=== PATIENT | male | born 1950 | race Caucasian/White ===

== ENCOUNTER 2016-06-14 23:37 | Emergency (ER) | payer MEDICARE, BC ==
[2016-06-15] MEDS ORDERED: NS 0.9% 1000 ML* 1,000 ML IV ONE (00:30)
[2016-06-15 01:17] LABS: Hematocrit 31 % (42-52); Hemoglobin 10.3 g/dl (14.0-18.0); Mean Corpuscular HGB Conc 33 g/dl (31-36); Mean Corpuscular Hemoglobin 31 pg (27-31); Mean Corpuscular Volume 93 fL (80-94); Mean Platelet Volume 7 um3 (7.4-10.4); Red Blood Count 3.33 10^6/ul (4.0-5.4); Red Cell Distribution Width 16 % (10.5-15); White Blood Count 7.3 10^3/ul (3.5-10.8)
[2016-06-15 01:26] LABS: Add Diff/Slide Review? Slide Review Added; Comments Flag Yes
[2016-06-15 01:28] LABS: Albumin 3.7 g/dL (3.2-5.2); BUN/Creatinine Ratio 29.6 (8-20); Calcium 9.7 mg/dL (8.6-10.3); EGFR African American 88.2 (>60); EGFR Non-African American 68.6 (>60); Globulin 4.5 g/dL (2-4); Potassium 4.1 mmol/L (3.5-5.0); Total Bilirubin 0.5 mg/dL (0.2-1.0); Total Protein 8.2 g/dL (6.4-8.9)
[2016-06-15 01:50] LABS: Hypochromasia 2+; Immature Granulocytes 20 % (0-9); Macrocytosis 1+; Microcytosis 1+; Neutrophil % 70 % (38-83); Polychromasia 1+
[2016-06-15 03:05] LABS: Urine Bilirubin Negative (Negative); Urine Glucose Negative (Negative); Urine Nitrite Negative (Negative)
--- NOTE | 2016-06-15 04:19 | ED ---
Virginia Lara Michael, scribed for Liliya Dominguez MD on 06/15/16 at 0038 . Complex/Multi-Sys Presentation - HPI Summary HPI Summary: 65 y/o male comes to the ED due to accidentally pulling on his feeding tube tonight at 2230. 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 He also presents with lightheadedness and recent mechanical falls for the past few days. The pt has ecchymosis and swelling of the left shoulder. He denies vomiting and all other symptoms. - History Of Current Complaint Chief Complaint: EDGeneral Time Seen by Provider: 06/15/16 00:08 Hx Obtained From: Patient, Medical Records Onset/Duration: Gradual Onset, Lasting Hours, Still Present Timing: Intermittent, Lasting: Severity Currently: Mild Severity Initially: Mild Associated Signs And Symptoms: Positive: Other - left shoulder swelling and ecchymosis. lightheadedness.. Negative: Vomiting - Allergies/Home Medications Allergies/Adverse Reactions: Allergies Allergy/AdvReac Type Severity Reaction Status Date / Time No Known Allergies Allergy Verified 05/30/15 13:12 PMH/Surg Hx/FS Hx/Imm Hx Endocrine/Hematology History: Denies: Hx Diabetes, Hx Systemic Lupus Erythematosus Cardiovascular History: Reports: Hx Hypercholesterolemia Denies: Hx Congestive Heart Failure, Hx Hypertension, Hx Pacemaker/ICD Respiratory History: Reports: Hx Pneumonia, Other Respiratory Problems/ Disorders - CURRENT L PNEUMONIA- D/[place] [facility] [place] AMOX Denies: Hx Asthma, Hx Chronic Obstructive Pulmonary Disease (COPD), Hx Lung Cancer - Pt denied GI History: Reports: Hx Gastroesophageal Reflux Disease, Hx Gastrointestinal Bleed, Hx Hiatal Hernia, Other GI Disorders - PEG tube History: Reports: Hx Benign Prostatic Hyperplasia, Other Problems/ Disorders - BPH Denies: Hx Dialysis, Hx Renal Disease Musculoskeletal History: Reports: Hx Arthritis - back and hip, Hx Back Problems - surgeries x2 Denies: Hx Rheumatoid Arthritis Comment Only: Other Musculoskeletal History - L hip surgery Sensory History: Reports: Hx Contacts or Glasses Denies: Hx Cataracts, Hx Hearing Aid Opthamlomology History: Reports: Hx Contacts or Glasses Denies: Hx Cataracts Neurological History: Reports: Other Neuro Impairments/Disorders - epidural abscess Denies: Hx Dementia, Hx Seizures Psychiatric History: Reports: Hx Depression Denies: Hx Panic Disorder - Cancer History Cancer Type, Location and Year: tongue CA Hx Chemotherapy: Yes Hx Radiation Therapy: Yes - Surgical History Surgery Procedure, Year, and Place: peg tube placement 04/04 [facility] [place] left hip replacement 2007 [facility]. lumbar back surgery many yrs ago [facility]. left wrist orif many yrs ago. Trach Hx Anesthesia Reactions: No Infectious Disease History: No Infectious Disease History: Denies: Traveled Outside the [place] in Last 30 Days - Family History Known Family History: Positive: None - no malignant hyperthermia. no anesthesia reaction. Family History: CA to father - Social History Occupation: Retired Lives: With Family Alcohol Use: None Hx Substance Use: No Substance Use Type: Reports: None Hx Tobacco Use: Yes Smoking Status (MU): Former Smoker Type: Cigarettes Length of Time of Smoking/Using Tobacco: 7 years Have You Smoked in the Last Year: No Review of Systems Negative: Fever Negative: Vomiting Positive: Other - swelling/ecchymosis of left shoulder Neurological: Other - lightheadedness All Other Systems Reviewed And Are Negative: Yes Physical Exam Triage Information Reviewed: Yes Vital Signs On Initial Exam: Initial Vitals Temp Pulse Resp BP Pulse Ox 97.8 F 105 20 90/62 100 06/14/16 23:40 06/14/16 23:40 06/14/16 23:40 06/14/16 23:40 06/14/16 23:40 Vital Signs Reviewed: Yes Appearance: Positive: Well-Appearing, No Pain Distress Skin: Positive: Warm, Skin Color Reflects Adequate Perfusion, Dry Eyes: Positive: EOMI, BJ ENT: Positive: Pharynx normal, TMs normal, Other - trach tube inplace. Neck: Positive: Supple, Nontender Respiratory/Lung Sounds: Positive: Clear to Auscultation, Breath Sounds Present. Negative: Rales, Rhonchi, Wheezes Cardiovascular: Positive: Tachycardia, Other - no gallops. Negative: Murmur, Rub Abdomen Description: Positive: Nontender, Soft, Other: - no rebound. feeding tube out with gastric contents coming out.. Negative: Distended, Guarding Bowel Sounds: Positive: Present Musculoskeletal: Positive: Strength/ROM Intact, Other - left shoulder green/ blue hematoma over humeral head. Negative: Edema Left, Edema Right Neurological: Positive: Sensory/Motor Intact, Alert, Oriented to Person Place, Time, CN Intact II-III Psychiatric: Positive: Affect/Mood Appropriate Diagnostics - Vital Signs Vital Signs Temp Pulse Resp BP Pulse Ox 06/14/16 23:40 97.8 F 105 20 90/62 100 - Laboratory Lab Results: Lab Results 06/15/16 06/15/16 06/15/16 Range/Units 01:00 01:00 02:50 WBC 7.3 (3.5-10.8) 10^3/ul RBC 3.33 L (4.0-5.4) 10^6/ul Hgb 10.3 L (14.0-18.0) g/dl Hct 31 L (42-52) % MCV 93 (80-94) fL MCH 31 (27-31) pg MCHC 33 (31-36) g/dl RDW 16 H (10.5-15) % Plt Count 228 (150-450) 10^3/ul MPV 7 L (7.4-10.4) um3 Immature Gran % (Auto) 20 H (0-9) % Neut % (Auto) 82.8 (38-83) % Lymph % (Auto) 9.1 L (25-47) % Pope % (Auto) 5.8 (1-9) % Eos % (Auto) 1.2 (0-6) % Baso % (Auto) 1.1 (0-2) % Absolute Neuts (auto) 6.0 (1.5-7.7) 10^3/ul Absolute Lymphs (auto) 0.7 L (1.0-4.8) 10^3/ul Absolute Monos (auto) 0.4 (0-0.8) 10^3/ul Absolute Eos (auto) 0.1 (0-0.6) 10^3/ul Absolute Basos (auto) 0.1 (0-0.2) 10^3/ul Absolute Nucleated RBC 0.01 10^3/ul Neutrophils % 70 (38-83) % Band Neutrophils % 20 H (0-8) % Lymphocytes % 4 L (25-47) % Monocytes % 6 (0-13) % Nucleated RBC % 0.1 Normal RBC Morphology Not Reportable Polychromasia 1+ Hypochromasia 2+ Microcytosis 1+ Macrocytosis 1+ Sodium 130 L (133-145) mmol/L Potassium 4.1 (3.5-5.0) mmol/L Chloride 95 L (101-111) mmol/L Carbon Dioxide 24 (22-32) mmol/L Anion Gap 11 (2-11) mmol/L BUN 32 H (6-24) mg/dL Creatinine 1.08 (0.67-1.17) mg/dL Est GFR ( Amer) 88.2 (>60) Est GFR (Non-Af Amer) 68.6 (>60) BUN/Creatinine Ratio 29.6 H (8-20) Glucose 107 H (70-100) mg/dL Calcium 9.7 (8.6-10.3) mg/dL Total Bilirubin 0.50 (0.2-1.0) mg/dL AST 19 (13-39) U/L ALT 15 (7-52) U/L Alkaline Phosphatase 100 (34-104) U/L Total Protein 8.2 (6.4-8.9) g/dL Albumin 3.7 (3.2-5.2) g/dL Globulin 4.5 H (2-4) g/dL Albumin/Globulin Ratio 0.8 L (1-3) Urine Color Yellow Urine Appearance Clear Urine pH 8.0 (5-9) Ur Specific [place] 1.008 L (1.010-1.030) Urine Protein Negative (Negative) Urine Ketones Negative (Negative) Urine Blood Negative (Negative) Urine Nitrate Negative (Negative) Urine Bilirubin Negative (Negative) Urine Urobilinogen Negative (Negative) Ur Leukocyte Esterase Negative (Negative) Urine Glucose Negative (Negative) Urine Ascorbic Acid * H (Negative) Result Diagrams: 06/15/16 01:00 06/15/16 01:00 Lab Statement: Any lab studies that have been ordered have been reviewed, and results considered in the medical decision making process. - Radiology ABD XR Xray Interpretation: Positive (See Comments) - feeding tube is in place Radiology Interpretation Completed By: ED Physician Complex Multi-Symp Course/Dx Course Of Treatment: 65 yo male who accidentally pulled out peg tube shortly before arrival. tube replaced here with gastrograffin kub showing tube is in correct place. Of note mentioned he has been having low bp's with falls recently left shoulder bruising. Pt was orthostatic on exam, got two liters of fluid with good results. We discussed increasing the water content of his tube feeds, which he will discuss with his pmd - Diagnoses Provider Diagnoses: Dehydration, Attention to G-tube Discharge - Discharge Plan Condition: Stable Disposition: HOME Patient Education Materials: Dehydration (ED) Referrals: Ana Wallace MD [Primary Care Provider] - Additional Instructions: Please follow up with Dr. Wallace within the next 2-3 days. The documentation as recorded by the Virginia ding Michael accurately reflects the service I personally performed and the decisions made by me, Liliya Dominguez MD.
[2016-06-15 04:20] VITALS: BP 121/74
--- NOTE | 2016-06-15 08:28 | RAD ---
Indication: Check position of G-tube. History of esophageal cancer. Comparison: February 12, 2016 and January 25, 2016 CT. Technique: Supine abdomen radiograph obtained following injection of Gastrografin through the percutaneous gastric tube. Report: Contrast opacifies the gastric tube as well as the stomach and first and second segments of the duodenum. No contrast extravasation evident. Unremarkable bowel gas pattern with note of moderately large volume of formed stool in the colon. No suspicious calcifications or mass effect. Multilevel anterior and posterior lumbar sacral spine fusion hardware. Unremarkable soft tissue contours. Grossly clear visualized lung bases. Tip of RIGHT chest wall port visualized at level of the RIGHT atrium. IMPRESSION: Patent percutaneous feeding tube at the stomach documented.
== END 2016-06-15 04:20 | disposition home or self-care (01) ==
LOC: ED 23:37
DX: Z43.1 Encounter for attention to gastrostomy (principal); R42 Dizziness and giddiness; Z87.891 Personal history of nicotine dependence; E86.0 Dehydration
CPT/HCPCS: 36415; 74000; 80053; 81003; 85025; 96360; 99283

== ENCOUNTER 2016-07-02 19:52 | Emergency (ER) | payer MEDICARE, BC ==
[2016-07-02 19:56] VITALS: BP 120/67
--- NOTE | 2016-07-02 21:42 | RAD ---
Indication: G-tube replacement. Single view of the abdomen demonstrates contrast in the stomach. G-tube appears to be appropriately IMPRESSION: G-tube contrast appears to be within the stomach.
--- NOTE | 2016-07-10 14:09 | ED ---
Virginia Lara Michael, scribed for Angella Torres MD on 07/02/16 at 2045 . GI/ HPI - HPI Summary HPI Summary: 65 y/o male comes to the ED after his gastric tube was pulled out tonight at 1900. He denies abd pain and all other symptoms. The PMHx is significant for tongue CA which is why the G-tube was placed originally.G tube placed about 6 months ago - History of Current Complaint Chief Complaint: EDGeneral Time Seen by Provider: 07/02/16 20:38 Stated Complaint: FEEDING PROBLEM Hx Obtained From: Patient, Medical Records Onset/Duration: Started Hours Ago, Still Present Timing: Constant Severity: Mild Current Severity: Mild Pain Intensity: 0 Pain Characteristics: Other: - no pain Associated Signs and Symptoms: Positive: Negative. Negative: Abdominal Pain - Additional Pertinent History Primary Care Physician: JENNIFER - Allergy/Home Medications Allergies/Adverse Reactions: Allergies Allergy/AdvReac Type Severity Reaction Status Date / Time No Known Allergies Allergy Verified 07/02/16 20:18 PMH/Surg Hx/FS Hx/Imm Hx Endocrine/Hematology History: Denies: Hx Diabetes, Hx Systemic Lupus Erythematosus Cardiovascular History: Reports: Hx Hypercholesterolemia Denies: Hx Congestive Heart Failure, Hx Hypertension, Hx Pacemaker/ICD Respiratory History: Reports: Hx Pneumonia, Other Respiratory Problems/ Disorders - CURRENT L PNEUMONIA- [place] [facility] [place] Denies: Hx Asthma, Hx Chronic Obstructive Pulmonary Disease (COPD), Hx Lung Cancer - Pt denied GI History: Reports: Hx Gastroesophageal Reflux Disease, Hx Gastrointestinal Bleed, Hx Hiatal Hernia, Other GI Disorders - PEG tube History: Reports: Hx Benign Prostatic Hyperplasia, Other Problems/ Disorders - BPH Denies: Hx Dialysis, Hx Renal Disease Musculoskeletal History: Reports: Hx Arthritis - back and hip, Hx Back Problems - surgeries x2 Denies: Hx Rheumatoid Arthritis Comment Only: Other Musculoskeletal History - L hip surgery Sensory History: Reports: Hx Contacts or Glasses Denies: Hx Cataracts, Hx Hearing Aid Opthamlomology History: Reports: Hx Contacts or Glasses Denies: Hx Cataracts Neurological History: Reports: Other Neuro Impairments/Disorders - epidural abscess Denies: Hx Dementia, Hx Seizures Psychiatric History: Reports: Hx Depression Denies: Hx Panic Disorder - Cancer History Cancer Type, Location and Year: tongue CA Hx Chemotherapy: Yes Hx Radiation Therapy: Yes - Surgical History Surgery Procedure, Year, and Place: peg tube placement 04/04 [facility] [place] left hip replacement 2007 [facility]. lumbar back surgery many yrs ago [facility]. left wrist orif many yrs ago. Trach Hx Anesthesia Reactions: No - Immunization History Date of Tetanus Vaccine: unk Date of Influenza Vaccine: utd Infectious Disease History: No Infectious Disease History: Denies: Traveled Outside the [place] in Last 30 Days - Family History Known Family History: Positive: None - no malignant hyperthermia. no anesthesia reaction. Family History: CA to father - Social History Occupation: Retired Lives: With Family Alcohol Use: None Hx Substance Use: No Substance Use Type: Reports: None Hx Tobacco Use: Yes Smoking Status (MU): Former Smoker Type: Cigarettes Length of Time of Smoking/Using Tobacco: 7 years Have You Smoked in the Last Year: No Review of Systems Negative: Fever Positive: Other - feeding tube displaced. Negative: Abdominal Pain All Other Systems Reviewed And Are Negative: Yes Physical Exam Triage Information Reviewed: Yes Vital Signs On Initial Exam: Initial Vitals Temp Pulse Resp BP Pulse Ox 98.1 F 96 20 120/67 100 07/02/16 19:55 07/02/16 19:55 07/02/16 19:55 07/02/16 19:55 07/02/16 19:55 Vital Signs Reviewed: Yes Appearance: Positive: Well-Appearing, No Pain Distress, Well-Nourished Skin: Positive: Warm, Skin Color Reflects Adequate Perfusion, Dry Head/Face: Positive: Normal Head/Face Inspection Eyes: Positive: EOMI, BJ, Conjunctiva Clear ENT: Positive: Normal ENT inspection, Hearing grossly normal Neck: Positive: Supple, Nontender Respiratory/Lung Sounds: Positive: Clear to Auscultation, Breath Sounds Present. Negative: Rales, Rhonchi, Wheezes Cardiovascular: Positive: RRR, Pulses are Symmetrical in both Upper and Lower Extremities. Negative: Murmur, Rub Abdomen Description: Positive: Nontender, No Organomegaly, Soft, Other: - feeding tube out without signs of infection or irritation. Negative: Distended , Guarding, Peritoneal Signs Bowel Sounds: Positive: Present Musculoskeletal: Positive: Strength/ROM Intact Neurological: Positive: Sensory/Motor Intact, Alert, Oriented to Person Place, Time, Normal Gait. Negative: Cerebellar Dysfunction Psychiatric: Positive: Affect/Mood Appropriate - [place] Coma Scale Coma Scale Total: 15 Diagnostics - Vital Signs Vital Signs Temp Pulse Resp BP Pulse Ox 07/02/16 20:16 98.1 F 96 20 120/67 100 07/02/16 19:55 98.1 F 96 20 120/67 100 - Laboratory Lab Statement: Any lab studies that have been ordered have been reviewed, and results considered in the medical decision making process. - Radiology Abd XR Xray Interpretation: Positive (See Comments) - G-tube contrast appears to be within the stomach Radiology Interpretation Completed By: Radiologist MATT Course/Dx - Diagnoses Provider Diagnoses: gastric tube replacement Discharge - Discharge Plan Condition: Stable Disposition: HOME Patient Education Materials: How to Use and Care for Your PEG Tube (ED) Referrals: Kota Bernard MD [Primary Care Provider] - Additional Instructions: You should follow up with Dr. Bernard within the next 2-3 days. The documentation as recorded by the Virginia ding Michael accurately reflects the service I personally performed and the decisions made by Brian beebe Afoma Frances, MD.
== END 2016-07-02 21:57 | disposition home or self-care (01) ==
LOC: ED 19:52
DX: Z43.1 Encounter for attention to gastrostomy (principal)
CPT/HCPCS: 74000; 99282

== ENCOUNTER → 2016-07-18 06:11 | Emergency (ER) | payer MEDICARE, BC ==
--- NOTE | 2016-07-18 08:49 | RAD ---
HISTORY: Feeding tube placement COMPARISONS: July 17, 2016 VIEWS: Frontal views of the abdomen, obtained after injection of water-soluble contrast through a gastrostomy tube.. FINDINGS: BOWEL: Oral contrast is noted within the stomach and proximal duodenum. There is no extravasation. A gastrostomy tube is noted. CALCULI: There are no abnormal calculi. BONES AND SOFT TISSUES: The patient is status post spinal fusion and left hip arthroplasty OTHER FINDINGS: The lung bases are clear. There is no subphrenic gas. IMPRESSION: ORAL CONTRAST IS NOTED WITHIN THE UPPER GI TRACT, WITHOUT EXTRAVASATION.
--- NOTE | 2016-07-18 09:34 | ED ---
Tomas Lara Billy, scribed for Phil Paula MD on 07/18/16 at 0725 . GI/ HPI - HPI Summary HPI Summary: This is a 66 year-old male with a history of head and neck cancer coming to [facility] for evaluation of a displaced 22-Tajik PEG tube this morning. Per patient and family present, the tube became displaced when he coughed at approximately 0400. They report that this has occurred numerous times in the last two months. It was originally placed by Dr. Damon (gastroenterology) on . He states that he is in pain at this time, when he has not complained of pain during previous episodes. He was seen in the ED yesterday for the same complaint, and the tube was placed back in place by Dr. Orta. - History of Current Complaint Chief Complaint: EDGeneral Time Seen by Provider: 07/18/16 07:15 Stated Complaint: FEEDING TUBE PROBLEM Hx Obtained From: Patient, Family/Gas Examiner Onset/Duration: Started Hours Ago Timing: Constant Severity: Moderate Current Severity: Moderate Pain Intensity: 6 - At the site of the PEG tube. Associated Signs and Symptoms: Positive: Negative Aggravating Factor(s): Nothing Alleviating Factor(s): Nothing - Additional Pertinent History Primary Care Physician: [id number] - Allergy/Home Medications Allergies/Adverse Reactions: Allergies Allergy/AdvReac Type Severity Reaction Status Date / Time No Known Allergies Allergy Verified 07/02/16 20:18 PMH/Surg Hx/FS Hx/Imm Hx Endocrine/Hematology History: Denies: Hx Diabetes, Hx Systemic Lupus Erythematosus Cardiovascular History: Reports: Hx Hypercholesterolemia Denies: Hx Congestive Heart Failure, Hx Hypertension, Hx Pacemaker/ICD Respiratory History: Reports: Hx Pneumonia, Other Respiratory Problems/ Disorders - CURRENT L PNEUMONIA- D/C FROM [facility] [place] 12/[place] ON AMOX Denies: Hx Asthma, Hx Chronic Obstructive Pulmonary Disease (COPD), Hx Lung Cancer - Pt denied GI History: Reports: Hx Gastroesophageal Reflux Disease, Hx Gastrointestinal Bleed, Hx Hiatal Hernia, Other GI Disorders - PEG tube History: Reports: Hx Benign Prostatic Hyperplasia, Other Problems/ Disorders - BPH Denies: Hx Dialysis, Hx Renal Disease Musculoskeletal History: Reports: Hx Arthritis - back and hip, Hx Back Problems - surgeries x2 Denies: Hx Rheumatoid Arthritis Comment Only: Other Musculoskeletal History - L hip surgery Sensory History: Reports: Hx Contacts or Glasses Denies: Hx Cataracts, Hx Hearing Aid Opthamlomology History: Reports: Hx Contacts or Glasses Denies: Hx Cataracts Neurological History: Reports: Other Neuro Impairments/Disorders - epidural abscess Denies: Hx Dementia, Hx Seizures Psychiatric History: Reports: Hx Depression Denies: Hx Panic Disorder - Cancer History Cancer Type, Location and Year: tongue CA Hx Chemotherapy: Yes Hx Radiation Therapy: Yes - Surgical History Surgery Procedure, Year, and Place: peg tube placement 04/04 [facility] [place]. left hip replacement 2007 [facility]. lumbar back surgery many yrs ago [facility]. left wrist orif many yrs ago. Trach Hx Anesthesia Reactions: No - Immunization History Date of Tetanus Vaccine: unk Date of Influenza Vaccine: utd Infectious Disease History: Yes Infectious Disease History: Denies: Traveled Outside the US in Last 30 Days - Family History Family History: There is no documented family history of malignant hyperthermia or anesthesia reaction. There is a history of unspecified cancer in the father. - Social History Alcohol Use: None Hx Substance Use: No Substance Use Type: Reports: None Hx Tobacco Use: Yes Smoking Status (MU): Former Smoker Type: Cigarettes Length of Time of Smoking/Using Tobacco: 7 years Have You Smoked in the Last Year: No Review of Systems Negative: Fever Respiratory: Other - tracheal tube in place Gastrointestinal: Other - PEG tube displacement All Other Systems Reviewed And Are Negative: Yes Physical Exam - Summary Physical Exam Summary: VITAL SIGNS: Reviewed. GENERAL: Patient is an elderly male who is lying comfortable in the stretcher. Patient is not in any acute respiratory distress. There is a tracheal tube in place. HEAD AND FACE: No signs of trauma. No ecchymosis, hematomas or skull depressions. No sinus tenderness. EYES: PERRLA, EOMI x 2, No injected conjunctiva, no nystagmus. EARS: Hearing grossly intact. Ear canals and tympanic membranes are within normal limits. MOUTH: Oropharynx within normal limits. NECK: Supple, trachea is midline, no adenopathy, no JVD, no carotid bruit, no c- spine tenderness, neck with full ROM. CHEST: Symmetric, no tenderness at palpation LUNGS: Clear to auscultation bilaterally. No wheezing or crackles. CVS: Regular rate and rhythm, S1 and S2 present, no murmurs or gallops appreciated. ABDOMEN: Soft, non-tender. There is a dislodged feeding tube. No signs of distention. No rebound no guarding, and no masses palpated. Bowel sounds are normal. EXTREMITIES: FROM in all major joints, no edema, no cyanosis or clubbing. NEURO: Alert and oriented x 3. No acute neurological deficits. Speech is normal and follows commands. SKIN: Dry and warm Triage Information Reviewed: Yes Vital Signs On Initial Exam: Initial Vitals Temp Pulse Resp BP Pulse Ox 97.7 F 73 24 117/68 99 07/18/16 06:21 07/18/16 06:21 07/18/16 06:21 07/18/16 06:21 07/18/16 06:21 Vital Signs Reviewed: Yes - Slaughter Coma Scale Coma Scale Total: 15 Diagnostics - Vital Signs Vital Signs Temp Pulse Resp BP Pulse Ox 07/18/16 06:28 74 99 07/18/16 06:25 117/68 07/18/16 06:21 97.7 F 73 24 117/68 99 - Laboratory Lab Statement: Any lab studies that have been ordered have been reviewed, and results considered in the medical decision making process. - Radiology Abd xray Radiology Interpretation Completed By: Radiologist - ORAL CONTRAST IS NOTED WITHIN THE UPPER GI TRACT, WITHOUT EXTRAVASATION. GIGU Course/Dx - Course Assessment/Plan: This is a 66 year-old male with a history of head and neck cancer coming to [facility] for evaluation of a displaced 22-Tajik PEG tube this morning. Per patient and family present, the tube became displaced when he coughed at approximately 0400. They report that this has occurred numerous times in the last two months. It was originally placed by Dr. Damon ( gastroenterology) on 04/11/16. He states that he is in pain at this time, when he has not complained of pain during previous episodes. He was seen in the ED yesterday for the same complaint, and the tube was placed back in place by Dr. Orta. The G-tube was placed without any difficulty. To confirm placement, we ordered an x-ray with gastrographing. The patient feels comfortable, he has no pain, he is hemodynamically stable, and will be discharged home to follow up with PCP as well as Dr. Damon (GI). - Diagnoses Differential Diagnoses - Male: Other - Feeding tube dislodge Provider Diagnoses: feeding tube replacement Discharge - Discharge Plan Condition: Stable Disposition: HOME Patient Education Materials: How to Use and Care for Your PEG Tube (ED) Referrals: Colby Damon MD [Medical Doctor] - Kota Bernard MD [Primary Care Provider] - The documentation as recorded by the Tomas ding Billy accurately reflects the service I personally performed and the decisions made by me, Phil Paula MD.
[2016-07-18 12:16] VITALS: BP 97/68
== END | disposition home or self-care (01) ==
LOC: ED 06:11
DX: K94.23 Gastrostomy malfunction (principal); Y83.3 Surgical operation with formation of external stoma as the cause of abnormal reaction of the patient, or of later complication, without mention of misadventure at the time of the procedure; Y92.9 Unspecified place or not applicable; E78.00 Pure hypercholesterolemia, unspecified; Z87.891 Personal history of nicotine dependence; C76.0 Malignant neoplasm of head, face and neck
CPT/HCPCS: 74000; 99282

== ENCOUNTER 2016-07-28 13:27 | Inpatient (IN) | payer MEDICARE, BC ==
[2016-07-28] MEDS ORDERED: NS 0.9% 1000 ML* 1,000 ML IV ONE (13:49)
[2016-07-28 14:01] LABS: Hematocrit 27 % (42-52); Hemoglobin 8.9 g/dl (14.0-18.0); Mean Corpuscular HGB Conc 33 g/dl (31-36); Mean Corpuscular Hemoglobin 30 pg (27-31); Mean Corpuscular Volume 92 fL (80-94); Mean Platelet Volume 7 um3 (7.4-10.4); Red Blood Count 2.94 10^6/ul (4.0-5.4); Red Cell Distribution Width 17 % (10.5-15); White Blood Count 11.2 10^3/ul (3.5-10.8)
[2016-07-28 14:07] LABS: Add Diff/Slide Review? Slide Review Added; Comments Flag Yes
--- NOTE | 2016-07-28 14:11 | RAD ---
HISTORY: Shortness of breath COMPARISONS: December 04, 2015 VIEWS: 2: Frontal dual-energy and lateral views of the chest. FINDINGS: CARDIOMEDIASTINAL SILHOUETTE: The cardiomediastinal silhouette is normal. SHUBHAM: The shubham are normal. PLEURA: There is loculated right pleural effusion. LUNG PARENCHYMA: There is confluent alveolar opacification of the right mid and lower lung. ABDOMEN: The upper abdomen is clear. There is no subphrenic gas. BONES AND SOFT TISSUES: The patient is status post spinal fusion OTHER: There is a right-sided chest port from a subclavian approach with the tip overlying the superior vena cava. A tracheostomy tube is noted. IMPRESSION: RIGHT MID AND LOWER LUNG CONSOLIDATION WITH A LOCULATED RIGHT PLEURAL EFFUSION
[2016-07-28 14:20] LABS: BUN/Creatinine Ratio 29.1 (8-20); Calcium 9.1 mg/dL (8.6-10.3); EGFR African American 92.9 (>60); EGFR Non-African American 72.3 (>60); Globulin 4.1 g/dL (2-4); Potassium 4.1 mmol/L (3.5-5.0); Total Bilirubin 0.7 mg/dL (0.2-1.0); Total Protein 7.1 g/dL (6.4-8.9)
[2016-07-28] MEDS ORDERED: Levofloxacin TAB* 250 MG PO ONE (14:32)
[2016-07-28 14:43] LABS: C Reactive Protein 237.1 mg/L (< 5.00)
[2016-07-28] MEDS ORDERED: Levofloxacin 750 MG IVPREMIX(* 750 MG/150 ML BAG IVPB ONE (14:44)
[2016-07-28 16:40] LABS: Urine Bilirubin Negative (Negative); Urine Glucose Negative (Negative); Urine Nitrite Negative (Negative)
[2016-07-28] MEDS: NS 0.9% 1000 ML* 1,000 ML IV SCH (19:37)
[2016-07-28] MEDS: Magnesium Oxide TAB* 400 MG SCH (21:48)
[2016-07-28] MEDS: Sodium Chloride TAB* 1 GM PEG TUBE SCH (21:48)
[2016-07-29] MEDS ORDERED: Enoxaparin(*) 40 MG/0.4 ML SYR SUBCUT SCH (01:00)
--- NOTE | 2016-07-29 03:00 | HP ---
HISTORY AND PHYSICAL: DATE OF ADMISSION: 07/28/16 REASON FOR ADMISSION: Shortness of breath, cough, and likely pneumonia. HISTORY OF PRESENT ILLNESS: Kirt Gutierrez is a 66-year-old male with a history of head and neck cancer, diagnosed in early 2014. He was treated with a combined modality therapy with high-dose cisplatin along with radiation therapy in April of 2014. He has remained with a G-tube for feedings and has remained with a trach since early 2015. He has had an episode of aspiration pneumonia in August of 2014 and an episode of parotid infection and shortness of breath in September of 2014 and esophageal dilation complicated by perforation. He subsequently developed paraspinal abscess with the strep with the question of compromise of C5. He was placed on Cipro. He had a longstanding rehab in [facility] regarding the trach and the feeding tube. He has been back to home since early 2016. He was most recently seen in the office on 06/28/16, having had multiple episodes of slumping up against a wall, he was crumpling when he would try to walk. These started in May and became more frequent, occurring several times per week. He and his partner report that he had one episode of a full syncope more recently. Most recently, these episodes are no longer occurring. He is no longer getting episodes of dizziness. When seen in the office at that point, decision was made to seek a Neurology consultation because of these syncopal- type episodes, the question of autonomic dysfunction. There was a question also of whether these relate to orthostatic hypotension and his amitriptyline was held. The patient developed shortness of breath approximately 1 week prior to this admission along with a productive progressive cough productive of antunez sputum, occasionally pink tinged. No associated chest pain or palpitations; no fevers, sweats, or chills; no sinus pressure; no sore throat; no significant aches or pains. The patient was seen in the emergency room about a week ago, at which time his G-tube was replaced. He gets all of his nutrition through his G-tube. He reports he has been taking some extra fluids since falling 3 or 4 days ago and does not believe that he injured himself significantly at that time. PAST MEDICAL HISTORY: Otherwise significant for hip replacement in 2007 with a subsequent hip surgery after infection in 2013. Status post back surgery x2, status post wrist surgery x2, status post surgery for paraspinal abscess at C5 as noted above in 2016. History of hyperlipidemia, history of chronic back pain. No hypertension, diabetes, GA, or CVA. MEDICATIONS: At this time include: 1. Citalopram 20 mg through the PEG tube daily. 2. Jevity 1.5, 5 cans per day through the PEG tube, all by boluses. 3. Lansoprazole 30 mg via PEG tube daily. 4. Levothyroxine 50 mcg through the PEG tube daily. 5. Magnesium 400 mg through the PEG tube 1 to 2 times per day. 6. Sodium chloride 1 g through the PEG tube daily. 7. Centrum liquid. 8. Tylenol p.r.n. ALLERGIES: None. FAMILY HISTORY: Father with a colon cancer in his 80s, no other malignancies. SOCIAL HISTORY: The patient has been retired for the past 3 years, smokes cigarettes but has quit 40 years ago. Alcohol: None for the past 2 years, never heavy in the past. Lives with the significant other. REVIEW OF SYSTEMS: The patient has recent stable weight on his 5 cans of Jevity per day. No significant changes in bowels or bladder. No significant chest pain. Has had a progressive shortness of breath and cough as discussed above. Review of systems are otherwise negative except as discussed above and regarding his ongoing neuropathy for which it appeared that he had been on amitriptyline which was stopped recently, but this has been stable recently. PHYSICAL EXAMINATION GENERAL: A 66-year-old male in no acute distress. VITAL SIGNS: Blood pressure 100/52, pulse 70s to 80s, T-max of 98.4. HEENT: PERRL, EOMI. No erythema or exudates. TRACHEA: The patient has a trach in place which looks normal. PEG tube in the stomach with only mild redness at the insertion site. LYMPH NODES: No palpable cervical, supraclavicular, or axillary adenopathy. LUNGS: Clear. HEART: Regular rate and rhythm without murmurs, rubs, or gallops. ABDOMEN: Soft, nontender without masses or organomegaly. BACK: No CVA or spinal tenderness. EXTREMITIES: No clubbing, cyanosis, or edema. DIAGNOSTIC STUDIES/LAB DATA: CBC with a white count of 11,200, hematocrit 27, hemoglobin 8.9, platelet count of 229,000, ANC of 10,000. Differential is essentially normal. Chemistry studies: Sodium 123 versus his norm of approximately 130 to 132. Potassium 4.1; chloride 88; bicarb 26; BUN 30 and creatinine 1.03, similar to his usual renal function. Glucose 107. Hepatic function is normal. CRP is markedly elevated at 237, although at often times has run high in past but not usually this high. Chest x-ray reveals loculated right pleural effusion along with consolidation in the right mid and lower lobes. Left side is clear. IMPRESSION AND PLAN: 1. A 66-year-old male with recent increased shortness of breath and cough, now presenting with a loculated right pleural effusion and likely infiltrate in the right lung. He has been cultured in the emergency room, has received 1 dose of Levaquin, he will be started on Zosyn. CT scan of the chest will be obtained to better define the lung abnormalities and the effusion. It should be noted that on his most recent CT scan of the chest obtained in January of 2016, there were multiple tiny, less than 5-mm left-sided lung nodules with recommendations for his followup. At that time, there was not any right-sided pleural effusion present. In addition, given the symptoms he has had with dizziness and lightheadedness along with recent infection, it would be reasonable to reimage his brain and neck soft tissue. These will be obtained along with the chest and abdominal CT tomorrow. 2. Hyponatremia. Could very well be related to underlying lung process. He has already been on sodium chloride 1 g daily. This will be increased to 4 g daily and he will be given IV fluids with normal saline. We will recheck his sodium level in the morning. If his sodium level does not come up adequately, further workup for SIADH will be obtained at that time. 3. DVT prophylaxis. The patient will be given Lovenox. 4. History of hypomagnesemia. He will be maintained on magnesium. 5. Inability to swallow. The patient will be maintained on Jevity 5 cans per day and given extra water through the PEG tube as flushes. 6. The patient requests a full code status and this will be honored. [id number]/[facility] #: [id number] [facility]
[2016-07-29] MEDS: Levothyroxine TAB* 50 MCG TAB PO SCH (05:31)
[2016-07-29 08:43] LABS: Hematocrit 23 % (42-52); Hemoglobin 7.6 g/dl (14.0-18.0); Mean Corpuscular HGB Conc 33 g/dl (31-36); Mean Corpuscular Hemoglobin 31 pg (27-31); Mean Corpuscular Volume 93 fL (80-94); Mean Platelet Volume 7 um3 (7.4-10.4); Red Blood Count 2.51 10^6/ul (4.0-5.4); Red Cell Distribution Width 17 % (10.5-15); White Blood Count 8.8 10^3/ul (3.5-10.8)
[2016-07-29 08:58] LABS: C Reactive Protein 200.5 mg/L (< 5.00); Calcium 8.5 mg/dL (8.6-10.3); EGFR African American 105.9 (>60); EGFR Non-African American 82.3 (>60); Magnesium 1.9 mg/dL (1.9-2.7); Potassium 3.6 mmol/L (3.5-5.0)
[2016-07-29 09:04] LABS: Add Diff/Slide Review? Slide Review Added; Comments Flag Yes
[2016-07-29 09:34] LABS: Hypochromasia 1+; Immature Granulocytes 16 % (0-9); Neutrophil % 74 % (38-83); Polychromasia 1+
[2016-07-29] MEDS ORDERED: Iohexol 300* (CONTRAST) 10 ML SDV IV ONE (10:16)
--- NOTE | 2016-07-29 11:28 | RAD ---
INDICATION: Dizziness, lightheaded. History of tongue cancer. COMPARISON: October 03, [address] TECHNIQUE: Multidetector CT images skull base to lung apices with 50 mL Omnipaque 300 IV contrast. Multiplanar reformation. REPORT: Artifact from dental amalgam. Tracheostomy tube in place. Soft tissue fullness/convexity at the LEFT false vocal cord and piriform recess without change. Narrow transverse dimension of the hypopharynx without change. The tongue appears atrophic with suggestion of previous partial resection of the RIGHT tongue. Small volume of retained secretions at the proximal esophagus. Negative for lymphadenopathy of the neck. Unremarkable parotid and submandibular glands. Symmetric parapharyngeal fat. Patent bilateral internal jugular veins. RIGHT chest port in place. Clear paranasal sinuses. Interval improvement in magnitude of RIGHT mastoid effusions. Postsurgical change of bilateral C3-C6 decompressive laminectomy. Reactive sclerosis at C5-C6 secondary to advanced degenerative spondylosis. No suspicious focal osseous lesions evident. IMPRESSION: 1. Postsurgical change and atrophy at the tongue. 2. Tracheostomy tube in place. Decompression of the more proximal airway and unchanged soft tissue fullness/convexity at the LEFT false vocal cords and piriform recess. 3. Negative for lymphadenopathy of the neck. 4. Negative for internal jugular vein thrombosis. 5. Additionally referred to CT brain and CT chest exams of the same date.
[2016-07-29] MEDS: Enoxaparin(*) 40 MG/0.4 ML SYR SUBCUT SCH (11:30)
--- NOTE | 2016-07-29 11:47 | RAD ---
Indication: Head and neck cancer. Dizziness and lightheaded. Comparison: No relevant prior exams available on the [facility] PACS for comparison. Technique: Noncontrast and contrast-enhanced CT vertex of skull through foramen magnum. Omnipaque 300 contrast administered IV. Report: Mild prominence of the cerebral sulci and cerebellar fissures reflecting volume loss. Unremarkable ventricles and basal cisterns. Negative for lanier matter white matter obscuration, intra or extra-axial hemorrhage, or mass effect. No intra or intra-axial lesions or abnormal foci of enhancement evident. No suspicious calvarial or skull base lesions evident. Mild retained secretions at the RIGHT frontoethmoidal recess. Negative for paranasal sinus fluid levels. Mild chronic RIGHT mastoid effusions. IMPRESSION: No evidence for brain metastasis or other acute intracranial process.
--- NOTE | 2016-07-29 12:04 | RAD ---
INDICATION: Assess lung nodules and pleural effusions. Head and neck cancer. COMPARISON: January 25, 2016 CT. TECHNIQUE: Multidetector CT images were obtained from the lung apices to the iliac crests without contrast. Assessment of the viscera limited without contrast. CHEST REPORT: Moderately large RIGHT pleural effusion with uniform thin enhancement of the parietal pleura and proportional atelectasis of the RIGHT lung. Small dependent LEFT pleural effusion without compelling pleural enhancement. Proportional minimal LEFT lower lobe atelectasis. 5 mm subpleural nodule at the lateral basal segment of the LEFT lower lobe on image 33 is unchanged. Mediastinal and RIGHT hilar lymphadenopathy with interval increase. 1.7 cm short axis RIGHT paratracheal node previously measured 1.0 cm. 1.5 cm short axis RIGHT suprahilar node previously measured 0.8 cm. 1.1 cm short axis AP window lymph node previously measured 0.9 cm. Negative for axillary or supraclavicular lymphadenopathy. Negative for cardiomegaly or pericardial effusion. Mild atherosclerotic plaque of normal diameter thoracic aorta. No gross abnormality of the central pulmonary arteries. Negative for suspicious focal thoracic osseous lesions. Multilevel degenerative spondylosis. Multilevel thoracic spine compression fractures with a new mild anterior column fracture at T9 and progression of fractures T8 and T7 compared with the 2016 exam. Trabecular condensation at the superior endplate of the T7 vertebral body suggests the fracture may be acute or subacute. There is no dorsal bulging of the middle column or paraspinal hematoma. CHEST IMPRESSION: 1. Moderately large RIGHT pleural effusion with parietal enhancement which may reflect malignant effusion or empyema; correlate with clinical assessment. Significant interval increase in RIGHT pleural fluid volume compared with the 2016 exam. 2. Progression of multilevel thoracic compression fractures likely osteoporotic compared with the 2016 exam. No resulting central canal stenosis or paravertebral hematoma evident. ABDOMEN REPORT: Artifact from multilevel lumbar spine anterior and posterior fusion hardware. The liver demonstrates a nodular surface contour consistent with cirrhosis. No focal hepatic lesions or biliary dilatation. No CT abnormality of the gallbladder. Atrophic pancreas without suspicious finding. Mildly enlarged 14.1 cm cephalocaudal spleen increased from 13.5 cm previously. Upper normal size spleen. Percutaneous gastric feeding tube in place. No suspicious finding of the visualized bowel loops. Only trace perihepatic and perisplenic ascites. Negative for free air. Partially visualized small periumbilical fat-containing hernia without suggestion of inflammatory change. Normal adrenal glands. Unremarkable kidneys with symmetric nephrograms and pyelograms. Negative for retroperitoneal or mesenteric lymphadenopathy within the [id number]. Atherosclerotic calcification of normal diameter abdominal aorta. Partial physiologic distention of the IVC. No suspicious focal osseous lesions evident. ABDOMEN IMPRESSION: 1. Cirrhotic morphology liver. No focal hepatic lesions evident. 2. Mild splenomegaly with interval increase. 3. Trace abdominal ascites. 4. Negative for abdominal lymphadenopathy.
[2016-07-29] MEDS: Citalopram TAB* 20 MG PEG TUBE SCH (12:05)
[2016-07-29] MEDS: Lansoprazole susp Kit 3 MG/ML (15 MG = 5 ML) G TUBE SCH (12:05)
[2016-07-29] MEDS: Sodium Chloride TAB* 1 GM PEG TUBE SCH ×2 (12:05→21:56)
[2016-07-29] MEDS: Magnesium Oxide TAB* 400 MG SCH ×2 (12:06→21:57)
--- NOTE | 2016-07-29 18:07 | ED ---
Francisco Javier Lara Aidan, scribed for Phil Paula MD on 07/28/16 at 1357 . Shortness of Breath - HPI Summary HPI Summary: 66 y/o male presents to the ED with a complaint of acute, constant, moderate SOB that has persisted for roughly 1 week and became more severe today. Associated symptoms include a productive cough producing thick, yellow, phlegm. Pt denies any CP, fevers, nausea, vomiting, chest congestion, or abdominal pain. Hx of hypotension with associated weakness and falls. - History of Current Complaint Chief Complaint: EDRespiratoryDistress Time Seen by Provider: 07/28/16 13:42 Hx Obtained From: Patient Onset/Duration: Sudden Onset, Lasting Hours, Still Present Timing: Constant Current Severity: Moderate Dyspnea At: Rest Aggrevating Factors: Nothing - unknown Alleviating Factors: Nothing - unknown Associated Signs & Symptoms: Cough (Productive) - producing thick yellow phlegm - Risk Factors Pulmonary Embolism: Smoking - former smoker Cardiac: Smoking - former smoker - Allergy/Home Medications Allergies/Adverse Reactions: Allergies Allergy/AdvReac Type Severity Reaction Status Date / Time No Known Allergies Allergy Verified 07/28/16 15:11 PMH/Surg Hx/FS Hx/Imm Hx Endocrine/Hematology History: Denies: Hx Diabetes, Hx Systemic Lupus Erythematosus Cardiovascular History: Reports: Hx Hypercholesterolemia, Hx Hypotension - with associated weakness and falls Denies: Hx Congestive Heart Failure, Hx Hypertension, Hx Pacemaker/ICD Respiratory History: Reports: Hx Pneumonia, Other Respiratory Problems/ Disorders - CURRENT L PNEUMONIA- D/C FROM [facility] [place] 12/31 ON AMOX Denies: Hx Asthma, Hx Chronic Obstructive Pulmonary Disease (COPD), Hx Lung Cancer - Pt denied GI History: Reports: Hx Gastroesophageal Reflux Disease, Hx Gastrointestinal Bleed, Hx Hiatal Hernia, Other GI Disorders - PEG tube History: Reports: Hx Benign Prostatic Hyperplasia, Other Problems/ Disorders - BPH Denies: Hx Dialysis, Hx Renal Disease Musculoskeletal History: Reports: Hx Arthritis - back and hip, Hx Back Problems - surgeries x2 Denies: Hx Rheumatoid Arthritis Comment Only: Other Musculoskeletal History - L hip surgery Sensory History: Reports: Hx Contacts or Glasses Denies: Hx Cataracts, Hx Hearing Aid Opthamlomology History: Reports: Hx Contacts or Glasses Denies: Hx Cataracts Neurological History: Reports: Other Neuro Impairments/Disorders - epidural abscess Denies: Hx Dementia, Hx Seizures Psychiatric History: Reports: Hx Depression Denies: Hx Panic Disorder - Cancer History Cancer Type, Location and Year: tongue CA Hx Chemotherapy: Yes Hx Radiation Therapy: Yes - Surgical History Surgery Procedure, Year, and Place: peg [place] [facility] [place] 2007 [facility]. lumbar back surgery many yrs ago [facility]. left wrist orif many yrs ago. Trach Hx Anesthesia Reactions: No - Immunization History Date of Tetanus Vaccine: unk Date of Influenza Vaccine: utd Infectious Disease History: No Infectious Disease History: Denies: Traveled Outside the [place] in Last 30 Days - Family History Known Family History: Positive: Cardiac Disease Family History: There is no documented family history of malignant hyperthermia or anesthesia reaction. There is a history of unspecified cancer in the father. - Social History Occupation: Retired Lives: With Family Alcohol Use: None Hx Substance Use: No Substance Use Type: Reports: None Hx Tobacco Use: Yes Smoking Status (MU): Former Smoker Type: Cigarettes Length of Time of Smoking/Using Tobacco: 7 years Have You Smoked in the Last Year: No Review of Systems Constitutional: Negative Eyes: Negative ENT: Negative Cardiovascular: Negative Positive: Shortness Of Breath, Cough Gastrointestinal: Negative Genitourinary: Negative Musculoskeletal: Negative Skin: Negative Neurological: Negative Psychological: Normal All Other Systems Reviewed And Are Negative: Yes Physical Exam - Summary Physical Exam Summary: VITAL SIGNS: Reviewed. GENERAL: Patient is a well-developed and nourished (MALE OR FEMALE) who is lying comfortable in the stretcher. Patient is not in any acute respiratory distress. HEAD AND FACE: No signs of trauma. No ecchymosis, hematomas or skull depressions. No sinus tenderness. EYES: PERRLA, EOMI x 2, No injected conjunctiva, no nystagmus. EARS: Hearing grossly intact. Ear canals and tympanic membranes are within normal limits. MOUTH: Oropharynx within normal limits. NECK: Supple, trachea is midline, no adenopathy, no JVD, no carotid bruit, no c- spine tenderness, neck with full ROM. CHEST: Symmetric, no tenderness at palpation LUNGS: Clear to auscultation bilaterally. No wheezing. trach in place with positive with mucous discharge, lungs with bilateral crackles at the base of the lungs. CVS: Regular rate and rhythm, S1 and S2 present, no murmurs or gallops appreciated. ABDOMEN: Soft, non-tender. No signs of distention. No rebound no guarding, and no masses palpated. Bowel sounds are normal. Pt has a peg tube. EXTREMITIES: FROM in all major joints, no edema, no cyanosis or clubbing. NEURO: Alert and oriented x 3. No acute neurological deficits. Speech is normal and follows commands. SKIN: Dry and warm Triage Information Reviewed: Yes Vital Signs On Initial Exam: Initial Vitals Temp Pulse Resp BP Pulse Ox 98.0 F 76 22 100/52 98 07/28/16 13:34 07/28/16 13:34 07/28/16 13:34 07/28/16 13:34 07/28/16 13:34 Vital Signs Reviewed: Yes - [place]th Coma Scale Coma Scale Total: 15 Diagnostics - Vital Signs Vital Signs Temp Pulse Resp BP Pulse Ox 07/28/16 13:36 98.4 F 73 22 100/52 100 07/28/16 13:34 98.0 F 76 22 100/52 98 - Laboratory Lab Results: Lab Results 07/28/16 07/28/16 07/28/16 Range/Units 13:53 13:53 13:53 WBC 11.2 H (3.5-10.8) 10^3/ul RBC 2.94 L (4.0-5.4) 10^6/ul Hgb 8.9 L (14.0-18.0) g/dl Hct 27 L (42-52) % MCV 92 (80-94) fL MCH 30 (27-31) pg MCHC 33 (31-36) g/dl RDW 17 H (10.5-15) % Plt Count 229 (150-450) 10^3/ul MPV 7 L (7.4-10.4) um3 Neut % (Auto) 89.7 H (38-83) % Lymph % (Auto) 4.7 L (25-47) % Wallace % (Auto) 5.3 (1-9) % Eos % (Auto) 0.1 (0-6) % Baso % (Auto) 0.2 (0-2) % Absolute Neuts (auto) 10.0 H (1.5-7.7) 10^3/ul Absolute Lymphs (auto) 0.5 L (1.0-4.8) 10^3/ul Absolute Monos (auto) 0.6 (0-0.8) 10^3/ul Absolute Eos (auto) 0 (0-0.6) 10^3/ul Absolute Basos (auto) 0 (0-0.2) 10^3/ul Absolute Nucleated RBC 0 10^3/ul Nucleated RBC % 0 Sodium 123 L (133-145) mmol/L Potassium 4.1 (3.5-5.0) mmol/L Chloride 88 L (101-111) mmol/L Carbon Dioxide 26 (22-32) mmol/L Anion Gap 9 (2-11) mmol/L BUN 30 H (6-24) mg/dL Creatinine 1.03 (0.67-1.17) mg/dL Est GFR ( Amer) 92.9 (>60) Est GFR (Non-Af Amer) 72.3 (>60) BUN/Creatinine Ratio 29.1 H (8-20) Glucose 107 H (70-100) mg/dL Lactic Acid 1.6 (0.5-2.0) mmol/L Calcium 9.1 (8.6-10.3) mg/dL Total Bilirubin 0.70 (0.2-1.0) mg/dL AST 17 (13-39) U/L ALT 13 (7-52) U/L Alkaline Phosphatase 79 (34-104) U/L Total Creatine Kinase 14 (10-223) U/L CK-MB (CK-2) 1.4 (0.6-6.3) ng/mL Myoglobin 57.7 (17.4-105.7) ng/mL Troponin I 0.00 (<0.04) ng/mL C-Reactive Protein 237.10 H (< 5.00) mg/L B-Natriuretic Peptide ( - 100) pg/mL Total Protein 7.1 (6.4-8.9) g/dL Albumin 3.0 L (3.2-5.2) g/dL Globulin 4.1 H (2-4) g/dL Albumin/Globulin Ratio 0.7 L (1-3) Urine Color Urine Appearance Urine pH (5-9) Ur Specific Wells (1.010-1.030) Urine Protein (Negative) Urine Ketones (Negative) Urine Blood (Negative) Urine Nitrate (Negative) Urine Bilirubin (Negative) Urine Urobilinogen (Negative) Ur Leukocyte Esterase (Negative) Urine Glucose (Negative) Urine Ascorbic Acid (Negative) 07/28/16 07/28/16 Range/Units 13:53 16:25 WBC (3.5-10.8) 10^3/ul RBC (4.0-5.4) 10^6/ul Hgb (14.0-18.0) g/dl Hct (42-52) % MCV (80-94) fL MCH (27-31) pg MCHC (31-36) g/dl RDW (10.5-15) % Plt Count (150-450) 10^3/ul MPV (7.4-10.4) um3 Neut % (Auto) (38-83) % Lymph % (Auto) (25-47) % Wallace % (Auto) (1-9) % Eos % (Auto) (0-6) % Baso % (Auto) (0-2) % Absolute Neuts (auto) (1.5-7.7) 10^3/ul Absolute Lymphs (auto) (1.0-4.8) 10^3/ul Absolute Monos (auto) (0-0.8) 10^3/ul Absolute Eos (auto) (0-0.6) 10^3/ul Absolute Basos (auto) (0-0.2) 10^3/ul Absolute Nucleated RBC 10^3/ul Nucleated RBC % Sodium (133-145) mmol/L Potassium (3.5-5.0) mmol/L Chloride (101-111) mmol/L Carbon Dioxide (22-32) mmol/L Anion Gap (2-11) mmol/L BUN (6-24) mg/dL Creatinine (0.67-1.17) mg/dL Est GFR ( Amer) (>60) Est GFR (Non-Af Amer) (>60) BUN/Creatinine Ratio (8-20) Glucose (70-100) mg/dL Lactic Acid (0.5-2.0) mmol/L Calcium (8.6-10.3) mg/dL Total Bilirubin (0.2-1.0) mg/dL AST (13-39) U/L ALT (7-52) U/L Alkaline Phosphatase (34-104) U/L Total Creatine Kinase (10-223) U/L CK-MB (CK-2) (0.6-6.3) ng/mL Myoglobin (17.4-105.7) ng/mL Troponin I (<0.04) ng/mL C-Reactive Protein (< 5.00) mg/L B-Natriuretic Peptide 136 H ( - 100) pg/mL Total Protein (6.4-8.9) g/dL Albumin (3.2-5.2) g/dL Globulin (2-4) g/dL Albumin/Globulin Ratio (1-3) Urine Color Yellow Urine Appearance Clear Urine pH 6.0 (5-9) Ur Specific Wells 1.010 (1.010-1.030) Urine Protein Negative (Negative) Urine Ketones Negative (Negative) Urine Blood Negative (Negative) Urine Nitrate Negative (Negative) Urine Bilirubin Negative (Negative) Urine Urobilinogen Negative (Negative) Ur Leukocyte Esterase Negative (Negative) Urine Glucose Negative (Negative) Urine Ascorbic Acid * H (Negative) Result Diagrams: 07/29/16 08:23 07/29/16 08:23 Lab Statement: Any lab studies that have been ordered have been reviewed, and results considered in the medical decision making process. - Radiology CHEST X-RAY Xray Interpretation: Positive (See Comments) - IMPRESSION: RIGHT MID AND LOWER LUNG CONSOLIDATION WITH A LOCULATED RIGHT PLEURAL EFFUSION Radiology Interpretation Completed By: Radiologist - EKG EKG 1646 Cardiac Rate: NL - 79 BPM EKG Rhythm: Sinus Rhythm EKG Interpretation: SINUS RHYTHM, NO ST ELEVATIONS Course/Dx - Course Course Of Treatment: 66 y/o male presents with SOB. Tests results showed WBC count of 11.2, chronic anemia, hyponatremia at 123, and CRP at 237. Chest x-ray was consistent with a pneumonia, therefore, the patient was started on Levaquin. I discussed findings and test results with Dr. Ramirez, and he accepted the patient for admission. The patient is hemodynamically stable and A&Ox3. - Diagnoses Differential Diagnosis/HQI/PQRI: Positive: Bronchitis, CHF, Chest Wall Pain, Pneumonia Provider Diagnoses: Pneumonia, Hyponatremia - Physician Notifications Discussed Care of Patient With: Kota Bernard Time Discussed With Above Provider: 14:43 Discharge - Discharge Plan Condition: Stable Disposition: ADMITTED TO [facility] Discharge Disposition Comment: Admit and sign out to Dr. Ramirez. The documentation as recorded by the scribe, Francisco Javier,Nael accurately reflects the service I personally performed and the decisions made by me, Phil Paula MD.
[2016-07-30] MEDS: NS 0.9% 1000 ML* 1,000 ML IV SCH ×2 (02:12→18:02)
[2016-07-30] MEDS: Levothyroxine TAB* 50 MCG TAB PO SCH (05:51)
[2016-07-30 05:58] LABS: Hematocrit 23 % (42-52); Hemoglobin 7.7 g/dl (14.0-18.0); Mean Corpuscular HGB Conc 33 g/dl (31-36); Mean Corpuscular Hemoglobin 31 pg (27-31); Mean Corpuscular Volume 93 fL (80-94); Mean Platelet Volume 7 um3 (7.4-10.4); Red Blood Count 2.49 10^6/ul (4.0-5.4); Red Cell Distribution Width 17 % (10.5-15); White Blood Count 8.8 10^3/ul (3.5-10.8)
[2016-07-30 06:19] LABS: BUN/Creatinine Ratio 24.4 (8-20); Calcium 8.4 mg/dL (8.6-10.3); EGFR African American 108.6 (>60); EGFR Non-African American 84.4 (>60); Potassium 3.6 mmol/L (3.5-5.0)
[2016-07-30] MEDS: Magnesium Oxide TAB* 400 MG SCH ×2 (09:26→21:56)
[2016-07-30] MEDS: Citalopram TAB* 20 MG PEG TUBE SCH (09:26)
[2016-07-30] MEDS: Sodium Chloride TAB* 1 GM PEG TUBE SCH ×2 (09:26→21:56)
[2016-07-30] MEDS: Enoxaparin(*) 40 MG/0.4 ML SYR SUBCUT SCH (09:28)
[2016-07-30] MEDS: Lansoprazole susp Kit 3 MG/ML (15 MG = 5 ML) G TUBE SCH (09:30)
--- NOTE | 2016-07-30 10:25 | PN ---
Progress Note - Progress Note SOAP: Subjective: []Not much different since admission. Still some SOB and fatigued. Cough and brown sputum. No fevers. 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 No fevers since admission. Citalopram Hydrobromide (Celexa Tab*) 20 mg PEG TUBE DAILY [facility] Last Admin: 07/30/16 09:26 Dose: 20 mg Enoxaparin Sodium (Lovenox(*)) 40 mg SUBCUT Q24HR [facility] Last Admin: 07/30/16 09:28 Dose: 40 mg Ergocalciferol (Drisdol Cap*) 50,000 unit PEG TUBE MONTHLY [facility] Sodium Chloride (Ns 0.9% 1000 Ml*) 1,000 mls @ 100 mls/hr IV PER RATE [facility] Last Admin: 07/30/16 02:12 Dose: 100 mls/hr Piperacillin Sod/Tazobactam (Sod 3.375 gm/ Sodium Chloride) 100 mls @ 25 mls/ hr IVPB Q8H [facility] Last Admin: 07/30/16 05:51 Dose: 25 mls/hr Lansoprazole (Lansoprazole Susp Kit) 15 mg G TUBE DAILY [facility] Levothyroxine Sodium (Synthroid Tab*) 50 mcg PO DAILY@0600 [facility] Last Admin: 07/30/16 05:51 Dose: 50 mcg Magnesium Oxide (Magox 400 Tab*) 400 mg .SEE ORDER BID [facility] Last Admin: 07/30/16 09:26 Dose: 400 mg Sodium Chloride (Sodium Chloride Tab*) 2 gm PEG TUBE BID [facility] Last Admin: 07/30/16 09:26 Dose: 2 gm Objective: [] Vital Signs Temp Pulse Resp BP Pulse Ox 98.7 F 67 16 103/64 96 07/30/16 04:01 07/30/16 04:01 07/30/16 04:01 07/30/16 04:01 07/30/16 09:00 HEENT - pale, XRT changes - chronic. Edema in neck is stable. Trach Decreased BS and some crackles both sides, no wheezing RRR S1S2 PEG, NT/ND Cx - ESBL E.Coli CT reviewed with radiology and diffuse LAD is increased from 6 months ago, infiltrate is new and effusion is increased. No clear compromise of recurrent laryngeal nerve. Neck and head CT are stable as is A/P. There is question of cirrhosis. Assessment: []66 year old history of head and neck cancer, MC since 06/2014 but many chronic complication of disease and treatment. Chronic trach and PEG. Presents with SOB, productive cough. CT with right sided pneumonia, effusion, diffuse mediastinal LAD. Ddx: infection with or without recurrent or new primary cancer. Plan: []1. Continue Zosyn but consultation wit Dr. Gomez for resistant E. Coli. 2. Drain pleural fluid, send for cytology as well as Alb, Pro, Glu and culture 3. Will obtain records from recent visit to [facility]. 4. Anemia may be from chronic disease but had increased Retic in past. Could have AIHA with lymphoma. Check Katrin. time with patient and chart 45 min
--- NOTE | 2016-07-30 10:47 | PN ---
Progress Note - Progress Note SOAP: ADDENDUM: Pneumonia - Treat Zosyn and consultation ID []
--- NOTE | 2016-07-30 13:40 | CONS ---
CONSULTATION REPORT: DATE OF CONSULTATION: 07/30/16. REQUESTING PHYSICIAN: Dr. Bernard. CONSULTING SERVICE: Infectious Disease. REASON FOR CONSULTATION: Pneumonia and pleural effusion. IMPRESSION: 1. Chronic sputum production from his tracheostomy, he states for over a year, now worsening shortness of breath. A CT scan shows a loculated right pleural effusion. The differential diagnosis does include empyema. The usual organisms are oral elvia including streptococci of the viridans group. He is also growing Escherichia coli, which is an ESBL promotion producer in his sputum, it is Zosyn sensitive. 2. Chronic tracheostomy. 3. 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 4. Status post right hip arthroplasty. 5. History of head and neck cancer treated with chemotherapy and radiation. RECOMMENDATION: Agree with Zosyn 3.375 g IV every 8 hours by extended infusion and aspiration of the fluid to include culture and cell counts to evaluate for empyema. HISTORY OF PRESENT ILLNESS: This is a 66-year-old man with a history of head and neck cancer, now with chronic tracheostomy admitted with sputum production from his tracheostomy and more shortness of breath and weakness. He feels the cough has been present for a couple of years but worse over the last couple of weeks and he feels more short of breath with exertion. He has had no fevers, chills, or sweat at home. He weight has been stable. He came to the hospital on the with a white count of 11,000. He had a CT of the chest that showed moderately large right pleural effusion, subparietal enhancement, to my eye there is loculation, it is clinging into the anterior chest wall. CT of the abdomen and pelvis showed cirrhosis and mild splenomegaly. He has had no fevers , chills, or sweats while here. He feels like his breathing is easing off a little bit. He is on 7 L oxygen and his oxygen saturation is in the high 90s. PAST MEDICAL HISTORY: 1. He had neck cancer, treated with chemotherapy and radiation. 2. History of an esophageal rupture during upper endoscopy, complicated by cervical spine epidural abscess, which was drained. 3. He has a G-tube. 4. Status post total hip arthroplasty 2007, there had been an infection. 5. Wrist surgery. 6. Hyperlipidemia. 7. Chronic back pain. MEDICATIONS: 1. Celexa. 2. Enoxaparin. 3. Ergocalciferol. 4. Levothyroxine. 5. Lansoprazole. 6. Zosyn 3.375 g IV every 8 hours. ALLERGIES: None. SOCIAL HISTORY: Lives with his . No travel. No sick contacts. FAMILY HISTORY: Father with colon cancer. There is no recurrent infection. REVIEW OF SYSTEMS: A full review of systems is negative as noted above. PHYSICAL EXAMINATION: GENERAL: He is awake. Not in distress. VITAL SIGNS: Temperature is 37, heart rate 60, respiratory rate 16, blood pressure 103/64, O2 sat 96% on 7 L. HEENT: There is no conjunctival hemorrhage. Oropharynx without lesions. NECK: There is tracheostomy without any swelling, erythema, or drainage. LYMPH NODES: There is no cervical, supraclavicular, inguinal, axillary, or epitrochlear lymphadenopathy. RESPIRATORY: Lungs are clear to auscultation. There are decreased breath sounds at the right base without wheeze or rale. CARDIAC: Regular rate and rhythm without murmurs, rubs, or gallops. ABDOMEN: Soft, nontender. There is a PEG without surrounding erythema. MUSCULOSKELETAL: There was no spine tenderness to palpation or joint synovitis. NEUROLOGIC: He is oriented x3. Follows all commands. Answers all questions. SKIN: There is no rash or splinter hemorrhages. DIAGNOSTIC STUDIES/LABORATORY DATA: White blood cell count 8.8, hemoglobin 7.7 , platelet count 194, creatinine is 0.9, CRP 200. Urinalysis is negative. Please see impressions and recommendations as outlined above, which I have discussed with Dr. Bernard. Thank you for asking me to see Mr. Gutierrez in consultation. [id number]/[facility] #: [id number] [facility]
[2016-07-31] MEDS: NS 0.9% 1000 ML* 1,000 ML IV SCH ×2 (05:11→17:56)
[2016-07-31] MEDS: Levothyroxine TAB* 50 MCG TAB PO SCH (05:12)
[2016-07-31] MEDS: Enoxaparin(*) 40 MG/0.4 ML SYR SUBCUT SCH (08:34)
[2016-07-31] MEDS: Citalopram TAB* 20 MG PEG TUBE SCH (09:57)
[2016-07-31] MEDS: Magnesium Oxide TAB* 400 MG SCH ×2 (09:57→21:28)
[2016-07-31] MEDS: Sodium Chloride TAB* 1 GM PEG TUBE SCH ×2 (09:57→21:28)
[2016-07-31] MEDS: Lansoprazole susp Kit 3 MG/ML (15 MG = 5 ML) G TUBE SCH (09:58)
--- NOTE | 2016-07-31 10:58 | PN ---
Progress Note - Progress Note SOAP: Subjective: []No big change today, still feels very crummy. Breathing stable. Plan for US guided thoracentesis this AM. No diarrhea this AM. No pain issues. Medications: Citalopram Hydrobromide (Celexa Tab*) 20 mg PEG TUBE DAILY [facility] Last Admin: 07/31/16 09:57 Dose: 20 mg Enoxaparin Sodium (Lovenox(*)) 40 mg SUBCUT Q24HR [facility] Last Admin: 07/31/16 08:34 Dose: Not Given Ergocalciferol (Drisdol Cap*) 50,000 unit PEG TUBE MONTHLY [facility] Sodium Chloride (Ns 0.9% 1000 Ml*) 1,000 mls @ 100 mls/hr IV PER RATE [facility] Last Admin: 07/31/16 05:11 Dose: 100 mls/hr Piperacillin Sod/Tazobactam (Sod 3.375 gm/ Sodium Chloride) 100 mls @ 25 mls/ hr IVPB Q8H [facility] Last Admin: 07/31/16 05:11 Dose: 25 mls/hr Lansoprazole (Lansoprazole Susp Kit) 15 mg G TUBE DAILY [facility] Last Admin: 07/31/16 09:58 Dose: 15 mg Levothyroxine Sodium (Synthroid Tab*) 50 mcg PO DAILY@0600 [facility] Last Admin: 07/31/16 05:12 Dose: 50 mcg Magnesium Oxide (Magox 400 Tab*) 400 mg .SEE ORDER BID [facility] Last Admin: 07/31/16 09:57 Dose: 400 mg Sodium Chloride (Sodium Chloride Tab*) 2 gm PEG TUBE BID [facility] Last Admin: 07/31/16 09:57 Dose: 2 gm Objective: [] Vital Signs Temp Pulse Resp BP Pulse Ox 98.1 F 58 18 96/58 97 07/31/16 07:40 07/31/16 07:40 07/31/16 08:00 07/31/16 07:40 07/31/16 07:40 A&Ox3, EOMI, JENKINS HRR, no murmur noted LS with snourous rhonchi throughout Trach benign +BS, abd. soft and non-tender Laboratory Tests 07/28/16 07/29/16 07/30/16 13:53 08:23 05:37 WBC Hgb Hct Plt Count Absolute Neuts (auto) Band Neutrophils % 16 H Sodium 129 L Chloride 99 L Creatinine 0.90 Total Bilirubin 0.70 Albumin 3.0 L Direct Antiglob Test 07/30/16 07/30/16 05:37 05:37 WBC 8.8 Hgb 7.7 L Hct 23 L Plt Count 194 Absolute Neuts (auto) 7.6 Band Neutrophils % Sodium Chloride Creatinine Total Bilirubin Albumin Direct Antiglob Test 1+ Assessment: []66 yo m with complicated medical history presented to ER With increased SOB and now presumed pneumonia. Full work-up continues. Plan: []1. Pneumonia/Effusion: felt to be infectious, cont. Zosyn IV, thoracentesis with culture and cell count today 2. Amor +: mild hemolytic anemia without liver malfunction, will consider tx. with steroids once infective process resolves.
[2016-07-31 12:57] LABS: Body Fluid Appearance Cloudy
--- NOTE | 2016-07-31 13:04 | RAD ---
CPT II Codes: 6100F INDICATION: Right-sided pleural effusion in a patient with hypoxia. COMPARISON: CT of the chest July 29, 2016 PROCEDURE NOTE AND IMAGING FINDINGS: The benefits of the and risks of procedure explained to the patient. The patient consented of the exam. The patient was brought to the ultrasound suite and multiple images of the right hemithorax were obtained. There was a small to moderate an echogenic pleural effusion present. The site was marked. A formal time out was performed before beginning the procedure. The patient was prepped and draped in the usual sterile fashion. The patient?s posterior chest wall was anesthetized with 1% lidocaine. A small skin naila was made to allow placement of the thoracentesis needle and catheter. Approximately 225 mL of opaque, yellow-tinged fluid was aspirated. The patient tolerated the procedure without incident. IMPRESSION: Uncomplicated thoracentesis as described in the body of the report.
[2016-07-31 13:15] LABS: Body Fluid WBC 101090 /mcL
[2016-07-31 14:08] LABS: Body Fluid Total Cells Counted 100
--- NOTE | 2016-07-31 15:44 | PN ---
Progress Note - Progress Note SOAP: Subjective: DOS: 07/31/16 CC: empyema HPI: 66 yo man hx head/neck cancer, chronic trach, now with malaise, cough, weakness. Loculated right pleural effusion had thoracentesis 07/30, cloudy fluid removed. No fever, chest pain improved slightly. Objective: [] Vital Signs Temp 36.7 C 07/31/16 07:40 Pulse 58 07/31/16 07:40 Resp 18 07/31/16 08:00 BP 96/58 07/31/16 07:40 Pulse Ox 96 07/31/16 14:13 Intake & Output 07/30/16 07/31/16 07/31/16 18:59 06:59 18:59 Intake Total 3819 1420 0 Output Total 200 120 400 Balance 3619 1300 -400 Intake: IV Fluids 1149 992 ABX - ZOSYN 200 NS (0.9%) 949 992 IVPB 131 ABX - ZOSYN 131 Oral 0 0 0 Tube Feeding 2400 237 Tube Feeding Flush Amount 270 60 Output: Urine 200 120 400 Other: # Bowel Movements 1 0 1 Estimated Stool Amount Medium Medium Gen:Awake, no distress Neuro:AAOx3 Neck:tracheostomy HEENT:PERRL, MMM Neck:Supple Heart:RRR no murmur Lungs: decr BS R base Abd:+BS NTND soft Skin: no rash MSK: no spine tenderness Laboratory Results - last 24 hr 07/31/16 11:50 Fluid Source Pleural fluid Fluid Volume 4.0 Fluid Color Yellow Fluid Appearance Cloudy Fluid WBC 638782 Fluid RBC 94030 Fluid Tot Cell Count 100 Fluid Neutrophils 77 Fluid Lymphocytes 23 Microbiology 07/31/16 11:50 Gram Stain - Final Pleural Fluid GPC in chains 07/29/16 00:10 Aerobic Blood Culture - Preliminary Blood Venous No Growth Day 2 Anaerobic Blood Culture - Preliminary No Growth Day 2 Blood Culture - Final 07/29/16 00:05 Aerobic Blood Culture - Preliminary Blood Venous No Growth Day 2 Anaerobic Blood Culture - Preliminary No Growth Day 2 Blood Culture - Final Assessment: 1. R chest empyema due to Strep 2. chronic trach 3. hx XRT and chemotherapy Plan: 1. Chest tube, I discussed with Dr Willis who will arrange with Dr Arellano 2. continue zosyn while awaiting species and sensitivity. Discussed with Valeria Yun [employer] 35 minutes face to face time >50% in counseling regarding next steps for treatment of empyema
[2016-08-01] MEDS: NS 0.9% 1000 ML* 1,000 ML IV SCH (04:24)
[2016-08-01] MEDS: Levothyroxine TAB* 50 MCG TAB PO SCH ×2 (06:15→06:18)
[2016-08-01] MEDS: Lansoprazole susp Kit 3 MG/ML (15 MG = 5 ML) G TUBE SCH (08:34)
[2016-08-01] MEDS: Magnesium Oxide TAB* 400 MG SCH ×2 (08:34→21:39)
[2016-08-01] MEDS: Citalopram TAB* 20 MG PEG TUBE SCH (08:34)
[2016-08-01] MEDS: Sodium Chloride TAB* 1 GM PEG TUBE SCH ×2 (08:34→21:39)
[2016-08-01] MEDS: Enoxaparin(*) 40 MG/0.4 ML SYR SUBCUT SCH (08:46)
--- NOTE | 2016-08-01 10:31 | PN ---
Progress Note - Progress Note SOAP: Subjective: []Not really feeling any better. Does not feel worse. Still harsh wet cough, still some difficulty breathing. Loose stool 1-2x daily, somewhat long standing, though maybe worse with abx. Aware of results of thoracentesis and need for chest tube. very curious about enlarge nodes on CT scan, worried about wt. loss and low BP. Medications: Citalopram Hydrobromide (Celexa Tab*) 20 mg PEG TUBE DAILY [facility] Last Admin: 08/01/16 08:34 Dose: 20 mg Enoxaparin Sodium (Lovenox(*)) 40 mg SUBCUT Q24HR [facility] Last Admin: 08/01/16 08:46 Dose: 40 mg Ergocalciferol (Drisdol Cap*) 50,000 unit PEG TUBE [facility]TH[facility] Heparin Sodium (Porcine) (Heparin Flush Port (Ivad)) 5 ml FLUSH DAILY [facility] PRN Reason: Protocol Sodium Chloride (Ns 0.9% 1000 Ml*) 1,000 mls @ 100 mls/hr IV PER RATE [facility] Last Admin: 08/01/16 04:24 Dose: 100 mls/hr Piperacillin Sod/Tazobactam (Sod 3.375 gm/ Sodium Chloride) 100 mls @ 25 mls/ hr IVPB Q8H [facility] Last Admin: 08/01/16 06:15 Dose: 25 mls/hr Lansoprazole (Lansoprazole Susp Kit) 15 mg G TUBE DAILY [facility] Last Admin: 08/01/16 08:34 Dose: 15 mg Levothyroxine Sodium (Synthroid Tab*) 50 mcg PO DAILY@0600 [facility] Last Admin: 08/01/16 06:18 Dose: Not Given Magnesium Oxide (Magox 400 Tab*) 400 mg .SEE ORDER BID [facility] Last Admin: 08/01/16 08:34 Dose: 400 mg Sodium Chloride (Sodium Chloride Tab*) 2 gm PEG TUBE BID [facility] Last Admin: 08/01/16 08:34 Dose: 2 gm Objective: [] Vital Signs Temp Pulse Resp BP Pulse Ox 97.7 F 66 16 111/66 93 08/01/16 07:50 08/01/16 08:00 08/01/16 08:00 08/01/16 07:50 08/01/16 08:00 A&Ox3, EOMI, neuro grossly non-focal HRR, no murmur noted LS dim. right base, resp. non-labored Trach benign ++BS, abd. soft and non-tender Laboratory Results - last 24 hr 07/31/16 11:50 Fluid Source Pleural fluid Fluid Volume 4.0 Fluid Color Yellow Fluid Appearance Cloudy Fluid WBC 195865 Fluid RBC 12925 Fluid Tot Cell Count 100 Fluid Neutrophils 77 Fluid Lymphocytes 23 Fluid Cell Count Rvw By Assessment: []66 yo m with complicated PMH currently MC now several years out from head and neck cancer. Admitted with SOB, pneumonia, and now +Empyema. Slow recovery with IV abx. Plan: []1. Empyema: culture pending, though appears to be strep, per ID will require chest tube (surgery consulted) and likely residential abx., Zosyn appropriate for now. To note CT chest reviewed, nodes enlarged likely reactive and but will want to repeat CT f/u approx. 3 mo. Request hospitalist consult as may be better for them to manage current acute infection. 2. Malnutrition: Wt. loss approx. 7 lbs of last month or so. Hypoalbumin and may be protein-caloric intake deficiency, appreciate dieticians input. Check pre-albumin. Follow wt. Most likely secondary to infective process and metabolic demand. 3. Hypotension: long standing, though with significant co-morbidities can't rule out an adrenal deficiency, will check AM cortisol 4. Hypothyroidism: TSH 4.47 in April, will recheck as well in regard to wt. loss and hypotension 5. Diarrhea: mild, likley r/t PEG feedings. Add imodium BID PRN (with decreased mobility will go slow). 6. Head and Neck Cancer: 2 years out from tx., MC, cont. to follow
[2016-08-01] MEDS ORDERED: Loperamide LIQ* 2 MG/10 ML UDC PEG TUBE PRN (10:39)
--- NOTE | 2016-08-01 12:21 | CONSULT ---
Consult Consult: CC: Right empyema HPI: 66 yo M with h/o H&N ca and recent admission for pneumonia with effusion. He had thoracentesis yesterday with findings of empyema and Dr. Nicole requests chest tube placement. PM/SH: As above; hyperlipidemia; chronic back pain; s/p tracheostomy 2015; esophageal perforation s/p dilation; s./p PEG; s/p paraspinal abscess drainage; s/p back surgery; s/p THR x 2 Med: Active Medications Generic Name Dose Route Start Last Admin Trade Name Freq PRN Reason Stop Dose Admin Citalopram Hydrobromide 20 mg 07/29/16 09:00 08/01/16 08:34 Celexa Tab* PEG TUBE [address] Administration Enoxaparin Sodium 40 mg 07/29/16 09:00 08/01/16 08:46 Lovenox(*) SUBCUT [address] Administration Ergocalciferol 50,000 unit 08/26/16 09:00 Drisdol Cap* PEG TUBE MONTHLY RD Heparin Sodium (Porcine) 5 ml 08/02/16 09:00 Heparin Flush Port (Ivad) FLUSH DAILY RD Protocol Sodium Chloride 1,000 mls @ 100 mls/hr 07/28/16 16:45 08/01/16 04:24 Ns 0.9% 1000 Ml* IV 100 mls/hr PER RATE RD Administration Piperacillin Sod/Tazobactam 100 mls @ 25 mls/hr 07/28/16 22:00 08/01/16 06:15 Sod 3.375 gm/ Sodium Chloride IVPB 25 mls/hr Q8H RD Administration Lansoprazole 15 mg 07/30/16 09:03 08/01/16 08:34 Lansoprazole Susp Kit G TUBE [address] Administration Levothyroxine Sodium 50 mcg 07/29/16 06:00 08/01/16 06:18 Synthroid Tab* PO Not Given DAILY@0600 RD Loperamide HCl 2 mg 08/01/16 10:39 08/01/16 11:07 Imodium Liq* PEG TUBE 2 mg BID PRN Administration DIARRHEA Magnesium Oxide 400 mg 07/28/16 21:00 08/01/16 08:34 Magox 400 Tab* .SEE ORDER [address] Administration Sodium Chloride 2 gm 07/28/16 21:00 08/01/16 08:34 Sodium Chloride Tab* PEG TUBE [address] Administration NKDA PE: Vital Signs Temp 97.7 F 08/01/16 07:50 Pulse 66 08/01/16 08:00 Resp 16 08/01/16 11:07 BP 111/66 08/01/16 07:50 Pulse Ox 93 08/01/16 08:00 NAD in bed with trach collar Chest: no scars; decr BS right. Intake & Output 07/31/16 08/01/16 08/01/16 18:59 06:59 18:59 Intake Total 660 3194 654 Output Total 400 1900 Balance 260 1294 654 Intake: IV Fluids 2199 NS (0.9%) 2199 IVPB 355 ABX - ZOSYN 355 Oral 0 0 Tube Feeding 500 240 474 Tube Feeding Flush Amount 160 400 180 Output: Urine 400 1900 Other: # Bowel Movements 1 0 Estimated Stool Amount Medium Laboratory Results - last 24 hr 07/31/16 11:50 Fluid Source Pleural fluid Fluid Volume 4.0 Fluid Color Yellow Fluid Appearance Cloudy Fluid WBC 523911 Fluid RBC 73512 Fluid Tot Cell Count 100 Fluid Neutrophils 77 Fluid Lymphocytes 23 Fluid Cell Count Rvw By Microbiology 07/31/16 11:50 Gram Stain - Final Pleural Fluid Body Fluid Culture - Preliminary Streptococcus Intermedius 07/29/16 00:10 Aerobic Blood Culture - Preliminary Blood Venous No Growth Day 3 Anaerobic Blood Culture - Preliminary No Growth Day 3 Blood Culture - Final 07/29/16 00:05 Aerobic Blood Culture - Preliminary Blood Venous No Growth Day 3 Anaerobic Blood Culture - Preliminary No Growth Day 3 Blood Culture - Final Impression: Right empyema. Plan: D/w pt, . Will place right chest tube for drainage with plan for lytic therapy. If not successful then he may need VATS. Plan also d/w Dr. Arellano.
[2016-08-01] MEDS ORDERED: Lidocaine 1% INJ* 10 MG/ML 30 ML SDV ONE (12:51)
--- NOTE | 2016-08-01 14:11 | SURGPN ---
Brief Operative Note - Surgery Procedures: PREOP/POSTOP: RIGHT EMPYEMA PROC: RIGHT CHEST TUBE PLACEMENT SURG: MECENAS ASSIST: NONE ANES: LOCAL EBL: MIN IVF: NONE SPEC: NONE DRAIN: 36 FR CHEST TUBE COMPL: NONE COND: STABLE FINDINGS: THIN, SEROSANGUINOUS PLEURAL FLUID.
--- NOTE | 2016-08-01 15:03 | RAD ---
Indication: Chest tube placement. Single frontal view of the chest performed at 1430 hours was reviewed. Comparison is made with previous exam dated July 28, 2016. No mediastinal shift is noted. Heart is of normal size and configuration. Right loculated pleural effusion is present. Central line is in place. Loculated right pleural effusion is noted.. IMPRESSION: LOCULATED RIGHT PLEURAL EFFUSION. LEFT LUNG FIELD IS CLEAR. TRACHEOSTOMY TUBE IS IN PLACE.
[2016-08-01 15:40] LABS: Total Protein, BF 3.7 g/dL
--- NOTE | 2016-08-01 16:15 | RAD ---
INDICATION: Shortness of breath status post chest tube placement, empyema. COMPARISON: Comparison is made with a prior chest x-ray study from August 01, [address] of the chest from March 31, 2016. TECHNIQUE: A CT scan of the chest was performed without intravenous contrast. Contiguous axial sections were obtained from the lung apices through the lung bases. Images were reconstructed in the coronal and sagittal planes. FINDINGS: There is a chest tube present on the right side which extends posteriorly toward the upper portion of the thorax. There is a partially loculated right pleural effusion which has decreased significantly in size from the prior exam. There are small bubbles of air within the pleural space and emphysema in the right lateral chest wall although no gross pneumothorax is seen. There is also a small left pleural effusion. There is a patchy infiltrate present in the mid and right lower lung field which has improved from the prior exam. There is a tracheostomy tube present. There are multiple enlarged mediastinal lymph nodes in the right paratracheal, subcarinal and aorticopulmonary window regions measuring up to 1.6 cm in transverse dimension which appears similar to the prior study. The heart is within normal limits in size. No pericardial effusion is present. The thoracic aorta is normal in caliber. There is moderate calcific plaque present. Images of the upper abdomen demonstrate a nodular contour to the liver suggestive of cirrhosis. There is a percutaneous gastrostomy tube present. There are multiple chronic compression fractures of mid and lower dorsal vertebral bodies. IMPRESSION: 1. THE RIGHT STATUS POST PLACEMENT OF A CHEST TUBE ON THE RIGHT SIDE, INTERVAL DECREASE IN SIZE OF THE PARTIALLY LOCULATED RIGHT PLEURAL EFFUSION AND RIGHT LUNG INFILTRATES. 2. MEDIASTINAL LYMPHADENOPATHY, UNCHANGED.
[2016-08-01] MEDS ORDERED: Morphine INJ* 2 MG/ML 1 ML SYRINGE IV PRN (17:15)
--- NOTE | 2016-08-01 18:54 | CONS ---
MEDICAL CONSULTATION AND ADMISSION HISTORY AND PHYSICAL TO THE MEDICAL SERVICE: DATE OF CONSULT: 08/01/16 PRIMARY CARE PROVIDER: Not listed. CONSULTING ONCOLOGIST: Dr. Ramirez. REQUESTING PROVIDER: Dr. Ramirez. CONSULTING/ADMITTING PROVIDER: SELIN Saul. SUPERVISING PHYSICIAN: Jean Carlos Short MD. REASON FOR CONSULTATION: Pneumonia with empyema. HISTORY OF PRESENT ILLNESS AND INTERVAL HISTORY: This is a 66-year-old gentleman with a history of head and neck cancer, status post radiation and chemotherapy in 2014, who has a tracheostomy and PEG tube in place as well as hypothyroidism, chronic back pain, and hyperlipidemia who is admitted to oncology service, 07/29/16. His complaint at that time was shortness of breath and cough. The patient had been complaining of increased episodes of weakness and presyncope that had preceded these symptoms for nearly a month and then developed some shortness of breath along with a cough approximately 1 week prior to admission. His initial labs demonstrated a rather mild leukocytosis with a white blood cell count of 11,200 and he was afebrile at the time of admission. His initial chest x-ray demonstrated a right and mid lower lung consolidation with a loculated right pleural effusion. The patient was empirically treated with Levaquin, but was noting no significant improvement in symptoms. His sputum culture grew ESBL E. coli, but in rather small quantities. Thoracentesis was completed on 07/31/16 which returned yellow tinged fluid, approximately 220 mL. Fluid analysis was suggestive of an infectious origin as there is greater than 100,000 white blood cells. Initial micro at this time is growing Streptococcus intermedius and sensitivities are pending. Blood cultures from the time of admission are negative at this time. Infectious disease specialist, Dr. Nicole, has been involved in consultation who suggested insertion of a chest tube for lytic therapy to help break up the loculations present. The patient is currently being treated with Zosyn, the recommendations are to continue until sensitivities return on the aspirated specimen. The patient underwent chest tube placement with Dr. Willis earlier today. The patient seemed to tolerate that well and he underwent a postprocedure CT of the chest which does demonstrate interval improvement. PAST MEDICAL HISTORY: 1. Hypothyroidism. 2. History of head and neck cancer, status post radiation and cisplatin therapy in 2014. 3. Tracheostomy and PEG tube in place. 4. Hyperlipidemia. 5. Chronic back pain. SURGICAL HISTORY: 1. Hip replacement in 2008 and revision in 2014 related to surgery. 2. Back surgery x2. 3. Wrist surgery x2. 4. Surgical intervention for paraspinal abscess aspiration in 2016. 5. Tracheostomy. 6. PEG tube placement. HOME MEDICATIONS: 1. Vitamin D 50,000 units via PEG tube monthly. 2. Celexa 20 mg via PEG tube daily. 3. Levothyroxine 25 mcg via PEG tube daily. 4. Magnesium oxide 400 mg via PEG tube twice daily. 5. Omeprazole 20 mg via PEG tube daily. 6. Sodium chloride 2 g via PEG tube 3 times daily. Active hospital medications include: 1. A one-time dose of alteplase via PEG tube scheduled for tomorrow morning. 2. Celexa 20 mg via PEG tube daily. 3. Lovenox 40 mg subcu daily. 4. Vitamin D 50,000 units via PEG tube monthly. 5. Lansoprazole 15 mg via G-tube daily. 6. Levothyroxine 50 mcg via G-tube daily. 7. Imodium 2 mg via PEG tube twice daily as needed for diarrhea. 8. Magnesium oxide 400 mg via PEG tube twice daily. 9. Morphine 2 mg IV q.4 hours as needed for pain. 10. Sodium chloride 2 g via PEG tube twice daily. 11. Zosyn 3.375 g q.8 hours. SOCIAL HISTORY: The patient is retired, has a remote history of smoking, and denies any regular alcohol consumption, but has had heavy consumption in the past. He lives with his significant other. REVIEW OF SYSTEMS: Limited review of systems completed as the patient's communication was somewhat limited with his tracheostomy, but as noted above in HPI and otherwise negative. PHYSICAL EXAMINATION: Most recent vitals: Temperature 98.9 degrees Fahrenheit. Upon review of vitals record, the patient has not been febrile since 07/29/16. Most recent pulse 106 beats per minute, respiratory rate 20, oxygen saturation 94% on 6 L, and blood pressure 138/71 mmHg. General: This is a chronically ill-appearing gentleman who appears slightly older than stated age and slightly uncomfortable lying in a hospital stretcher who provides basic answers, but with a tracheostomy tube in place limiting full answers. He does not appear to be in any acute distress. HEENT: Head is normocephalic, atraumatic. Tracheostomy tube is in place with supplemental oxygen covering. Cardiovascular: Heart has a regular rate and rhythm without murmurs, rubs, or gallops. Respiratory: Lungs have a few crackles appreciated in right lung smith. Left lung smith seem to be clear. Chest Exam: Right- sided chest tube is in place attached to Pleur-evac. Abdomen: Soft and nontender to palpation with a PEG tube in place that does not appear to be leaking or otherwise significantly irritated. Extremities: No lower extremity edema is appreciated. Skin: Limited exam shows no concerning rashes or lesions. LABORATORY DATA: Most recent labs from 07/30/16 show a white blood cell count of 8800, hemoglobin of 7.7 with normal indices and platelet count of 194,000. Basic metabolic panel from 07/30/16 shows a sodium of 129, potassium 3.6, serum bicarb of 24, BUN 22, creatinine of 0.90. IMAGING: Chest x-ray from 07/28/16 demonstrates a right mid and lower lung consolidation with a loculated right pleural effusion. CT of the brain shows no evidence of brain metastases or other acute intracranial process. CT of the chest and abdomen from 07/29/16 demonstrates moderate right pleural effusion with parietal enhancement which may reflect malignant effusion or empyema. Progression of multilevel thoracic compression fractures. No central canal stenosis or paravertebral hematoma evident. Within the abdomen, there was cirrhotic morphology of the liver. No focal hepatic lesions present and trace abdominal ascites. No lymphadenopathy. CT of the neck from 07/29/16 shows postsurgical change and atrophy of the tongue. A tracheostomy tube was in place. Negative for lymphadenopathy of the neck. Negative for IJ thrombosis. Chest x-ray, 08/01/16, shows a loculated right pleural effusion. Left lung field is clear and tracheostomy tube is in place. CT of the chest, 08/01/16, shows status post placement of a right chest tube on the right side and interval decrease in the size of the partially loculated right pleural effusion and right lung infiltrates. Mediastinal lymphadenopathy is present and unchanged from prior. ASSESSMENT AND PLAN: This is a 66-year-old gentleman with a history of head and neck cancer, status post radiation and cisplatin therapy, now with chronic tracheostomy and PEG tube in place who presented with cough and shortness of breath with noted loculated pleural effusion, now found to be in empyema with associated pneumonia, status post thoracentesis and now chest tube placement. 1. Right-sided empyema with pneumonia - the patient had chest tube placed this afternoon. Preliminary cultures from thoracentesis are growing Strep. Dr. Abiodun Nicole is involved in the patient's care and recommends continuing Zosyn until sensitivities have returned. Surgery team is managing chest tube with orders for Pulmozyme and alteplase tomorrow morning in place. Reviewed these orders with Dr. Willis who stated these will continue daily for a total of [address] Arellano will be covering the patient daily and will ensure appropriate management. The patient seems to be quite comfortable at this time and afebrile. We will plan to repeat labs tomorrow morning including a CBC and basic metabolic panel. 2. Hyponatremia - this may be related to his acute infection inducing a syndrome of inappropriate antidiuretic hormone secretion - we will plan to repeat basic metabolic panel tomorrow. It appeared that his sodium had been improving from the time of admission through until the 12th, which is when labs were last checked. 3. Normocytic anemia - this is somewhat chronic, but the patient's hemoglobin appears lower than what his baseline is. This may be due to initial delusion from initial IV fluid hydration, but we will plan to repeat tomorrow. No signs of active bleeding at this time. 4. History of head and neck cancer, status post radiation and chemotherapy with tracheostomy and PEG tube in place. 5. Hypothyroidism - the patient appears to be euthyroid with plans to continue current dose of levothyroxine. 6. Hyperlipidemia. 7. Chronic back pain that seems to be well managed. 8. Code status: The patient is full code. Healthcare proxy is Amparo Gutierrez who is his . 9. DVT prophylaxis: Lovenox daily. DISPOSITION: Hospitalist service will be assuming primary care of this patient from Oncology. He will remain inpatient status and anticipate additional length of stay several more days. SELIN SAUL [id number]/[facility] #: [id number] MTDD
[2016-08-01] MEDS ORDERED: Morphine INJ* 2 MG/ML 1 ML SYRINGE IV ONE (19:58)
[2016-08-01] MEDS ORDERED: Morphine INJ* 4 MG/ML 1 ML SYRINGE ONE (20:09)
[2016-08-01] MEDS: Morphine INJ* 4 MG/ML 1 ML SYRINGE IV PRN (20:11)
--- NOTE | 2016-08-02 00:43 | PRO ---
DATE OF PROCEDURE: 08/01/16 - ROOM #413 PREPROCEDURE DIAGNOSIS: Right empyema. POSTOPERATIVE DIAGNOSIS: Right empyema. PROCEDURE: Placement of right chest tube. SURGEON: Oumar Willis MD SALES AND CATERING COORDINATOR: None. ANESTHESIA: 1% lidocaine plain used locally. ESTIMATED BLOOD LOSS: Minimal. SPECIMENS: None. DRAINS: 36-Guamanian chest tube. COMPLICATIONS: None. DESCRIPTION OF PROCEDURE: The patient was brought to the procedure room on the stretcher, positioned semi-Chacko's and his right chest was prepped and draped in sterile fashion. The preprocedural time-out was completed. Local anesthetic was infiltrated at approximately the 7th intercostal space. Transverse incision was created with a #10 blade. The subcutaneous tissues were divided and curved clamp was used to spread the tissue entering into the pleural cavity and there was thin pleural fluid forthcoming. Initially, this was slightly tanned and serosanguineous. A 36-Guamanian chest tube was placed in a posterior position and then it was sutured to the skin with 0 silk, which was secured to the chest tube with umbilical tape. The tubing was connected to the Pleur-evac suction. Dressings were applied to the site. The patient tolerated the procedure well. There were no immediate complications. [id number]/[facility] #: [id number] MTDAngel
[2016-08-02] MEDS: Morphine INJ* 4 MG/ML 1 ML SYRINGE IV PRN ×6 (03:45→22:36)
[2016-08-02] MEDS: Levothyroxine TAB* 50 MCG TAB PO SCH (04:53)
[2016-08-02 06:27] LABS: Hematocrit 23 % (42-52); Hemoglobin 7.4 g/dl (14.0-18.0); Mean Corpuscular HGB Conc 33 g/dl (31-36); Mean Corpuscular Hemoglobin 31 pg (27-31); Mean Corpuscular Volume 94 fL (80-94); Mean Platelet Volume 7 um3 (7.4-10.4); Red Blood Count 2.41 10^6/ul (4.0-5.4); Red Cell Distribution Width 17 % (10.5-15); White Blood Count 5.3 10^3/ul (3.5-10.8)
[2016-08-02 06:39] LABS: Albumin 2.3 g/dL (3.2-5.2); BUN/Creatinine Ratio 19.8 (8-20); Calcium 8.1 mg/dL (8.6-10.3); EGFR African American 100.8 (>60); EGFR Non-African American 78.4 (>60); Globulin 3.3 g/dL (2-4); Total Bilirubin 0.7 mg/dL (0.2-1.0); Total Protein 5.6 g/dL (6.4-8.9)
[2016-08-02 06:45] LABS: TSH (Thyroid Stimulating Horm) 10.07 mcIU/mL (0.34-5.60)
[2016-08-02] MEDS ORDERED: DORNASE ALFA 1 mg/ml(NF) 5 MG in NS 0.9% 50 ML* 45 ML INTRAPLEUR ONE (09:00)
[2016-08-02] MEDS ORDERED: DORNASE ALFA 1 mg/ml(NF) 5 MG in NS 0.9% 50 ML* 45 ML INTRAPLEUR SCH (09:00)
[2016-08-02] MEDS ORDERED: Alteplase (CATHFLO)* 2 MG VIAL IV ONE (09:00)
[2016-08-02] MEDS ORDERED: Alteplase (CATHFLO)* 10 MG in NS 0.9% 50 ML* 40 ML INTRAPLEUR ONE (09:00)
[2016-08-02] MEDS: Citalopram TAB* 20 MG PEG TUBE SCH (10:09)
[2016-08-02] MEDS: Enoxaparin(*) 40 MG/0.4 ML SYR SUBCUT SCH (10:10)
[2016-08-02] MEDS: Lansoprazole susp Kit 3 MG/ML (15 MG = 5 ML) G TUBE SCH (10:11)
[2016-08-02] MEDS: Sodium Chloride TAB* 1 GM PEG TUBE SCH ×2 (10:11→21:23)
[2016-08-02] MEDS: Magnesium Oxide TAB* 400 MG SCH ×2 (10:11→21:23)
[2016-08-02] MEDS ORDERED: Alteplase (CATHFLO)* 10 MG in NS 0.9% 50 ML* 40 ML INTRAPLEUR SCH (13:00)
--- NOTE | 2016-08-02 13:31 | PN ---
Progress Note - Progress Note Note: S: No new c/o. Some pain from chest tube, allison w/ movement or manipulation. No increased SOB. I had given Dornase and Alteplase per the chest tube this am around 0915. His nurse had called stating that there was increased bloody drainage around the tube since she had unclamped his tube at 1030. Of note, there had been a moderate amount of light to mod serosang drainage saturating the dressing and his gown prior to administration of the Dornase and Alteplase. O: Vital Signs - 8 hr 08/02/16 08/02/16 08/02/16 07:49 07:57 08:00 Temperature 98.4 F Pulse Rate 63 Respiratory 18 18 18 Rate Blood Pressure 95/56 (mmHg) O2 Sat by Pulse 97 Oximetry 08/02/16 08/02/16 08:57 12:18 Temperature Pulse Rate Respiratory 18 18 Rate Blood Pressure (mmHg) O2 Sat by Pulse Oximetry Intake and Output Last 24 Hours 07/31/16 08/01/16 08/02/16 08/03/16 06:59 06:59 06:59 06:59 Intake Total 5239 3854 1466 490 Output Total 320 2300 1126 0 Balance 4919 1554 340 490 Intake: IV Fluids 2141 2199 580 ABX - ZOSYN 200 NS (0.9%) 1941 2199 580 IVPB 131 355 142 ABX - ZOSYN 131 355 142 Oral 0 0 0 Tube Feeding 2637 740 474 400 Tube Feeding Flush Amount 330 560 270 90 Output: Chest Tube #1 76 Urine 320 2300 1050 Tube Feeding Residual 0 0 Amount Wasted Other: # Bowel Movements 0 0 0 Estimated Stool Amount Medium Medium Medium PE: chest tube dsg taken down. The drainage saturating both dsg and gown is bloodier than this a.m. but still appears serosang as opposed to frankly bloody. There was some generalized seepage of similar drainage from around the tube, but nothing that appeared to require a suture. Dsg replaced (vasoline gauze, 4x4s, paper, then foam tape). A: Right chest empyema (see C&S), s/p chest tube placement and now 1st dose of Dornase/Alteplace, with increased serosang drainage around tube. P: will monitor; recheck H&H in a.m.; consider holding Lovenox sc in a.m. if plan is to repeat dornase/alteplase. Discussed w/ his nurse and will ask our URINALYSIS TECHNICIAN , Peyton Azevedo to check later this pm.
--- NOTE | 2016-08-02 17:00 | PN ---
Subjective Date of Service: 08/02/16 Interval History: Pt states he is still having significant pain despite increasing the frequency of morphine. He denies any SOB but has been coughing and brining up mucous. He states he is coughing up more than usual. Objective Active Medications: Citalopram Hydrobromide (Celexa Tab*) 20 mg PEG TUBE DAILY [facility] Last Admin: 08/02/16 10:09 Dose: 20 mg Ergocalciferol (Drisdol Cap*) 50,000 unit PEG TUBE MONTHLY [facility] Heparin Sodium (Porcine) (Heparin Flush Port (Ivad)) 5 ml FLUSH DAILY [facility] PRN Reason: Protocol Last Admin: 08/02/16 08:36 Dose: Not Given Ceftriaxone Sodium 2 gm/ (Sodium Chloride) 100 mls @ 200 mls/hr IVPB Q24H [facility] Last Admin: 08/02/16 10:32 Dose: 200 mls/hr Dornase Didier 5 mg/ Sodium (Chloride) 50 mls @ 0 mls/hr INTRAPLEUR 0900 ONE PRN Reason: As Directed Stop: 08/03/16 09:01 Alteplase, Recombinant 10 mg/ (Sodium Chloride) 50 mls @ 0 mls/hr INTRAPLEUR 0900 ONE PRN Reason: As Directed Stop: 08/03/16 09:01 Lansoprazole (Lansoprazole Susp Kit) 15 mg G TUBE DAILY [facility] Last Admin: 08/02/16 10:11 Dose: 15 mg Levothyroxine Sodium (Synthroid Tab*) 75 mcg PO DAILY@0600 [facility] Loperamide HCl (Imodium Liq*) 2 mg PEG TUBE BID PRN PRN Reason: DIARRHEA Last Admin: 08/01/16 11:07 Dose: 2 mg Magnesium Oxide (Magox 400 Tab*) 400 mg .SEE ORDER BID [facility] Last Admin: 08/02/16 10:11 Dose: 400 mg Morphine Sulfate (Morphine Inj (Syringe)*) 4 mg IV Q3H PRN PRN Reason: PAIN - MILD Last Admin: 08/02/16 15:21 Dose: 4 mg Sodium Chloride (Sodium Chloride Tab*) 2 gm PEG TUBE BID [facility] Last Admin: 08/02/16 10:11 Dose: 2 gm Vital Signs 08/01/16 08/01/16 08/01/16 17:44 18:34 19:38 Temperature 100.4 F Pulse Rate 88 Respiratory 14 14 21 Rate Blood Pressure 106/53 (mmHg) O2 Sat by Pulse 93 Oximetry 08/01/16 08/01/16 08/01/16 20:00 20:11 20:46 Temperature Pulse Rate Respiratory 19 18 Rate Blood Pressure (mmHg) O2 Sat by Pulse 95 Oximetry 08/01/16 08/01/16 08/01/16 21:11 23:43 23:51 Temperature 98.6 F Pulse Rate 77 Respiratory 19 22 20 Rate Blood Pressure 102/58 (mmHg) O2 Sat by Pulse 97 Oximetry 08/02/16 08/02/16 08/02/16 00:51 03:29 03:45 Temperature 98.4 F Pulse Rate 71 Respiratory 16 18 19 Rate Blood Pressure 95/57 (mmHg) O2 Sat by Pulse 94 Oximetry 08/02/16 08/02/16 08/02/16 04:45 07:49 07:57 Temperature 98.4 F Pulse Rate 63 Respiratory 18 18 18 Rate Blood Pressure 95/56 (mmHg) O2 Sat by Pulse 97 Oximetry 08/02/16 08/02/16 08/02/16 08:00 08:57 12:18 Temperature Pulse Rate Respiratory 18 18 18 Rate Blood Pressure (mmHg) O2 Sat by Pulse Oximetry 08/02/16 08/02/16 08/02/16 13:18 15:21 15:54 Temperature 100.1 F Pulse Rate 79 Respiratory 18 18 24 Rate Blood Pressure 95/52 (mmHg) O2 Sat by Pulse 92 Oximetry Oxygen Devices in Use Now: - - trach collar-92% Appearance: Middle aged chronically ill appearing male lying in bed, NAD Eyes: No Scleral Icterus Ears/Nose/Mouth/Throat: Mucous Membranes Moist Respiratory: Symmetrical Chest Expansion and Respiratory Effort, Clear to Auscultation - diminshed breath sounds R lateral/basal chest, - - Chest tube in place, draining serosanguinous fluid Cardiovascular: NL Sounds; No Murmurs; No JVD, RRR, No Edema Abdominal: NL Sounds; No Tenderness; No Distention, - - PEG tube in place Extremities: No Clubbing, Cyanosis Skin: No Rash or Ulcers, No Nodules or Sclerosis Neurological: Alert and Oriented x 3 Result Diagrams: 08/02/16 05:37 08/02/16 05:37 Additional Lab and Data: Lab Results 07/28/16 07/28/16 07/28/16 Range/Units 13:53 13:53 13:53 WBC 11.2 H (3.5-10.8) 10^3/ul RBC 2.94 L (4.0-5.4) 10^6/ul Hgb 8.9 L (14.0-18.0) g/dl Hct 27 L (42-52) % MCV 92 (80-94) fL MCH 30 (27-31) pg MCHC 33 (31-36) g/dl RDW 17 H (10.5-15) % Plt Count 229 (150-450) 10^3/ul MPV 7 L (7.4-10.4) um3 Neut % (Auto) 89.7 H (38-83) % Lymph % (Auto) 4.7 L (25-47) % [place] % (Auto) 5.3 (1-9) % Eos % (Auto) 0.1 (0-6) % Baso % (Auto) 0.2 (0-2) % Absolute Neuts (auto) 10.0 H (1.5-7.7) 10^3/ul Absolute Lymphs (auto) 0.5 L (1.0-4.8) 10^3/ul Absolute Monos (auto) 0.6 (0-0.8) 10^3/ul Absolute Eos (auto) 0 (0-0.6) 10^3/ul Absolute Basos (auto) 0 (0-0.2) 10^3/ul Absolute Nucleated RBC 0 10^3/ul Nucleated RBC % 0 Sodium 123 L (133-145) mmol/L Potassium 4.1 (3.5-5.0) mmol/L Chloride 88 L (101-111) mmol/L Carbon Dioxide 26 (22-32) mmol/L Anion Gap 9 (2-11) mmol/L BUN 30 H (6-24) mg/dL Creatinine 1.03 (0.67-1.17) mg/dL Est GFR ( Amer) 92.9 (>60) Est GFR (Non-Af Amer) 72.3 (>60) BUN/Creatinine Ratio 29.1 H (8-20) Glucose 107 H (70-100) mg/dL Lactic Acid 1.6 (0.5-2.0) mmol/L Calcium 9.1 (8.6-10.3) mg/dL Total Bilirubin 0.70 (0.2-1.0) mg/dL AST 17 (13-39) U/L ALT 13 (7-52) U/L Alkaline Phosphatase 79 (34-104) U/L Total Creatine Kinase 14 (10-223) U/L CK-MB (CK-2) 1.4 (0.6-6.3) ng/mL Myoglobin 57.7 (17.4-105.7) ng/mL Troponin I 0.00 (<0.04) ng/mL C-Reactive Protein 237.10 H (< 5.00) mg/L B-Natriuretic Peptide ( - 100) pg/mL Total Protein 7.1 (6.4-8.9) g/dL Albumin 3.0 L (3.2-5.2) g/dL Globulin 4.1 H (2-4) g/dL Albumin/Globulin Ratio 0.7 L (1-3) Urine Color Urine Appearance Urine pH (5-9) Ur Specific [place] (1.010-1.030) Urine Protein (Negative) Urine Ketones (Negative) Urine Blood (Negative) Urine Nitrate (Negative) Urine Bilirubin (Negative) Urine Urobilinogen (Negative) Ur Leukocyte Esterase (Negative) Urine Glucose (Negative) Urine Ascorbic Acid (Negative) 07/28/16 07/28/16 Range/Units 13:53 16:25 WBC (3.5-10.8) 10^3/ul RBC (4.0-5.4) 10^6/ul Hgb (14.0-18.0) g/dl Hct (42-52) % MCV (80-94) fL MCH (27-31) pg MCHC (31-36) g/dl RDW (10.5-15) % Plt Count (150-450) 10^3/ul MPV (7.4-10.4) um3 Neut % (Auto) (38-83) % Lymph % (Auto) (25-47) % [place] % (Auto) (1-9) % Eos % (Auto) (0-6) % Baso % (Auto) (0-2) % Absolute Neuts (auto) (1.5-7.7) 10^3/ul Absolute Lymphs (auto) (1.0-4.8) 10^3/ul Absolute Monos (auto) (0-0.8) 10^3/ul Absolute Eos (auto) (0-0.6) 10^3/ul Absolute Basos (auto) (0-0.2) 10^3/ul Absolute Nucleated RBC 10^3/ul Nucleated RBC % Sodium (133-145) mmol/L Potassium (3.5-5.0) mmol/L Chloride (101-111) mmol/L Carbon Dioxide (22-32) mmol/L Anion Gap (2-11) mmol/L BUN (6-24) mg/dL Creatinine (0.67-1.17) mg/dL Est GFR ( Amer) (>60) Est GFR (Non-Af Amer) (>60) BUN/Creatinine Ratio (8-20) Glucose (70-100) mg/dL Lactic Acid (0.5-2.0) mmol/L Calcium (8.6-10.3) mg/dL Total Bilirubin (0.2-1.0) mg/dL AST (13-39) U/L ALT (7-52) U/L Alkaline Phosphatase (34-104) U/L Total Creatine Kinase (10-223) U/L CK-MB (CK-2) (0.6-6.3) ng/mL Myoglobin (17.4-105.7) ng/mL Troponin I (<0.04) ng/mL C-Reactive Protein (< 5.00) mg/L B-Natriuretic Peptide 136 H ( - 100) pg/mL Total Protein (6.4-8.9) g/dL Albumin (3.2-5.2) g/dL Globulin (2-4) g/dL Albumin/Globulin Ratio (1-3) Urine Color Yellow Urine Appearance Clear Urine pH 6.0 (5-9) Ur Specific [place] 1.010 (1.010-1.030) Urine Protein Negative (Negative) Urine Ketones Negative (Negative) Urine Blood Negative (Negative) Urine Nitrate Negative (Negative) Urine Bilirubin Negative (Negative) Urine Urobilinogen Negative (Negative) Ur Leukocyte Esterase Negative (Negative) Urine Glucose Negative (Negative) Urine Ascorbic Acid * H (Negative) Microbiology and Other Data: Microbiology 07/31/16 11:50 Gram Stain - Final Pleural Fluid Body Fluid Culture - Preliminary Streptococcus Intermedius 07/29/16 00:10 Aerobic Blood Culture - Preliminary Blood Venous No Growth Day 4 Anaerobic Blood Culture - Preliminary No Growth Day 4 Blood Culture - Final 07/29/16 00:05 Aerobic Blood Culture - Preliminary Blood Venous No Growth Day 4 Anaerobic Blood Culture - Preliminary No Growth Day 4 Blood Culture - Final 07/28/16 21:30 Gram Stain - Final Sputum Trach Sputum Culture - Final Esbl Escherichia Coli Normal Zulma Assess/Plan/Problems-Billing Mr Gutierrez is a 66 yo M who has a h/o head and neck cancer s/p chemo/XRT who presented to [facility] [place] with c/o cough and SOB and was ultimately found to have a R sided empyema. - Patient Problems (1) Empyema, right Current Visit: Yes Status: Acute Code(s): J86.9 - PYOTHORAX WITHOUT FISTULA SNOMED Code(s): 30545801 Comment: Pt had chest tube placed yesterday. Draining serosanginous fluid. Alteplase and dornase alpha instilled this AM and plan is for tomorrow as well. Duration of Abx pending per discussion with Dr. Nicole. Will start pain medication via PEG tube in addition to IV morphine. (2) Hyponatremia Current Visit: Yes Status: Acute Onset Date: 10/15/14 Code(s): E87.1 - HYPO-OSMOLALITY AND HYPONATREMIA SNOMED Code(s): 50046510 Comment: Na improved with salt tabs. Continue salt tabs for now but may need stop them if his Na continues to climb. (3) Head and neck cancer Current Visit: Yes Status: Chronic Code(s): C76.0 - MALIGNANT NEOPLASM OF HEAD, FACE AND NECK SNOMED Code(s): 571445887 Comment: Continue to follow with oncology as an outpatient. (4) Hypothyroid Current Visit: Yes Status: Acute Code(s): E03.9 - HYPOTHYROIDISM, UNSPECIFIED SNOMED Code(s): 56273214 Comment: Continue synthroid but increase to 75mcg per peg daily. (5) GERD (gastroesophageal reflux disease) Current Visit: Yes Status: Chronic Code(s): K21.9 - GASTRO-ESOPHAGEAL REFLUX DISEASE WITHOUT ESOPHAGITIS SNOMED Code(s): 904113662 Comment: Continue lansoprazole. (6) DVT prophylaxis Current Visit: Yes Status: Acute Code(s): KYX6543 - SNOMED Code(s): 186382131 Comment: lovenox-on hold for alteplase in CT tomorrow. (7) Full code status Current Visit: Yes Status: Acute Code(s): Z78.9 - OTHER SPECIFIED HEALTH STATUS SNOMED Code(s): 425979453
[2016-08-03] MEDS: Morphine INJ* 4 MG/ML 1 ML SYRINGE IV PRN ×4 (02:56→18:04)
[2016-08-03] MEDS: Levothyroxine TAB* 75 MCG TAB PO SCH (06:08)
[2016-08-03 06:28] LABS: Hematocrit 19 % (42-52)
[2016-08-03 06:32] LABS: Comments Flag Yes
[2016-08-03 06:34] LABS: Hemoglobin 6.2 g/dl (14.0-18.0)
--- NOTE | 2016-08-03 08:50 | PN ---
Subjective Date of Service: 08/03/16 Interval History: Pt is feeling ok this AM. He states his pain at the chest tube site is under somewhat better control with adding prn oxycodone. He denies any SOB. He has not had any diarrhea. Objective Active Medications: Citalopram Hydrobromide (Celexa Tab*) 20 mg PEG TUBE DAILY [facility] Last Admin: 08/02/16 10:09 Dose: 20 mg Ergocalciferol (Drisdol Cap*) 50,000 unit PEG TUBE MONTHLY [facility] Heparin Sodium (Porcine) (Heparin Flush Port (Ivad)) 5 ml FLUSH DAILY [facility] PRN Reason: Protocol Last Admin: 08/02/16 08:36 Dose: Not Given Ceftriaxone Sodium 2 gm/ (Sodium Chloride) 100 mls @ 200 mls/hr IVPB Q24H [facility] Last Admin: 08/02/16 10:32 Dose: 200 mls/hr Dornase Didier 5 mg/ Sodium (Chloride) 50 mls @ 0 mls/hr INTRAPLEUR 0900 ONE PRN Reason: As Directed Stop: 08/03/16 09:01 Alteplase, Recombinant 10 mg/ (Sodium Chloride) 50 mls @ 0 mls/hr INTRAPLEUR 0900 ONE PRN Reason: As Directed Stop: 08/03/16 09:01 Lansoprazole (Lansoprazole Susp Kit) 15 mg G TUBE DAILY [facility] Last Admin: 08/02/16 10:11 Dose: 15 mg Levothyroxine Sodium (Synthroid Tab*) 75 mcg PO DAILY@0600 [facility] Last Admin: 08/03/16 06:08 Dose: 75 mcg Loperamide HCl (Imodium Liq*) 2 mg PEG TUBE BID PRN PRN Reason: DIARRHEA Last Admin: 08/01/16 11:07 Dose: 2 mg Magnesium Oxide (Magox 400 Tab*) 400 mg .SEE ORDER BID [facility] Last Admin: 08/02/16 21:23 Dose: 400 mg Morphine Sulfate (Morphine Inj (Syringe)*) 4 mg IV Q3H PRN PRN Reason: PAIN - MILD Last Admin: 08/03/16 06:08 Dose: 4 mg Oxycodone HCl (Oxycodone Oral.Soln*) 10 mg PO Q4H PRN PRN Reason: PAIN Sodium Chloride (Sodium Chloride Tab*) 2 gm PEG TUBE BID [facility] Last Admin: 08/02/16 21:23 Dose: 2 gm Vital Signs 08/02/16 08/02/16 08/02/16 08:57 12:18 13:18 Temperature Pulse Rate Respiratory 18 18 18 Rate Blood Pressure (mmHg) O2 Sat by Pulse Oximetry 08/02/16 08/02/16 08/02/16 15:21 15:54 16:21 Temperature 100.1 F Pulse Rate 79 Respiratory 18 24 20 Rate Blood Pressure 95/52 (mmHg) O2 Sat by Pulse 92 Oximetry 08/02/16 08/02/16 08/02/16 19:09 19:41 20:00 Temperature 99.3 F Pulse Rate 78 Respiratory 20 24 18 Rate Blood Pressure 90/54 (mmHg) O2 Sat by Pulse 95 Oximetry 08/02/16 08/02/16 08/02/16 20:09 22:34 22:36 Temperature 98.7 F Pulse Rate 78 Respiratory 20 18 18 Rate Blood Pressure 86/51 (mmHg) O2 Sat by Pulse 95 Oximetry 08/02/16 08/03/16 08/03/16 23:36 02:56 03:56 Temperature 98.5 F Pulse Rate 67 Respiratory 18 18 18 Rate Blood Pressure 93/57 (mmHg) O2 Sat by Pulse 97 Oximetry 08/03/16 08/03/16 08/03/16 06:08 07:08 07:50 Temperature 98.0 F Pulse Rate 64 Respiratory 16 20 20 Rate Blood Pressure 90/49 (mmHg) O2 Sat by Pulse 95 Oximetry Oxygen Devices in Use Now: - - trach collar-95% Appearance: Middle aged male who appears older than his stated age and chronically ill lying in bed, NAD Eyes: No Scleral Icterus Ears/Nose/Mouth/Throat: Mucous Membranes Moist Respiratory: Symmetrical Chest Expansion and Respiratory Effort, Clear to Auscultation - anteriorly-pt does not sit up for me to listen posteriorly Cardiovascular: NL Sounds; No Murmurs; No JVD, RRR, No Edema Abdominal: NL Sounds; No Tenderness; No Distention, - - PEG tube in place-scant thick, yellow drainage around the tube Extremities: No Clubbing, Cyanosis Skin: No Rash or Ulcers, No Nodules or Sclerosis Neurological: Alert and Oriented x 3 Result Diagrams: 08/03/16 06:15 08/02/16 05:37 Additional Lab and Data: Lab Results 0607/28/16 07/28/16 Range/Units 13:53 13:53 13:53 WBC 11.2 H (3.5-10.8) 10^3/ul RBC 2.94 L (4.0-5.4) 10^6/ul Hgb 8.9 L (14.0-18.0) g/dl Hct 27 L (42-52) % MCV 92 (80-94) fL MCH 30 (27-31) pg MCHC 33 (31-36) g/dl RDW 17 H (10.5-15) % Plt Count 229 (150-450) 10^3/ul MPV 7 L (7.4-10.4) um3 Neut % (Auto) 89.7 H (38-83) % Lymph % (Auto) 4.7 L (25-47) % [place] % (Auto) 5.3 (1-9) % Eos % (Auto) 0.1 (0-6) % Baso % (Auto) 0.2 (0-2) % Absolute Neuts (auto) 10.0 H (1.5-7.7) 10^3/ul Absolute Lymphs (auto) 0.5 L (1.0-4.8) 10^3/ul Absolute Monos (auto) 0.6 (0-0.8) 10^3/ul Absolute Eos (auto) 0 (0-0.6) 10^3/ul Absolute Basos (auto) 0 (0-0.2) 10^3/ul Absolute Nucleated RBC 0 10^3/ul Nucleated RBC % 0 Sodium 123 L (133-145) mmol/L Potassium 4.1 (3.5-5.0) mmol/L Chloride 88 L (101-111) mmol/L Carbon Dioxide 26 (22-32) mmol/L Anion Gap 9 (2-11) mmol/L BUN 30 H (6-24) mg/dL Creatinine 1.03 (0.67-1.17) mg/dL Est GFR ( Amer) 92.9 (>60) Est GFR (Non-Af Amer) 72.3 (>60) BUN/Creatinine Ratio 29.1 H (8-20) Glucose 107 H (70-100) mg/dL Lactic Acid 1.6 (0.5-2.0) mmol/L Calcium 9.1 (8.6-10.3) mg/dL Total Bilirubin 0.70 (0.2-1.0) mg/dL AST 17 (13-39) U/L ALT 13 (7-52) U/L Alkaline Phosphatase 79 (34-104) U/L Total Creatine Kinase 14 (10-223) U/L CK-MB (CK-2) 1.4 (0.6-6.3) ng/mL Myoglobin 57.7 (17.4-105.7) ng/mL Troponin I 0.00 (<0.04) ng/mL C-Reactive Protein 237.10 H (< 5.00) mg/L B-Natriuretic Peptide ( - 100) pg/mL Total Protein 7.1 (6.4-8.9) g/dL Albumin 3.0 L (3.2-5.2) g/dL Globulin 4.1 H (2-4) g/dL Albumin/Globulin Ratio 0.7 L (1-3) Urine Color Urine Appearance Urine pH (5-9) Ur Specific Painter (1.010-1.030) Urine Protein (Negative) Urine Ketones (Negative) Urine Blood (Negative) Urine Nitrate (Negative) Urine Bilirubin (Negative) Urine Urobilinogen (Negative) Ur Leukocyte Esterase (Negative) Urine Glucose (Negative) Urine Ascorbic Acid (Negative) 07/28/16 07/28/16 Range/Units 13:53 16:25 WBC (3.5-10.8) 10^3/ul RBC (4.0-5.4) 10^6/ul Hgb (14.0-18.0) g/dl Hct (42-52) % MCV (80-94) fL MCH (27-31) pg MCHC (31-36) g/dl RDW (10.5-15) % Plt Count (150-450) 10^3/ul MPV (7.4-10.4) um3 Neut % (Auto) (38-83) % Lymph % (Auto) (25-47) % [place] % (Auto) (1-9) % Eos % (Auto) (0-6) % Baso % (Auto) (0-2) % Absolute Neuts (auto) (1.5-7.7) 10^3/ul Absolute Lymphs (auto) (1.0-4.8) 10^3/ul Absolute Monos (auto) (0-0.8) 10^3/ul Absolute Eos (auto) (0-0.6) 10^3/ul Absolute Basos (auto) (0-0.2) 10^3/ul Absolute Nucleated RBC 10^3/ul Nucleated RBC % Sodium (133-145) mmol/L Potassium (3.5-5.0) mmol/L Chloride (101-111) mmol/L Carbon Dioxide (22-32) mmol/L Anion Gap (2-11) mmol/L BUN (6-24) mg/dL Creatinine (0.67-1.17) mg/dL Est GFR ( Amer) (>60) Est GFR (Non-Af Amer) (>60) BUN/Creatinine Ratio (8-20) Glucose (70-100) mg/dL Lactic Acid (0.5-2.0) mmol/L Calcium (8.6-10.3) mg/dL Total Bilirubin (0.2-1.0) mg/dL AST (13-39) U/L ALT (7-52) U/L Alkaline Phosphatase (34-104) U/L Total Creatine Kinase (10-223) U/L CK-MB (CK-2) (0.6-6.3) ng/mL Myoglobin (17.4-105.7) ng/mL Troponin I (<0.04) ng/mL C-Reactive Protein (< 5.00) mg/L B-Natriuretic Peptide 136 H ( - 100) pg/mL Total Protein (6.4-8.9) g/dL Albumin (3.2-5.2) g/dL Globulin (2-4) g/dL Albumin/Globulin Ratio (1-3) Urine Color Yellow Urine Appearance Clear Urine pH 6.0 (5-9) Ur Specific Painter 1.010 (1.010-1.030) Urine Protein Negative (Negative) Urine Ketones Negative (Negative) Urine Blood Negative (Negative) Urine Nitrate Negative (Negative) Urine Bilirubin Negative (Negative) Urine Urobilinogen Negative (Negative) Ur Leukocyte Esterase Negative (Negative) Urine Glucose Negative (Negative) Urine Ascorbic Acid * H (Negative) Microbiology and Other Data: Microbiology 07/31/16 11:50 Gram Stain - Final Pleural Fluid Body Fluid Culture - Preliminary Streptococcus Intermedius 07/29/16 00:10 Aerobic Blood Culture - Preliminary Blood Venous No Growth Day 4 Anaerobic Blood Culture - Preliminary No Growth Day 4 Blood Culture - Final 07/29/16 00:05 Aerobic Blood Culture - Preliminary Blood Venous No Growth Day 4 Anaerobic Blood Culture - Preliminary No Growth Day 4 Blood Culture - Final 07/28/16 21:30 Gram Stain - Final Sputum Trach Sputum Culture - Final Esbl Escherichia Coli Normal Zulma Assess/Plan/Problems-Billing Mr Gutierrez is a 66 yo M who has a h/o head and neck cancer s/p chemo/XRT who presented to [facility] with c/o cough and SOB and was ultimately found to have a R sided empyema. - Patient Problems (1) Empyema, right Current Visit: Yes Status: Acute Code(s): J86.9 - PYOTHORAX WITHOUT FISTULA SNOMED Code(s): 80531201 Comment: Continue chest tube drainage. ? alteplase instillation today given his drop in H/H. Will follow up with surgery for further recommendations. Continue ceftriaxone per Dr. Nicole. Pain is under fair control as long as he is not moving. (2) Hyponatremia Current Visit: Yes Status: Acute Onset Date: 10/15/14 Code(s): E87.1 - HYPO-OSMOLALITY AND HYPONATREMIA SNOMED Code(s): 49206191 Comment: Na improved with salt tabs. Continue salt tabs for now but may need stop them if his Na continues to climb. Recheck BMP tomorrow. (3) Head and neck cancer Current Visit: Yes Status: Chronic Code(s): C76.0 - MALIGNANT NEOPLASM OF HEAD, FACE AND NECK SNOMED Code(s): 900032802 Comment: Continue to follow with oncology as an outpatient. (4) Hypothyroid Current Visit: Yes Status: Acute Code(s): E03.9 - HYPOTHYROIDISM, UNSPECIFIED SNOMED Code(s): 83793276 Comment: Continue synthroid at increased dose. (5) GERD (gastroesophageal reflux disease) Current Visit: Yes Status: Chronic Code(s): K21.9 - GASTRO-ESOPHAGEAL REFLUX DISEASE WITHOUT ESOPHAGITIS SNOMED Code(s): 566029827 Comment: Continue lansoprazole. (6) DVT prophylaxis Current Visit: Yes Status: Acute Code(s): [id number] - SNOMED Code(s): 014873815 Comment: SCDs (7) Full code status Current Visit: Yes Status: Acute Code(s): Z78.9 - OTHER SPECIFIED HEALTH STATUS SNOMED Code(s): 739846360
[2016-08-03] MEDS ORDERED: Alteplase* 100 MG VIAL ONE (09:00)
[2016-08-03] MEDS ORDERED: Alteplase (CATHFLO)* 10 MG in NS 0.9% 50 ML* 40 ML INTRAPLEUR ONE (09:00)
[2016-08-03] MEDS ORDERED: DORNASE ALFA 1 mg/ml(NF) 5 MG in NS 0.9% 50 ML* 45 ML INTRAPLEUR ONE (09:00)
[2016-08-03] MEDS ORDERED: DORNASE ALFA 1 mg/ml(NF) 5 MG in NS 0.9% 50 ML* 45 ML INTRAPLEUR SCH (09:00)
[2016-08-03] MEDS: Sodium Chloride TAB* 1 GM PEG TUBE SCH ×2 (09:53→21:05)
[2016-08-03] MEDS: Citalopram TAB* 20 MG PEG TUBE SCH (09:54)
[2016-08-03] MEDS: Magnesium Oxide TAB* 400 MG SCH ×2 (09:54→21:06)
[2016-08-03] MEDS: Lansoprazole susp Kit 3 MG/ML (15 MG = 5 ML) G TUBE SCH (09:54)
--- NOTE | 2016-08-03 10:58 | RAD ---
Indication: Right chest tube placement. Right pleural effusion. Single frontal view of the chest performed at 1030 hours was reviewed. Comparison is made with previous exam dated August 01, 2016. Right chest tube is in place. Right pleural effusion is significantly improved when compared to previous exam. Central line is in place. IMPRESSION: RIGHT CHEST TUBE IN PLACE. RIGHT PLEURAL EFFUSION IS SIGNIFICANTLY DECREASED WHEN COMPARED TO PREVIOUS EXAM.
--- NOTE | 2016-08-03 15:23 | PN ---
Progress Note - Progress Note SOAP: Subjective: Reports feeling somewhat better today, less pain around chest tube. Denies any SOB. No fever or chills. Objective: VSS, afebrile. Tmax 98.6 last 24 hrs R side chest tube intact, no apparent leak. Decreased breath sounds more right than left CXR reviewed, improved pleural effusion. Ext. no edema Assessment: A 66 y/o male improving right empyema. Plan: Will continue plurovac to wall suction Discussed with Dr. Arellano, CXR shows improvement. Will hold off Dornase and Alteplase injections today. Anemia of blood loss, being transfused per medicine. F/U CXR in AM Will f/u with him during his hospitalization.
--- NOTE | 2016-08-03 16:03 | PN ---
Progress Note - Progress Note SOAP: Subjective: DOS: 08/03/16 CC: empyema HPI: 66 yo man hx head/neck cancer, chronic trach, now with malaise, cough, weakness. Right chest empyema, now with chest tube. Pain is controlled. Cough improved. No fever, rash, or diarrhea. Objective: [] Vital Signs Temp 37.0 C 08/03/16 12:41 Pulse 68 08/03/16 12:41 Resp 20 08/03/16 13:25 BP 79/46 08/03/16 12:41 Pulse Ox 98 08/03/16 12:41 Intake & Output 08/02/16 08/03/16 08/03/16 18:59 06:59 18:59 Intake Total 490 922 650 Output Total 250 525 350 Balance 240 397 300 Intake: IV Fluids 222 NS (0.9%) 222 Oral 0 0 0 Tube Feeding 400 400 400 Tube Feeding Flush Amount 90 300 250 Output: Urine 250 525 350 Tube Feeding Residual 0 0 0 Amount Wasted Gen:Awake, no distress Neuro:AAOx3 Neck:tracheostomy HEENT:PERRL, MMM Neck:Supple Heart:RRR no murmur Lungs: R chest tube no crepitus Abd:+BS NTND soft Skin: no rash MSK: no spine tenderness Laboratory Results - last 24 hr 07/31/16 08/03/16 08/03/16 11:50 06:15 06:26 Hgb 6.2 L* Hct 19 L Fluid Source Pleural Fluid Albumin 1480 Blood Type A Positive Antibody Screen Negative Crossmatch See Detail Microbiology 07/31/16 11:50 Gram Stain - Final Pleural Fluid Body Fluid Culture - Preliminary Streptococcus Intermedius 07/29/16 00:10 Aerobic Blood Culture - Final Blood Venous No Growth Day 5 Anaerobic Blood Culture - Final No Growth Day 5 Blood Culture - Final 07/29/16 00:05 Aerobic Blood Culture - Final Blood Venous No Growth Day 5 Anaerobic Blood Culture - Final No Growth Day 5 Blood Culture - Final Assessment: 1. R chest empyema due to Strep intermedius 2. chronic trach 3. hx XRT and chemotherapy Plan: 1. continue ceftriaxone 2 gm IV Q24hrs day 04/17. Has a port so will not need PICC for utility specialist IV antibiotics. Chest tube mgmt per surgery. 35 minutes face to face time >50% in counseling regarding plans for IV antibiotics.
[2016-08-04] MEDS: oxyCODONE ORAL.SOLN* 5 MG/5 ML UDC PO PRN ×4 (01:43→23:27)
[2016-08-04] MEDS: Morphine INJ* 4 MG/ML 1 ML SYRINGE IV PRN ×4 (03:33→20:41)
[2016-08-04] MEDS: Levothyroxine TAB* 75 MCG TAB PO SCH (05:04)
[2016-08-04 05:42] LABS: Hematocrit 25 % (42-52); Hemoglobin 8.4 g/dl (14.0-18.0); Mean Corpuscular HGB Conc 33 g/dl (31-36); Mean Corpuscular Hemoglobin 30 pg (27-31); Mean Corpuscular Volume 88 fL (80-94); Mean Platelet Volume 7 um3 (7.4-10.4); Red Blood Count 2.84 10^6/ul (4.0-5.4); Red Cell Distribution Width 18 % (10.5-15); White Blood Count 4.4 10^3/ul (3.5-10.8)
[2016-08-04 05:57] LABS: BUN/Creatinine Ratio 30.6 (8-20); Calcium 7.8 mg/dL (8.6-10.3); EGFR African American 166.9 (>60); EGFR Non-African American 129.8 (>60); Magnesium 1.8 mg/dL (1.9-2.7); Potassium 3.8 mmol/L (3.5-5.0)
--- NOTE | 2016-08-04 09:28 | RAD ---
INDICATION: Follow-up right sided empyema after chest tube placement COMPARISON: Most recent comparison chest x-rays dated August 03, 2016 TECHNIQUE: Single AP portable view of the chest was obtained. FINDINGS: Image quality is compromised due to the relative inferiority of a portable chest x-ray. Stable iatrogenic findings include a right subclavian vein Mediport with the tip terminating over the cavoatrial junction, a tracheostomy tube and a chest tube overlying the right lung base. The density obscuring the lateral aspect of the right lung base is similar in appearance to the previous chest x-ray. The left lung is well aerated. There is no large pneumothorax or evidence of mediastinal shift. Visualized bones are normal for the patient's age. IMPRESSION: Stable findings compared to the previous days chest x-ray including an appropriately positioned right-sided chest tube overlying the right lung base in the AP projection.
[2016-08-04] MEDS: Lansoprazole susp Kit 3 MG/ML (15 MG = 5 ML) G TUBE SCH (09:48)
[2016-08-04] MEDS: Sodium Chloride TAB* 1 GM PEG TUBE SCH ×2 (09:48→20:21)
[2016-08-04] MEDS: Citalopram TAB* 20 MG PEG TUBE SCH (09:48)
[2016-08-04] MEDS: Magnesium Oxide TAB* 400 MG SCH ×2 (09:48→20:21)
--- NOTE | 2016-08-04 15:08 | PN ---
Subjective Date of Service: 08/04/16 Interval History: Pt is feeling ok. He states his pain is controlled with the current medication regimen. He is coughing up more sputum than usual. It is the usual yellow color however. He has been trying to do simple exercises in the bed. Objective Active Medications: Citalopram Hydrobromide (Celexa Tab*) 20 mg PEG TUBE DAILY [facility] Last Admin: 08/04/16 09:48 Dose: 20 mg Ergocalciferol (Drisdol Cap*) 50,000 unit PEG TUBE MONTHLY [facility] Heparin Sodium (Porcine) (Heparin Flush Port (Ivad)) 5 ml FLUSH DAILY [facility] PRN Reason: Protocol Last Admin: 08/04/16 09:48 Dose: Not Given Ceftriaxone Sodium 2 gm/ (Sodium Chloride) 100 mls @ 200 mls/hr IVPB Q24H [facility] Last Admin: 08/04/16 09:49 Dose: 200 mls/hr Lansoprazole (Lansoprazole Susp Kit) 15 mg G TUBE DAILY [facility] Last Admin: 08/04/16 09:48 Dose: 15 mg Levothyroxine Sodium (Synthroid Tab*) 75 mcg PO DAILY@0600 [facility] Last Admin: 08/04/16 05:04 Dose: 75 mcg Loperamide HCl (Imodium Liq*) 2 mg PEG TUBE BID PRN PRN Reason: DIARRHEA Last Admin: 08/01/16 11:07 Dose: 2 mg Magnesium Oxide (Magox 400 Tab*) 400 mg .SEE ORDER BID [facility] Last Admin: 08/04/16 09:48 Dose: 400 mg Morphine Sulfate (Morphine Inj (Syringe)*) 4 mg IV Q3H PRN PRN Reason: PAIN - MILD Last Admin: 08/04/16 10:01 Dose: 4 mg Oxycodone HCl (Oxycodone Oral.Soln*) 10 mg PO Q4H PRN PRN Reason: PAIN Last Admin: 08/04/16 13:28 Dose: 10 mg Sodium Chloride (Sodium Chloride Tab*) 2 gm PEG TUBE BID [facility] Last Admin: 08/04/16 09:48 Dose: 2 gm Vital Signs 08/03/16 08/03/16 08/03/16 18:04 19:02 19:03 Temperature 98.6 F Pulse Rate 107 62 Respiratory 20 20 Rate Blood Pressure 105/61 (mmHg) O2 Sat by Pulse 100 Oximetry 08/03/16 08/03/16 08/03/16 19:04 19:39 20:00 Temperature 98.5 F Pulse Rate 61 Respiratory 20 15 18 Rate Blood Pressure 108/64 (mmHg) O2 Sat by Pulse 100 Oximetry 08/03/16 08/04/16 08/04/16 23:59 00:00 01:00 Temperature 98.0 F Pulse Rate 63 Respiratory 16 18 18 Rate Blood Pressure 101/58 (mmHg) O2 Sat by Pulse 99 Oximetry 08/04/16 08/04/16 08/04/16 01:43 03:33 03:43 Temperature Pulse Rate Respiratory 20 18 16 Rate Blood Pressure (mmHg) O2 Sat by Pulse Oximetry 08/04/16 08/04/16 08/04/16 03:45 05:51 08:18 Temperature 98.2 F 98.6 F Pulse Rate 60 58 Respiratory 16 14 Rate Blood Pressure 100/52 96/54 (mmHg) O2 Sat by Pulse 97 95 100 Oximetry 08/04/16 08/04/16 10:01 13:28 Temperature Pulse Rate Respiratory 18 16 Rate Blood Pressure (mmHg) O2 Sat by Pulse Oximetry Oxygen Devices in Use Now: - - trach collar-100% Appearance: Middle aged chronically ill appearing male sitting up in bed, NAD Eyes: No Scleral Icterus Ears/Nose/Mouth/Throat: Mucous Membranes Moist Respiratory: Symmetrical Chest Expansion and Respiratory Effort, Clear to Auscultation, - - chest tube dressing saturated with serosanguinous drainage Cardiovascular: NL Sounds; No Murmurs; No JVD, RRR, No Edema Abdominal: NL Sounds; No Tenderness; No Distention Extremities: No Clubbing, Cyanosis Skin: No Rash or Ulcers, No Nodules or Sclerosis Neurological: Alert and Oriented x 3 Result Diagrams: 08/04/16 05:15 08/04/16 05:15 Additional Lab and Data: Lab Results 07/28/16 07/28/16 07/28/16 Range/Units 13:53 13:53 13:53 WBC 11.2 H (3.5-10.8) 10^3/ul RBC 2.94 L (4.0-5.4) 10^6/ul Hgb 8.9 L (14.0-18.0) g/dl Hct 27 L (42-52) % MCV 92 (80-94) fL MCH 30 (27-31) pg MCHC 33 (31-36) g/dl RDW 17 H (10.5-15) % Plt Count 229 (150-450) 10^3/ul MPV 7 L (7.4-10.4) um3 Neut % (Auto) 89.7 H (38-83) % Lymph % (Auto) 4.7 L (25-47) % [place] % (Auto) 5.3 (1-9) % Eos % (Auto) 0.1 (0-6) % Baso % (Auto) 0.2 (0-2) % Absolute Neuts (auto) 10.0 H (1.5-7.7) 10^3/ul Absolute Lymphs (auto) 0.5 L (1.0-4.8) 10^3/ul Absolute Monos (auto) 0.6 (0-0.8) 10^3/ul Absolute Eos (auto) 0 (0-0.6) 10^3/ul Absolute Basos (auto) 0 (0-0.2) 10^3/ul Absolute Nucleated RBC 0 10^3/ul Nucleated RBC % 0 Sodium 123 L (133-145) mmol/L Potassium 4.1 (3.5-5.0) mmol/L Chloride 88 L (101-111) mmol/L Carbon Dioxide 26 (22-32) mmol/L Anion Gap 9 (2-11) mmol/L BUN 30 H (6-24) mg/dL Creatinine 1.03 (0.67-1.17) mg/dL Est GFR ( Amer) 92.9 (>60) Est GFR (Non-Af Amer) 72.3 (>60) BUN/Creatinine Ratio 29.1 H (8-20) Glucose 107 H (70-100) mg/dL Lactic Acid 1.6 (0.5-2.0) mmol/L Calcium 9.1 (8.6-10.3) mg/dL Total Bilirubin 0.70 (0.2-1.0) mg/dL AST 17 (13-39) U/L ALT 13 (7-52) U/L Alkaline Phosphatase 79 (34-104) U/L Total Creatine Kinase 14 (10-223) U/L CK-MB (CK-2) 1.4 (0.6-6.3) ng/mL Myoglobin 57.7 (17.4-105.7) ng/mL Troponin I 0.00 (<0.04) ng/mL C-Reactive Protein 237.10 H (< 5.00) mg/L B-Natriuretic Peptide ( - 100) pg/mL Total Protein 7.1 (6.4-8.9) g/dL Albumin 3.0 L (3.2-5.2) g/dL Globulin 4.1 H (2-4) g/dL Albumin/Globulin Ratio 0.7 L (1-3) Urine Color Urine Appearance Urine pH (5-9) Ur Specific [place] (1.010-1.030) Urine Protein (Negative) Urine Ketones (Negative) Urine Blood (Negative) Urine Nitrate (Negative) Urine Bilirubin (Negative) Urine Urobilinogen (Negative) Ur Leukocyte Esterase (Negative) Urine Glucose (Negative) Urine Ascorbic Acid (Negative) 07/28/16 07/28/16 Range/Units 13:53 16:25 WBC (3.5-10.8) 10^3/ul RBC (4.0-5.4) 10^6/ul Hgb (14.0-18.0) g/dl Hct (42-52) % MCV (80-94) fL MCH (27-31) pg MCHC (31-36) g/dl RDW (10.5-15) % Plt Count (150-450) 10^3/ul MPV (7.4-10.4) um3 Neut % (Auto) (38-83) % Lymph % (Auto) (25-47) % [place] % (Auto) (1-9) % Eos % (Auto) (0-6) % Baso % (Auto) (0-2) % Absolute Neuts (auto) (1.5-7.7) 10^3/ul Absolute Lymphs (auto) (1.0-4.8) 10^3/ul Absolute Monos (auto) (0-0.8) 10^3/ul Absolute Eos (auto) (0-0.6) 10^3/ul Absolute Basos (auto) (0-0.2) 10^3/ul Absolute Nucleated RBC 10^3/ul Nucleated RBC % Sodium (133-145) mmol/L Potassium (3.5-5.0) mmol/L Chloride (101-111) mmol/L Carbon Dioxide (22-32) mmol/L Anion Gap (2-11) mmol/L BUN (6-24) mg/dL Creatinine (0.67-1.17) mg/dL Est GFR ( Amer) (>60) Est GFR (Non-Af Amer) (>60) BUN/Creatinine Ratio (8-20) Glucose (70-100) mg/dL Lactic Acid (0.5-2.0) mmol/L Calcium (8.6-10.3) mg/dL Total Bilirubin (0.2-1.0) mg/dL AST (13-39) U/L ALT (7-52) U/L Alkaline Phosphatase (34-104) U/L Total Creatine Kinase (10-223) U/L CK-MB (CK-2) (0.6-6.3) ng/mL Myoglobin (17.4-105.7) ng/mL Troponin I (<0.04) ng/mL C-Reactive Protein (< 5.00) mg/L B-Natriuretic Peptide 136 H ( - 100) pg/mL Total Protein (6.4-8.9) g/dL Albumin (3.2-5.2) g/dL Globulin (2-4) g/dL Albumin/Globulin Ratio (1-3) Urine Color Yellow Urine Appearance Clear Urine pH 6.0 (5-9) Ur Specific [place] 1.010 (1.010-1.030) Urine Protein Negative (Negative) Urine Ketones Negative (Negative) Urine Blood Negative (Negative) Urine Nitrate Negative (Negative) Urine Bilirubin Negative (Negative) Urine Urobilinogen Negative (Negative) Ur Leukocyte Esterase Negative (Negative) Urine Glucose Negative (Negative) Urine Ascorbic Acid * H (Negative) Microbiology and Other Data: Microbiology 07/31/16 11:50 Gram Stain - Final Pleural Fluid Body Fluid Culture - Preliminary Streptococcus Intermedius 07/29/16 00:10 Aerobic Blood Culture - Preliminary Blood Venous No Growth Day 4 Anaerobic Blood Culture - Preliminary No Growth Day 4 Blood Culture - Final 07/29/16 00:05 Aerobic Blood Culture - Preliminary Blood Venous No Growth Day 4 Anaerobic Blood Culture - Preliminary No Growth Day 4 Blood Culture - Final 07/28/16 21:30 Gram Stain - Final Sputum Trach Sputum Culture - Final Esbl Escherichia Coli Normal Zulma Assess/Plan/Problems-Billing Mr Gutierrez is a 66 yo M who has a h/o head and neck cancer s/p chemo/XRT who presented to [facility] with c/o cough and SOB and was ultimately found to have a R sided empyema. - Patient Problems (1) Empyema, right Current Visit: Yes Status: Acute Code(s): J86.9 - PYOTHORAX WITHOUT FISTULA SNOMED Code(s): 02539798 Comment: Continue chest tube drainage. No further alteplase instillations. H/ H improved today after 2 units PRBC. Continue ceftriaxone 2g IV daily. Will plan on repeating chest CT 08/06/16 to evaluate for persistent loculations. (2) Hyponatremia Current Visit: Yes Status: Acute Onset Date: 10/15/14 Code(s): E87.1 - HYPO-OSMOLALITY AND HYPONATREMIA SNOMED Code(s): 00273951 Comment: Na stable on current salt tab dosing. Continue to monitor intermittently. (3) Head and neck cancer Current Visit: Yes Status: Chronic Code(s): C76.0 - MALIGNANT NEOPLASM OF HEAD, FACE AND NECK SNOMED Code(s): 020404308 Comment: Continue to follow with oncology as an outpatient. (4) Hypothyroid Current Visit: Yes Status: Acute Code(s): E03.9 - HYPOTHYROIDISM, UNSPECIFIED SNOMED Code(s): 17976316 Comment: Continue synthroid. (5) GERD (gastroesophageal reflux disease) Current Visit: Yes Status: Chronic Code(s): K21.9 - GASTRO-ESOPHAGEAL REFLUX DISEASE WITHOUT ESOPHAGITIS SNOMED Code(s): 273493062 Comment: Continue lansoprazole. (6) DVT prophylaxis Current Visit: Yes Status: Acute Code(s): MKP6428 - SNOMED Code(s): 088997584 Comment: SCDs (7) Full code status Current Visit: Yes Status: Acute Code(s): Z78.9 - OTHER SPECIFIED HEALTH STATUS SNOMED Code(s): 869741977
[2016-08-05] MEDS: Levothyroxine TAB* 75 MCG TAB PO SCH (05:18)
[2016-08-05] MEDS: oxyCODONE ORAL.SOLN* 5 MG/5 ML UDC PO PRN ×4 (05:27→20:22)
--- NOTE | 2016-08-05 09:59 | PN ---
Subjective Date of Service: 08/05/16 Interval History: Pt is feeling ok. He states his pain is under good enough control on the current pain medication regimen. He states his breathing feels so-so. He is still coughing up more sputum than usual but it is about the same amount as it has been. Objective Active Medications: Citalopram Hydrobromide (Celexa Tab*) 20 mg PEG TUBE DAILY [facility] Last Admin: 08/04/16 09:48 Dose: 20 mg Ergocalciferol (Drisdol Cap*) 50,000 unit PEG TUBE MONTHLY [facility] Heparin Sodium (Porcine) (Heparin Flush Port (Ivad)) 5 ml FLUSH DAILY [facility] PRN Reason: Protocol Last Admin: 08/04/16 09:48 Dose: Not Given Ceftriaxone Sodium 2 gm/ (Sodium Chloride) 100 mls @ 200 mls/hr IVPB Q24H [facility] Last Admin: 08/04/16 09:49 Dose: 200 mls/hr Lansoprazole (Lansoprazole Susp Kit) 15 mg G TUBE DAILY [facility] Last Admin: 08/04/16 09:48 Dose: 15 mg Levothyroxine Sodium (Synthroid Tab*) 75 mcg PO DAILY@0600 [facility] Last Admin: 08/05/16 05:18 Dose: 75 mcg Loperamide HCl (Imodium Liq*) 2 mg PEG TUBE BID PRN PRN Reason: DIARRHEA Last Admin: 08/01/16 11:07 Dose: 2 mg Magnesium Oxide (Magox 400 Tab*) 400 mg .SEE ORDER BID [facility] Last Admin: 08/04/16 20:21 Dose: 400 mg Morphine Sulfate (Morphine Inj (Syringe)*) 4 mg IV Q3H PRN PRN Reason: PAIN - MILD Last Admin: 08/04/16 20:41 Dose: 4 mg Oxycodone HCl (Oxycodone Oral.Soln*) 10 mg PO Q4H PRN PRN Reason: PAIN Last Admin: 08/05/16 05:27 Dose: 10 mg Sodium Chloride (Sodium Chloride Tab*) 2 gm PEG TUBE BID [facility] Last Admin: 08/04/16 20:21 Dose: 2 gm Vital Signs 08/04/16 08/04/16 08/04/16 10:01 13:28 15:28 Temperature Pulse Rate Respiratory 18 16 19 Rate Blood Pressure (mmHg) O2 Sat by Pulse Oximetry 08/04/16 08/04/16 08/04/16 18:14 18:40 20:00 Temperature 98.5 F Pulse Rate 69 Respiratory 15 16 18 Rate Blood Pressure 111/65 (mmHg) O2 Sat by Pulse 98 Oximetry 08/04/16 08/04/16 08/04/16 20:13 20:40 20:41 Temperature 98.6 F Pulse Rate 86 Respiratory 17 16 16 Rate Blood Pressure 134/56 (mmHg) O2 Sat by Pulse 91 Oximetry 08/04/16 08/04/16 08/05/16 23:25 23:27 00:09 Temperature 98.5 F Pulse Rate 74 Respiratory 20 18 Rate Blood Pressure 108/56 (mmHg) O2 Sat by Pulse 97 92 Oximetry 08/05/16 08/05/16 08/05/16 01:27 04:16 05:27 Temperature 98.6 F Pulse Rate 65 Respiratory 16 20 16 Rate Blood Pressure 97/52 (mmHg) O2 Sat by Pulse 98 Oximetry 08/05/16 08/05/16 07:34 08:27 Temperature 98.4 F Pulse Rate 66 Respiratory 16 Rate Blood Pressure 93/54 (mmHg) O2 Sat by Pulse 95 96 Oximetry Oxygen Devices in Use Now: - - trach collar Appearance: MIddle aged male sitting up in bed, NAD Eyes: No Scleral Icterus Ears/Nose/Mouth/Throat: Mucous Membranes Moist Neck: - - trach in place, scant yellow discharge around trach Respiratory: Symmetrical Chest Expansion and Respiratory Effort, Clear to Auscultation - anteriorly Cardiovascular: NL Sounds; No Murmurs; No JVD, RRR, No Edema Abdominal: NL Sounds; No Tenderness; No Distention, - - PEG in place Extremities: No Clubbing, Cyanosis Skin: No Rash or Ulcers, No Nodules or Sclerosis Neurological: Alert and Oriented x 3 Result Diagrams: 08/04/16 05:15 08/04/16 05:15 Additional Lab and Data: Lab Results 07/28/16 07/28/16 07/28/16 Range/Units 13:53 13:53 13:53 WBC 11.2 H (3.5-10.8) 10^3/ul RBC 2.94 L (4.0-5.4) 10^6/ul Hgb 8.9 L (14.0-18.0) g/dl Hct 27 L (42-52) % MCV 92 (80-94) fL MCH 30 (27-31) pg MCHC 33 (31-36) g/dl RDW 17 H (10.5-15) % Plt Count 229 (150-450) 10^3/ul MPV 7 L (7.4-10.4) um3 Neut % (Auto) 89.7 H (38-83) % Lymph % (Auto) 4.7 L (25-47) % [place] % (Auto) 5.3 (1-9) % Eos % (Auto) 0.1 (0-6) % Baso % (Auto) 0.2 (0-2) % Absolute Neuts (auto) 10.0 H (1.5-7.7) 10^3/ul Absolute Lymphs (auto) 0.5 L (1.0-4.8) 10^3/ul Absolute Monos (auto) 0.6 (0-0.8) 10^3/ul Absolute Eos (auto) 0 (0-0.6) 10^3/ul Absolute Basos (auto) 0 (0-0.2) 10^3/ul Absolute Nucleated RBC 0 10^3/ul Nucleated RBC % 0 Sodium 123 L (133-145) mmol/L Potassium 4.1 (3.5-5.0) mmol/L Chloride 88 L (101-111) mmol/L Carbon Dioxide 26 (22-32) mmol/L Anion Gap 9 (2-11) mmol/L BUN 30 H (6-24) mg/dL Creatinine 1.03 (0.67-1.17) mg/dL Est GFR ( Amer) 92.9 (>60) Est GFR (Non-Af Amer) 72.3 (>60) BUN/Creatinine Ratio 29.1 H (8-20) Glucose 107 H (70-100) mg/dL Lactic Acid 1.6 (0.5-2.0) mmol/L Calcium 9.1 (8.6-10.3) mg/dL Total Bilirubin 0.70 (0.2-1.0) mg/dL AST 17 (13-39) U/L ALT 13 (7-52) U/L Alkaline Phosphatase 79 (34-104) U/L Total Creatine Kinase 14 (10-223) U/L CK-MB (CK-2) 1.4 (0.6-6.3) ng/mL Myoglobin 57.7 (17.4-105.7) ng/mL Troponin I 0.00 (<0.04) ng/mL C-Reactive Protein 237.10 H (< 5.00) mg/L B-Natriuretic Peptide ( - 100) pg/mL Total Protein 7.1 (6.4-8.9) g/dL Albumin 3.0 L (3.2-5.2) g/dL Globulin 4.1 H (2-4) g/dL Albumin/Globulin Ratio 0.7 L (1-3) Urine Color Urine Appearance Urine pH (5-9) Ur Specific [place] (1.010-1.030) Urine Protein (Negative) Urine Ketones (Negative) Urine Blood (Negative) Urine Nitrate (Negative) Urine Bilirubin (Negative) Urine Urobilinogen (Negative) Ur Leukocyte Esterase (Negative) Urine Glucose (Negative) Urine Ascorbic Acid (Negative) 07/28/16 07/28/16 Range/Units 13:53 16:25 WBC (3.5-10.8) 10^3/ul RBC (4.0-5.4) 10^6/ul Hgb (14.0-18.0) g/dl Hct (42-52) % MCV (80-94) fL MCH (27-31) pg MCHC (31-36) g/dl RDW (10.5-15) % Plt Count (150-450) 10^3/ul MPV (7.4-10.4) um3 Neut % (Auto) (38-83) % Lymph % (Auto) (25-47) % [place] % (Auto) (1-9) % Eos % (Auto) (0-6) % Baso % (Auto) (0-2) % Absolute Neuts (auto) (1.5-7.7) 10^3/ul Absolute Lymphs (auto) (1.0-4.8) 10^3/ul Absolute Monos (auto) (0-0.8) 10^3/ul Absolute Eos (auto) (0-0.6) 10^3/ul Absolute Basos (auto) (0-0.2) 10^3/ul Absolute Nucleated RBC 10^3/ul Nucleated RBC % Sodium (133-145) mmol/L Potassium (3.5-5.0) mmol/L Chloride (101-111) mmol/L Carbon Dioxide (22-32) mmol/L Anion Gap (2-11) mmol/L BUN (6-24) mg/dL Creatinine (0.67-1.17) mg/dL Est GFR ( Amer) (>60) Est GFR (Non-Af Amer) (>60) BUN/Creatinine Ratio (8-20) Glucose (70-100) mg/dL Lactic Acid (0.5-2.0) mmol/L Calcium (8.6-10.3) mg/dL Total Bilirubin (0.2-1.0) mg/dL AST (13-39) U/L ALT (7-52) U/L Alkaline Phosphatase (34-104) U/L Total Creatine Kinase (10-223) U/L CK-MB (CK-2) (0.6-6.3) ng/mL Myoglobin (17.4-105.7) ng/mL Troponin I (<0.04) ng/mL C-Reactive Protein (< 5.00) mg/L B-Natriuretic Peptide 136 H ( - 100) pg/mL Total Protein (6.4-8.9) g/dL Albumin (3.2-5.2) g/dL Globulin (2-4) g/dL Albumin/Globulin Ratio (1-3) Urine Color Yellow Urine Appearance Clear Urine pH 6.0 (5-9) Ur Specific [place] 1.010 (1.010-1.030) Urine Protein Negative (Negative) Urine Ketones Negative (Negative) Urine Blood Negative (Negative) Urine Nitrate Negative (Negative) Urine Bilirubin Negative (Negative) Urine Urobilinogen Negative (Negative) Ur Leukocyte Esterase Negative (Negative) Urine Glucose Negative (Negative) Urine Ascorbic Acid * H (Negative) Microbiology and Other Data: Microbiology 07/31/16 11:50 Gram Stain - Final Pleural Fluid Body Fluid Culture - Preliminary Streptococcus Intermedius 07/29/16 00:10 Aerobic Blood Culture - Preliminary Blood Venous No Growth Day 4 Anaerobic Blood Culture - Preliminary No Growth Day 4 Blood Culture - Final 07/29/16 00:05 Aerobic Blood Culture - Preliminary Blood Venous No Growth Day 4 Anaerobic Blood Culture - Preliminary No Growth Day 4 Blood Culture - Final 06/10/17 21:30 Gram Stain - Final Sputum Trach Sputum Culture - Final Esbl Escherichia Coli Normal Zulma Assess/Plan/Problems-Billing Mr Gutierrez is a 66 yo M who has a h/o head and neck cancer s/p chemo/XRT who presented to [facility] [place] with c/o cough and SOB and was ultimately found to have a R sided empyema. - Patient Problems (1) Empyema, right Current Visit: Yes Status: Acute Code(s): J86.9 - PYOTHORAX WITHOUT FISTULA SNOMED Code(s): 56008075 Comment: Continue chest tube drainage. No further alteplase instillations. Repeat H/H tomorrow. Continue ceftriaxone 2g IV daily. CT chest tomorrow AM to eval for persistent loculations. (2) Hyponatremia Current Visit: Yes Status: Acute Onset Date: 10/15/14 Code(s): E87.1 - HYPO-OSMOLALITY AND HYPONATREMIA SNOMED Code(s): 36814199 Comment: Na stable on current salt tab dosing. Continue to monitor intermittently. (3) Head and neck cancer Current Visit: Yes Status: Chronic Code(s): C76.0 - MALIGNANT NEOPLASM OF HEAD, FACE AND NECK SNOMED Code(s): 758843044 Comment: Continue to follow with oncology as an outpatient. (4) Hypothyroid Current Visit: Yes Status: Acute Code(s): E03.9 - HYPOTHYROIDISM, UNSPECIFIED SNOMED Code(s): 58103587 Comment: Continue synthroid. (5) GERD (gastroesophageal reflux disease) Current Visit: Yes Status: Chronic Code(s): K21.9 - GASTRO-ESOPHAGEAL REFLUX DISEASE WITHOUT ESOPHAGITIS SNOMED Code(s): 565498709 Comment: Continue lansoprazole. (6) DVT prophylaxis Current Visit: Yes Status: Acute Code(s): [id number] - SNOMED Code(s): 001342530 Comment: SCDs (7) Full code status Current Visit: Yes Status: Acute Code(s): Z78.9 - OTHER SPECIFIED HEALTH STATUS SNOMED Code(s): 540434627
[2016-08-05] MEDS: Citalopram TAB* 20 MG PEG TUBE SCH (10:12)
[2016-08-05] MEDS: Magnesium Oxide TAB* 400 MG SCH ×2 (10:12→20:22)
[2016-08-05] MEDS: Lansoprazole susp Kit 3 MG/ML (15 MG = 5 ML) G TUBE SCH (10:12)
[2016-08-05] MEDS: Sodium Chloride TAB* 1 GM PEG TUBE SCH ×2 (10:12→20:22)
--- NOTE | 2016-08-05 10:26 | PN ---
Subjective - Subjective Subjective: Continues to drain around the chest tube site. Will leave tube in, await chest CT to assess adequacy of drainage. Weight: 150 lb Medication Orders: Current Medications Citalopram Hydrobromide (Celexa Tab*) 20 mg PEG TUBE DAILY [facility] Last Admin: 08/05/16 10:12 Dose: 20 mg Ergocalciferol (Drisdol Cap*) 50,000 unit PEG TUBE MONTHLY [facility] Heparin Sodium (Porcine) (Heparin Flush Port (Ivad)) 5 ml FLUSH DAILY [facility] PRN Reason: Protocol Last Admin: 08/05/16 10:13 Dose: 5 ml Ceftriaxone Sodium 2 gm/ (Sodium Chloride) 100 mls @ 200 mls/hr IVPB Q24H [facility] Last Admin: 08/04/16 09:49 Dose: 200 mls/hr Lansoprazole (Lansoprazole Susp Kit) 15 mg G TUBE DAILY [facility] Last Admin: 08/05/16 10:12 Dose: 15 mg Levothyroxine Sodium (Synthroid Tab*) 75 mcg PO DAILY@0600 [facility] Last Admin: 08/05/16 05:18 Dose: 75 mcg Loperamide HCl (Imodium Liq*) 2 mg PEG TUBE BID PRN PRN Reason: DIARRHEA Last Admin: 08/01/16 11:07 Dose: 2 mg Magnesium Oxide (Magox 400 Tab*) 400 mg .SEE ORDER BID [facility] Last Admin: 08/05/16 10:12 Dose: 400 mg Morphine Sulfate (Morphine Inj (Syringe)*) 4 mg IV Q3H PRN PRN Reason: PAIN - MILD Last Admin: 08/04/16 20:41 Dose: 4 mg Oxycodone HCl (Oxycodone Oral.Soln*) 10 mg PO Q4H PRN PRN Reason: PAIN Last Admin: 08/05/16 10:11 Dose: 10 mg Sodium Chloride (Sodium Chloride Tab*) 2 gm PEG TUBE BID [facility] Last Admin: 08/05/16 10:12 Dose: 2 gm Home Medications: Home Medications Medication Instructions Recorded Confirmed Type Cholecalciferol TAB* [Vitamin D 50,000 unit PEG TUBE MONTHLY 12/06/15 07/28/16 History TAB*] Citalopram TAB* [Celexa TAB*] 20 mg PEG TUBE DAILY 12/06/15 07/28/16 History Levothyroxine TAB* [Synthroid 25 1 tab PEG TUBE DAILY 12/06/15 07/28/16 History MCG TAB*] Magnesium Oxide [Magnesium Oxide-] 400 mg PEG TUBE BID 12/06/15 07/28/16 History Omeprazole CAP* [Prilosec CAP* 20 20 mg PEG TUBE DAILY 12/06/15 07/28/16 History MG] Sodium Chloride TAB* 2 gm PEG TUBE TID 12/06/15 07/28/16 History Results/Investigations Lab Results: 07/31/16 07/31/16 08/03/16 11:50 11:50 06:15 WBC RBC Hgb 6.2 L* Hct 19 L MCV MCH MCHC RDW Plt Count MPV Sodium Potassium Chloride Carbon Dioxide Anion Gap BUN Creatinine Est GFR ( Amer) Est GFR (Non-Af Amer) BUN/Creatinine Ratio Glucose Calcium Magnesium Fluid Source Pleural fluid Pleural Fluid Albumin 1480 Blood Type Antibody Screen Crossmatch 08/03/16 08/04/16 08/04/16 06:26 05:15 05:15 WBC 4.4 RBC 2.84 L Hgb 8.4 L Hct 25 L MCV 88 MCH 30 MCHC 33 RDW 18 H Plt Count 145 L MPV 7 L Sodium 131 L Potassium 3.8 Chloride 102 Carbon Dioxide 27 Anion Gap 2 BUN 19 Creatinine 0.62 L Est GFR ( Amer) 166.9 Est GFR (Non-Af Amer) 129.8 BUN/Creatinine Ratio 30.6 H Glucose 95 Calcium 7.8 L Magnesium 1.8 L Fluid Source Fluid Albumin Blood Type A Positive Antibody Screen Negative Crossmatch See Detail Vitals Vital Signs: Vital Signs 08/04/16 08/04/16 08/04/16 13:28 15:28 18:14 Temperature 98.5 F Pulse Rate 69 Respiratory 16 19 15 Rate Blood Pressure 111/65 (mmHg) O2 Sat by Pulse 98 Oximetry 08/04/16 08/04/16 08/04/16 18:40 20:00 20:13 Temperature 98.6 F Pulse Rate 86 Respiratory 16 18 17 Rate Blood Pressure 134/56 (mmHg) O2 Sat by Pulse 91 Oximetry 08/04/16 08/04/16 08/04/16 20:40 20:41 23:25 Temperature 98.5 F Pulse Rate 74 Respiratory 16 16 20 Rate Blood Pressure 108/56 (mmHg) O2 Sat by Pulse 97 Oximetry 08/04/16 08/05/16 08/05/16 23:27 00:09 01:27 Temperature Pulse Rate Respiratory 18 16 Rate Blood Pressure (mmHg) O2 Sat by Pulse 92 Oximetry 08/05/16 08/05/16 08/05/16 04:16 05:27 07:34 Temperature 98.6 F 98.4 F Pulse Rate 65 66 Respiratory 20 16 16 Rate Blood Pressure 97/52 93/54 (mmHg) O2 Sat by Pulse 98 95 Oximetry 08/05/16 08/05/16 08:27 10:11 Temperature Pulse Rate Respiratory 16 Rate Blood Pressure (mmHg) O2 Sat by Pulse 96 Oximetry Patient Problems: Patient Problems Problem Status Onset Code DVT prophylaxis Acute [id number] Empyema, right Acute J86.9 Full code status Acute Z78.9 Hyponatremia Acute 10/15/14 E87.1 Hypothyroid Acute E03.9 GERD (gastroesophageal reflux disease) Chronic K21.9 Head and neck cancer Chronic C76.0 Abdominal pain Acute R10.9 Airway compromise Acute 10/15/14 J98.8 Anemia Acute 05/30/15 D64.9 Bacteremia Acute R78.81 Cellulitis of neck Acute L03.221 Cholecystitis Acute K81.9 Chronic pulmonary aspiration Acute 09/06/14 T17.908A Cough Acute 09/06/14 R05 Dehydration Acute 05/30/15 E86.0 Electrolyte abnormality Acute E87.8 Epidural abscess Acute G06.2 Fever Acute 09/06/14 R50.9 Glossal cancer Acute History of benign prostatic hypertrophy Acute Z87.438 History of epidural abscess Acute Hyperglycemia Acute 10/15/14 R73.9 Hypotension Acute 05/30/15 Infection of parotid gland Acute 10/15/14 K11.20 Macrocytic anemia Acute 10/15/14 D53.9 Mucositis Acute 10/15/14 K12.30 Neck pain Acute 10/15/14 M54.2 Pain Acute R52 Parotitis, acute Acute 10/15/14 K11.21 Pneumonia Acute 05/30/15 J18.9 Pneumonia of lower lobe of lung Acute 12/27/14 J18.9 Sepsis Acute Squamous cell carcinoma Acute C80.1 Chronic pain Chronic G89.29 Feeding by G-tube Chronic Z93.1 History of gastroesophageal reflux (GERD) Chronic Z87.19 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
[2016-08-05] MEDS ORDERED: Polyethylene Glycol 3350* 17 GM PACKET PO PRN (12:42)
[2016-08-05] MEDS ORDERED: Polyethylene Glycol 3350* 17 GM PACKET PEG TUBE PRN (13:39)
[2016-08-06] MEDS: oxyCODONE ORAL.SOLN* 5 MG/5 ML UDC PO PRN ×4 (02:34→22:37)
[2016-08-06] MEDS: Levothyroxine TAB* 75 MCG TAB PO SCH (05:26)
[2016-08-06 05:59] LABS: Hematocrit 26 % (42-52); Hemoglobin 8.8 g/dl (14.0-18.0); Mean Corpuscular HGB Conc 33 g/dl (31-36); Mean Corpuscular Hemoglobin 30 pg (27-31); Mean Corpuscular Volume 89 fL (80-94); Mean Platelet Volume 7 um3 (7.4-10.4); Red Blood Count 2.95 10^6/ul (4.0-5.4); Red Cell Distribution Width 18 % (10.5-15); White Blood Count 5.7 10^3/ul (3.5-10.8)
[2016-08-06 06:10] LABS: BUN/Creatinine Ratio 22.5 (8-20); Blood Urea Nitrogen 16 mg/dL (6-24); C Reactive Protein 99.76 mg/L (< 5.00); CO2 Carbon Dioxide 29 mmol/L (22-32); Calcium 8.2 mg/dL (8.6-10.3); Chloride 96 mmol/L (101-111); EGFR African American 142.8 (>60); Glucose 99 mg/dL (70-100); Potassium 4.3 mmol/L (3.5-5.0); Sodium 124 mmol/L (133-145)
[2016-08-06] MEDS: Citalopram TAB* 20 MG PEG TUBE SCH (09:13)
[2016-08-06] MEDS: Sodium Chloride TAB* 1 GM PEG TUBE SCH ×2 (09:13→20:38)
[2016-08-06] MEDS: Magnesium Oxide TAB* 400 MG SCH ×2 (09:13→20:38)
--- NOTE | 2016-08-06 09:31 | PN ---
Subjective Date of Service: 08/06/16 Interval History: Pt is feeling ok. He has some discomfort around the tracheostomy appliance. His pain is fairly well controlled at the chest tube site. He has not had a BM in 3 days now. He denies any abdominal pain. Objective Active Medications: Citalopram Hydrobromide (Celexa Tab*) 20 mg PEG TUBE DAILY [facility] Last Admin: 08/05/16 10:12 Dose: 20 mg Ergocalciferol (Drisdol Cap*) 50,000 unit PEG TUBE MONTHLY [facility] Heparin Sodium (Porcine) (Heparin Flush Port (Ivad)) 5 ml FLUSH DAILY [facility] PRN Reason: Protocol Last Admin: 08/05/16 10:13 Dose: 5 ml Ceftriaxone Sodium 2 gm/ (Sodium Chloride) 100 mls @ 200 mls/hr IVPB Q24H [facility] Last Admin: 08/05/16 10:33 Dose: 200 mls/hr Lansoprazole (Lansoprazole Susp Kit) 15 mg G TUBE DAILY [facility] Last Admin: 08/05/16 10:12 Dose: 15 mg Levothyroxine Sodium (Synthroid Tab*) 75 mcg PO DAILY@0600 [facility] Last Admin: 08/06/16 05:26 Dose: 75 mcg Loperamide HCl (Imodium Liq*) 2 mg PEG TUBE BID PRN PRN Reason: DIARRHEA Last Admin: 08/01/16 11:07 Dose: 2 mg Magnesium Oxide (Magox 400 Tab*) 400 mg .SEE ORDER BID [facility] Last Admin: 08/05/16 20:22 Dose: 400 mg Morphine Sulfate (Morphine Inj (Syringe)*) 4 mg IV Q3H PRN PRN Reason: PAIN - MILD Last Admin: 08/04/16 20:41 Dose: 4 mg Oxycodone HCl (Oxycodone Oral.Soln*) 10 mg PO Q4H PRN PRN Reason: PAIN Last Admin: 08/06/16 02:34 Dose: 10 mg Polyethylene Glycol/Electrolytes (Miralax*) 17 gm PEG TUBE DAILY PRN PRN Reason: CONSTIPATION Last Admin: 08/05/16 13:52 Dose: 17 gm Sodium Chloride (Sodium Chloride Tab*) 2 gm PEG TUBE BID [facility] Last Admin: 08/05/16 20:22 Dose: 2 gm Vital Signs 08/05/16 08/05/16 08/05/16 10:11 11:46 12:11 Temperature 98.8 F Pulse Rate 77 Respiratory 16 16 16 Rate Blood Pressure 91/50 (mmHg) O2 Sat by Pulse 93 Oximetry 08/05/16 08/05/16 08/05/16 16:14 16:34 18:06 Temperature 98.6 F Pulse Rate 69 Respiratory 16 18 16 Rate Blood Pressure 87/52 (mmHg) O2 Sat by Pulse 97 Oximetry 08/05/16 08/05/16 08/05/16 20:00 20:22 22:22 Temperature Pulse Rate Respiratory 18 18 17 Rate Blood Pressure (mmHg) O2 Sat by Pulse Oximetry 08/06/16 08/06/16 08/06/16 00:32 00:40 02:34 Temperature 98.5 F Pulse Rate 71 Respiratory 20 Rate Blood Pressure 94/55 (mmHg) O2 Sat by Pulse 96 95 Oximetry 08/06/16 08/06/16 04:34 05:24 Temperature 98.5 F Pulse Rate 71 Respiratory 16 16 Rate Blood Pressure 102/63 (mmHg) O2 Sat by Pulse 100 Oximetry Oxygen Devices in Use Now: - - trach collar Appearance: Middle aged male sitting up in bed, NAD Eyes: No Scleral Icterus Ears/Nose/Mouth/Throat: Mucous Membranes Moist Neck: - - R submandibular area appears swollen- is firm to touch, non-tender Respiratory: Symmetrical Chest Expansion and Respiratory Effort, - - coarse breath sounds at the R base/mid lung but he has improved aeration to the R base Cardiovascular: NL Sounds; No Murmurs; No JVD, RRR, No Edema Abdominal: NL Sounds; No Tenderness; No Distention Extremities: No Clubbing, Cyanosis Skin: No Nodules or Sclerosis, - - small ulceration noted under tracheostomy appliance Neurological: Alert and Oriented x 3 Result Diagrams: 08/06/16 05:30 08/06/16 05:30 Additional Lab and Data: Lab Results 07/28/16 07/28/16 07/28/16 Range/Units 13:53 13:53 13:53 WBC 11.2 H (3.5-10.8) 10^3/ul RBC 2.94 L (4.0-5.4) 10^6/ul Hgb 8.9 L (14.0-18.0) g/dl Hct 27 L (42-52) % MCV 92 (80-94) fL MCH 30 (27-31) pg MCHC 33 (31-36) g/dl RDW 17 H (10.5-15) % Plt Count 229 (150-450) 10^3/ul MPV 7 L (7.4-10.4) um3 Neut % (Auto) 89.7 H (38-83) % Lymph % (Auto) 4.7 L (25-47) % Citrus % (Auto) 5.3 (1-9) % Eos % (Auto) 0.1 (0-6) % Baso % (Auto) 0.2 (0-2) % Absolute Neuts (auto) 10.0 H (1.5-7.7) 10^3/ul Absolute Lymphs (auto) 0.5 L (1.0-4.8) 10^3/ul Absolute Monos (auto) 0.6 (0-0.8) 10^3/ul Absolute Eos (auto) 0 (0-0.6) 10^3/ul Absolute Basos (auto) 0 (0-0.2) 10^3/ul Absolute Nucleated RBC 0 10^3/ul Nucleated RBC % 0 Sodium 123 L (133-145) mmol/L Potassium 4.1 (3.5-5.0) mmol/L Chloride 88 L (101-111) mmol/L Carbon Dioxide 26 (22-32) mmol/L Anion Gap 9 (2-11) mmol/L BUN 30 H (6-24) mg/dL Creatinine 1.03 (0.67-1.17) mg/dL Est GFR ( Amer) 92.9 (>60) Est GFR (Non-Af Amer) 72.3 (>60) BUN/Creatinine Ratio 29.1 H (8-20) Glucose 107 H (70-100) mg/dL Lactic Acid 1.6 (0.5-2.0) mmol/L Calcium 9.1 (8.6-10.3) mg/dL Total Bilirubin 0.70 (0.2-1.0) mg/dL AST 17 (13-39) U/L ALT 13 (7-52) U/L Alkaline Phosphatase 79 (34-104) U/L Total Creatine Kinase 14 (10-223) U/L CK-MB (CK-2) 1.4 (0.6-6.3) ng/mL Myoglobin 57.7 (17.4-105.7) ng/mL Troponin I 0.00 (<0.04) ng/mL C-Reactive Protein 237.10 H (< 5.00) mg/L B-Natriuretic Peptide ( - 100) pg/mL Total Protein 7.1 (6.4-8.9) g/dL Albumin 3.0 L (3.2-5.2) g/dL Globulin 4.1 H (2-4) g/dL Albumin/Globulin Ratio 0.7 L (1-3) Urine Color Urine Appearance Urine pH (5-9) Ur Specific [place] (1.010-1.030) Urine Protein (Negative) Urine Ketones (Negative) Urine Blood (Negative) Urine Nitrate (Negative) Urine Bilirubin (Negative) Urine Urobilinogen (Negative) Ur Leukocyte Esterase (Negative) Urine Glucose (Negative) Urine Ascorbic Acid (Negative) 07/28/16 07/28/16 Range/Units 13:53 16:25 WBC (3.5-10.8) 10^3/ul RBC (4.0-5.4) 10^6/ul Hgb (14.0-18.0) g/dl Hct (42-52) % MCV (80-94) fL MCH (27-31) pg MCHC (31-36) g/dl RDW (10.5-15) % Plt Count (150-450) 10^3/ul MPV (7.4-10.4) um3 Neut % (Auto) (38-83) % Lymph % (Auto) (25-47) % Citrus % (Auto) (1-9) % Eos % (Auto) (0-6) % Baso % (Auto) (0-2) % Absolute Neuts (auto) (1.5-7.7) 10^3/ul Absolute Lymphs (auto) (1.0-4.8) 10^3/ul Absolute Monos (auto) (0-0.8) 10^3/ul Absolute Eos (auto) (0-0.6) 10^3/ul Absolute Basos (auto) (0-0.2) 10^3/ul Absolute Nucleated RBC 10^3/ul Nucleated RBC % Sodium (133-145) mmol/L Potassium (3.5-5.0) mmol/L Chloride (101-111) mmol/L Carbon Dioxide (22-32) mmol/L Anion Gap (2-11) mmol/L BUN (6-24) mg/dL Creatinine (0.67-1.17) mg/dL Est GFR ( Amer) (>60) Est GFR (Non-Af Amer) (>60) BUN/Creatinine Ratio (8-20) Glucose (70-100) mg/dL Lactic Acid (0.5-2.0) mmol/L Calcium (8.6-10.3) mg/dL Total Bilirubin (0.2-1.0) mg/dL AST (13-39) U/L ALT (7-52) U/L Alkaline Phosphatase (34-104) U/L Total Creatine Kinase (10-223) U/L CK-MB (CK-2) (0.6-6.3) ng/mL Myoglobin (17.4-105.7) ng/mL Troponin I (<0.04) ng/mL C-Reactive Protein (< 5.00) mg/L B-Natriuretic Peptide 136 H ( - 100) pg/mL Total Protein (6.4-8.9) g/dL Albumin (3.2-5.2) g/dL Globulin (2-4) g/dL Albumin/Globulin Ratio (1-3) Urine Color Yellow Urine Appearance Clear Urine pH 6.0 (5-9) Ur Specific [place] 1.010 (1.010-1.030) Urine Protein Negative (Negative) Urine Ketones Negative (Negative) Urine Blood Negative (Negative) Urine Nitrate Negative (Negative) Urine Bilirubin Negative (Negative) Urine Urobilinogen Negative (Negative) Ur Leukocyte Esterase Negative (Negative) Urine Glucose Negative (Negative) Urine Ascorbic Acid * H (Negative) Microbiology and Other Data: Microbiology 07/31/16 11:50 Gram Stain - Final Pleural Fluid Body Fluid Culture - Preliminary Streptococcus Intermedius 07/29/16 00:10 Aerobic Blood Culture - Preliminary Blood Venous No Growth Day 4 Anaerobic Blood Culture - Preliminary No Growth Day 4 Blood Culture - Final 07/29/16 00:05 Aerobic Blood Culture - Preliminary Blood Venous No Growth Day 4 Anaerobic Blood Culture - Preliminary No Growth Day 4 Blood Culture - Final 07/28/16 21:30 Gram Stain - Final Sputum Trach Sputum Culture - Final Esbl Escherichia Coli Normal Zulma Assess/Plan/Problems-Billing Mr Gutierrez is a 66 yo M who has a h/o head and neck cancer s/p chemo/XRT who presented to [facility] [place] with c/o cough and SOB and was ultimately found to have a R sided empyema. - Patient Problems (1) Empyema, right Current Visit: Yes Status: Acute Code(s): J86.9 - PYOTHORAX WITHOUT FISTULA SNOMED Code(s): 86108429 Comment: Continue chest tube drainage. Repeat CT has been completed. Await for read from radiology and input from surgery for further recommendations. Continue ceftriaxone 2g IV daiy for strep intermedius. (2) Hyponatremia Current Visit: Yes Status: Acute Onset Date: 10/15/14 Code(s): E87.1 - HYPO-OSMOLALITY AND HYPONATREMIA SNOMED Code(s): 12947103 Comment: Na dropped today to 124 despite continuing on salt tabs. I have been informed that the patient was having the nurses mix his tube feed with 200- 250ml of water. ? too much water intake. Will have the nurses cut back to 100ml with the tube feed so a volume of 337ml 5x daily. (3) Severe protein-calorie malnutrition Current Visit: Yes Status: Acute Code(s): E43 - UNSPECIFIED SEVERE PROTEIN- CALORIE MALNUTRITION SNOMED Code(s): 513724162 Comment: Despite the patient being on tube feeds he has a pre-albumin of only 6. Will discuss with nutrition about changing his tube feed to a higher calorie feed. (4) Head and neck cancer Current Visit: Yes Status: Chronic Code(s): C76.0 - MALIGNANT NEOPLASM OF HEAD, FACE AND NECK SNOMED Code(s): 166003712 Comment: Continue to follow with oncology as an outpatient. Monitor area of firm edema. (5) Hypothyroid Current Visit: Yes Status: Acute Code(s): E03.9 - HYPOTHYROIDISM, UNSPECIFIED SNOMED Code(s): 24945431 Comment: Continue synthroid. (6) GERD (gastroesophageal reflux disease) Current Visit: Yes Status: Chronic Code(s): K21.9 - GASTRO-ESOPHAGEAL REFLUX DISEASE WITHOUT ESOPHAGITIS SNOMED Code(s): 949816873 Comment: Continue lansoprazole. (7) DVT prophylaxis Current Visit: Yes Status: Acute Code(s): NHP8273 - SNOMED Code(s): 451077473 Comment: SCDs (8) Full code status Current Visit: Yes Status: Acute Code(s): Z78.9 - OTHER SPECIFIED HEALTH STATUS SNOMED Code(s): 375010768
--- NOTE | 2016-08-06 09:37 | RAD ---
Indication: Evaluate for persistent loculated pleural collections. CT of the chest was performed without IV contrast. Coronal and sagittal reconstructed images were obtained. Tracheostomy tube is in place. Central line is noted with the tip in the superior vena cava. Moderate AP window lymph nodes are noted measuring up to 12 mm. Precarinal lymph nodes measure up to 6 mm. Trace right pleural effusion is noted. There is increasing right basilar consolidation with air bronchograms and compared to prior exam.. Right chest tube is present. Minimal pneumothorax is noted in the right hemithorax. Small left pleural effusion is noted. The visualized abdominal organs are unremarkable. When compared to previous exam of August 01, 2016 no significant change is noted. IMPRESSION: SMALL RIGHT PLEURAL EFFUSION PERSISTS. RIGHT LOWER LOBE CONSOLIDATION APPEARS TO BE PROGRESSIVE WHEN COMPARED TO AUGUST 01, 2016. SMALL LEFT PLEURAL EFFUSION IS NOTED. RIGHT CHEST TUBE REMAINS IN PLACE.
[2016-08-06] MEDS: Lansoprazole susp Kit 3 MG/ML (15 MG = 5 ML) G TUBE SCH (09:39)
--- NOTE | 2016-08-06 10:45 | PN ---
Progress Note - Progress Note SOAP: Subjective: []Doing better overall. Breathing is fine. Cough continues. Has pain with chest tube and has not been out of bed. Tolerating feeds. No fevers. Had CT and may need VATS. Citalopram Hydrobromide (Celexa Tab*) 20 mg PEG TUBE DAILY [facility] Last Admin: 08/06/16 09:13 Dose: 20 mg Ergocalciferol (Drisdol Cap*) 50,000 unit PEG TUBE MONTHLY [facility] Heparin Sodium (Porcine) (Heparin Flush Port (Ivad)) 5 ml FLUSH DAILY [facility] PRN Reason: Protocol Last Admin: 08/06/16 09:37 Dose: 5 ml Ceftriaxone Sodium 2 gm/ (Sodium Chloride) 100 mls @ 200 mls/hr IVPB Q24H [facility] Last Admin: 08/06/16 10:01 Dose: 200 mls/hr Lansoprazole (Lansoprazole Susp Kit) 15 mg G TUBE DAILY [facility] Last Admin: 08/06/16 09:39 Dose: 15 mg Levothyroxine Sodium (Synthroid Tab*) 75 mcg PO DAILY@0600 [facility] Last Admin: 08/06/16 05:26 Dose: 75 mcg Loperamide HCl (Imodium Liq*) 2 mg PEG TUBE BID PRN PRN Reason: DIARRHEA Last Admin: 08/01/16 11:07 Dose: 2 mg Magnesium Oxide (Magox 400 Tab*) 400 mg .SEE ORDER BID [facility] Last Admin: 08/06/16 09:13 Dose: 400 mg Morphine Sulfate (Morphine Inj (Syringe)*) 4 mg IV Q3H PRN PRN Reason: PAIN - MILD Last Admin: 08/04/16 20:41 Dose: 4 mg Oxycodone HCl (Oxycodone Oral.Soln*) 10 mg PO Q4H PRN PRN Reason: PAIN Last Admin: 08/06/16 09:36 Dose: 10 mg Polyethylene Glycol/Electrolytes (Miralax*) 17 gm PEG TUBE DAILY [facility] Sodium Chloride (Sodium Chloride Tab*) 2 gm PEG TUBE BID [facility] Last Admin: 08/06/16 09:13 Dose: 2 gm Objective: [] Vital Signs Temp Pulse Resp BP Pulse Ox 98.5 F 71 17 102/63 96 08/06/16 05:24 08/06/16 05:24 08/06/16 09:36 08/06/16 05:24 08/06/16 09:25 HEENT - pale, XRT changes - chronic. Edema in neck is stable. Trach Decreased BS and some crackles both sides, no wheezing. chest tube on right. RRR S1S2 PEG, NT/ND Cx - ESBL E.Coli in sputum, Strep in effusion. CT - continued consolidation and effusion, chest tube is in place. Assessment: []66 year old history of head and neck cancer, MC since 06/2014 but many chronic complication of disease and treatment. Chronic trach and PEG. Presents with SOB, productive cough. Pulmonary abscess, without recurrent or new primary cancer. Plan: []1. Appears to be responding to antibiotics but question of VATS. 2. Neck edema is chronic, no change. 3. Will obtain records from recent visit to [facility]. 4. Anemia. Mild rafal positive but acute drop is likely inflammatory. Tx for Hgb < 8.0
--- NOTE | 2016-08-06 10:58 | PN ---
Progress Note - Progress Note Note: Feels Ok, denies dyspnea. Minimal pain around tube. Drainage both around and through tube has decreased. Color good, breathing easy. CT improved from prior. IMPR: Right empyema with chest tube s/p fibrinolytic and bleed. REC: He is at high risk for either repeat fibrinolytics or VATS. I would continue antibiotics, probably remove chest tube tmrw. Disc. W/ Gama Baxter and Bonnie.
[2016-08-06] MEDS: Polyethylene Glycol 3350* 17 GM PACKET PEG TUBE SCH (12:49)
[2016-08-07] MEDS: oxyCODONE ORAL.SOLN* 5 MG/5 ML UDC PO PRN ×2 (04:01→08:12)
[2016-08-07] MEDS: Levothyroxine TAB* 75 MCG TAB PO SCH (05:55)
[2016-08-07] MEDS: Magnesium Oxide TAB* 400 MG SCH ×2 (08:12→21:15)
[2016-08-07] MEDS: Sodium Chloride TAB* 1 GM PEG TUBE SCH ×2 (08:12→21:16)
[2016-08-07] MEDS: Citalopram TAB* 20 MG PEG TUBE SCH (08:12)
[2016-08-07] MEDS: Polyethylene Glycol 3350* 17 GM PACKET PEG TUBE SCH (08:13)
[2016-08-07] MEDS: Lansoprazole susp Kit 3 MG/ML (15 MG = 5 ML) G TUBE SCH (08:13)
[2016-08-07] MEDS ORDERED: Polyethylene Glycol 3350* 17 GM PACKET PEG TUBE SCH (09:27)
--- NOTE | 2016-08-07 10:30 | PN ---
Progress Note - Progress Note Note: Surgery Progress: S: Per Dr. Arellano, who had reviewed yesterday's CT ad discussed w/ Dr. Nicole , chest tube may be removed. O: 75 cc drainage recorded over past 24 hrs; clear serous. No air leak. A/P: chest tube removed w/o incident; occlusive dsg placed which will stay in place for at least 48 hrs. Cont med mgmt (abx).
[2016-08-07] MEDS ORDERED: Alteplase (CATHFLO)* 2 MG VIAL IV ONE (12:35)
--- NOTE | 2016-08-07 13:10 | PN ---
Subjective Date of Service: 08/07/16 Interval History: HOSPITALIST PROGRESS NOTE Patient seen and examined at bedside. He still has some cough with yellow sputum, but overall feels better. Mild pain around chest tube area. Family History: Unchanged from Admission Social History: Unchanged from Admission Past Medical History: Unchanged from Admission Objective Active Medications: Citalopram Hydrobromide (Celexa Tab*) 20 mg PEG TUBE DAILY [facility] Last Admin: 08/07/16 08:12 Dose: 20 mg Ergocalciferol (Drisdol Cap*) 50,000 unit PEG TUBE MONTHLY [facility] Heparin Sodium (Porcine) (Heparin Flush Port (Ivad)) 5 ml FLUSH DAILY [facility] PRN Reason: Protocol Last Admin: 08/07/16 08:14 Dose: 5 ml Ceftriaxone Sodium 2 gm/ (Sodium Chloride) 100 mls @ 200 mls/hr IVPB Q24H [facility] Last Admin: 08/07/16 10:46 Dose: 200 mls/hr Lansoprazole (Lansoprazole Susp Kit) 15 mg G TUBE DAILY [facility] Last Admin: 08/07/16 08:13 Dose: 15 mg Levothyroxine Sodium (Synthroid Tab*) 75 mcg PO DAILY@0600 [facility] Last Admin: 08/07/16 05:55 Dose: 75 mcg Loperamide HCl (Imodium Liq*) 2 mg PEG TUBE BID PRN PRN Reason: DIARRHEA Last Admin: 08/01/16 11:07 Dose: 2 mg Magnesium Oxide (Magox 400 Tab*) 400 mg .SEE ORDER BID [facility] Last Admin: 08/07/16 08:12 Dose: 400 mg Morphine Sulfate (Morphine Inj (Syringe)*) 4 mg IV Q3H PRN PRN Reason: PAIN - MILD Last Admin: 08/04/16 20:41 Dose: 4 mg Oxycodone HCl (Oxycodone Oral.Soln*) 10 mg PO Q4H PRN PRN Reason: PAIN Last Admin: 08/07/16 08:12 Dose: 10 mg Polyethylene Glycol/Electrolytes (Miralax*) 17 gm PEG TUBE DAILY [facility] Last Admin: 08/07/16 08:13 Dose: 17 gm Sodium Chloride (Sodium Chloride Tab*) 2 gm PEG TUBE BID [facility] Last Admin: 08/07/16 08:12 Dose: 2 gm Vital Signs 08/07/16 08/07/16 08/07/16 07:42 08:00 08:12 Temperature 98.6 F Pulse Rate 81 Respiratory 18 19 16 Rate Blood Pressure 108/58 (mmHg) O2 Sat by Pulse 96 Oximetry Oxygen Devices in Use Now: - - trach collar Appearance: Elderly male, appears older than stated age, lying in bed in NAD. Eyes: No Scleral Icterus Ears/Nose/Mouth/Throat: Mucous Membranes Moist Neck: - - Right submandibular edema, non-tender, trach in place with no surrounding bleed or drainage Respiratory: Symmetrical Chest Expansion and Respiratory Effort, - - BS+ bilaterally, coarse on the right Cardiovascular: RRR - Normal S1 and S2 Abdominal: NL Sounds; No Tenderness; No Distention Extremities: No Edema Neurological: Alert and Oriented x 3, NL Muscle Strength and Tone Result Diagrams: 08/06/16 05:30 08/06/16 05:30 Assess/Plan/Problems-Billing Assessment: Mr Gutierrez is a 66 yo M who has a h/o head and neck cancer s/p chemo/XRT who presented to [place] with c/o cough and SOB and was ultimately found to have a R sided empyema. - Patient Problems (1) Empyema, right Comment: - Chest tube removed today. - Continue ceftriaxone 2g IV daiy for strep intermedius - to make arrangements for outpatient IV antibiotics. (2) Hyponatremia Comment: - Continue sodium chloride and monitor sodium level. (3) Severe protein-calorie malnutrition Comment: - RD input appreciated - continue TF. (4) Head and neck cancer Comment: - Continue to follow with oncology as an outpatient. As per oncology, area of neck edema is unchanged. (5) Hypothyroid Comment: - TSH was 10 and Levothyroxine was increased from 50mcg to 75mcg. Needs repeat TFTs in 4 weeks. (6) GERD (gastroesophageal reflux disease) Comment: - Continue lansoprazole. (7) DVT prophylaxis Comment: - SCDs. (8) Full code status Status and Disposition: Inpatient.
--- NOTE | 2016-08-07 13:59 | PN ---
Progress Note - Progress Note SOAP: Subjective: DOS: 08/07/16 CC: empyema HPI: 66 yo man hx head/neck cancer, chronic trach, now with malaise, cough, weakness. Right chest empyema, had chest tube which came out and he has tolerated that well. No fever, rash, or diarrhea. Objective: [] Vital Signs Temp 37.0 C 08/07/16 07:42 Pulse 81 08/07/16 07:42 Resp 16 08/07/16 10:12 BP 108/58 08/07/16 07:42 Pulse Ox 96 08/07/16 07:42 Intake & Output 08/06/16 08/07/16 08/07/16 18:59 06:59 18:59 Intake Total 700 680 Output Total 1015 1075 Balance -315 -395 Intake: Oral 0 Tube Feeding 480 480 Tube Feeding Flush Amount 220 200 Output: Chest Tube #1 75 Urine 940 1075 Tube Feeding Residual 0 Amount Wasted Other: Estimated Void Medium # Bowel Movements 0 0 # Voids 1 Gen:Awake, no distress Neuro:AAOx3 Neck:tracheostomy HEENT:PERRL, MMM Neck:Supple Heart:RRR no murmur Lungs: decr BS at bases BL Abd:+BS NTND soft Skin: no rash MSK: no spine tenderness Vital Signs Temp 37.0 C 08/07/16 07:42 Pulse 81 08/07/16 07:42 Resp 16 08/07/16 10:12 BP 108/58 08/07/16 07:42 Pulse Ox 96 08/07/16 07:42 Intake & Output 08/06/16 08/07/16 08/07/16 18:59 06:59 18:59 Intake Total 700 680 Output Total 1015 1075 Balance -315 -395 Intake: Oral 0 Tube Feeding 480 480 Tube Feeding Flush Amount 220 200 Output: Chest Tube #1 75 Urine 940 1075 Tube Feeding Residual 0 Amount Wasted Other: Estimated Void Medium # Bowel Movements 0 0 # Voids 1 Assessment: 1. R chest empyema due to Strep intermedius 2. chronic trach 3. hx XRT and chemotherapy Plan: 1. continue ceftriaxone 2 gm IV Q24hrs, orders written for outpatient infusion. Weekly CBC, CMP, CRP. 25 minutes face to face time >50% in counseling regarding plans for IV antibiotics.
[2016-08-08 06:09] LABS: BUN/Creatinine Ratio 20.8 (8-20); Calcium 8.4 mg/dL (8.6-10.3); EGFR African American 140.5 (>60); EGFR Non-African American 109.2 (>60); Potassium 4.1 mmol/L (3.5-5.0)
[2016-08-08] MEDS: Levothyroxine TAB* 75 MCG TAB PO SCH (06:24)
[2016-08-08] MEDS: Citalopram TAB* 20 MG PEG TUBE SCH (09:52)
[2016-08-08] MEDS: Magnesium Oxide TAB* 400 MG SCH ×2 (09:52→20:19)
[2016-08-08] MEDS: Sodium Chloride TAB* 1 GM PEG TUBE SCH ×2 (09:52→20:19)
[2016-08-08] MEDS: Polyethylene Glycol 3350* 17 GM PACKET PEG TUBE SCH (09:52)
[2016-08-08] MEDS: Lansoprazole susp Kit 3 MG/ML (15 MG = 5 ML) G TUBE SCH (09:52)
--- NOTE | 2016-08-08 10:00 | RAD ---
Indication: Follow-up empyema. 2 views of the chest demonstrates no mediastinal shift. There is cardiomegaly. Right pleural effusion is noted. Left lung field is clear. Overall no changes noted in appearance since previous exam of August 04, 2016. IMPRESSION: Right pleural effusion and right-sided infiltrate persists. There is likely right basilar consolidation noted.
--- NOTE | 2016-08-08 12:42 | PN ---
Subjective Date of Service: 08/08/16 Interval History: HOSPITALIST PROGRESS NOTE Patient seen and examined at bedside. He offers no new complaints today. Family History: Unchanged from Admission Social History: Unchanged from Admission Past Medical History: Unchanged from Admission Objective Active Medications: Citalopram Hydrobromide (Celexa Tab*) 20 mg PEG TUBE DAILY [facility] Last Admin: 08/08/16 09:52 Dose: 20 mg Ergocalciferol (Drisdol Cap*) 50,000 unit PEG TUBE MONTHLY [facility] Heparin Sodium (Porcine) (Heparin Flush Port (Ivad)) 5 ml FLUSH DAILY [facility] PRN Reason: Protocol Last Admin: 08/08/16 11:03 Dose: 5 ml Ceftriaxone Sodium 2 gm/ (Sodium Chloride) 100 mls @ 200 mls/hr IVPB Q24H [facility] Last Admin: 08/08/16 09:48 Dose: 200 mls/hr Lansoprazole (Lansoprazole Susp Kit) 15 mg G TUBE DAILY [facility] Last Admin: 08/08/16 09:52 Dose: 15 mg Levothyroxine Sodium (Synthroid Tab*) 75 mcg PO DAILY@0600 [facility] Last Admin: 08/08/16 06:24 Dose: 75 mcg Loperamide HCl (Imodium Liq*) 2 mg PEG TUBE BID PRN PRN Reason: DIARRHEA Last Admin: 08/01/16 11:07 Dose: 2 mg Magnesium Oxide (Magox 400 Tab*) 400 mg .SEE ORDER BID [facility] Last Admin: 08/08/16 09:52 Dose: 400 mg Morphine Sulfate (Morphine Inj (Syringe)*) 4 mg IV Q3H PRN PRN Reason: PAIN - MILD Last Admin: 08/04/16 20:41 Dose: 4 mg Oxycodone HCl (Oxycodone Oral.Soln*) 10 mg PO Q4H PRN PRN Reason: PAIN Last Admin: 08/07/16 08:12 Dose: 10 mg Polyethylene Glycol/Electrolytes (Miralax*) 17 gm PEG TUBE DAILY [facility] Last Admin: 08/08/16 09:52 Dose: Not Given Sodium Chloride (Sodium Chloride Tab*) 2 gm PEG TUBE BID [facility] Last Admin: 08/08/16 09:52 Dose: 2 gm Vital Signs 08/08/16 08/08/16 08/08/16 02:40 07:41 08:00 Temperature 98.0 F Pulse Rate 69 Respiratory 16 Rate Blood Pressure 98/56 (mmHg) O2 Sat by Pulse 93 94 96 Oximetry Oxygen Devices in Use Now: - - trach collar Appearance: Elderly male lying in bed in NAD. Eyes: No Scleral Icterus Ears/Nose/Mouth/Throat: Mucous Membranes Moist Neck: Trachea Midline Respiratory: Symmetrical Chest Expansion and Respiratory Effort, - - BS+ bilaterally, coarse on the right Cardiovascular: RRR - Normal S1 and S2 Abdominal: - - PEG in place, bilateral flank edema Extremities: No Edema Neurological: Alert and Oriented x 3, NL Muscle Strength and Tone Lines/Tubes/Other Access: Clean, Dry and Intact Peripheral IV Nutrition: TEN Result Diagrams: 08/06/16 05:30 08/08/16 05:30 Assess/Plan/Problems-Billing Assessment: Mr Gutierrez is a 66 yo M who has a h/o head and neck cancer s/p chemo/XRT who [place] [facility] [place] and SOB and was ultimately found to have a R sided empyema. - Patient Problems (1) Empyema, right Comment: - Chest tube removed 08/07/16. - Continue ceftriaxone 2g IV daiy for strep intermedius - CM to make arrangements for outpatient IV antibiotics. (2) Hyponatremia Comment: - Continue sodium chloride - sodium trending up. (3) Severe protein-calorie malnutrition Comment: - RD input appreciated - continue TF. (4) Head and neck cancer Comment: - Continue to follow with oncology as an outpatient. As per oncology, area of neck edema is unchanged. (5) Hypothyroid Comment: - TSH was 10 and Levothyroxine was increased from 50mcg to 75mcg. Needs repeat TFTs in 4 weeks. (6) GERD (gastroesophageal reflux disease) Comment: - Continue lansoprazole. (7) DVT prophylaxis Comment: - SCDs. (8) Full code status Status and Disposition: Inpatient. Anticipate d/c in AM.
--- NOTE | 2016-08-08 13:59 | PN ---
Progress Note - Progress Note Note: Surgery Progress: S: asked by nsg to check R chest (1 day s/p removal of chest tube); he has no new c/o. Breathing is comfortable. O: R chest shows intact dressing from chest tube site, dry. There is a moderate amount of fading ecchymosis and edema in the area of the right chest wall inferior to the chest tube site. This is consistent w/ yesterday's exam. It is nontender. A/P: edema and ecchymosis of right chest wall likely 2/2 extravasation of bloody pleural fluid into the sc space. No evidence of ongoing bleeding or infection of site. Explained to pt and his . Will recheck prior to anticipated d/c home tomorrow a.m.
[2016-08-09] MEDS: Levothyroxine TAB* 75 MCG TAB PO SCH (06:06)
[2016-08-09 07:40] VITALS: BP 107/67
[2016-08-09] MEDS: Polyethylene Glycol 3350* 17 GM PACKET PEG TUBE SCH (08:14)
--- NOTE | 2016-08-09 08:21 | RAD ---
INDICATION: Empyema. Follow-up. COMPARISON: Chest x-ray August 08, 2016 TECHNIQUE: An AP portable view obtained at 0635 hours is submitted. FINDINGS: Bones/Soft Tissues: There are no acute bony findings. There is a tracheostomy tube there is a right-sided Fbdpio-w-Aomb catheter terminating in the superior vena cava, unchanged. Cardiomediastinal: The cardiomediastinal silhouette is normal. Lungs: The left lung is clear. Chronic pleural and parenchymal changes present in the right chest with volume loss. Pleura: Small right-sided pleural effusion, unchanged. Other: None IMPRESSION: CHRONIC PLEURAL AND LUNG PARENCHYMAL CHANGES RIGHT CHEST, UNCHANGED
[2016-08-09] MEDS: Lansoprazole susp Kit 3 MG/ML (15 MG = 5 ML) G TUBE SCH (09:03)
[2016-08-09] MEDS: Citalopram TAB* 20 MG PEG TUBE SCH (09:04)
[2016-08-09] MEDS: Sodium Chloride TAB* 1 GM PEG TUBE SCH (09:04)
[2016-08-09] MEDS: Magnesium Oxide TAB* 400 MG SCH (09:04)
--- NOTE | 2016-08-10 05:53 | DS ---
CC: Kota Bernard MD; Abiodun Nicole MD * DISCHARGE SUMMARY: DATE OF ADMISSION: 07/28/16 DATE OF DISCHARGE: 08/09/16 PRIMARY CARE PROVIDER: Kota Bernard MD INFECTIOUS DISEASE SPECIALIST: Abiodun Nicole MD HOSPITAL COURSE: Mr. Gutierrez is a 66-year-old male with a past medical history of head and neck cancer treated with chemotherapy and radiation therapy, requiring tracheostomy and G-tube for feeding who presented on July 28 with complaints of shortness of breath and cough. For more details about his presentation, I refer you to his history and physical from Dr. Ramirez, but in summary, his impression was that the patient presented with increased shortness of breath and cough and he was found to have a loculated right pleural effusion and likely an infiltrate in the right lung. He was admitted for antibiotic therapy and further workup. On admission, he was also found to be hyponatremic with sodium of [address] Ramirez felt that this was likely associated with his underlying lung process. CT of the brain without contrast showed no evidence for brain mets or other acute intracranial process. CT of the chest and abdomen showed a moderately large right pleural effusion with parietal enhancement which may reflect malignant effusion or empyema. There was also finding of progression of multilevel thoracic compression fractures when compared to his [address] of the abdomen showed cirrhotic morphologic liver, mild splenomegaly, trace abdominal ascites. CT of the neck showed postsurgical changes with tracheostomy tube in place. The patient was seen in consultation by Infectious Disease (Dr. Nicole) and his recommendation was to continue Zosyn and to aspirate the pleural fluid to evaluate for empyema. On July 31 ultrasound guided thoracentesis was performed by Dr. Coronado with drainage of 225 mL of opaque yellow-tinged fluid. This fluid was found to have greater than 100,000 wbc's with 77% neutrophils with a total protein of 3.7 and albumin level of 1480. Cytology of the pleural fluid was negative for malignant cells and it showed only acute inflammation. Pleural fluid culture grew Streptococcus intermedius. The patient was diagnosed with pneumonia and empyema and a chest tube was placed by General Surgery on 08/01/[address] Lambert. He received lytic therapy through the tube and the initial plan was if this was not successful, that he could require VATS. A follow up CT of the chest done after the chest tube placement showed interval decrease in the size of the partially loculated right pleural effusion and right lung infiltrate. The patient became afebrile and had progressive improvement of his shortness of breath and cough to the point that he now feels back to his baseline. Infectious disease recommended switching his antibiotics to ceftriaxone 2 g IV daily with plans for intermediate card tender outpatient therapy. A followup CT done on August 06 that the right pleural effusion was small at that time. As the patient continued to improve with decreased drainage, his chest tube was removed on August 07. The patient continued to do well and he was felt to be stable for discharge on August 09 to receive four more weeks of ceftriaxone as outpatient. His sodium was also trending up and the last one prior to discharge was 128. He will have another BMP over the next week and the results will be sent to Dr. Bernard. Dr. Nicole also wants the patient to have weekly CBC, CMP, and CRP while on ceftriaxone. The tentative plan is to finish his treatment with antibiotics, but if he has worsening of his symptoms that will have to be considered again, although he is a high risk surgical candidate. The patient was found to have elevated TSH at 10.07. His levothyroxine dose was increased from 50 to 75 mcg, but he will need repeat TFTs in four to six weeks. PHYSICAL EXAMINATION: Vital Signs: Temperature 97.5, heart rate is 68, respiratory rate 16, oxygen saturation is 98% on room air, blood pressure is 107 /67. General: The patient is an elderly male lying in bed, in no acute distress. CVS: Normal S1, S2. Regular rate and rhythm. Chest: Breath sounds bilaterally coarse on the right. Abdomen: Soft, nontender. G-tube in place. Extremities: No edema, but he does have bilateral subcutaneous flank edema with an ecchymosis on the right in the area where the chest tube was. Neuro: He is alert, awake and oriented x3. Able to move all 4 extremities. DISCHARGE DIAGNOSES: 1. Streptococcus intermedius pneumonia/empyema. 2. Hemolytic anemia. 3. Mild thrombocytopenia. 4. Hyponatremia, likely secondary to SIADH. SECONDARY DIAGNOSES: 1. Head and neck cancer, status post chemo and radiation. 2. Status post tracheostomy. 3. Status post G-tube. 4. Severe protein-calorie malnutrition. 5. Status post hip replacement. 6. Status post back surgery. 7. Status post wrist surgery. 8. Hyperlipidemia. 9. Chronic back pain. 10. Hypothyroidism. MEDICATION LIST: 1. Omeprazole 20 mg via G-tube daily. 2. Magnesium oxide 400 mg via G-tube b.i.d. 3. Citalopram 20 mg via G-tube daily. 4. Cholecalciferol 50,000 units by G-tube monthly. 5. Sodium chloride 2 g via G-tube t.i.d. New medications: 1. Ceftriaxone 2 g IV q. daily for four more weeks. 2. MiraLAX 17 g via G-tube daily, hold for loose stools. 3. Levothyroxine 75 mcg via G-tube daily. DIET: Jevity 1.5, five cans a day via G-tube. ACTIVITIES: As tolerated. DISPOSITION: To home. STATUS WHILE IN THE HOSPITAL: Inpatient. Please keep in mind this is a summarized version of this patient complex and prolonged hospital stay. If you need more information, please feel free to call me at [phone] or please obtain the full medical records. TIME SPENT: Approximately 50 minutes was spent to complete this discharge. [id number]/CPS #: [id number]
[2016-08-13 09:46] LABS: Glucose, BF < 2 mg/dL
[2016-08-26] MEDS ORDERED: Ergocalciferol CAP* 50000 UNIT PEG TUBE SCH (09:00)
== END 2016-08-09 12:15 | disposition home or self-care (01) | DRG 177 ==
LOC: ED 13:27 → MED 16:35
PROVIDERS: ADMIT Internal Medicine Hematology & Oncology; ATTEND Internal Medicine
PROC: 0W993ZX Drainage of Right Pleural Cavity, Percutaneous Approach, Diagnostic (ICD-10-PCS; 2016-07-31)
PROC: 30233N1 Transfusion of Nonautologous Red Blood Cells into Peripheral Vein, Percutaneous Approach (ICD-10-PCS; 2016-08-01)
PROC: 0W9930Z Drainage of Right Pleural Cavity with Drainage Device, Percutaneous Approach (ICD-10-PCS; principal; 2016-08-01 13:15)
PROC: 0WP9X0Z Removal of Drainage Device from Right Pleural Cavity, External Approach (ICD-10-PCS; 2016-08-07)
DX: J86.9 Pyothorax without fistula (principal); J15.4 Pneumonia due to other streptococci; E43 Unspecified severe protein-calorie malnutrition; E22.2 Syndrome of inappropriate secretion of antidiuretic hormone; I95.9 Hypotension, unspecified; Z93.0 Tracheostomy status; R18.8 Other ascites; K74.60 Unspecified cirrhosis of liver; D69.6 Thrombocytopenia, unspecified; D58.9 Hereditary hemolytic anemia, unspecified; R16.1 Splenomegaly, not elsewhere classified; E78.00 Pure hypercholesterolemia, unspecified; K21.9 Gastro-esophageal reflux disease without esophagitis; N40.0 Benign prostatic hyperplasia without lower urinary tract symptoms; F32.9 Major depressive disorder, single episode, unspecified; M16.10 Unilateral primary osteoarthritis, unspecified hip; Z96.642 Presence of left artificial hip joint; R40.2412 Glasgow coma scale score 13-15, at arrival to emergency department; E78.5 Hyperlipidemia, unspecified; M47.9 Spondylosis, unspecified; G89.29 Other chronic pain; E03.9 Hypothyroidism, unspecified; B96.20 Unspecified Escherichia coli [E. coli] as the cause of diseases classified elsewhere; M54.9 Dorsalgia, unspecified; Z93.1 Gastrostomy status; Z91.81 History of falling; Z87.891 Personal history of nicotine dependence; Z85.810 Personal history of malignant neoplasm of tongue; Z92.3 Personal history of irradiation; Z92.21 Personal history of antineoplastic chemotherapy; Z82.49 Family history of ischemic heart disease and other diseases of the circulatory system; Z80.0 Family history of malignant neoplasm of digestive organs; Z68.24 Body mass index [BMI] 24.0-24.9, adult; Z85.89 Personal history of malignant neoplasm of other organs and systems; Z95.828 Presence of other vascular implants and grafts
CPT/HCPCS: 32555; 36415; 70470; 70491; 71010; 71020; 71250; 71260; 74160; 80048; 80053; 81003; 82042; 82533; 82550; 82553; 82945; 83605; 83735; 83874; 83880; 84134; 84157; 84443; 84484; 85014; 85018; 85025; 85027; 86140; 86850; 86880; 86900; 86901; 86922; 87040; 87070; 87077; 87186; 87205; 87899; 88112; 89051; 93005; 94760; 99232; 99233; A9270-GY; J0696; J1642; J1650; J2001; J2270; J2543; J2997; J7639; P9040; Q9967

== ENCOUNTER 2016-09-13 13:56 | Emergency (ER) | payer MEDICARE, BC ==
[2016-09-13 14:02] VITALS: BP 95/63
--- NOTE | 2016-09-13 15:08 | ED ---
Complex/Multi-Sys Presentation - HPI Summary HPI Summary: 66 male presents with complaints of needing his j tube replaced. States he was coughing earlier today and it fell out. No complaints, pain or signs of infection. Denies fever/chills. States he had J tube placed pretty recently ~ 2months ago by Dr Chaney who is his GI specialist. No other complaints. Feeding tube has been working well and is patent. J tube has fallen out in the past a few times, similar instances. - History Of Current Complaint Chief Complaint: EDGeneral Time Seen by Provider: 09/13/16 14:06 Hx Obtained From: Patient Onset/Duration: Sudden Onset Severity Currently: None Aggravating Factor(s): coughing and pressure caused the tube to fall out - Allergies/Home Medications Allergies/Adverse Reactions: Allergies Allergy/AdvReac Type Severity Reaction Status Date / Time No Known Allergies Allergy Verified 08/01/16 13:04 PMH/Surg Hx/FS Hx/Imm Hx Endocrine/Hematology History: Denies: Hx Diabetes, Hx Systemic Lupus Erythematosus Cardiovascular History: Reports: Hx Hypercholesterolemia, Hx Hypotension - with associated weakness and falls Denies: Hx Congestive Heart Failure, Hx Hypertension, Hx Pacemaker/ICD Respiratory History: Reports: Hx Pneumonia, Other Respiratory Problems/ Disorders - CURRENT L PNEUMONIA- D/C FROM [facility] [place] 12/31 ON AMOX Denies: Hx Asthma, Hx Chronic Obstructive Pulmonary Disease (COPD), Hx Lung Cancer - Pt denied GI History: Reports: Hx Gastroesophageal Reflux Disease, Hx Gastrointestinal Bleed, Hx Hiatal Hernia, Other GI Disorders - PEG tube History: Reports: Hx Benign Prostatic Hyperplasia, Other Problems/ Disorders - BPH Denies: Hx Dialysis, Hx Renal Disease Musculoskeletal History: Reports: Hx Arthritis - back and hip, Hx Back Problems - surgeries x2 Denies: Hx Rheumatoid Arthritis Comment Only: Other Musculoskeletal History - L hip surgery Sensory History: Reports: Hx Contacts or Glasses Denies: Hx Cataracts, Hx Hearing Aid Opthamlomology History: Reports: Hx Contacts or Glasses Denies: Hx Cataracts Neurological History: Reports: Other Neuro Impairments/Disorders - epidural abscess Denies: Hx Dementia, Hx Seizures Psychiatric History: Reports: Hx Depression Denies: Hx Panic Disorder - Cancer History Cancer Type, Location and Year: tongue CA Hx Chemotherapy: Yes Hx Radiation Therapy: Yes - Surgical History Surgery Procedure, Year, and Place: peg tube placement 04/04 [facility] [place]. left hip replacement 2008 [facility]. lumbar back surgery many yrs ago [facility]. left wrist orif many yrs ago. Trach Hx Anesthesia Reactions: No - Immunization History Date of Tetanus Vaccine: unk Date of Influenza Vaccine: utd Immunizations Up to Date: Yes Infectious Disease History: No Infectious Disease History: Denies: Traveled Outside the [place] in Last 30 Days - Family History Known Family History: Positive: None - no malignant hyperthermia. no anesthesia reaction., Cardiac Disease, Other Family History: There is no documented family history of malignant hyperthermia or anesthesia reaction. There is a history of unspecified cancer in the father. - Social History Alcohol Use: None Hx Substance Use: No Substance Use Type: Reports: None Hx Tobacco Use: Yes Smoking Status (MU): Former Smoker Type: Cigarettes Length of Time of Smoking/Using Tobacco: 7 years Have You Smoked in the Last Year: No Review of Systems Constitutional: Negative Cardiovascular: Negative Respiratory: Negative Positive: Other - j tube fell out All Other Systems Reviewed And Are Negative: Yes Physical Exam Triage Information Reviewed: Yes Vital Signs On Initial Exam: Initial Vitals Temp Pulse Resp BP Pulse Ox 97.6 F 85 15 95/63 94 09/13/16 14:00 09/13/16 14:00 09/13/16 14:00 09/13/16 14:00 09/13/16 14:00 Vital Signs Reviewed: Yes Appearance: Positive: Well-Appearing, No Pain Distress, Well-Nourished Skin: Positive: Warm, Skin Color Reflects Adequate Perfusion, Dry, Erythema @ - very minmal typical erythema surrounding insertion site of external j tube. no signs of infection or complication, no warmth or tenderness. some drainage appearing to be bile in nature Head/Face: Positive: Normal Head/Face Inspection Eyes: Positive: Conjunctiva Clear ENT: Positive: Hearing grossly normal Neck: Positive: Supple Respiratory/Lung Sounds: Positive: Clear to Auscultation, Breath Sounds Present , Other - trachestomy noted. Negative: Rales, Rhonchi, Wheezes Cardiovascular: Positive: Normal, RRR, Pulses are Symmetrical in both Upper and Lower Extremities Abdomen Description: Positive: Nontender, Soft, Other: - j tube present, described above. was re-inserted without complication, patent and proper placement. Bowel Sounds: Positive: Present Musculoskeletal: Positive: Normal, Strength/ROM Intact Neurological: Positive: Normal, Sensory/Motor Intact, Alert, Oriented to Person Place, Time Psychiatric: Positive: Affect/Mood Appropriate Procedures - Procedure Summary Procedure Summary: j tube balloon was deflated, lubricated and re-inserted without resistance or complication. no pain and no signs of infection. balloon was re inflated. resistance when attempting to pull j tube out. gastric contents moving throughout tube. Diagnostics - Vital Signs Vital Signs Temp Pulse Resp BP Pulse Ox 09/13/16 14:00 97.6 F 85 15 95/63 94 - Laboratory Lab Statement: Any lab studies that have been ordered have been reviewed, and results considered in the medical decision making process. - Radiology KUB Xray Interpretation: Positive (See Comments) - gastric tbue catheter extends from the margin of the field of view at the RIGHT groin to the level of the gastric body antrum junction. no balloon component of the tube visualized. Radiology Interpretation Completed By: Radiologist Complex Multi-Symp Course/Dx Course Of Treatment: j tube was replaced without complication. patient tolerated procedure well. no concern for complication or infection at this time. although balloon catheter was not visualied on KUB due to PE findings of J tube and contents passing through j tube appears to be in proper placement and patent. follow up wit dr chaney. return if j tube falls out repeatedly. - Diagnoses Differential Diagnoses/HQI/PQRI: Other - infection Provider Diagnoses: Jejunostomy tube fell out Discharge - Discharge Plan Condition: Stable Disposition: HOME Referrals: No Primary Care Phys,NOPCP [Primary Care Provider] - [facility] PHYSICIAN REFERRAL [Outside] Additional Instructions: If j tube falls out again please return or seek medical attention to re-insert. If you are having any complications or concern for infection please return. Follow up with GI, Dr Chaney.
--- NOTE | 2016-09-13 15:21 | RAD ---
Indication: Replacement of feeding tube. Comparison: July 29, [address] Technique: Supine abdomen. Report: Small RIGHT pleural effusion. Unremarkable bowel gas pattern. No suspicious calcifications or mass effect. Gastric tube catheter extends from the margin of the [id number] at the RIGHT groin to the level of the gastric body antrum junction. No no balloon component of the tube visualized. Multilevel posterior spinal fixation rods and pedicle screws from L2 through S1. Bone graft cages at the intervening disc spaces. IMPRESSION: Gastric tube catheter extends from the margin of the [id number]-ak-[id number] at the RIGHT groin to the level of the gastric body antrum junction. No no balloon component of the tube visualized. Results discussed with SELIN De La Rosa 09/13/2016 3:17 PM EDT
== END 2016-09-13 15:29 | disposition home or self-care (01) ==
LOC: ED 13:56
DX: K94.23 Gastrostomy malfunction (principal); R05 Cough; Z87.891 Personal history of nicotine dependence
CPT/HCPCS: 74000; 99281

== ENCOUNTER 2016-09-17 12:40 | Emergency (ER) | payer MEDICARE, BC ==
--- NOTE | 2016-09-17 18:20 | ED ---
GI/ HPI - HPI Summary HPI Summary: 66F presents with feeding tube dislodged today. He states it got caught in the bathroom and dislodged. He has an established track for a year now with multiple times coming to the ED for dislodged feeding tube. He denies any pain , fever, or abnormal drainage. - History of Current Complaint Chief Complaint: EDGeneral Time Seen by Provider: 09/17/16 18:09 Stated Complaint: FEEDING TUBE CAME OUT Pain Intensity: 0 - Additional Pertinent History Primary Care Physician: OBDULIA - Allergy/Home Medications Allergies/Adverse Reactions: Allergies Allergy/AdvReac Type Severity Reaction Status Date / Time No Known Allergies Allergy Verified 08/01/16 13:04 PMH/Surg Hx/FS Hx/Imm Hx Endocrine/Hematology History: Denies: Hx Diabetes, Hx Systemic Lupus Erythematosus Cardiovascular History: Reports: Hx Hypercholesterolemia, Hx Hypotension - with associated weakness and falls Denies: Hx Congestive Heart Failure, Hx Hypertension, Hx Pacemaker/ICD Respiratory History: Reports: Hx Pneumonia, Other Respiratory Problems/ Disorders - CURRENT L PNEUMONIA- D/C FROM [facility] [place] 12/31 ON AMOX Denies: Hx Asthma, Hx Chronic Obstructive Pulmonary Disease (COPD), Hx Lung Cancer - Pt denied GI History: Reports: Hx Gastroesophageal Reflux Disease, Hx Gastrointestinal Bleed, Hx Hiatal Hernia, Other GI Disorders - PEG tube History: Reports: Hx Benign Prostatic Hyperplasia, Other Problems/ Disorders - BPH Denies: Hx Dialysis, Hx Renal Disease Musculoskeletal History: Reports: Hx Arthritis - back and hip, Hx Back Problems - surgeries x2 Denies: Hx Rheumatoid Arthritis Comment Only: Other Musculoskeletal History - L hip surgery Sensory History: Reports: Hx Contacts or Glasses Denies: Hx Cataracts, Hx Hearing Aid Opthamlomology History: Reports: Hx Contacts or Glasses Denies: Hx Cataracts Neurological History: Reports: Other Neuro Impairments/Disorders - epidural abscess Denies: Hx Dementia, Hx Seizures Psychiatric History: Reports: Hx Depression Denies: Hx Panic Disorder - Cancer History Cancer Type, Location and Year: tongue CA Hx Chemotherapy: Yes Hx Radiation Therapy: Yes - Surgical History Surgery Procedure, Year, and Place: peg tube placement 04/04 [facility] [place]. left hip replacement 2007 [facility]. lumbar back surgery many yrs ago [facility]. left wrist orif many yrs ago. Trach Hx Anesthesia Reactions: No - Immunization History Date of Tetanus Vaccine: unk Date of Influenza Vaccine: utd Infectious Disease History: Denies: Traveled Outside the [place] in Last 30 Days - Family History Known Family History: Positive: None - no malignant hyperthermia. no anesthesia reaction., Cardiac Disease, Other Family History: There is no documented family history of malignant hyperthermia or anesthesia reaction. There is a history of unspecified cancer in the father. - Social History Alcohol Use: None Hx Substance Use: No Substance Use Type: Reports: None Hx Tobacco Use: Yes Smoking Status (MU): Former Smoker Type: Cigarettes Length of Time of Smoking/Using Tobacco: 7 years Have You Smoked in the Last Year: No Review of Systems Negative: Fever Negative: Chest Pain Negative: Shortness Of Breath Positive: Other - j tube fell out All Other Systems Reviewed And Are Negative: Yes Physical Exam Triage Information Reviewed: Yes Vital Signs On Initial Exam: Initial Vitals Temp Pulse Resp BP Pulse Ox 97.8 F 84 16 89/57 97 09/17/16 12:42 09/17/16 12:42 09/17/16 12:42 09/17/16 12:42 09/17/16 12:42 Vital Signs Reviewed: Yes Appearance: Positive: Well-Appearing Skin: Positive: Warm, Dry Head/Face: Positive: Normal Head/Face Inspection Eyes: Positive: Normal, Conjunctiva Clear Respiratory/Lung Sounds: Positive: Clear to Auscultation, Breath Sounds Present Cardiovascular: Positive: Normal, RRR Abdomen Description: Positive: Nontender, Soft, Other: - j tube site no sign of cellulitis or infection Bowel Sounds: Positive: Present Diagnostics - Vital Signs Vital Signs Temp Pulse Resp BP Pulse Ox 09/17/16 17:31 97.7 F 70 16 110/83 100 09/17/16 12:42 97.8 F 84 16 89/57 97 - Laboratory Lab Statement: Any lab studies that have been ordered have been reviewed, and results considered in the medical decision making process. GIGU Course/Dx - Course Course Of Treatment: 66F presents with feeding tube dislodged today. He states it got caught in the bathroom and dislodged. He has an established track for a year now with multiple times coming to the ED for dislodged feeding tube. He denies any pain, fever, or abnormal drainage. successfully replaced feeding tube. patient denies any pain. offered to confirm placement but patient declined as has been in waiting room long time and wants to go. explianed if get pains to return to confirm placement. patient understands and agrees with plan - Diagnoses Differential Diagnoses - Male: Other - feeding tube replacement, abdominal pain , cellulitis Provider Diagnoses: replacement j tube Discharge - Discharge Plan Condition: Good Disposition: HOME Referrals: No Primary Care Phys,NOPCP [Primary Care Provider] - Additional Instructions: Follow up with GI dr Return to ED if develop pain or any new or worsening symptoms
[2016-09-17 18:57] VITALS: BP 110/80
== END 2016-09-17 18:56 | disposition home or self-care (01) ==
LOC: ED 12:40
DX: Z43.1 Encounter for attention to gastrostomy (principal)
CPT/HCPCS: 99281

== ENCOUNTER 2018-01-23 00:52 | Inpatient (IN) | payer MEDICARE, BC ==
[2018-01-23] MEDS ORDERED: Piperacillin/Tazobac ADVAN(*) 3.375 GM in NS 0.9% 100 ML* 100 ML IVPB ONE (01:57)
[2018-01-23] MEDS ORDERED: Acetaminophen SUPP* 650 MG SUPP PR ONE (01:57)
[2018-01-23] MEDS ORDERED: Albuterol/Ipratropium NEB.SOL* Albuterol 2.5 MG/Ipratropium 0.5 MG 3 ML INH ONE (01:58)
--- NOTE | 2018-01-23 01:58 | ED ---
Shortness of Breath - HPI Summary HPI Summary: This patient is a 67 year old M brought in by ambulance to [facility] accompanied by with a chief complaint of SOB that began at 2300 yesterday. The patient rates the pain 0/10 in severity. Symptoms aggravated by nothing. Symptoms alleviated by nothing. reports patient has experienced weakness. denies patient experiencing fever. - History of Current Complaint Chief Complaint: EDShortnessOfBreath Time Seen by Provider: 01/23/18 01:49 Hx Obtained From: Patient Onset/Duration: Sudden Onset, Lasting Hours, Still Present Timing: Constant Current Severity: Mild Dyspnea At: Rest Aggrevating Factors: Nothing Alleviating Factors: Nothing - Allergy/Home Medications Allergies/Adverse Reactions: Allergies Allergy/AdvReac Type Severity Reaction Status Date / Time No Known Allergies Allergy Verified 08/01/16 13:04 Home Medications: Home Medications Finasteride 5 mg PEG TUBE DAILY 01/23/18 [History Confirmed 01/23/18] Gabapentin [Gabapentin 250 mg/5ml] 250 mg PEG TUBE BID 01/23/18 [History Confirmed 01/23/18] Lansoprazole 30 mg PEG TUBE DAILY 01/23/18 [History Confirmed 01/23/18] Levothyroxine TAB* [Synthroid 75 MCG TAB*] 50 mcg PEG TUBE DAILY@0600 01/23/18 [ History Confirmed 01/23/18] Sertraline HCl 20 mg PEG TUBE DAILY 01/23/18 [History Confirmed 01/23/18] Tamsulosin HCl 0.4 mg PEG TUBE DAILY 01/23/18 [History Confirmed 01/23/18] PMH/Surg Hx/FS Hx/Imm Hx Previously Healthy: No Endocrine/Hematology History: Denies: Hx Diabetes, Hx Systemic Lupus Erythematosus Cardiovascular History: Reports: Hx Hypercholesterolemia, Hx Hypotension - with associated weakness and falls Denies: Hx Congestive Heart Failure, Hx Hypertension, Hx Pacemaker/ICD Respiratory History: Reports: Hx Pneumonia, Other Respiratory Problems/ Disorders - CURRENT L PNEUMONIA- D/C FROM [facility] 12/31 ON AMOX Denies: Hx Asthma, Hx Chronic Obstructive Pulmonary Disease (COPD), Hx Lung Cancer - Pt denied GI History: Reports: Hx Gastroesophageal Reflux Disease, Hx Gastrointestinal Bleed, Hx Hiatal Hernia, Other GI Disorders - PEG tube History: Reports: Hx Benign Prostatic Hyperplasia, Other Problems/ Disorders - BPH Denies: Hx Dialysis, Hx Renal Disease Musculoskeletal History: Reports: Hx Arthritis - back and hip, Hx Back Problems - surgeries x2 Denies: Hx Rheumatoid Arthritis Comment Only: Other Musculoskeletal History - L hip surgery Sensory History: Reports: Hx Contacts or Glasses Denies: Hx Cataracts, Hx Hearing Aid Opthamlomology History: Reports: Hx Contacts or Glasses Denies: Hx Cataracts Neurological History: Reports: Other Neuro Impairments/Disorders - epidural abscess Denies: Hx Dementia, Hx Seizures Psychiatric History: Reports: Hx Depression Denies: Hx Panic Disorder - Cancer History Cancer Type, Location and Year: tongue CA Hx Chemotherapy: Yes Hx Radiation Therapy: Yes - Surgical History Surgery Procedure, Year, and Place: [place] [facility] [place] [facility]. lumbar back surgery [facility]. left wrist orif. Trach Hx Anesthesia Reactions: No - Immunization History Date of Tetanus Vaccine: unk Date of Influenza Vaccine: utd Infectious Disease History: No Infectious Disease History: Denies: Traveled Outside the [place] in Last 30 Days - Family History Known Family History: Positive: Cardiac Disease, Other Family History: There is no documented family history of malignant hyperthermia or anesthesia reaction. There is a history of unspecified cancer in the father. - Social History Occupation: Retired Lives: With Family Alcohol Use: None Hx Substance Use: No Substance Use Type: Reports: None Hx Tobacco Use: Yes Smoking Status (MU): Former Smoker Type: Cigarettes Length of Time of Smoking/Using Tobacco: 7 years Have You Smoked in the Last Year: No Review of Systems Negative: Fever Positive: Shortness Of Breath Positive: Weakness All Other Systems Reviewed And Are Negative: Yes Physical Exam - Summary Physical Exam Summary: VITAL SIGNS: Reviewed. GENERAL: Patient is a well-developed and nourished male who is lying comfortable in the stretcher. Patient is not in any acute respiratory distress. HEAD AND FACE: No signs of trauma. No ecchymosis, hematomas or skull depressions. No sinus tenderness. EYES: PERRLA, EOMI x 2, No injected conjunctiva, no nystagmus. EARS: Hearing grossly intact. Ear canals and tympanic membranes are within normal limits. R ear cerumen impaction. MOUTH: Oropharynx within normal limits. NECK: Supple, trachea is midline, no adenopathy, no JVD, no carotid bruit, no c- spine tenderness, neck with full ROM. Tracheotomy tube CHEST: Symmetric, no tenderness at palpation LUNGS: Decreased breath sounds bilaterally with rhonchi CVS: Regular rate and rhythm, S1 and S2 present, no murmurs or gallops appreciated. ABDOMEN: Soft, non-tender. No rebound no guarding, and no masses palpated.Abdomen is distended. Hypoactive bowel sounds. PEG tube. EXTREMITIES: FROM in all major joints, no edema, no cyanosis or clubbing. NEURO: Alert and oriented x 3. No acute neurological deficits. Speech is normal and follows commands. SKIN: Dry and warm Triage Information Reviewed: Yes Vital Signs On Initial Exam: Initial Vitals Temp Pulse Resp BP Pulse Ox 98.5 F 81 31 90/57 92 01/23/18 01:00 01/23/18 01:00 01/23/18 01:00 01/23/18 01:00 01/23/18 01:00 Vital Signs Reviewed: Yes Diagnostics - Vital Signs Vital Signs Temp Pulse Resp BP Pulse Ox 01/23/18 01:00 98.5 F 81 31 90/57 92 - Laboratory Result Diagrams: 01/23/18 05:44 01/23/18 05:44 Lab Statement: Any lab studies that have been ordered have been reviewed, and results considered in the medical decision making process. - Radiology Chest XR Radiology Interpretation Completed By: ED Physician Summary of Radiographic Findings: Chest XR reveals, per ED physician, left basal infiltrate. Course/Dx - Course Course Of Treatment: This patient is a 67 year old M brought in by ambulance to [facility] accompanied by with a chief complaint of SOB that began at 2300 yesterday. Physical Exam Findings: Tracheotomy tube. PEG tube. Decreased breath sounds bilaterally with rhonchi. R ear cerumen impaction. Abdomen is distended. Hypoactive bowel sounds. CXR reveals, per ED physician, left basal infiltrate. Bloodwork obtained. In the ED course the patient was given fluids, azithromycin , duoneb, albuterol, Tylenol, and Zosyn. Consult with Dr. Serra (hospitalist) at 0249. She agrees to admit patient for further evaluation. The patient is agreeable with this plan. - Diagnoses Provider Diagnoses: Pneumonia - Physician Notifications Discussed Care of Patient With: Marlee Serra Time Discussed With Above Provider: 02:49 Instructed by Provider To: Other - Consult with Dr. Serra (hospitalist) at 0249. She agrees to admit patient for further evaluation Discharge - Sign-Out/Discharge Documenting (check all that apply): Patient Departure - Admit to [facility] - Discharge Plan Condition: Stable Disposition: ADMITTED TO [facility] - Billing Disposition and Condition Condition: STABLE Disposition: Admitted to [facility] - Attestation Statements Document Initiated by Scribe: Yes Documenting Scribe: Jessica Sheets Provider For Whom Scribe is Documenting (Include Credential): Dr. Alex Segura MD Scribe Attestation: Jessica Lara, scribed for Dr. Alex Segura MD on 01/23/18 at 0639. Scribe Documentation Reviewed: Yes Provider Attestation: The documentation as recorded by the Jessica ding accurately reflects the service I personally performed and the decisions made by me, Dr. Alex Segura MD Status of Scribe Document: Viewed
[2018-01-23] MEDS: NS 0.9% 1000 ML* 2,000 ML IV ONE ×4 (02:10→22:44)
[2018-01-23 02:30] LABS: Hematocrit 34 % (42-52); Hemoglobin 11.7 g/dl (14.0-18.0); Mean Corpuscular HGB Conc 35 g/dl (31-36); Mean Corpuscular Hemoglobin 33 pg (27-31); Mean Corpuscular Volume 94 fL (80-94); Mean Platelet Volume 6.7 fL (7.4-10.4); Platelet Count 106 10^3/ul (150-450); Red Blood Count 3.61 10^6/ul (4.00-5.40); Red Cell Distribution Width 15 % (10.5-15); White Blood Count 5.1 10^3/ul (3.5-10.8)
[2018-01-23] MEDS ORDERED: Azithromycin IV* 500 MG ADVAN VIAL/BAG IVPB ONE (02:33)
[2018-01-23 02:38] LABS: INR 1.02 (0.77-1.02)
[2018-01-23 02:46] LABS: EGFR Non-African American 63.4 (>60)
[2018-01-23 02:53] LABS: ABS Basophils 0 10^3/ul (0-0.2); ABS Eosinophils 0 10^3/ul (0-0.6); ABS Lymphocytes 0.2 10^3/ul (1.0-4.8); ABS Monocytes 0.2 10^3/ul (0-0.8); ABS Neutrophils 4.7 10^3/ul (1.5-7.7); ABS Nucleated RBC 0 10^3/ul; Nucleated Red Blood Cells % 0
[2018-01-23] MEDS ORDERED: Albuterol 2.5 MG/3 ML NEB.SOL* (0.083%) INH ONE (02:53)
[2018-01-23 02:55] LABS: Monocytes % 1 %
[2018-01-23] MEDS: Albuterol 2.5 MG/3 ML NEB.SOL* (0.083%) INH SCH ×2 (02:55→03:22)
[2018-01-23] MEDS ORDERED: Al Hydrox/Mg Hydrox/Simet LIQ* 30 ML UDC G TUBE PRN (03:17)
[2018-01-23] MEDS ORDERED: Ondansetron INJ* 2 MG/ML VIAL IV PRN (03:17)
[2018-01-23] MEDS ORDERED: Acetaminophen TAB* 325 MG PO PRN (03:17)
[2018-01-23] MEDS ORDERED: Vancomycin(*) 1,000 MG in NS 0.9% 250 ML* 250 ML IVPB ONE (03:24)
[2018-01-23] MEDS ORDERED: predniSONE TAB* 20 MG G TUBE ONE (03:27)
[2018-01-23] MEDS ORDERED: Albuterol 2.5 MG/3 ML NEB.SOL* (0.083%) INH PRN (03:27)
[2018-01-23] MEDS ORDERED: NS 0.9% 1000 ML* 1,000 ML IV SCH ×2 (03:30→17:45)
[2018-01-23] MEDS ORDERED: Vancomycin per Pharmacy* NOTE FOLLOW UP PRN (05:08)
[2018-01-23] MEDS: NS 0.9% 1000 ML* 1,000 ML IV SCH ×2 (05:11→08:16)
[2018-01-23] MEDS: Vancomycin(*) 1,000 MG in NS 0.9% 250 ML* 250 ML IVPB SCH ×2 (05:14→17:27)
[2018-01-23] MEDS: Heparin VIAL(*) 5000 UNITS/ML VIAL (FIVE THOUSAND) SUBCUT SCH ×3 (05:18→22:13)
[2018-01-23 05:27] LABS: Urine Appearance Cloudy; Urine Blood Negative (Negative); Urine Color Yellow; Urine Ketones Negative (Negative); Urine Protein Negative (Negative); Urine Urobilinogen Negative (Negative)
[2018-01-23] MEDS: Levothyroxine TAB* 25 MCG TAB PEG TUBE SCH (05:43)
[2018-01-23] MEDS ORDERED: Levothyroxine TAB* 75 MCG TAB PEG TUBE SCH (06:00)
[2018-01-23 06:05] LABS: Hematocrit 29 % (42-52); Hemoglobin 10.1 g/dl (14.0-18.0); Mean Corpuscular HGB Conc 35 g/dl (31-36); Mean Corpuscular Hemoglobin 33 pg (27-31); Mean Corpuscular Volume 95 fL (80-94); Mean Platelet Volume 6.8 fL (7.4-10.4); Platelet Count 90 10^3/ul (150-450); Red Blood Count 3.04 10^6/ul (4.00-5.40); Red Cell Distribution Width 16 % (10.5-15); White Blood Count 4.1 10^3/ul (3.5-10.8)
[2018-01-23 06:12] LABS: EGFR Non-African American 62.8 (>60)
[2018-01-23] MEDS ORDERED: NS 0.9% 1000 ML* 1,000 ML IV ONE ×2 (06:18→06:45)
[2018-01-23 06:50] LABS: ABS Basophils 0 10^3/ul (0-0.2); ABS Eosinophils 0 10^3/ul (0-0.6); ABS Lymphocytes 0.1 10^3/ul (1.0-4.8); ABS Monocytes 0.1 10^3/ul (0-0.8); ABS Neutrophils 3.9 10^3/ul (1.5-7.7); ABS Nucleated RBC 0 10^3/ul; Eosinophil % 0.1 %; Lymphocyte % 2.7 %; Nucleated Red Blood Cells % 0
--- NOTE | 2018-01-23 07:36 | HP ---
CC: Kota Bernard MD * HISTORY AND PHYSICAL: DATE OF ADMISSION: 01/23/18 TIME OF EVALUATION: 0300 PRIMARY CARE PHYSICIAN: Kota Bernard MD CHIEF COMPLAINT: Shortness of breath and weakness. HISTORY OF PRESENT ILLNESS: This is a 67-year-old male with a past medical history of head and neck cancer, status post chemo and radiation back in 2014, now with trach and PEG tube, who presented to the emergency room with acute onset of weakness and shortness of breath. The patient states his shortness of breath was rather acute onset and started yesterday. This evening when he was trying to get up, he slid off the floor and was very weak. His was concerned about him, called EMS and they brought him to the emergency room for further evaluation. EMS noted his sats were in the 80s. The patient states he has not fallen off his bed or had any falls recently and is normally relatively independent. He has had a significant cough with sputum production as well. He denies any history of needing inhalers in the past. No chest pain, nausea, vomiting or diarrhea. No urinary symptoms. Normal bowel movements. No changes in his weight. No recent medication changes. No sick contacts. Otherwise, review of systems is negative. In the emergency room, the patient had labs and imaging. He was given Zosyn, azithromycin, DuoNeb, Tylenol and referred to the hospitalist service for further evaluation. PAST MEDICAL HISTORY: 1. History of head and neck cancer, status post chemo and radiation in 2014. 2. History of tracheostomy and PEG tube in place. 3. The patient remains on PEG tube feeds and regarding his tracheostomy, he does not require any oxygen support. 4. History of hypothyroidism. 5. Hyperlipidemia. 6. Chronic back pain. 7. History of paraspinal abscess. 8. History of SIADH. 9. BPH. 10. Depression. PAST SURGICAL HISTORY: 1. Hip replacement in 2008 with revision in 2013. 2. Back surgery x2. 3. Surgery x2. 4. Surgical intervention for paraspinal abscess in 2015. 5. Tracheostomy. 6. PEG tube placement. MEDICATIONS: 1. Finasteride 5 mg p.o. daily. 2. Levothyroxine 50 mcg daily. 3. Sertraline 20 mg daily. 4. Lansoprazole 30 mg daily. 5. Tamsulosin via PEG tube 0.4 mg daily. 6. Gabapentin 250 mg via PEG tube b.i.d. 7. Magnesium 400 mg via PEG tube b.i.d. 8. Sodium chloride daily. ALLERGIES: No known drug allergies. FAMILY HISTORY: Reviewed and noncontributory. SOCIAL HISTORY: As mentioned, the patient lives at home with his , who is his healthcare proxy. He quit smoking when he was 23 years of age. He only smoked for a few years. No alcohol use. He is independent of his ADLs. He gets PEG tube feeds Jevity a total of 6 cans, 2 in the morning, 2 at noon, and 2 at 3.00 p.m. Code status, he states he would like to be a full code. REVIEW OF SYSTEMS: A 14-point review of systems as mentioned in the HPI, otherwise negative. PHYSICAL EXAMINATION GENERAL: No acute distress, pale. VITAL SIGNS: T-max 101.0, pulse rate 78, respiratory rate 22, oxygen saturation on 10 L OxyMask, and blood pressure 90/58. HEENT: Head normocephalic. Pupils are equal and reactive. Oropharynx: Dysmorphic tongue with red patches on his tongue. Mucous membranes are moist. NECK: Supple. Trach in place with purulent drainage while coughing. RESPIRATORY: Coarse rhonchorous breath sounds with bilateral expiratory wheezing. CARDIAC: Regular rate and rhythm. Soft systolic murmur heard throughout. ABDOMEN: Soft, nontender, and nondistended. PEG tube in place with no surrounding drainage or erythema. EXTREMITIES: No clubbing, cyanosis or edema. 1+ DPs. He has a cast in his right lower extremity and partially amputated left foot. NEUROLOGIC: Alert and oriented x3. No gross focal neurologic deficits. DIAGNOSTIC STUDIES/LAB DATA: White count 5.1, hemoglobin 11.7, hematocrit 34, platelets 106,000, bands 39. INR 1.02. Sodium 128, potassium 4.2, chloride 98 , bicarb 22, BUN 31, creatinine 1.15, glucose 127, lactic acid 2.3. Troponin is 0. BNP is 189. Radiographic data: Chest x-ray limited film, increased opacification in the left lower lobe with some mild more prominent interstitial markings. ASSESSMENT AND PLAN: This is a 67-year-old male with a past medical history of head and neck cancer, status post chemo and radiation with trach in place, who presents to the emergency room with acute onset of shortness of breath, fever, and hypoxia. 1. Shortness of breath, fever, hypoxia. Assessment: The patient's findings are consistent with pneumonia. With his trach in place, he is high risk for more drug- resistant organisms including MRSA. 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 We will start him on vancomycin and change his other antibiotic to cefepime. We will order a sputum culture, urine Legionella, and Streptococcus pneumoniae. Continue him on fluids. Consider infectious disease consultation for antibiotic management. With his wheezing and rhonchi, I am going to start him on prednisone and albuterol nebulizers as needed. Recommend further imaging if no clinical improvement. Follow up on blood and sputum cultures and flu swab. CHRONIC MEDICAL PROBLEMS: We will resume his home medications as prescribed via PEG tube. FEN: IV fluids with continuing his Jevity tube feeds. DVT prophylaxis: The patient scores high risk. Place him on heparin subcu t.i.d. Code status: The patient is a full code. TIME SPENT: Greater than 50 minutes were spent doing the history and physical, more than half the time spent in direct patient contact. [id number]/CPS #: [id number]
[2018-01-23] MEDS ORDERED: chlorproMAZINE TAB* 25 MG PEG TUBE SCH (09:00)
[2018-01-23] MEDS: Gabapentin CAP(*) 100 MG SCH ×2 (09:01→22:12)
[2018-01-23] MEDS: FINASTERIDE 5 MG SCH (09:01)
[2018-01-23] MEDS: Cefepime 2 GM in Dextrose(*) 2 GM/50 ML BAG IV SCH ×2 (09:01→22:11)
[2018-01-23] MEDS: Sodium Chloride TAB* 1 GM PEG TUBE SCH (09:02)
[2018-01-23] MEDS: Magnesium Oxide TAB* 400 MG SCH (09:02)
[2018-01-23] MEDS: Lansoprazole SOLUTAB* 30 MG PEG TUBE SCH (09:02)
[2018-01-23] MEDS: Sertraline* 25 MG TAB G TUBE SCH (09:02)
--- NOTE | 2018-01-23 16:02 | PN ---
Subjective Date of Service: 01/23/18 Interval History: Patient seen today in his room on [address]. He is doing well. he is able to communicate via his trach collar by transiently capping it while speaking. He endorses feeling better. tolerating his tube feed. He remains slightly weak hence he preferred to remain in bed today. No acute concerns by staff. Past Medical History: Unchanged from Admission Objective Active Medications: Acetaminophen (Tylenol Tab*) 650 mg PO Q4H PRN PRN Reason: FEVER/PAIN Al Hydrox/Mg Hydrox/Simethicone (Maalox Plus*) 30 ml G TUBE Q6H PRN PRN Reason: INDIGESTION Albuterol (Ventolin 2.5 Mg/3 Ml Neb.Pau*) 2.5 mg INH Q4H PRN PRN Reason: SOB/WHEEZING Finasteride (Proscar Tab*) 5 mg .SEE ORDER DAILY [facility] Last Admin: 01/23/18 09:01 Dose: 5 mg Gabapentin (Neurontin Cap(*)) 200 mg .SEE ORDER BID [facility] Last Admin: 01/23/18 09:01 Dose: 200 mg Heparin Sodium (Porcine) (Heparin Vial(*)) 5,000 units SUBCUT Q8HR [facility] Last Admin: 01/23/18 14:15 Dose: 5,000 units Cefepime HCl (Maxipime 2 Gm In Dextrose Duplex (*)) 2 gm in 50 mls @ 100 mls/ hr IV Q12H [facility] Last Admin: 01/23/18 09:01 Dose: 100 mls/hr Vancomycin HCl 1,000 mg/ (Sodium Chloride) 250 mls @ 166.667 mls/hr IVPB Q12H [facility]; Protocol Last Admin: 01/23/18 05:14 Dose: 166.667 mls/hr Sodium Chloride (Ns 0.9% 1000 Ml*) 1,000 mls @ 125 mls/hr IV PER RATE [facility] Last Admin: 01/23/18 08:16 Dose: 125 mls/hr Lansoprazole (Prevacid Solutab*) 30 mg PEG TUBE DAILY [facility] Last Admin: 01/23/18 09:02 Dose: 30 mg Levothyroxine Sodium (Synthroid Tab*) 50 mcg PEG TUBE DAILY@0600 [facility] Last Admin: 01/23/18 05:43 Dose: 50 mcg Magnesium Oxide (Magox 400 Tab*) 400 mg .SEE ORDER DAILY [facility] Last Admin: 01/23/18 09:02 Dose: 400 mg Ondansetron HCl (Zofran Inj*) 4 mg IV Q4H PRN PRN Reason: NAUSEA/VOMITING Pharmacy Consult (Vancomycin Per Pharmacy*) 1 note FOLLOW UP . PRN PRN Reason: PER PROTOCOL Pharmacy Profile Note (Vancomycin Trough Check) 1 note FOLLOW UP 1630 ONE Stop: 01/24/18 16:31 Prednisone (Deltasone Tab*) 40 mg G TUBE DAILY [facility] Sertraline HCl (Zoloft*) 25 mg G TUBE DAILY [facility] Last Admin: 01/23/18 09:02 Dose: 25 mg Sodium Chloride (Sodium Chloride Tab*) 2 gm PEG TUBE DAILY [facility] Last Admin: 01/23/18 09:02 Dose: 2 gm Tamsulosin HCl (Flomax Cap*) 0.4 mg .SEE ORDER BEDTIME [facility] Vital Signs - 8 hr 01/23/18 01/23/18 01/23/18 08:00 09:01 11:02 Temperature 97.5 F Pulse Rate 72 72 Respiratory 14 18 16 Rate Blood Pressure 113/57 (mmHg) O2 Sat by Pulse 95 97 Oximetry 01/23/18 01/23/18 11:39 14:22 Temperature 98.7 F Pulse Rate 83 Respiratory 16 24 Rate Blood Pressure 90/59 (mmHg) O2 Sat by Pulse 100 Oximetry Oxygen Devices in Use Now: Tracheostomy Collar Appearance: Awake, Alert. no acute distress Eyes: No Scleral Icterus, PERRLA, - - EOMI Ears/Nose/Mouth/Throat: Mucous Membranes Moist, - - Trach collar in place Neck: NL Appearance and Movements; NL JVP, Trachea Midline - Trach collar in place Respiratory: - - transmitted upper airway breath sounds Abdominal: NL Sounds; No Tenderness; No Distention, - - Peg tube in place. site clean and no erythema Extremities: No Edema Neurological: Alert and Oriented x 3 Result Diagrams: 01/23/18 05:44 01/23/18 05:44 Microbiology and Other Data: Microbiology 01/23/18 03:42 Gram Stain - Final Sputum Trach Sputum Culture - Preliminary Escherichia Coli 01/23/18 05:00 Streptococcus pneumoniae Ag Screen - Final Urine Negative S. pneumo Antigen 01/23/18 03:37 Influenza Types A,B Antigen - Final Nasal Specimen received for Influenza A/B Molecular testing Assess/Plan/Problems-Billing Assessment: 67 year old male with previous history of MRSA and known history of head and neck cancer s/p Chemo & Radiation therapy; presented to ED with Shortness of breath and found to have LLL pneumonaie - Patient Problems (1) Pneumonia of lower lobe of lung Current Visit: No Status: Acute Priority: High Onset Date: 12/27/14 Code (s): J18.9 - PNEUMONIA, UNSPECIFIED ORGANISM SNOMED Code(s): 637658264 Comment: - Continue Cefepime 2 gm Q12 and vancomycin as per pharmacy protocol given his MRSA history and his compromized state makes him high risk of GNR. - follow up Sputum culture if obtainable - Will D/c Prednisone (2) Anemia Current Visit: No Status: Acute Priority: High Onset Date: 05/30/15 Code (s): D64.9 - ANEMIA, UNSPECIFIED SNOMED Code(s): 366616498 Comment: - acute on chronic dz. (3) History of benign prostatic hypertrophy Current Visit: No Status: Acute Code(s): Z87.438 - PERSONAL HISTORY OF OTHER DISEASES OF MALE GENITAL ORGANS SNOMED Code(s): 100372928 Comment: - Finasteride 5 mg and Tamsulosin 0.4 mg daily (4) Hypothyroid Current Visit: No Status: Acute Code(s): E03.9 - HYPOTHYROIDISM, UNSPECIFIED SNOMED Code(s): 52323156 Comment: - continue levothyroxine 50 mcg daily (5) History of gastroesophageal reflux (GERD) Current Visit: No Status: Chronic Code(s): Z87.19 - PERSONAL HISTORY OF OTHER DISEASES OF THE DIGESTIVE SYSTEM SNOMED Code(s): 93668807114293 Comment: - Continue lansoprazole 30 mg via Peg tube daily (6) Squamous cell carcinoma of tongue Current Visit: No Status: Chronic Code(s): C02.9 - MALIGNANT NEOPLASM OF TONGUE, UNSPECIFIED SNOMED Code(s): 635386643 Comment: - s/p resection, chemo, radiation. followed by Dr. Bernard. Currently in remission. - Resume diet boluses Jevity 1.2 Half strength; 2 cans at 9 am, 2 cans at noon and 2 cans at 1500; Flush with water 30 cc before and after (7) Tracheostomy in place Current Visit: No Status: Chronic Priority: High Code(s): Z93.0 - TRACHEOSTOMY STATUS SNOMED Code(s): 816806551 Comment: - Ordered respiratory care and trach collar with supplemental O2 as needed (8) Depressed Current Visit: Yes Status: Acute Code(s): F32.9 - MAJOR DEPRESSIVE DISORDER , SINGLE EPISODE, UNSPECIFIED SNOMED Code(s): 88031787 Comment: - continue Zoloft (9) DVT prophylaxis Current Visit: No Status: Acute Code(s): WPU0028 - SNOMED Code(s): 784752727 Comment: - Heparin SQ Q 8hrs
[2018-01-23 16:39] LABS: Hematocrit 30 % (42-52); Hemoglobin 10.3 g/dl (14.0-18.0); Mean Corpuscular HGB Conc 35 g/dl (31-36); Mean Corpuscular Hemoglobin 33 pg (27-31); Mean Corpuscular Volume 96 fL (80-94); Red Cell Distribution Width 16 % (10.5-15); White Blood Count 6.5 10^3/ul (3.5-10.8)
[2018-01-23 16:54] LABS: EGFR Non-African American 71.2 (>60)
[2018-01-23 17:12] LABS: Mean Platelet Volume 7.4 fL (7.4-10.4); Platelet Count 86 10^3/ul (150-450)
[2018-01-23] MEDS ORDERED: NS 0.9% 250 ML* 250 ML IV SCH (18:00)
[2018-01-23] MEDS: Tamsulosin CAP* 0.4 MG SCH (22:12)
[2018-01-24] MEDS: NS 0.9% 1000 ML* 1,000 ML IV SCH ×3 (03:23→20:23)
[2018-01-24] MEDS: Vancomycin(*) 1,000 MG in NS 0.9% 250 ML* 250 ML IVPB SCH (05:26)
[2018-01-24] MEDS: Heparin VIAL(*) 5000 UNITS/ML VIAL (FIVE THOUSAND) SUBCUT SCH ×3 (05:27→21:23)
[2018-01-24] MEDS: Levothyroxine TAB* 25 MCG TAB PEG TUBE SCH ×2 (05:27→13:55)
[2018-01-24 05:46] LABS: ABS Basophils 0 10^3/ul (0-0.2); ABS Eosinophils 0 10^3/ul (0-0.6); ABS Lymphocytes 0.3 10^3/ul (1.0-4.8); ABS Monocytes 0.3 10^3/ul (0-0.8); ABS Neutrophils 4.1 10^3/ul (1.5-7.7); ABS Nucleated RBC 0 10^3/ul; Eosinophil % 0 %; Hematocrit 27 % (42-52); Hemoglobin 9.3 g/dl (14.0-18.0); Lymphocyte % 7.1 %; Mean Corpuscular HGB Conc 35 g/dl (31-36); Mean Corpuscular Hemoglobin 33 pg (27-31); Mean Corpuscular Volume 95 fL (80-94); Nucleated Red Blood Cells % 0; Platelet Count 72 10^3/ul (150-450); Red Blood Count 2.83 10^6/ul (4.00-5.40); Red Cell Distribution Width 16 % (10.5-15); White Blood Count 4.8 10^3/ul (3.5-10.8)
[2018-01-24 05:56] LABS: EGFR Non-African American 89.9 (>60)
[2018-01-24] MEDS ORDERED: predniSONE TAB* 20 MG G TUBE SCH (09:00)
[2018-01-24] MEDS: Cefepime 2 GM in Dextrose(*) 2 GM/50 ML BAG IV SCH ×2 (10:13→20:24)
[2018-01-24] MEDS ORDERED: Pancrelipase CAP* 5,000 UNITS CAP G TUBE ONE (12:00)
[2018-01-24] MEDS ORDERED: Sodium Bicarbonate (ANTACID)* 650 MG TAB ONE (12:00)
[2018-01-24] MEDS: Gabapentin CAP(*) 100 MG SCH ×2 (13:54→20:25)
[2018-01-24] MEDS: Lansoprazole SOLUTAB* 30 MG PEG TUBE SCH (13:54)
[2018-01-24] MEDS: Sodium Chloride TAB* 1 GM PEG TUBE SCH (13:54)
[2018-01-24] MEDS: Sertraline* 25 MG TAB G TUBE SCH (13:54)
[2018-01-24] MEDS: Magnesium Oxide TAB* 400 MG SCH (13:55)
[2018-01-24] MEDS: FINASTERIDE 5 MG SCH (13:55)
[2018-01-24] MEDS ORDERED: Vancomycin Trough Check NOTE FOLLOW UP ONE (16:30)
--- NOTE | 2018-01-24 18:31 | PN ---
Subjective Date of Service: 01/24/18 Interval History: Patient doing better. no fever. had difficulty with the peg tube draining I was able to flush it open Past Medical History: Unchanged from Admission Objective Active Medications: Acetaminophen (Tylenol Tab*) 650 mg PO Q4H PRN PRN Reason: FEVER/PAIN Al Hydrox/Mg Hydrox/Simethicone (Maalox Plus*) 30 ml G TUBE Q6H PRN PRN Reason: INDIGESTION Albuterol (Ventolin 2.5 Mg/3 Ml Neb.Pau*) 2.5 mg INH Q4H PRN PRN Reason: SOB/WHEEZING Finasteride (Proscar Tab*) 5 mg .SEE ORDER DAILY [facility] Last Admin: 01/24/18 13:55 Dose: 5 mg Gabapentin (Neurontin Cap(*)) 200 mg .SEE ORDER BID [facility] Last Admin: 01/24/18 13:54 Dose: 200 mg Heparin Sodium (Porcine) (Heparin Vial(*)) 5,000 units SUBCUT Q8HR [facility] Last Admin: 01/24/18 13:55 Dose: 5,000 units Cefepime HCl (Maxipime 2 Gm In Dextrose Duplex (*)) 2 gm in 50 mls @ 100 mls/ hr IV Q12H [facility] Last Admin: 01/24/18 10:13 Dose: 100 mls/hr Sodium Chloride (Ns 0.9% 1000 Ml*) 1,000 mls @ 150 mls/hr IV PER RATE [facility] Last Admin: 01/24/18 13:28 Dose: 150 mls/hr Lansoprazole (Prevacid Solutab*) 30 mg PEG TUBE DAILY [facility] Last Admin: 01/24/18 13:54 Dose: 30 mg Levothyroxine Sodium (Synthroid Tab*) 50 mcg PEG TUBE DAILY@0600 [facility] Last Admin: 01/24/18 13:55 Dose: 50 mcg Magnesium Oxide (Magox 400 Tab*) 400 mg .SEE ORDER DAILY [facility] Last Admin: 01/24/18 13:55 Dose: 400 mg Ondansetron HCl (Zofran Inj*) 4 mg IV Q4H PRN PRN Reason: NAUSEA/VOMITING Sertraline HCl (Zoloft*) 25 mg G TUBE DAILY [facility] Last Admin: 01/24/18 13:54 Dose: 25 mg Sodium Chloride (Sodium Chloride Tab*) 2 gm PEG TUBE DAILY [facility] Last Admin: 01/24/18 13:54 Dose: 2 gm Tamsulosin HCl (Flomax Cap*) 0.4 mg .SEE ORDER BEDTIME [facility] Last Admin: 01/23/18 22:12 Dose: 0.4 mg Vital Signs - 8 hr 01/24/18 01/24/18 01/24/18 11:25 13:54 14:34 Temperature 97.8 F 97.3 F Pulse Rate 62 91 Respiratory 16 18 24 Rate Blood Pressure 111/67 115/66 (mmHg) O2 Sat by Pulse 100 100 Oximetry 01/24/18 16:39 Temperature Pulse Rate Respiratory 22 Rate Blood Pressure (mmHg) O2 Sat by Pulse Oximetry Oxygen Devices in Use Now: Tracheostomy Collar Eyes: No Scleral Icterus, - - EOMI Neck: NL Appearance and Movements; NL JVP, - - trach collar Respiratory: Symmetrical Chest Expansion and Respiratory Effort Cardiovascular: NL Sounds; No Murmurs; No JVD, RRR Abdominal: NL Sounds; No Tenderness; No Distention, - - peg tube in place Extremities: No Edema Neurological: Alert and Oriented x 3 Result Diagrams: 01/24/18 05:26 01/24/18 05:26 Microbiology and Other Data: Microbiology 01/23/18 03:42 Gram Stain - Final Sputum Trach Sputum Culture - Preliminary Escherichia Coli 01/23/18 05:00 Streptococcus pneumoniae Ag Screen - Final Urine Negative S. pneumo Antigen 01/23/18 03:37 Influenza Types A,B Antigen - Final Nasal Specimen received for Influenza A/B Molecular testing Assess/Plan/Problems-Billing Assessment: 67 year old male with previous history of MRSA and known history of head and neck cancer s/p Chemo & Radiation therapy; presented to ED with Shortness of breath and found to have LLL pneumonaie - Patient Problems (1) Pneumonia of lower lobe of lung Current Visit: No Status: Acute Priority: High Onset Date: 12/27/14 Code (s): J18.9 - PNEUMONIA, UNSPECIFIED ORGANISM SNOMED Code(s): 390944729 Comment: - Continue Cefepime 2 gm Q12. Off vancomycin as sputum culture E- Coli Sensitivity pending - follow up Sputum culture sensitivity - off Prednisone (2) Anemia Current Visit: No Status: Acute Priority: High Onset Date: 05/30/15 Code (s): D64.9 - ANEMIA, UNSPECIFIED SNOMED Code(s): 980948007 Comment: - acute on chronic dz. (3) History of benign prostatic hypertrophy Current Visit: No Status: Acute Code(s): Z87.438 - PERSONAL HISTORY OF OTHER DISEASES OF MALE GENITAL ORGANS SNOMED Code(s): 290592610 Comment: - Finasteride 5 mg and Tamsulosin 0.4 mg daily (4) Hypothyroid Current Visit: No Status: Acute Code(s): E03.9 - HYPOTHYROIDISM, UNSPECIFIED SNOMED Code(s): 08548857 Comment: - continue levothyroxine 50 mcg daily (5) History of gastroesophageal reflux (GERD) Current Visit: No Status: Chronic Code(s): Z87.19 - PERSONAL HISTORY OF OTHER DISEASES OF THE DIGESTIVE SYSTEM SNOMED Code(s): 08872492951761 Comment: - Continue lansoprazole 30 mg via Peg tube daily (6) Squamous cell carcinoma of tongue Current Visit: No Status: Chronic Code(s): C02.9 - MALIGNANT NEOPLASM OF TONGUE, UNSPECIFIED SNOMED Code(s): 819140835 Comment: - s/p resection, chemo, radiation. followed by Dr. Bernard. Currently in remission. - Resume diet boluses Jevity 1.2 Half strength; 2 cans at 9 am, 2 cans at noon and 2 cans at 1500; Flush with water 30 cc before and after (7) Tracheostomy in place Current Visit: No Status: Chronic Priority: High Code(s): Z93.0 - TRACHEOSTOMY STATUS SNOMED Code(s): 346180223 Comment: - Ordered respiratory care and trach collar with supplemental O2 as needed (8) Depressed Current Visit: Yes Status: Acute Code(s): F32.9 - MAJOR DEPRESSIVE DISORDER , SINGLE EPISODE, UNSPECIFIED SNOMED Code(s): 49993285 Comment: - continue Zoloft (9) DVT prophylaxis Current Visit: No Status: Acute Code(s): UST3169 - SNOMED Code(s): 482552271 Comment: - Heparin SQ Q 8hrs
[2018-01-24] MEDS: Tamsulosin CAP* 0.4 MG SCH (20:25)
[2018-01-25] MEDS: NS 0.9% 1000 ML* 1,000 ML IV SCH (03:53)
[2018-01-25] MEDS: Heparin VIAL(*) 5000 UNITS/ML VIAL (FIVE THOUSAND) SUBCUT SCH ×3 (05:53→21:28)
[2018-01-25] MEDS: Levothyroxine TAB* 25 MCG TAB PEG TUBE SCH (05:54)
[2018-01-25 06:38] LABS: ABS Basophils 0 10^3/ul (0-0.2); ABS Eosinophils 0 10^3/ul (0-0.6); ABS Lymphocytes 0.8 10^3/ul (1.0-4.8); ABS Monocytes 0.4 10^3/ul (0-0.8); ABS Nucleated RBC 0 10^3/ul; Eosinophil % 0.6 %; Hematocrit 30 % (42-52); Hemoglobin 10.4 g/dl (14.0-18.0); Lymphocyte % 10.7 %; Mean Corpuscular HGB Conc 34 g/dl (31-36); Mean Corpuscular Hemoglobin 33 pg (27-31); Mean Corpuscular Volume 97 fL (80-94); Nucleated Red Blood Cells % 0; Platelet Count 90 10^3/ul (150-450); Red Blood Count 3.13 10^6/ul (4.00-5.40); Red Cell Distribution Width 16 % (10.5-15); White Blood Count 7.2 10^3/ul (3.5-10.8)
[2018-01-25 06:48] LABS: EGFR Non-African American 83.1 (>60)
[2018-01-25] MEDS ORDERED: Potassium Phosphate IV* 15 MMOLE in NS 0.9% 250 ML* 250 ML IVPB ONE (07:47)
[2018-01-25] MEDS: Meropenem 1 GM PREMIX(*) 1 GM/50 ML BAG IV SCH ×3 (09:31→23:40)
[2018-01-25] MEDS: Gabapentin CAP(*) 100 MG SCH ×2 (09:32→20:40)
[2018-01-25] MEDS: FINASTERIDE 5 MG SCH (09:32)
[2018-01-25] MEDS: Magnesium Oxide TAB* 400 MG SCH (09:32)
[2018-01-25] MEDS: Sodium Chloride TAB* 1 GM PEG TUBE SCH (09:32)
[2018-01-25] MEDS: Lansoprazole SOLUTAB* 30 MG PEG TUBE SCH (09:32)
[2018-01-25] MEDS: Sertraline* 25 MG TAB G TUBE SCH (09:32)
[2018-01-25] MEDS ORDERED: Furosemide IV* 10 MG/ML 2 ML VIAL (20 MG) IV ONE ×2 (10:28→16:00)
--- NOTE | 2018-01-25 14:34 | PN ---
Subjective Date of Service: 01/25/18 Interval History: Patient seen today, still having increase productive cough. purulent. His WBC improving and no fever but he is increased SOB and his Sputum Culture showed ESBL. He remains on 35% Fio2 Sat 95%! He had 6 episodes diarrhea so far today. C-diff was ordered now Past Medical History: Unchanged from Admission Objective Active Medications: Acetaminophen (Tylenol Tab*) 650 mg PO Q4H PRN PRN Reason: FEVER/PAIN Al Hydrox/Mg Hydrox/Simethicone (Maalox Plus*) 30 ml G TUBE Q6H PRN PRN Reason: INDIGESTION Albuterol (Ventolin 2.5 Mg/3 Ml Neb.Pau*) 2.5 mg INH Q4H PRN PRN Reason: SOB/WHEEZING Finasteride (Proscar Tab*) 5 mg .SEE ORDER DAILY [facility] Last Admin: 01/25/18 09:32 Dose: 5 mg Gabapentin (Neurontin Cap(*)) 200 mg .SEE ORDER BID [facility] Last Admin: 01/25/18 09:32 Dose: 200 mg Heparin Sodium (Porcine) (Heparin Vial(*)) 5,000 units SUBCUT Q8HR [facility] Last Admin: 01/25/18 13:39 Dose: 5,000 units Meropenem (Merrem 1 Gm Premix(*)) 1 gm in 50 mls @ 100 mls/hr IV Q8H [facility] Last Admin: 01/25/18 09:31 Dose: 100 mls/hr Lansoprazole (Prevacid Solutab*) 30 mg PEG TUBE DAILY [facility] Last Admin: 01/25/18 09:32 Dose: 30 mg Levothyroxine Sodium (Synthroid Tab*) 50 mcg PEG TUBE DAILY@0600 [facility] Last Admin: 01/25/18 05:54 Dose: 50 mcg Magnesium Oxide (Magox 400 Tab*) 400 mg .SEE ORDER DAILY [facility] Last Admin: 01/25/18 09:32 Dose: 400 mg Ondansetron HCl (Zofran Inj*) 4 mg IV Q4H PRN PRN Reason: NAUSEA/VOMITING Sertraline HCl (Zoloft*) 25 mg G TUBE DAILY [facility] Last Admin: 01/25/18 09:32 Dose: 25 mg Sodium Chloride (Sodium Chloride Tab*) 2 gm PEG TUBE DAILY [facility] Last Admin: 01/25/18 09:32 Dose: 2 gm Tamsulosin HCl (Flomax Cap*) 0.4 mg .SEE ORDER BEDTIME RD Last Admin: 01/24/18 20:25 Dose: 0.4 mg Vital Signs - 8 hr 01/25/18 01/25/18 01/25/18 08:00 08:15 09:32 Temperature 97.8 F Pulse Rate 76 Respiratory 24 18 22 Rate Blood Pressure 113/70 (mmHg) O2 Sat by Pulse 95 97 Oximetry 01/25/18 01/25/18 01/25/18 09:39 11:30 12:10 Temperature 97.9 F Pulse Rate 80 85 Respiratory 20 18 22 Rate Blood Pressure 101/56 (mmHg) O2 Sat by Pulse 95 97 Oximetry Oxygen Devices in Use Now: Tracheostomy Collar Appearance: Awake, alert. intermitted coughing, audible wheezing. Eyes: No Scleral Icterus, - - EOMI Ears/Nose/Mouth/Throat: NL Teeth, Lips, Gums, Mucous Membranes Moist Neck: - - Tach collar with purulent sputum secretions Respiratory: - - coarse rhonchi. Cardiovascular: NL Sounds; No Murmurs; No JVD, RRR Abdominal: NL Sounds; No Tenderness; No Distention, - - Peg tube in place Extremities: No Edema Neurological: Alert and Oriented x 3 Result Diagrams: 01/25/18 06:12 01/25/18 06:12 Microbiology and Other Data: Microbiology 01/23/18 03:42 Gram Stain - Final Sputum Trach Sputum Culture - Preliminary Escherichia Coli 01/23/18 05:00 Streptococcus pneumoniae Ag Screen - Final Urine Negative S. pneumo Antigen 01/23/18 03:37 Influenza Types A,B Antigen - Final Nasal Specimen received for Influenza A/B Molecular testing Assess/Plan/Problems-Billing Assessment: 67 year old male with previous history of MRSA and known history of head and neck cancer s/p Chemo & Radiation therapy; presented to ED with Shortness of breath and found to have LLL pneumonaie - Patient Problems (1) Pneumonia of lower lobe of lung Current Visit: No Status: Acute Priority: High Onset Date: 12/27/14 Code (s): J18.9 - PNEUMONIA, UNSPECIFIED ORGANISM SNOMED Code(s): 386139307 Comment: - Given his increase respiratory distress, and ESBL on sputum culture, I will D/C his Cefepime and change to meropenem. Keep him Off vancomycin as sputum culture E-Coli. If he continue to be worse despite meropenem than we may have to resume his Vancomycin - off Prednisone - Also given his audible wheezing and CXR finding, I will d/c his IVF and will give him lasix 20 mg IV now and may repeat in afternoon if he respond well (2) Anemia Current Visit: No Status: Acute Priority: High Onset Date: 05/30/15 Code (s): D64.9 - ANEMIA, UNSPECIFIED SNOMED Code(s): 353629286 Comment: - acute on chronic dz. (3) History of benign prostatic hypertrophy Current Visit: No Status: Acute Code(s): Z87.438 - PERSONAL HISTORY OF OTHER DISEASES OF MALE GENITAL ORGANS SNOMED Code(s): 896138528 Comment: - Finasteride 5 mg and Tamsulosin 0.4 mg daily (4) Hypothyroid Current Visit: No Status: Acute Code(s): E03.9 - HYPOTHYROIDISM, UNSPECIFIED SNOMED Code(s): 03471175 Comment: - continue levothyroxine 50 mcg daily (5) History of gastroesophageal reflux (GERD) Current Visit: No Status: Chronic Code(s): Z87.19 - PERSONAL HISTORY OF OTHER DISEASES OF THE DIGESTIVE SYSTEM SNOMED Code(s): 13164950360419 Comment: - Continue lansoprazole 30 mg via Peg tube daily (6) Squamous cell carcinoma of tongue Current Visit: No Status: Chronic Code(s): C02.9 - MALIGNANT NEOPLASM OF TONGUE, UNSPECIFIED SNOMED Code(s): 234473407 Comment: - s/p resection, chemo, radiation. followed by Dr. Bernard. Currently in remission. - Resume diet boluses Jevity 1.2 Half strength; 2 cans at 9 am, 2 cans at noon and 2 cans at 1500; Flush with water 30 cc before and after (7) Tracheostomy in place Current Visit: No Status: Chronic Priority: High Code(s): Z93.0 - TRACHEOSTOMY STATUS SNOMED Code(s): 557703532 Comment: - Ordered respiratory care and trach collar with supplemental O2 as needed (8) Depressed Current Visit: Yes Status: Acute Code(s): F32.9 - MAJOR DEPRESSIVE DISORDER , SINGLE EPISODE, UNSPECIFIED SNOMED Code(s): 89530317 Comment: - continue Zoloft (9) DVT prophylaxis Current Visit: No Status: Acute Code(s): YBN8140 - SNOMED Code(s): 355503084 Comment: - Heparin SQ Q 8hrs
[2018-01-25] MEDS: Tamsulosin CAP* 0.4 MG SCH (20:40)
[2018-01-26] MEDS: Heparin VIAL(*) 5000 UNITS/ML VIAL (FIVE THOUSAND) SUBCUT SCH ×3 (06:09→21:05)
[2018-01-26] MEDS: Levothyroxine TAB* 25 MCG TAB PEG TUBE SCH (06:10)
[2018-01-26 06:29] LABS: Hematocrit 29 % (42-52); Hemoglobin 10.1 g/dl (14.0-18.0); Mean Corpuscular HGB Conc 35 g/dl (31-36); Mean Corpuscular Hemoglobin 33 pg (27-31); Mean Corpuscular Volume 94 fL (80-94); Mean Platelet Volume 7.1 fL (7.4-10.4); Platelet Count 110 10^3/ul (150-450); Red Blood Count 3.05 10^6/ul (4.00-5.40); Red Cell Distribution Width 16 % (10.5-15); White Blood Count 7.9 10^3/ul (3.5-10.8)
[2018-01-26] MEDS ORDERED: Loperamide CAP* 2 MG PO PRN (07:23)
[2018-01-26 08:04] LABS: ABS Basophils 0 10^3/ul (0-0.2); ABS Eosinophils 0.2 10^3/ul (0-0.6); ABS Lymphocytes 0.6 10^3/ul (1.0-4.8); ABS Monocytes 0.4 10^3/ul (0-0.8); ABS Neutrophils 6.8 10^3/ul (1.5-7.7); ABS Nucleated RBC 0 10^3/ul; Eosinophil % 2.1 %; Lymphocyte % 7.1 %; Nucleated Red Blood Cells % 0.1
[2018-01-26] MEDS: Meropenem 1 GM PREMIX(*) 1 GM/50 ML BAG IV SCH ×2 (08:08→16:16)
[2018-01-26] MEDS: Lansoprazole SOLUTAB* 30 MG PEG TUBE SCH (08:19)
[2018-01-26] MEDS: Gabapentin CAP(*) 100 MG SCH ×2 (08:19→20:58)
[2018-01-26] MEDS: Sertraline* 25 MG TAB G TUBE SCH (08:19)
[2018-01-26] MEDS: Magnesium Oxide TAB* 400 MG SCH ×2 (08:20→20:59)
[2018-01-26] MEDS: Potassium & Sodium Phos 250MG* = 1 PACKET PO SCH ×2 (08:20→20:58)
[2018-01-26] MEDS: Potassium Chloride LIQUID* 20 MEQ PACKET PO SCH (08:20)
[2018-01-26] MEDS: FINASTERIDE 5 MG SCH (08:20)
[2018-01-26] MEDS: Sodium Chloride TAB* 1 GM PEG TUBE SCH (08:20)
[2018-01-26] MEDS: Loperamide LIQ* 2 MG/10 ML UDC PO PRN (14:45)
--- NOTE | 2018-01-26 16:36 | PN ---
Subjective Date of Service: 01/26/18 Interval History: Patient seen today, feels a lot better. Able to cough and bring up his phlegm. Denies any fever. Denies shortness of breath. Social History: Unchanged from Admission Past Medical History: Unchanged from Admission Objective Active Medications: Acetaminophen (Tylenol Tab*) 650 mg PO Q4H PRN PRN Reason: FEVER/PAIN Al Hydrox/Mg Hydrox/Simethicone (Maalox Plus*) 30 ml G TUBE Q6H PRN PRN Reason: INDIGESTION Albuterol (Ventolin 2.5 Mg/3 Ml Neb.Pau*) 2.5 mg INH Q4H PRN PRN Reason: SOB/WHEEZING Finasteride (Proscar Tab*) 5 mg .SEE ORDER DAILY [facility] Last Admin: 01/26/18 08:20 Dose: 5 mg Gabapentin (Neurontin Cap(*)) 200 mg .SEE ORDER BID [facility] Last Admin: 01/26/18 08:19 Dose: 200 mg Heparin Sodium (Porcine) (Heparin Vial(*)) 5,000 units SUBCUT Q8HR [facility] Last Admin: 01/26/18 14:18 Dose: 5,000 units Meropenem (Merrem 1 Gm Premix(*)) 1 gm in 50 mls @ 100 mls/hr IV Q8H [facility] Last Admin: 01/26/18 16:16 Dose: 100 mls/hr Lansoprazole (Prevacid Solutab*) 30 mg PEG TUBE DAILY [facility] Last Admin: 01/26/18 08:19 Dose: 30 mg Levothyroxine Sodium (Synthroid Tab*) 50 mcg PEG TUBE DAILY@0600 [facility] Last Admin: 01/26/18 06:10 Dose: 50 mcg Loperamide HCl (Imodium Liq*) 2 mg PO .SEE DIRECTIONS PRN PRN Reason: DIARRHEA Last Admin: 01/26/18 14:45 Dose: 2 mg Magnesium Oxide (Magox 400 Tab*) 400 mg .SEE ORDER BID [facility] Last Admin: 01/26/18 08:20 Dose: 400 mg Ondansetron HCl (Zofran Inj*) 4 mg IV Q4H PRN PRN Reason: NAUSEA/VOMITING Potassium Chloride (Klor-Con Liquid*) 20 meq PO DAILY [facility] Last Admin: 01/26/18 08:20 Dose: 20 meq Potassium Phos/Sodium Phos (Neutra Phos 250 Mg Jagdeep*) 250 mg PO BID [facility] Last Admin: 01/26/18 08:20 Dose: 250 mg Sertraline HCl (Zoloft*) 25 mg G TUBE DAILY [facility] Last Admin: 01/26/18 08:19 Dose: 25 mg Sodium Chloride (Sodium Chloride Tab*) 2 gm PEG TUBE DAILY [facility] Last Admin: 01/26/18 08:20 Dose: 2 gm Tamsulosin HCl (Flomax Cap*) 0.4 mg .SEE ORDER BEDTIME [facility] Last Admin: 01/25/18 20:40 Dose: 0.4 mg Vital Signs - 8 hr 01/26/18 01/26/18 01/26/18 11:07 11:16 11:26 Temperature 98.5 F Pulse Rate 64 Respiratory 16 16 18 Rate Blood Pressure 107/64 (mmHg) O2 Sat by Pulse 98 Oximetry 01/26/18 01/26/18 01/26/18 14:12 14:45 15:19 Temperature 97.8 F Pulse Rate 65 Respiratory 18 18 16 Rate Blood Pressure 106/61 (mmHg) O2 Sat by Pulse 99 Oximetry Oxygen Devices in Use Now: Tracheostomy Collar Appearance: awake, alert no acute distress Eyes: No Scleral Icterus, - - EOMI Ears/Nose/Mouth/Throat: NL Teeth, Lips, Gums, Mucous Membranes Moist Neck: NL Appearance and Movements; NL JVP, - - trachcollar Respiratory: - - coarse rhonchi. scaterred wheezing Cardiovascular: NL Sounds; No Murmurs; No JVD, No Edema Abdominal: NL Sounds; No Tenderness; No Distention Skin: No Rash or Ulcers Neurological: Alert and Oriented x 3, NL Muscle Strength and Tone Result Diagrams: 01/26/18 06:13 01/26/18 06:18 Microbiology and Other Data: Microbiology 01/23/18 03:42 Gram Stain - Final Sputum Trach Sputum Culture - Preliminary Escherichia Coli 01/23/18 05:00 Streptococcus pneumoniae Ag Screen - Final Urine Negative S. pneumo Antigen 01/23/18 03:37 Influenza Types A,B Antigen - Final Nasal Specimen received for Influenza A/B Molecular testing Assess/Plan/Problems-Billing Assessment: 67 year old male with previous history of MRSA and known history of head and neck cancer s/p Chemo & Radiation therapy; presented to ED with Shortness of breath and found to have LLL pneumonaie - Patient Problems (1) Pneumonia of lower lobe of lung Current Visit: No Status: Acute Priority: High Onset Date: 12/27/14 Code (s): J18.9 - PNEUMONIA, UNSPECIFIED ORGANISM SNOMED Code(s): 224540936 Comment: - Given his increase respiratory distress, and ESBL on sputum culture, I did (on 01/25/18) switch his Cefepime (total 3 days) and change to meropenem 1 gm Q 8hr Day # 2. - He is significantly better. Able to prodcue more phelgm and clearing his secretions. - Keep him Off vancomycin (total 3 days)as sputum culture E-Coli. - off Prednisone - Will consult ID in am for duration and alternate therapy if indicated. He may need Picc line (2) Anemia Current Visit: No Status: Acute Priority: High Onset Date: 05/30/15 Code (s): D64.9 - ANEMIA, UNSPECIFIED SNOMED Code(s): 284899725 Comment: - acute on chronic dz. (3) History of benign prostatic hypertrophy Current Visit: No Status: Acute Code(s): Z87.438 - PERSONAL HISTORY OF OTHER DISEASES OF MALE GENITAL ORGANS SNOMED Code(s): 564499589 Comment: - Finasteride 5 mg and Tamsulosin 0.4 mg daily (4) Hypothyroid Current Visit: No Status: Acute Code(s): E03.9 - HYPOTHYROIDISM, UNSPECIFIED SNOMED Code(s): 93247899 Comment: - continue levothyroxine 50 mcg daily (5) History of gastroesophageal reflux (GERD) Current Visit: No Status: Chronic Code(s): Z87.19 - PERSONAL HISTORY OF OTHER DISEASES OF THE DIGESTIVE SYSTEM SNOMED Code(s): 90766213040573 Comment: - Continue lansoprazole 30 mg via Peg tube daily (6) Squamous cell carcinoma of tongue Current Visit: No Status: Chronic Code(s): C02.9 - MALIGNANT NEOPLASM OF TONGUE, UNSPECIFIED SNOMED Code(s): 129200946 Comment: - s/p resection, chemo, radiation. followed by Dr. Bernard. Currently in remission. - Resume diet boluses Jevity 1.2 Half strength; 2 cans at 9 am, 2 cans at noon and 2 cans at 1500; Flush with water 30 cc before and after (7) Tracheostomy in place Current Visit: No Status: Chronic Priority: High Code(s): Z93.0 - TRACHEOSTOMY STATUS SNOMED Code(s): 739154350 Comment: - Ordered respiratory care and trach collar with supplemental O2 as needed (8) Depressed Current Visit: Yes Status: Acute Code(s): F32.9 - MAJOR DEPRESSIVE DISORDER , SINGLE EPISODE, UNSPECIFIED SNOMED Code(s): 14273041 Comment: - continue Zoloft (9) DVT prophylaxis Current Visit: No Status: Acute Code(s): LYG3387 - SNOMED Code(s): 840485843 Comment: - Heparin SQ Q 8hrs
[2018-01-26] MEDS: Tamsulosin CAP* 0.4 MG SCH (20:59)
[2018-01-27] MEDS: Meropenem 1 GM PREMIX(*) 1 GM/50 ML BAG IV SCH ×2 (00:33→09:50)
[2018-01-27 05:56] LABS: Hematocrit 30 % (42-52); Hemoglobin 10.4 g/dl (14.0-18.0); Mean Corpuscular HGB Conc 34 g/dl (31-36); Mean Corpuscular Hemoglobin 33 pg (27-31); Mean Corpuscular Volume 96 fL (80-94); Mean Platelet Volume 7.2 fL (7.4-10.4); Platelet Count 115 10^3/ul (150-450); Red Blood Count 3.17 10^6/ul (4.00-5.40); Red Cell Distribution Width 15 % (10.5-15); White Blood Count 6.1 10^3/ul (3.5-10.8)
[2018-01-27] MEDS: Levothyroxine TAB* 25 MCG TAB PEG TUBE SCH (06:00)
[2018-01-27] MEDS: Heparin VIAL(*) 5000 UNITS/ML VIAL (FIVE THOUSAND) SUBCUT SCH ×2 (06:00→14:49)
[2018-01-27 06:18] LABS: EGFR Non-African American 79.1 (>60)
[2018-01-27 07:12] LABS: Monocytes % 6 %
[2018-01-27 07:15] LABS: ABS Neutrophils 5.1 10^3/ul (1.5-7.7)
[2018-01-27 08:10] VITALS: BP 97/54
[2018-01-27] MEDS: Sodium Chloride TAB* 1 GM PEG TUBE SCH (08:22)
[2018-01-27] MEDS: Gabapentin CAP(*) 100 MG SCH (08:22)
[2018-01-27] MEDS: Sertraline* 25 MG TAB G TUBE SCH (08:22)
[2018-01-27] MEDS: FINASTERIDE 5 MG SCH (08:22)
[2018-01-27] MEDS: Magnesium Oxide TAB* 400 MG SCH (08:23)
[2018-01-27] MEDS: Potassium & Sodium Phos 250MG* = 1 PACKET PO SCH (08:23)
[2018-01-27] MEDS: Lansoprazole SOLUTAB* 30 MG PEG TUBE SCH (08:23)
[2018-01-27] MEDS: Potassium Chloride LIQUID* 20 MEQ PACKET PO SCH (08:23)
[2018-01-27] MEDS: Loperamide LIQ* 2 MG/10 ML UDC PO PRN (09:43)
--- NOTE | 2018-01-27 11:41 | PN ---
Subjective Date of Service: 01/27/18 Interval History: Patient seen today, continue to do well. Anxious wanting to go home. Denies shortness of breath. breathing better. I did discuss with patient and that I will need to consult with ID regarding the duration and route of his abx treatment for ESBL! no acute events Social History: Unchanged from Admission Past Medical History: Unchanged from Admission Objective Active Medications: Acetaminophen (Tylenol Tab*) 650 mg PO Q4H PRN PRN Reason: FEVER/PAIN Al Hydrox/Mg Hydrox/Simethicone (Maalox Plus*) 30 ml G TUBE Q6H PRN PRN Reason: INDIGESTION Albuterol (Ventolin 2.5 Mg/3 Ml Neb.Pau*) 2.5 mg INH Q4H PRN PRN Reason: SOB/WHEEZING Finasteride (Proscar Tab*) 5 mg .SEE ORDER DAILY [facility] Last Admin: 01/27/18 08:22 Dose: 5 mg Gabapentin (Neurontin Cap(*)) 200 mg .SEE ORDER BID [facility] Last Admin: 01/27/18 08:22 Dose: 200 mg Heparin Sodium (Porcine) (Heparin Vial(*)) 5,000 units SUBCUT Q8HR [facility] Last Admin: 01/27/18 06:00 Dose: 5,000 units Meropenem (Merrem 1 Gm Premix(*)) 1 gm in 50 mls @ 100 mls/hr IV Q8H [facility] Last Admin: 01/27/18 09:50 Dose: 100 mls/hr Lansoprazole (Prevacid Solutab*) 30 mg PEG TUBE DAILY [facility] Last Admin: 01/27/18 08:23 Dose: 30 mg Levothyroxine Sodium (Synthroid Tab*) 50 mcg PEG TUBE DAILY@0600 [facility] Last Admin: 01/27/18 06:00 Dose: 50 mcg Loperamide HCl (Imodium Liq*) 2 mg PO .SEE DIRECTIONS PRN PRN Reason: DIARRHEA Last Admin: 01/27/18 09:43 Dose: 2 mg Magnesium Oxide (Magox 400 Tab*) 400 mg .SEE ORDER BID [facility] Last Admin: 01/27/18 08:23 Dose: 400 mg Ondansetron HCl (Zofran Inj*) 4 mg IV Q4H PRN PRN Reason: NAUSEA/VOMITING Potassium Chloride (Klor-Con Liquid*) 20 meq PO DAILY [facility] Last Admin: 12/10/18 08:23 Dose: 20 meq Potassium Phos/Sodium Phos (Neutra Phos 250 Mg Jagdeep*) 250 mg PO BID [facility] Last Admin: 01/27/18 08:23 Dose: 250 mg Sertraline HCl (Zoloft*) 25 mg G TUBE DAILY [facility] Last Admin: 01/27/18 08:22 Dose: 25 mg Sodium Chloride (Sodium Chloride Tab*) 2 gm PEG TUBE DAILY [facility] Last Admin: 01/27/18 08:22 Dose: 2 gm Tamsulosin HCl (Flomax Cap*) 0.4 mg .SEE ORDER BEDTIME [facility] Last Admin: 01/26/18 20:59 Dose: 0.4 mg Vital Signs - 8 hr 01/27/18 01/27/18 01/27/18 07:38 08:22 09:43 Temperature 97.9 F Pulse Rate 60 Respiratory 18 18 16 Rate Blood Pressure 97/54 (mmHg) O2 Sat by Pulse 98 Oximetry Oxygen Devices in Use Now: Tracheostomy Collar Appearance: Awake, much more confortable Eyes: No Scleral Icterus, - - EOMI Ears/Nose/Mouth/Throat: NL Teeth, Lips, Gums, Mucous Membranes Moist Neck: NL Appearance and Movements; NL JVP, Trachea Midline, - - trach collar Respiratory: Symmetrical Chest Expansion and Respiratory Effort, Clear to Auscultation Cardiovascular: NL Sounds; No Murmurs; No JVD, RRR Abdominal: NL Sounds; No Tenderness; No Distention Extremities: No Edema Neurological: Alert and Oriented x 3, NL Muscle Strength and Tone Result Diagrams: 01/27/18 05:28 01/27/18 05:28 Microbiology and Other Data: Microbiology 01/23/18 03:42 Gram Stain - Final Sputum Trach Sputum Culture - Preliminary Escherichia Coli 01/23/18 05:00 Streptococcus pneumoniae Ag Screen - Final Urine Negative S. pneumo Antigen 01/23/18 03:37 Influenza Types A,B Antigen - Final Nasal Specimen received for Influenza A/B Molecular testing Assess/Plan/Problems-Billing Assessment: 67 year old male with previous history of MRSA and known history of head and neck cancer s/p Chemo & Radiation therapy; presented to ED with Shortness of breath and found to have LLL pneumonaie - Patient Problems (1) Pneumonia of lower lobe of lung Current Visit: No Status: Acute Priority: High Onset Date: 12/27/14 Code (s): J18.9 - PNEUMONIA, UNSPECIFIED ORGANISM SNOMED Code(s): 004368141 Comment: - Given his increase respiratory distress, and ESBL on sputum culture, I did (on 01/25/18) switch his Cefepime (total 3 days) and change to meropenem 1 gm Q 8hr Day # 3. - He is significantly better. Able to prodcue more phelgm and clearing his secretions. - s/p vancomycin, off Prednisone - ID consulted for duration and alternate therapy if indicated. He may need Picc line (2) Anemia Current Visit: No Status: Acute Priority: High Onset Date: 05/30/15 Code (s): D64.9 - ANEMIA, UNSPECIFIED SNOMED Code(s): 300584524 Comment: - acute on chronic dz. (3) History of benign prostatic hypertrophy Current Visit: No Status: Acute Code(s): Z87.438 - PERSONAL HISTORY OF OTHER DISEASES OF MALE GENITAL ORGANS SNOMED Code(s): 680764786 Comment: - Finasteride 5 mg and Tamsulosin 0.4 mg daily (4) Hypothyroid Current Visit: No Status: Acute Code(s): E03.9 - HYPOTHYROIDISM, UNSPECIFIED SNOMED Code(s): 69951810 Comment: - continue levothyroxine 50 mcg daily (5) History of gastroesophageal reflux (GERD) Current Visit: No Status: Chronic Code(s): Z87.19 - PERSONAL HISTORY OF OTHER DISEASES OF THE DIGESTIVE SYSTEM SNOMED Code(s): 88012525406050 Comment: - Continue lansoprazole 30 mg via Peg tube daily (6) Squamous cell carcinoma of tongue Current Visit: No Status: Chronic Code(s): C02.9 - MALIGNANT NEOPLASM OF TONGUE, UNSPECIFIED SNOMED Code(s): 420578513 Comment: - s/p resection, chemo, radiation. followed by Dr. Bernard. Currently in remission. - Resume diet boluses Jevity 1.2 Half strength; 2 cans at 9 am, 2 cans at noon and 2 cans at 1500; Flush with water 30 cc before and after (7) Tracheostomy in place Current Visit: No Status: Chronic Priority: High Code(s): Z93.0 - TRACHEOSTOMY STATUS SNOMED Code(s): 478358327 Comment: - Ordered respiratory care and trach collar with supplemental O2 as needed (8) Depressed Current Visit: Yes Status: Acute Code(s): F32.9 - MAJOR DEPRESSIVE DISORDER , SINGLE EPISODE, UNSPECIFIED SNOMED Code(s): 35764921 Comment: - continue Zoloft (9) DVT prophylaxis Current Visit: No Status: Acute Code(s): AYS6212 - SNOMED Code(s): 743437981 Comment: - Heparin SQ Q 8hrs
--- NOTE | 2018-01-27 13:26 | CONS ---
CONSULTATION REPORT: DATE OF CONSULT: 01/27/18 REQUESTING PHYSICIAN: Dr. Staton. CONSULTING SERVICE: Infectious Disease. REASON FOR CONSULTATION: Pneumonia in the setting of chronic tracheostomy. IMPRESSION: 1. Chronic tracheostomy after head and neck cancer, with worsening shortness of breath, malaise, weakness, chills. Chest x-ray showed left lower lobe infiltrate. He was started on vancomycin and cefepime. Sputum from the tracheostomy has grown E. Coli which is an ESBL agent producer sensitive to meropenem , he was switched to that on Saturday. He has had significant improvement since then. His shortness of breath is resolved and he feels back to his baseline without fevers or chills. He had diarrhea but it is getting better. C. diff PCR was negative. 2. Head and neck cancer treated with chemotherapy, radiation, tracheostomy and PEG tube. 3. History of the cervical spine epidural abscess and empyema. RECOMMENDATIONS: Augmentin 500 mg by mouth twice a day to complete 10 days of antibiotics and a followup chest x-ray in about 4 weeks and follow up with me in 2 to 3 weeks. HISTORY OF PRESENT ILLNESS: This is a 67-year-old male with tracheostomy, admitted with shortness of breath worse than baseline as well as some chest pain , feverish feeling and increasing secretions from his tracheostomy. When he came on the , the chest x-ray showed left lower lobe infiltrate. Sputum was taken, the results as above. He did not have leukocytosis. He did have a fever of 38.3. He was started on vancomycin and cefepime, then switched to meropenem when the culture results were available. An influenza PCR was negative. He is feeling much better, back to baseline oxygen requirement, secretion and shortness of breath. PAST MEDICAL HISTORY: 1. Head and neck cancer treated with chemotherapy and radiation. 2. Status post tracheostomy and PEG. 3. Hypothyroidism. 4. Hyperlipidemia. 5. Chronic back pain. 6. History of epidural abscess. 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 8. Benign prostatic hypertrophy. 9. History of empyema. 10. History of depression. 11. Status post hip arthroplasty revised in 2013. 12. Status post decompression epidural abscess C-spine. MEDICATIONS: 1. Tylenol. 2. Albuterol inhaler. 3. Finasteride. 4. Gabapentin. 5. Heparin subcutaneous injection. 6. Lansoprazole. 7. Levothyroxine. 8. Loperamide as needed. 9. Meropenem 1 g IV every 8 hours. 10. Potassium. 11. Sertraline. 12. Tamsulosin. ALLERGIES: No known drug allergies. FAMILY HISTORY: No recurrent infections. SOCIAL HISTORY: Lives in [place] with his . He has no travel or sick contacts. Past smoker. REVIEW OF SYSTEMS: All negative except as noted above in the history of present illness. PHYSICAL EXAM: Vital Signs: Temperature 36.6, heart rate 60, respiratory rate 18, blood pressure 100/54, oxygen saturation 98%. In general, he is awake and not in distress. Neurologic: He is oriented x3, follows all commands. HEENT: There is no conjunctival hemorrhage. Oropharynx without lesions. Neck: Supple without masses. There is a midline tracheostomy. Heart: Regular rate and rhythm without murmurs, rubs or gallops. Lungs: There are decreased breath sounds at the bases without wheeze, rales, or egophony. Abdomen: Soft, nontender, nondistended. There is a PEG tube present. Skin: There is no rash or splinter hemorrhage. Musculoskeletal: There is no spine tenderness to palpation. DIAGNOSTIC STUDIES/LAB DATA: White blood cell count 6; hemoglobin 10; platelets 115,000, up from 70,000. Creatinine is 0.9. Please see impressions and recommendations outlined above, which I have discussed with Dr. Staton. Thank you for asking me to see Mr. Gutierrez in consultation. [id number]/[facility] #: [id number] MTDAngel
--- NOTE | 2018-01-28 07:19 | DS ---
CC: Dr. Abiodun Nicole; Dr. Kota Bernard DISCHARGE SUMMARY: DATE OF ADMISSION: 01/23/18 DATE OF DISCHARGE: 01/27/18 ONCOLOGIST/PRIMARY CARE PHYSICIAN: Dr. Kota Bernard. DISCHARGE DIAGNOSES: 1. ESBL pneumonia. 2. Hyponatremia. 3. Gastroesophageal reflux disease. 4. Depression. 5. Anemia. ADDITIONAL DISCHARGE DIAGNOSES: 1. History of head and neck cancer, status post chemotherapy therapy and radiation. 2. History of tracheostomy and PEG tube placement. 3. Hypothyroidism. 4. Hyperlipidemia. 5. History of syndrome of inappropriate secretion of antidiuretic hormone. 6. History of paraspinal and epidural abscess. 7. Benign prostatic hyperplasia. HOSPITAL COURSE: The patient presented on 01/23/18 to the hospital secondary to weakness and shortne ss of breath, was found to have consolidation and infiltrate on his chest x-ray mainly in the left lo wer lobe. He was admitted, he was started on vancomycin and cefepime, and sputum cultures obtained a nd a culture came back positive for ESBL and his antibiotic was transitioned to IV meropenem on , 01/25/18. The patient continued to improve on meropenem and today consulted with Infectious Dis ease, Dr. Nicole, who recommended to transition to oral Augmentin and finish the course of total 10 -day course. The patient seen and evaluated. He was deemed stable for discharge. DISCHARGE MEDICATIONS: Augmentin 500 one tab twice a day for 7 more days. Continued home medications: 1. Magnesium oxide 400 mg b.i.d. 2. Sodium chloride tab 2 g PEG tube 3 times a day. 3. Flomax 0.4 mg daily. 4. Sertraline 20 mg daily. 5. Lansoprazole 30 mg daily. 6. Gabapentin 250 twice a day. 7. Finasteride 5 mg daily. 8. Levothyroxine 50 mcg daily. DISCHARGE INSTRUCTIONS: 1. Follow up with Dr. Abiodun Nicole, in 1 to 2 weeks, Infectious Disease. 2. Follow up with his PCP, Dr. Kota Bernard, and Oncology. PERTINENT LAB DATA/DIAGNOSTIC STUDIES: Lab reveals CBC normal white count; the patient never monitor ed his white count. Chemistry reveals hyponatremia with sodium down to 128. He was on sodium of 136. Lactic acido sis with lactate presenting at 2.3, peak at 4.7, on 01/25/18, it was 1.5. Imaging: Chest x-ray on 01/23/18 shows left lower lobe pneumonia followed by 01/25/18 for respirator y distress shows pulmonary congestions and his fluid was stopped and was reversed with IV Lasix. Microbiology: His sputum culture was positive for ESBL E. coli, sensitive to Augmentin and meropenem . CONSULTATION: Infectious Disease, Dr. Nicole. [id number]/[facility] [place] #: [id number]
== END 2018-01-27 16:15 | disposition home or self-care (01) | DRG 178 ==
LOC: ED 00:52 → MED 03:17
PROVIDERS: ADMIT Pediatrics; ATTEND Internal Medicine
DX: J15.5 Pneumonia due to Escherichia coli (principal); E87.2 Acidosis; E87.1 Hypo-osmolality and hyponatremia; R06.03 Acute respiratory distress; K21.9 Gastro-esophageal reflux disease without esophagitis; F32.9 Major depressive disorder, single episode, unspecified; D64.9 Anemia, unspecified; E03.9 Hypothyroidism, unspecified; E78.5 Hyperlipidemia, unspecified; N40.0 Benign prostatic hyperplasia without lower urinary tract symptoms; M54.9 Dorsalgia, unspecified; Z96.649 Presence of unspecified artificial hip joint; Z93.0 Tracheostomy status; Z93.1 Gastrostomy status; Z85.89 Personal history of malignant neoplasm of other organs and systems; Z79.899 Other long term (current) drug therapy; Z87.891 Personal history of nicotine dependence; Z92.3 Personal history of irradiation; Z92.21 Personal history of antineoplastic chemotherapy; Z86.14 Personal history of Methicillin resistant Staphylococcus aureus infection
CPT/HCPCS: 36415; 71045; 71046; 80048; 80053; 81003; 83605; 83735; 83880; 84100; 84484; 85025; 85610; 85730; 87040; 87070; 87077; 87186; 87205; 87493; 87899; 99283; A9270-GY; J0456; J0692; J1644; J1940; J2185; J2543; J3370; J7512

== ENCOUNTER 2018-11-26 09:09 | Inpatient (IN) | payer MEDICARE, BC ==
[2018-11-26] MEDS ORDERED: NS 0.9% 1000 ML** 1,000 ML IV ONE (09:18)
[2018-11-26] MEDS ORDERED: NS 0.9% 1000 ML** 1,000 ML IV.FLUID IV ONE (09:24)
--- NOTE | 2018-11-26 09:39 | ED ---
Syncope/Near Syncope - HPI Summary HPI Summary: This pt is a 68 y/o male, with hx of tongue CA with trach, presenting to [facility] via EMS c/o syncopal episode today. reports pt sat on the bed this morning to get ready to go to [facility] and noticed pt was pale, diaphoretic, with SOB and pt couldn't breathe. Pt got up to brush his teeth and got into the bathroom but then fell to the ground. states pt was awake but was not responding to her. Per , pt couldn't breathe, was weak, and his blood pressure was 99/59. notes pt sustained a cut on the right side of his face. denies any fevers at home. Per , by the time EMS arrived pt's blood pressure is 67/39 and was told pt had a fever. Pt also has trach with green sputum. - History Of Current Complaint Chief Complaint: EDSyncope Time Seen by Provider: 11/26/18 09:15 Hx Obtained From: Patient Onset/Duration: Sudden Onset Context: Witnessed Activity At Onset: Exertion Aggravating Factor(s): Nothing Alleviating Factor(s): Nothing Associated Signs And Symptoms: Shortness Of Breath, Other - POSITIVE: pale, weak , low blood pressure, green sputum, fever - Allergies/Home Medications Allergies/Adverse Reactions: Allergies Allergy/AdvReac Type Severity Reaction Status Date / Time No Known Allergies Allergy Verified 11/26/18 10:09 Home Medications: Home Medications Acetaminophen Soln 325 Mg/5ml 650 mg PEG TUBE Q6HR PRN 11/26/18 [History Confirmed 11/26/18] Chlorhexidine MW 0.12% 473ML* [Peridex Mouth Wash 0.12%] 1 tbsp PO TID 11/26/18 [History Confirmed 11/26/18] Dutasteride (NF) [Avodart (NF)] 0.5 mg PEG TUBE DAILY 11/26/18 [History Confirmed 11/26/18] Lactose-Reduced Food/Fiber [Jevity 1.5 Augustin Liquid] 474 ml PEG TUBE TID 11/26/18 [History Confirmed 11/26/18] Levothyroxine TAB* [Synthroid TAB*] 50 mcg PEG TUBE QAM 11/26/18 [History Confirmed 11/26/18] Midodrine HCl 10 mg PEG TUBE TID 11/26/18 [History Confirmed 11/26/18] Tramadol HCl 1 - 2 tab PEG TUBE BEDTIME 11/26/18 [History Confirmed 11/26/18] PMH/Surg Hx/FS Hx/Imm Hx Endocrine/Hematology History: Reports: Hx Thyroid Disease - hypothyroid Denies: Hx Diabetes, Hx Systemic Lupus Erythematosus Cardiovascular History: Reports: Hx Hypercholesterolemia, Hx Hypotension - with associated weakness and falls Denies: Hx Congestive Heart Failure, Hx Hypertension, Hx Pacemaker/ICD Respiratory History: Reports: Hx Pneumonia, Other Respiratory Problems/ Disorders - CURRENT L PNEUMONIA- D/C FROM [facility] 12/31 ON AMOX Denies: Hx Asthma, Hx Chronic Obstructive Pulmonary Disease (COPD), Hx Lung Cancer - Pt denied GI History: Reports: Hx Gastroesophageal Reflux Disease, Hx Gastrointestinal Bleed, Hx Hiatal Hernia, Other GI Disorders - PEG tube History: Reports: Hx Benign Prostatic Hyperplasia, Other Problems/ Disorders - BPH Denies: Hx Dialysis, Hx Renal Disease Musculoskeletal History: Reports: Hx Arthritis - back and hip, Hx Back Problems - surgeries x2 Denies: Hx Rheumatoid Arthritis Comment Only: Other Musculoskeletal History - L hip surgery Sensory History: Reports: Hx Contacts or Glasses Denies: Hx Cataracts, Hx Hearing Aid Opthamlomology History: Reports: Hx Contacts or Glasses Denies: Hx Cataracts Neurological History: Reports: Other Neuro Impairments/Disorders - epidural abscess Denies: Hx Dementia, Hx Seizures Psychiatric History: Reports: Hx Depression Denies: Hx Panic Disorder - Cancer History Cancer Type, Location and Year: tongue CA Hx Chemotherapy: Yes Hx Radiation Therapy: Yes - Surgical History Surgery Procedure, Year, and Place: peg tube placement 04/04 [facility] [place]. left hip replacement 2007 [facility]. lumbar back surgery [facility]. left wrist orif. Trach Hx Anesthesia Reactions: No - Immunization History Date of Tetanus Vaccine: unk Date of Influenza Vaccine: utd Infectious Disease History: No Infectious Disease History: Denies: Traveled Outside the [place] in Last 30 Days - Family History Known Family History: Positive: None - no malignant hyperthermia. no anesthesia reaction., Cardiac Disease, Other Family History: There is no documented family history of malignant hyperthermia or anesthesia reaction. There is a history of unspecified cancer in the father. - Social History Alcohol Use: None Hx Substance Use: No Substance Use Type: Reports: None Hx Tobacco Use: Yes Smoking Status (MU): Former Smoker Type: Cigarettes Length of Time of Smoking/Using Tobacco: 7 years Have You Smoked in the Last Year: No Review of Systems Constitutional: Other - POSITIVE: pale Positive: Fever, Skin Diaphoresis Cardiovascular: Other - POSITIVE: low blood pressure Respiratory: Other - POSITIVE: green sputum Positive: Shortness Of Breath Positive: Weakness, Syncope All Other Systems Reviewed And Are Negative: Yes Physical Exam - Summary Physical Exam Summary: VITAL SIGNS: Reviewed. GENERAL: Patient is an elderly male who is pale. Patient is not in any acute respiratory distress. HEAD AND FACE: No signs of trauma. No ecchymosis, hematomas or skull depressions. No sinus tenderness. EYES: PERRLA, EOMI x 2, No injected conjunctiva, no nystagmus. EARS: Hearing grossly intact. Ear canals and tympanic membranes are within normal limits. MOUTH: Oropharynx within normal limits. Lips are a little cyanotic. NECK: Supple, trachea is midline, no adenopathy, no JVD, no carotid bruit, no c- spine tenderness, neck with full ROM. Trach with yellowish/greenish sputum. CHEST: Symmetric, no tenderness at palpation LUNGS: Crackles throughout his lungs. CVS: Regular rate and rhythm, S1 and S2 present, no murmurs or gallops appreciated. ABDOMEN: Soft, non-tender. No signs of distention. No rebound no guarding, and no masses palpated. Bowel sounds are normal. PEG tube in upper abdomen. EXTREMITIES: FROM in all major joints, no edema, no cyanosis or clubbing. NEURO: Alert and oriented x 3. No acute neurological deficits. Speech is normal and follows commands. SKIN: Dry and warm. Patient is pale. Triage Information Reviewed: Yes Vital Signs On Initial Exam: Initial Vitals Temp Pulse Resp BP Pulse Ox 99 F 83 22 90/45 90 11/26/18 09:14 11/26/18 09:14 11/26/18 09:14 11/26/18 09:14 11/26/18 09:14 Vital Signs Reviewed: Yes Procedures - Sedation Patient Received Moderate/Deep Sedation with Procedure: No Diagnostics - Vital Signs Vital Signs Temp Pulse Resp BP Pulse Ox 11/26/18 09:20 24 11/26/18 09:19 25 11/26/18 09:14 99 F 83 22 90/45 90 - Laboratory Result Diagrams: 11/26/18 09:31 11/26/18 09:31 Lab Statement: Any lab studies that have been ordered have been reviewed, and results considered in the medical decision making process. - Radiology Chest XR Radiology Interpretation Completed By: Radiologist Summary of Radiographic Findings: IMPRESSION: Right upper lobe and right basilar airspace disease consistent with pneumonia. Dr. Paula has reviewed this report. - CT Brain CT CT Interpretation Completed By: Radiologist Summary of CT Findings: IMPRESSION: No definite intracranial mass or hemorrhage is identified. No changes noted since June 03, 2015. Dr. Paula has reviewed this report. - EKG 09:20 Cardiac Rate: NL - at 77 bpm EKG Rhythm: Sinus Rhythm Summary of EKG Findings: EKG at 09:20 shows normal sinus rhythm at 77 bpm. Low voltage EKG. Similar to past EKG on 07/28/16. Course/Dx Assessment/Plan: Blood work without any significant abnormality except for WBCs of 14.3, hemoglobin 10.7 hematocrit 32 platelets 179. Fibrinogen 493, sodium 129, potassium 5.3, chloride 97, BUN/creatinine 38, creatinine 1.83, lactic acid is 4, paced is 51, CRP 93 and BNP 162. ABG shows a pH of 7.41, PCO2 is 34 , PO2 51 and O2 sat 88% on 2 L of oxygen. Chest x-ray impression: Right upper lobe and right basilar airspace disease consistent with pneumonia. Initially the patient had a sepsis alert. Therefore the patient was started on IV fluids 30 ccs per KG, meropenem. I chose meropenem and since the patients last recommendation by infectious disease was meropenem. I discussed the case with Dr. Valerio, oncologist, and recommends admission to the hospitalist since he has not received chemotherapy in the last 4 years. At this time I discussed my physical exam and findings with Dr. Valles from the hospitalist services who accepted the patient for admission. - Diagnoses Provider Diagnoses: Pneumonia, Hypoxia, Sepsis - Physician Notifications Discussed Care of Patient With: Lucila Valerio Time Discussed With Above Provider: 11:51 Instructed by Provider To: Other - Discussed pt care with Dr. Valerio, oncologist , who recommends admission to the hospitalist since pt has not had chemotherapy in 4 years. [11:55] Discussed with Dr. Valles, hospitalist, who accepted the pt for admission. Discharge ED - Sign-Out/Discharge Documenting (check all that apply): Patient Departure - Admit to [facility] - Discharge Plan Condition: Stable Disposition: ADMITTED TO [facility] Referrals: Kota Bernard MD [Primary Care Provider] - - Attestation Statements Document Initiated by Scribe: Yes Documenting Scribe: Kay Gomez Provider For Whom Scribe is Documenting (Include Credential): Phil Paula MD Scribe Attestation: Kay Lara, scribed for Phil Paula MD on 11/26/18 at 1212. Status of Scribe Document: Ready
[2018-11-26 09:49] LABS: ABS Lymphocytes 0.2 10^3/ul (1.0-4.8); ABS Monocytes 0.3 10^3/ul (0-0.8); ABS Neutrophils 13.7 10^3/ul (1.5-7.7); Eosinophil % 0.1 %; Hematocrit 32 % (42-52); Hemoglobin 10.7 g/dL (14.0-18.0); Lymphocyte % 1.4 %; Mean Corpuscular HGB Conc 34 g/dL (31-36); Mean Corpuscular Hemoglobin 32 pg (27-31); Mean Corpuscular Volume 96 fL (80-94); Mean Platelet Volume 6.8 fL (7.4-10.4); Nucleated Red Blood Cells % 0.1; Platelet Count 179 10^3/uL (150-450); Red Cell Distribution Width 16 % (10-15); White Blood Count 14.3 10^3/uL (3.5-10.8)
--- OUTSIDE RECORDS SUMMARY | 2018-11-26 09:50 | XMS REPORT | Continuity of Care Document ---
:1950 External Reference #:[id number] Author Name Lazaro Tripp MD Address [address] [place] [address] Care Team Providers Name Role Phone Ana Wallace M.D. - Family Care Team Information Scratcher Tender Medicine Problems Description No Information Available Social History Type Date Description Comments Sex Unknown Tobacco Use Start: Unknown Never Smoked Cigarettes Tobacco Use Start: Unknown Never Smoked Cigars Tobacco Use Start: Unknown Never Smoked A Pipe Smokeless Tobacco Never Used Smokeless Tobacco ETOH Use Currently rarely consumes alcohol Tobacco Use Start: Unknown Patient has never smoked Smoking Status Reviewed: 11/04/18 Patient has never smoked Allergies, Adverse Reactions, Alerts Description No Known Drug Allergies Medications Active Medications SIG Qnty Indications Ordering Date Provider Peridex rinse mouth with 1 3786ml Lazaro Perez 11/04/2018 0.12% Solution tablespoon 3 times MD Josee a day (do not swallow) Lansoprazole as directed P.A., 30mg Jessenia Capsules Levothyroxine Sodium 1 tab daily P.A., Jessenia 50mcg Tablets Magnesium Oxide 1 by mouth every Ana Wallace 500mg day M.D. Tablets Sodium Chloride Unknown Bacteriostatic/Benzyl Alcohol Sertraline HCL Unknown 20mg/ml Concentrate Tamsulosin HCL Tera COY, 0.4mg Steven Capsules Midodrine HCL take 1 tablet by Unknown 5mg mouth three times Tablets a day Dutasteride Cristino, 0.5mg Hermann Edwards MD Capsules Gabapentin Kota Bernard MD 250mg/5ML Solution Immunizations Description No Information Available Vital Signs Date Vital Result Comment 11/04/2018 9:00am Weight 160.00 lb Weight 72.576 kg Height 67 inches 5'7" Height in cm's 170.2 cm BMI (Body Mass Index) 25.1 kg/m2 05/01/2018 9:53am Weight 158.00 lb Weight 71.669 kg Height 67 inches 5'7" Height in cm's 170.2 cm BMI (Body Mass Index) 24.7 kg/m2 Results Description No Information Available Procedures Description No Information Available Medical Devices Description No Information Available Encounters Type Date Location Provider Dx Diagnosis Office Visit 11/04/2018 [place],After Lazaro Perez C02.9 Malignant neoplasm 9:00a 02/18/07 MD Josee of tongue, unspecified Z93.0 Tracheostomy status R05 Cough Assessments Date Code Description Provider 11/04/2018 C02.9 Malignant neoplasm of tongue, unspecified Lazaro Tripp MD 11/04/2018 Z93.0 Tracheostomy status Lazaro Tripp MD 11/04/2018 R05 Cough Lazaro Tripp MD Plan of Treatment Future Appointment(s):02/03/2019 10:30 am - Lazaro Tripp MD at [place], After 02/18/807 - Lazaro Tripp, MDC02.9 Malignant neoplasm of tongue , [id number] Tracheostomy [id number] Impacted cerumen, bilateral Functional Status Description No Information Available Mental Status Description No Information Available Referrals Description No Information Available
[2018-11-26] MEDS: Meropenem 1 GM PREMIX(*) 1 GM/50 ML BAG IV SCH ×2 (09:58→17:42)
[2018-11-26 10:12] LABS: Albumin 3.5 g/dL (3.2-5.2); Albumin/Globulin Ratio 1.1 (1-3); BUN/Creatinine Ratio 20.8 (8-20); C Reactive Protein 93.24 mg/L (<8.01); EGFR African American 44.8 (>60); Globulin 3.1 g/dL (2-4); Total Bilirubin 0.8 mg/dL (0.2-1.0); Total Protein 6.6 g/dL (6.4-8.9); Troponin I 0.01 ng/mL (<0.04)
[2018-11-26 10:13] LABS: Potassium 5.3 mmol/L (3.5-5.0)
[2018-11-26 10:14] LABS: Activated Partial Thrombo Time 30.2 seconds (26.0-38.0); Fibrinogen 493.7 mg/dL (110.8-404.3); INR 1.09 (0.82-1.09)
[2018-11-26 11:44] LABS: Erythrocyte Sed Rate 68 mm/Hr (0-19)
[2018-11-26] MEDS ORDERED: Albuterol 2.5 MG/3 ML NEB.SOL* (0.083%) INH PRN (12:59)
[2018-11-26] MEDS ORDERED: NS 0.9% 1000 ML** 1,000 ML IV SCH ×2 (13:00→13:51)
[2018-11-26] MEDS ORDERED: traMADol TAB* 50 MG PEG TUBE PRN (13:02)
[2018-11-26] MEDS ORDERED: Acetaminophen ADULT LIQ* 650 MG/20.3 ML UDC PEG TUBE PRN (13:02)
[2018-11-26] MEDS ORDERED: Piperacillin/Tazobac ADVAN(*) 3.375 GM in NS 0.9% 100 ML* 100 ML IVPB ONE (13:15)
[2018-11-26] MEDS ORDERED: Zosyn per Pharmacy* NOTE FOLLOW UP SCH (14:00)
[2018-11-26] MEDS: Azithromycin 500 mg/250 ml NS 500 MG/250 ML BAG IVPB SCH (14:32)
--- NOTE | 2018-11-26 15:15 | HP ---
CC: Dr. Bernard * HISTORY AND PHYSICAL: DATE OF ADMISSION: 11/26/18 PROVIDER: Chantell Sanchez NP. PRIMARY CARE PROVIDER: Dr. Bernard. ATTENDING PHYSICIAN WHILE IN THE HOSPITAL: Dr. Lisa Hunter * (dictated by Chantell Sanchez NP). CHIEF COMPLAINT: 1. Syncope. 2. Cough, weakness. HISTORY OF PRESENT ILLNESS: Mr. Gutierrez is a 68-year-old male with a past medical history significant for head and neck cancer, status post chemo and radiation completed in 2014, tracheostomy and PEG tube, hypothyroidism, BPH, depression, who presented to the emergency room after a syncopal episode at home. The patient's reports that he woke this morning, he was feeling short of breath and he could not breathe. His color was pale. He was diaphoretic, sitting on the edge of the bed. The patient got up and was getting dressed to go to [facility] for 6-month checkup. He walked into the bathroom to brush his teeth and he fell to the floor, hitting the side of his head. The patient does report that he remembers falling. He does report that he has had increased cough and weakness and lower than normal blood pressure over the past couple of weeks. He does report green sputum from his tracheostomy and that he experienced some increased shortness of breath this morning. Due to these findings, the patient was brought to the emergency room by EMS. Upon EMS arrival, the patient's blood pressure was found to be in the 60s systolically. While in the emergency room, the patient had routine lab work drawn. He had a CT of the brain that showed no acute intracranial pathology. He had a chest x- ray that showed right upper and lower lobe pneumonia. He had routine lab work drawn, which showed leukocytosis with white count of 14.3, lactic acid of 4, elevated CRP of 93.24. His ABG showed pH of 7.41, pCO2 of 34, pO2 of 51, HCO3 of 22, and oxygen saturation of 88%. Due to these findings, Hospital Medicine was asked to see and evaluate the patient for admission. PAST MEDICAL HISTORY: Significant for, 1. History of head, neck, and tongue cancer, status post chemo and radiation completed in 2014. 2. Tracheostomy. 3. PEG tube placement. 4. Hypothyroid. 5. History of SIADH. 6. BPH. 7. Depression. PAST SURGICAL HISTORY: 1. Hip replacement with revision in 2014 for infection. 2. History of back surgery x2. 3. Tracheostomy. 4. PEG tube placement. 5. Paraspinal cervical spine abscess surgery. 6. Left wrist surgery x2. HOME MEDICATIONS: Include: 1. Magnesium 400 mg via the PEG tube p.o. daily. 2. Avodart 0.5 mg via the PEG tube daily. 3. Lansoprazole 30 mg via PEG tube daily. 4. Tamsulosin 0.4 mg via the PEG tube daily. 5. Midodrine 10 mg via PEG tube 3 times a day. 6. Levothyroxine 50 mcg p.o. daily via PEG tube. 7. Sertraline 20 mg via PEG tube daily. 8. Gabapentin 250 mg per 5 mL, 6 mL in the morning, 12 mL at bedtime. 9. Jevity 1.5 kcal liquid 474 mL via the PEG tube 3 times a day. 10. Acetaminophen 650 mg q.6 hours as needed for pain. ALLERGIES: No known drug allergies. FAMILY HISTORY: Father with a history of [place]. No reported history of diabetes. Father with colon cancer. SOCIAL HISTORY: The patient quit smoking at the age of 24. He only smoked for a short period of time. Denies any alcohol or illicit drug use. He is . Surrogate decision maker in the event he is unable to make his own decisions is his . He is a full code. REVIEW OF SYSTEMS: The patient denies any fever or unintended weight loss. He denies any chest pain or edema. He does report increased cough and shortness of breath since last evening. Denies any nausea, vomiting, diarrhea, abdominal pain, hematuria, dysuria. Denies any focal weakness. He does complain of generalized weakness that has progressively become worse over the past 2 weeks. Denies any visual complaints, dysphagia, arthralgias, myalgias. He does have a small L-shaped laceration noted to his right yazidi area. There is no surrounding ecchymosis or swelling. Denies any psychosis or anxiety. The patient does have tracheostomy. PHYSICAL EXAMINATION GENERAL: At this time, Mr. Gutierrez is a 68-year-old male. He is alert and oriented, resting on the stretcher in the emergency room. He does not appear to be in any acute distress. VITAL SIGNS: Blood pressure 106/63, heart rate is 74, respirations are 29, O2 saturation is 97% on 3 L trach collar, temperature was 99.9. HEENT: Head is normocephalic. He does have a small L-shaped laceration noted to his right yazidi area without bleeding at this time. Eyes: EOMs are intact. Sclerae anicteric and not pale. Oral mucosa appeared to be moist. NECK: He does have a tracheostomy with antunez to green color secretions. He has no C- spine tenderness. He is able to move his neck [id number] without any pain. CHEST: Lungs are with scattered rhonchi bilaterally, diminished. CARDIAC: S1, S2. Regular rate and rhythm. No murmurs, rubs, or gallops. ABDOMEN: Soft and nontender. Bowel sounds are present x4. EXTREMITIES: He is able to move all 4 extremities. There is no clubbing or cyanosis. NEUROLOGIC: He is awake, alert, and oriented x3. Speech is clear. Thought process is intact. There are no gross focal deficits. SKIN: He does have an L-shaped laceration noted to his right yazidi without bleeding at this time. DIAGNOSTIC STUDIES/LAB DATA: WBCs 14.3, RBCs 3.30, hemoglobin 10.7, hematocrit 32, platelet count 179. ESR was 68. INR was 1.09, APTT was 30.2. ABG, pH was 7.41, pCO2 was 34, pO2 was 51, HCO3 was 22, O2 saturation was 88.2% . Sodium 129, potassium 5.3, chloride 97, anion gap was 8, BUN 38, creatinine 1.83, glucose 90, lactic acid was 4.0, calcium 9.0. AST was 51, ALT was 45, alkaline phosphatase was 28. C-reactive protein 93.24. BNP was 162. He had a chest x-ray, radiologist's impression: Right upper lobe and right basilar airspace disease consistent with pneumonia. He had a CT of the brain, radiologist's impression: No definite intracranial mass or hemorrhage was identified. No changes since 2014. He had an electrocardiogram, which showed sinus rhythm at a rate of 77, no ST or T- wave changes. ASSESSMENT AND PLAN: Mr. Gutierrez is a 68-year-old male with a past medical history significant for head and neck cancer, status post chemo and radiation completed in 2014; tracheostomy and PEG tube; hypothyroid; and depression, who presented to the emergency room with complaints of increased shortness of breath , cough, and weakness that started last night as well as a syncopal episode at home. He will be admitted to the ICU with: 1. Severe sepsis. The patient is meeting severe sepsis criteria evidenced by leukocytosis with WBCs 14.3, tachypnea with respirations of 22 to 29, and hypotension with a blood pressure of 87/52, elevated lactic acid of 4.0. I suspect his sepsis is related to right upper and lower lobe pneumonia. The patient was given meropenem in the emergency room. I will start him on azithromycin and Zosyn. Blood cultures are currently pending. I will send a sputum culture. I will send urine for legionella and Streptococcus pneumoniae. He will be placed in ICU and monitored. I will continue oxygen via trach collar to maintain O2 saturations greater than 92%. The patient did receive fluid bolusing in the emergency room and his repeat lactic acid is currently pending. 2. Syncope. The patient did have a syncopal episode at home. I suspect this is related to hypotension and underlying sepsis from his pneumonia. The patient did receive 2 L of normal saline in the emergency room. I will continue him on normal saline at 75 cc per hour. He does have a history of hypotension in he past, for which he takes midodrine at home. We will continue his midodrine 10 mg via the PEG tube 3 times daily. I have also asked the termite control servicer service to consult due to the patient's severe sepsis and hypotension. 3. Hyponatremia. The patient does have a history of hyponatremia with a history of SIADH. I will give the patient normal saline IV fluids. We will repeat a BMP in the a.m. 4. Hypothyroidism. He should continue on levothyroxine as previously prescribed. 5. Benign prostatic hyperplasia. He should continue on tamsulosin 0.4 mg via PEG tube. 6. Gastroesophageal reflux disease. He should continue on lansoprazole 30 mg via PEG tube daily. 7. FEN: He can have Jevity 1.5 kcal via the PEG tube. 8. DVT prophylaxis: I will place him on heparin subcu. 9. Code status: He is a full code. TIME SPENT: Time spent on this admission was 60 minutes; greater than half that time was spent at the bedside reviewing events leading thus far to his hospitalization, performing physical exam, and reviewing my plan of care. I have discussed this with my attending Dr. Lisa Hunter; she is in agreement with my plan. CHANTELL SANCHEZ, HEAD BUTLER [id number]/[facility] #: [id number] WILFRIDO
[2018-11-26 15:24] LABS: Urine Appearance Cloudy; Urine Bacteria Absent (Absent); Urine Bilirubin Negative (Negative); Urine Blood 3+ (Negative); Urine Color Yellow; Urine Glucose Negative (Negative); Urine Ketones Negative (Negative); Urine Nitrite Negative (Negative); Urine Protein Negative (Negative); Urine Red Blood Cell Trace(0-2/hpf) (Absent); Urine Specific Gravity 1.012 (1.010-1.030); Urine Squamous Epithelial Cell Present (Absent); Urine Urobilinogen Negative (Negative); Urine White Blood Cell 1+(6-10/hpf) (Absent)
[2018-11-26] MEDS: Heparin VIAL(*) 5000 UNITS/ML VIAL (FIVE THOUSAND) SUBCUT SCH ×2 (16:37→21:45)
[2018-11-26] MEDS: Tamsulosin CAP* 0.4 MG SCH (17:02)
[2018-11-26] MEDS: ZOSYN 3.375 GM Q8H per EXTENDED INFUSION IVPB SCH ×2 (17:42)
--- NOTE | 2018-11-26 17:55 | CONSULT ---
Consult Consult: Consultation Note -- Critical Care Requesting Physician: Dr Valles Reason for consult: respiratory distress Limitations in history/physical: none Date of consult: 11/23/2018 HPI: 68y M w/pmhx of Tongue Ca, s/p trach/PEG, hypothyroidism, HLD, GERD, BPH; presented to [facility] from home because noticed shortness of breath this morning. He was pale, diaphoretic. He walked to bathroom and then fell to ground. He was not well responsive. She checked vitals and noted low blood pressure. Found to have green sputum from trach also being produced. In ER, he was hypotensive down to 60s. Started on Sepsis protocol for suspected Right pneumonia given IVF bolus 30ml/kg, IV meropenem. He was not in resp distress and remained on trach collar. He is now in ICU, on trach collar. No distress noted. Tmax 99.5, BP 60-70s but now 110/59. HR 70s sinus. RR low teens to low 20s, sats 93% on 35% fio2 trach collar. ED/floor Course: as above ROS: negative except for pertinent positives mentioned above PMHx: Tongue Ca, s/p trach/PEG, hypothyroidism, HLD, GERD, BPH PSHx: PEG 2014, left hip replacement 2007, back surgery, s/p trach Family History: Father [place] and colon cancer. Social History: Alcohol-none, Smoking-former smoker, Drug use-none; and surrogate decision maker is . Allergies: Allergies Allergy/AdvReac Type Severity Reaction Status Date / Time No Known Allergies Allergy Verified 11/26/18 10:09 Home Medications: Magnesium Oxide [Magnesium Oxide-] 400 mg PEG TUBE DAILY 12/06/15 [History Confirmed 11/26/18] Gabapentin [Gabapentin 250 mg/5ml] 6 - 12 ml PEG TUBE SEE INSTRUCTIONS 01/23/18 [History Confirmed 11/26/18] Lansoprazole 30 mg PEG TUBE DAILY 01/23/18 [History Confirmed 11/26/18] Sertraline HCl 20 mg PEG TUBE DAILY 01/23/18 [History Confirmed 11/26/18] Tamsulosin HCl 0.4 mg PEG TUBE QPM 01/23/18 [History Confirmed 11/26/18] Acetaminophen Soln 325 Mg/5ml 650 mg PEG TUBE Q6HR PRN 11/26/18 [History Confirmed 11/26/18] Chlorhexidine MW 0.12% 473ML* [Peridex Mouth Wash 0.12%] 1 tbsp PO TID 11/26/18 [History Confirmed 11/26/18] Dutasteride (NF) [Avodart (NF)] 0.5 mg PEG TUBE DAILY 11/26/18 [History Confirmed 11/26/18] Lactose-Reduced Food/Fiber [Jevity 1.5 Augustin Liquid] 474 ml PEG TUBE TID 11/26/18 [History Confirmed 11/26/18] Levothyroxine TAB* [Synthroid TAB*] 50 mcg PEG TUBE QAM 11/26/18 [History Confirmed 11/26/18] Midodrine HCl 10 mg PEG TUBE TID 11/26/18 [History Confirmed 11/26/18] Tramadol HCl 1 - 2 tab PEG TUBE BEDTIME 11/26/18 [History Confirmed 11/26/18] Tele: NSR Vitals: Vital Signs Temp 98.4 F 11/26/18 15:50 Pulse 156 11/26/18 17:00 Resp 21 11/26/18 18:00 BP 110/59 11/26/18 17:00 Pulse Ox 69 11/26/18 17:00 Intake & Output 11/25/18 11/26/18 11/26/18 18:59 06:59 18:59 Intake Total 2100 Output Total 300 Balance 1800 Weight 77 kg Intake: IV Fluids 2100 Output: Urine 300 Other: Date of Last Bowel 11/25 Movement O2/Vent: TC 35% Infusions: NS Current Medications: Acetaminophen (Tylenol Adult Liq*) 650 mg PEG TUBE Q6H PRN PRN Reason: PAIN - MILD Albuterol (Ventolin 2.5 Mg/3 Ml Neb.Pau*) 2.5 mg INH [id number] AWAKE PRN PRN Reason: sob/wheezing Chlorhexidine Gluconate (Peridex Mouth Wash 0.12%*) [address] Finasteride (Proscar Tab*) [address]; Protocol Heparin Sodium (Porcine) (Heparin Vial(*)) 5,[address] Last Admin: 11/26/18 16:37 Dose: Not Given Azithromycin (Zithromax 500 Mg/250 Ml) 500 mg in 250 mls @ 250 mls/hr IVPB Q24H [facility] Last Admin: 11/26/18 14:32 Dose: 250 mls/hr Sodium Chloride (Ns 0.9% 1000 Ml) 1,000 mls @ 75 mls/hr IV PER RATE [facility] Piperacillin Sod/Tazobactam (Sod 3.375 gm/ Sodium Chloride) 100 mls @ 25 mls/ hr IVPB Q8H [facility] Last Admin: 11/26/18 17:42 Dose: 25 mls/hr Lansoprazole (Lansoprazole Susp* Oralsyr) 30 mg PEG TUBE DAILY [facility] Levothyroxine Sodium (Synthroid Tab*) 50 mcg PO 0600 [facility] Magnesium Oxide (Magox 400 Tab*) 400 mg .SEE ORDER DAILY [facility] Midodrine (Midodrine) 10 mg .SEE ORDER TID [facility] Pharmacy Consult (Zosyn Per Pharmacy*) 1 note FOLLOW UP .ZOSYN PER PHARMACY [facility] Sertraline HCl (Sertraline Soln* Oralsyr) 20 mg PEG TUBE DAILY [facility] Tamsulosin HCl (Flomax Cap*) 0.4 mg .SEE ORDER QPM [facility] Last Admin: 11/26/18 17:02 Dose: Not Given Tramadol HCl (Ultram*) 50 mg PEG TUBE BEDTIME PRN PRN Reason: PAIN - MODERATE Physical Exam: Constitutional: awake, alert, no distress, no diaphoresis Head: normocephalic, atraumatic Eyes: no pallor, no icterus ENT: moist mucous membranes Neck: soft, supple, no jvd; Trach+ CVS: normal rate, regular, no murmur Chest/Resp: bilateral air entry, left rhales+, no wheeze, no rhonchi, no acc muscle use Abdomen/GI: soft, nontender, nondistended, BS+ Ext/Msk: warm, pulses+, no edema Skin: intact, warm Neuro: awake, alert, oriented, moving all extremities, no gross focal deficit Psych: normal affect Labs: Laboratory Results - last 24 hr 11/26/18 11/26/18 11/26/18 09:31 09:31 09:31 WBC 14.3 H RBC 3.30 L Hgb 10.7 L Hct 32 L MCV 96 H MCH 32 H MCHC 34 RDW 16 H Plt Count 179 MPV 6.8 L Neut % (Auto) 96.2 Lymph % (Auto) 1.4 [place] % (Auto) 2.1 Eos % (Auto) 0.1 Baso % (Auto) 0.2 Absolute Neuts (auto) 13.7 H Absolute Lymphs (auto) 0.2 L Absolute Monos (auto) 0.3 Absolute Eos (auto) 0.0 Absolute Basos (auto) 0.0 Absolute Nucleated RBC 0.0 Nucleated RBC % 0.1 ESR 68 H INR (Anticoag Therapy) 1.09 APTT 30.2 Fibrinogen 493.7 H ABG pH ABG pCO2 ABG pO2 ABG HCO3 ABG O2 Saturation ABG Base Excess Sodium 129 L Potassium 5.3 H Chloride 97 L Carbon Dioxide 24 Anion Gap 8 BUN 38 H Creatinine 1.83 H Est GFR ( Amer) 44.8 Est GFR (Non-Af Amer) 37.0 BUN/Creatinine Ratio 20.8 H Glucose 99 Lactic Acid Calcium 9.0 Total Bilirubin 0.80 AST 51 H ALT 45 Alkaline Phosphatase 128 H Troponin I 0.01 C-Reactive Protein 93.24 H B-Natriuretic Peptide Total Protein 6.6 Albumin 3.5 Globulin 3.1 Albumin/Globulin Ratio 1.1 Urine Color Urine Appearance Urine pH Ur Specific [place] Urine Protein Urine Ketones Urine Blood Urine Nitrate Urine Bilirubin Urine Urobilinogen Ur Leukocyte Esterase Urine WBC (Auto) Urine RBC (Auto) Ur Squamous Epith Cells Urine Bacteria Urine Glucose Urine Ascorbic Acid 11/26/18 11/26/18 11/26/18 09:31 09:31 09:50 WBC RBC Hgb Hct MCV MCH MCHC RDW Plt Count MPV Neut % (Auto) Lymph % (Auto) [place] % (Auto) Eos % (Auto) Baso % (Auto) Absolute Neuts (auto) Absolute Lymphs (auto) Absolute Monos (auto) Absolute Eos (auto) Absolute Basos (auto) Absolute Nucleated RBC Nucleated RBC % ESR INR (Anticoag Therapy) APTT Fibrinogen ABG pH 7.41 ABG pCO2 34 L ABG pO2 51 L* ABG HCO3 22.7 ABG O2 Saturation 88.2 L ABG Base Excess -2.4 L Sodium Potassium Chloride Carbon Dioxide Anion Gap BUN Creatinine Est GFR ( Amer) Est GFR (Non-Af Amer) BUN/Creatinine Ratio Glucose Lactic Acid 4.0 H* Calcium Total Bilirubin AST ALT Alkaline Phosphatase Troponin I C-Reactive Protein B-Natriuretic Peptide 162 H Total Protein Albumin Globulin Albumin/Globulin Ratio Urine Color Urine Appearance Urine pH Ur Specific [place] Urine Protein Urine Ketones Urine Blood Urine Nitrate Urine Bilirubin Urine Urobilinogen Ur Leukocyte Esterase Urine WBC (Auto) Urine RBC (Auto) Ur Squamous Epith Cells Urine Bacteria Urine Glucose Urine Ascorbic Acid 11/26/18 11/26/18 13:31 14:37 WBC RBC Hgb Hct MCV MCH MCHC RDW Plt Count MPV Neut % (Auto) Lymph % (Auto) [place] % (Auto) Eos % (Auto) Baso % (Auto) Absolute Neuts (auto) Absolute Lymphs (auto) Absolute Monos (auto) Absolute Eos (auto) Absolute Basos (auto) Absolute Nucleated RBC Nucleated RBC % ESR INR (Anticoag Therapy) APTT Fibrinogen ABG pH ABG pCO2 ABG pO2 ABG HCO3 ABG O2 Saturation ABG Base Excess Sodium Potassium Chloride Carbon Dioxide Anion Gap BUN Creatinine Est GFR ( Amer) Est GFR (Non-Af Amer) BUN/Creatinine Ratio Glucose Lactic Acid 1.7 Calcium Total Bilirubin AST ALT Alkaline Phosphatase Troponin I C-Reactive Protein B-Natriuretic Peptide Total Protein Albumin Globulin Albumin/Globulin Ratio Urine Color Yellow Urine Appearance Cloudy Urine pH 7.0 Ur Specific [place] 1.012 Urine Protein Negative Urine Ketones Negative Urine Blood 3+ A Urine Nitrate Negative Urine Bilirubin Negative Urine Urobilinogen Negative Ur Leukocyte Esterase 2+ A Urine WBC (Auto) 1+(6-10/hpf) A Urine RBC (Auto) Trace(0-2/hpf) Ur Squamous Epith Cells Present A Urine Bacteria Absent Urine Glucose Negative Urine Ascorbic Acid * A Imaging: cxr 11/26 - Right side diffuse infiltrates+; compared to prior cxrs, there are right upper lobe chronic fibrotic/infiltrates prior; more pronounced now Assessment: 68y M w/pmhx of Tongue Ca, s/p trach/PEG, hypothyroidism, HLD, GERD , BPH; presented to [facility] [place] [facility] from home because noticed shortness of breath this morning. He was pale, diaphoretic. He walked to bathroom and then fell to ground. He was not well responsive. She checked vitals and noted low blood pressure. Found to have green sputum from trach also being produced. In ER, he was hypotensive down to 60s. Started on Sepsis protocol for suspected Right pneumonia given IVF bolus 30ml/kg, IV meropenem. He was not in resp distress and remained on trach collar. -Septic Shock, improved -Severe Sepsis -Acute on chronic hypoxic respiratory failure -Right multilobar pneumonia -NORIS on CKD3 -Hyponatremia -Hyperkalemia h/o tongue Ca s/p PEG Anemia Plan: Neuro- -stable, awake/alert -Delirium prec; avoid BDZ CVS- -was hypotensive but improved with IVF bolus; current BP 110s; LA normalized; making urine -cont IVF NS infusion 75cc/hr -IV abx for pneumonia -Maintain MAP>65 Resp- -s/p trach for tongue ca; now acute on chronic hypoxic resp failure -on Trach collar 35%, stable sats, no resp distress, no vent required -send sputum culture -IV abx -CXR tomorrow -Wean Fio2 to keep sat>92% -Bronchodilators PRN, Aspiration prec, Pulmonary Toilet -VAP bundle ID- tmax 99. wbc 14. LA 4, now normalized. -CXR 11/26 with new increased right upper/lower infiltrates+ -blood cx sent; leg neg, strept neg -send sputum culture -urinalysis 11/26 with Le/wbc, no bacteria -given merrem 1gm in ER; now started on zosyn q8h (day#1) and azithromycin (day# 1) GI- -nutrition consult -restart TF tomorrow as per rec -GI prophylaxis - ppi Renal- -NORIS on CKD3 (last normal Cr ~1.2); multifactorial from sepsis +/- hypovolemia, hypotension -hyperkalemia mild 5.3; check bmp evening; making urine -Metabolic acidosis, elevated LA; now normalized with NS -cont NS 75cc/hr -strict I/O, replete to keep K>4, Mg>2 -granger as indicated Heme- -anemia; hg stable -plt okay -h/o tongue ca; last chemotherapy found to be years back; not actively on any now Endo- Maintain BG<200, insulin protocol as needed. cont synthroid. Musculsk- pressure ulcer prophylaxis. Bedrest. Wounds- none Nutrition- NPO DVT prophylaxis: SCD, heparin sq GI prophylaxis: ppi Central Line: no Arterial Line: no Granger Cathetor: no Disposition: Patient requires Critical Care/ICU for hypoxic respiratory failure , hemodyn monitoring, septic shock Patient Clinical Status: guarded Code Status: full code John Abarca MD Butter Grader (Electronically Signed)
[2018-11-26 21:43] LABS: Calcium 8.7 mg/dL (8.6-10.3); EGFR African American 57.2 (>60); EGFR Non-African American 47.3 (>60); Potassium 4.5 mmol/L (3.5-5.0)
[2018-11-26] MEDS: Chlorhexidine MOUTHWASH 0.12%* 15 ML UDC SWISH SPIT SCH (21:44)
[2018-11-27] MEDS ORDERED: NS 0.9% 1000 ML** 1,000 ML IV ONE (01:13)
[2018-11-27] MEDS: ZOSYN 3.375 GM Q8H per EXTENDED INFUSION IVPB SCH ×6 (01:22→18:03)
[2018-11-27] MEDS: Heparin VIAL(*) 5000 UNITS/ML VIAL (FIVE THOUSAND) SUBCUT SCH ×3 (05:02→21:34)
[2018-11-27] MEDS: Levothyroxine TAB* 50 MCG TAB PO SCH (05:02)
[2018-11-27 05:35] LABS: ABS Lymphocytes 0.1 10^3/ul (1.0-4.8); ABS Monocytes 0.1 10^3/ul (0-0.8); ABS Neutrophils 6.6 10^3/ul (1.5-7.7); Eosinophil % 0.2 %; Hematocrit 26 % (42-52); Hemoglobin 8.9 g/dL (14.0-18.0); Lymphocyte % 1.5 %; Mean Corpuscular HGB Conc 34 g/dL (31-36); Mean Corpuscular Hemoglobin 33 pg (27-31); Mean Corpuscular Volume 97 fL (80-94); Mean Platelet Volume 6.7 fL (7.4-10.4); Nucleated Red Blood Cells % 0.1; Platelet Count 112 10^3/uL (150-450); Red Cell Distribution Width 16 % (10-15); White Blood Count 6.8 10^3/uL (3.5-10.8)
[2018-11-27 06:26] LABS: BUN/Creatinine Ratio 23.1 (8-20); Calcium 8.2 mg/dL (8.6-10.3); EGFR African American 66.4 (>60); EGFR Non-African American 54.9 (>60); Magnesium 1.8 mg/dL (1.9-2.7); Phosphorus 2.9 mg/dL (2.5-5.0); Potassium 4.1 mmol/L (3.5-5.0)
[2018-11-27] MEDS: Chlorhexidine MOUTHWASH 0.12%* 15 ML UDC SWISH SPIT SCH ×3 (09:28→21:33)
[2018-11-27] MEDS: Lansoprazole SUSP* ORALSYR 3 MG/ML PEG TUBE SCH (09:28)
[2018-11-27] MEDS: Sertraline* 25 MG TAB PEG TUBE SCH (09:29)
[2018-11-27] MEDS: Magnesium Oxide TAB* 400 MG SCH (09:29)
--- NOTE | 2018-11-27 09:45 | PN ---
Subjective Date of Service: 11/27/18 Interval History: Pt feels "OK". Still coughing a lot and having problems bringing secretions via trach Objective Active Medications: Acetaminophen (Tylenol Adult Liq*) 650 mg PEG TUBE Q6H PRN PRN Reason: PAIN - MILD Albuterol (Ventolin 2.5 Mg/3 Ml Neb.Pau*) 2.5 mg INH [id number] AWAKE PRN PRN Reason: sob/wheezing Chlorhexidine Gluconate (Peridex Mouth Wash 0.12%*) 15 ml SWISH SPIT TID [facility] Last Admin: 11/27/18 09:28 Dose: Not Given Finasteride (Proscar Tab*) 5 mg PEG TUBE DAILY [facility]; Protocol Heparin Sodium (Porcine) (Heparin Vial(*)) 5,000 units SUBCUT Q8HR [facility] Last Admin: 11/27/18 05:02 Dose: 5,000 units Azithromycin (Zithromax 500 Mg/250 Ml) 500 mg in 250 mls @ 250 mls/hr IVPB Q24H [facility] Last Admin: 11/26/18 14:32 Dose: 250 mls/hr Sodium Chloride (Ns 0.9% 1000 Ml) 1,000 mls @ 75 mls/hr IV PER RATE [facility] Piperacillin Sod/Tazobactam (Sod 3.375 gm/ Sodium Chloride) 100 mls @ 25 mls/ hr IVPB Q8H [facility] Last Admin: 11/27/18 01:22 Dose: 25 mls/hr Lansoprazole (Lansoprazole Susp* Oralsyr) 30 mg PEG TUBE DAILY [facility] Last Admin: 11/27/18 09:28 Dose: 30 mg Levothyroxine Sodium (Synthroid Tab*) 50 mcg PO 0600 [facility] Last Admin: 11/27/18 05:02 Dose: 50 mcg Magnesium Oxide (Magox 400 Tab*) 400 mg .SEE ORDER DAILY [facility] Last Admin: 11/27/18 09:29 Dose: 400 mg Midodrine (Midodrine) 10 mg .SEE ORDER TID [facility] Last Admin: 11/27/18 09:29 Dose: 10 mg Pharmacy Consult (Zosyn Per Pharmacy*) 1 note FOLLOW UP .ZOSYN PER PHARMACY [facility] Sertraline HCl (Zoloft*) 25 mg PEG TUBE DAILY [facility] Last Admin: 11/27/18 09:29 Dose: 25 mg Tamsulosin HCl (Flomax Cap*) 0.4 mg .SEE ORDER QPM RD Last Admin: 11/26/18 17:02 Dose: Not Given Tramadol HCl (Ultram*) 50 mg PEG TUBE BEDTIME PRN PRN Reason: PAIN - MODERATE Vital Signs - 8 hr 11/27/18 11/27/18 11/27/18 01:45 02:00 02:15 Temperature Pulse Rate 63 63 63 Respiratory 23 22 19 Rate Blood Pressure 90/52 90/53 85/53 (mmHg) O2 Sat by Pulse 97 95 94 Oximetry 11/27/18 11/27/18 11/27/18 02:30 02:45 03:00 Temperature Pulse Rate 63 62 68 Respiratory 21 20 23 Rate Blood Pressure 85/52 83/54 101/65 (mmHg) O2 Sat by Pulse 94 95 96 Oximetry 11/27/18 11/27/18 11/27/18 03:15 03:41 03:49 Temperature 98.0 F Pulse Rate 63 73 Respiratory 16 27 Rate Blood Pressure 96/58 105/60 (mmHg) O2 Sat by Pulse 98 96 Oximetry 11/27/18 11/27/18 11/27/18 04:00 04:02 04:15 Temperature Pulse Rate 70 67 63 Respiratory 13 7 13 Rate Blood Pressure 101/54 99/56 (mmHg) O2 Sat by Pulse 96 96 97 Oximetry 11/27/18 11/27/18 11/27/18 04:30 04:45 05:00 Temperature Pulse Rate 61 60 70 Respiratory 20 8 17 Rate Blood Pressure 94/58 89/62 99/54 (mmHg) O2 Sat by Pulse 97 97 95 Oximetry 11/27/18 11/27/18 11/27/18 05:01 05:15 05:30 Temperature Pulse Rate 72 63 59 Respiratory 22 0 19 Rate Blood Pressure 94/47 90/59 (mmHg) O2 Sat by Pulse 96 96 98 Oximetry 11/27/18 11/27/18 11/27/18 05:45 06:00 06:01 Temperature Pulse Rate 59 60 61 Respiratory 8 12 23 Rate Blood Pressure 98/57 94/53 (mmHg) O2 Sat by Pulse 97 97 96 Oximetry 11/27/18 11/27/18 11/27/18 06:16 06:30 06:45 Temperature Pulse Rate 84 69 65 Respiratory 25 24 25 Rate Blood Pressure 115/65 98/45 107/48 (mmHg) O2 Sat by Pulse 92 95 95 Oximetry 11/27/18 11/27/18 11/27/18 07:00 07:15 07:30 Temperature Pulse Rate 64 65 60 Respiratory 24 21 26 Rate Blood Pressure 98/63 102/59 88/52 (mmHg) O2 Sat by Pulse 94 99 97 Oximetry 11/27/18 11/27/18 07:45 08:00 Temperature 97 F Pulse Rate 61 64 Respiratory 19 7 Rate Blood Pressure 95/51 101/55 (mmHg) O2 Sat by Pulse 95 96 Oximetry Oxygen Devices in Use Now: Tracheostomy Collar Appearance: 68 yo M in NAD, aAOx3 Eyes: No Scleral Icterus, PERRLA Ears/Nose/Mouth/Throat: NL Teeth, Lips, Gums, Mucous Membranes Moist Neck: NL Appearance and Movements; NL JVP, Trachea Midline, - - trach in place with 35% 02 trach collar Respiratory: Symmetrical Chest Expansion and Respiratory Effort, - - rhonchi over entire R lung field Cardiovascular: NL Sounds; No Murmurs; No JVD, RRR Abdominal: NL Sounds; No Tenderness; No Distention, - - PEG in place Lymphatic: No Cervical Adenopathy Extremities: No Edema, No Clubbing, Cyanosis Skin: No Rash or Ulcers, No Nodules or Sclerosis Neurological: Alert and Oriented x 3, NL Muscle Strength and Tone Result Diagrams: 11/27/18 04:55 11/27/18 04:55 Microbiology and Other Data: Microbiology 11/26/18 09:31 Aerobic Blood Culture - Preliminary Blood Venous No Growth Day 1 Anaerobic Blood Culture - Preliminary No Growth Day 1 11/26/18 22:21 Gram Stain - Final Sputum Trach 11/26/18 15:48 Nasal Screen MRSA (PCR) - Final Nasal Mrsa Detected 11/26/18 14:37 Legionella Urinary Antigen - Final Urine Negative Legionella Antigen Streptococcus pneumoniae Ag Screen - Final Negative S. pneumo Antigen Assess/Plan/Problems-Billing Assessment: 68 yo M with h/o head and neck ca (s/p trach and PEG) presented with severe sepsis - Patient Problems (1) Septic shock Comment: and severe sepsis due to PNA of R lung (supected aspiration), complicated by acute on chronic respiratory failure Cont trach colllar and frequent suctioning Hypotension resolving cont Zosyn Azithro (H/o ESBL E.coli in the past), sputum cx pending (2) NORIS (acute kidney injury) Comment: due to sepsis-improving (3) History of benign prostatic hypertrophy Comment: - cont home meds (4) Hyponatremia Comment: - h/o SAIDH in the past, Na improving, cont to monitor (5) Feeding by G-tube Comment: Hx of chronic aspiration. Continue tube feeds, at goal. (6) Tracheostomy in place Comment: - cont respiratory care and trach collar with supplemental O2 (7) Hypothyroid Comment: - continue levothyroxine (8) Anemia Comment: - acute (due to hemodilution) on chronic dz. -no evidence of acute bleeding (9) DVT prophylaxis Comment: - Heparin SQ Q 8hrs Status and Disposition: inpatient
[2018-11-27] MEDS ORDERED: Magnesium Sulfate 2 GM IV* 2 GM/50 ML BAG IVPB ONE (10:02)
--- NOTE | 2018-11-27 10:14 | PN ---
Progress Note - Progress Note Date of Service: 11/27/18 Note: Progress Note -- Critical Care 24 hour events -awake, alert; on TC 35%, cough+, sputum+; no distress -BP low to 90s but given boluses; -Afebrile, NSR Tele: NSR Vitals: Vital Signs Temp 97 F 11/27/18 08:00 Pulse 68 11/27/18 09:45 Resp 24 11/27/18 09:45 BP 100/70 11/27/18 09:45 Pulse Ox 96 11/27/18 09:45 Intake & Output 11/26/18 11/27/18 11/27/18 18:59 06:59 18:59 Intake Total 2100 1430 60 Output Total 300 1450 250 Balance 1800 -20 -190 Weight 77 kg 76.9 kg Intake: IV Fluids 2100 990 NS (0.9%) 990 IVPB 220 ABX - ZOSYN 220 Tube Feeding Flush Amount 170 60 NG Tube Irrigate Amount 50 Output: Urine 300 1450 250 Other: Date of Last Bowel 11/25 11/25 Movement O2/Vent: TC 35% Infusions: heplock Current Medications: Acetaminophen (Tylenol Adult Liq*) 650 mg PEG TUBE Q6H PRN PRN Reason: PAIN - MILD Albuterol (Ventolin 2.5 Mg/3 Ml Neb.Pau*) 2.5 mg INH [id number] AWAKE PRN PRN Reason: sob/wheezing Chlorhexidine Gluconate (Peridex Mouth Wash 0.12%*) [address] Last Admin: 11/27/18 09:28 Dose: Not Given Finasteride (Proscar Tab*) [address]; Protocol Last Admin: 11/27/18 10:21 Dose: 5 mg Heparin Sodium (Porcine) (Heparin Vial(*)) 5,[address] Last Admin: 11/27/18 05:02 Dose: 5,000 units Azithromycin (Zithromax 500 Mg/250 Ml) 500 mg in 250 mls @ 250 mls/hr IVPB Q24H RD Last Admin: 11/26/18 14:32 Dose: 250 mls/hr Piperacillin Sod/Tazobactam (Sod 3.375 gm/ Sodium Chloride) 100 mls @ 25 mls/ hr IVPB Q8H RD Last Admin: 11/27/18 10:29 Dose: 25 mls/hr Magnesium Sulfate (Magnesium Sulfate 2 Gm Iv*) 2 gm in 50 mls @ 50 mls/hr IVPB ONCE ONE Stop: 11/27/18 11:01 Last Admin: 11/27/18 10:18 Dose: 50 mls/hr Lansoprazole (Lansoprazole Susp* Oralsyr) 30 mg PEG TUBE DAILY [facility] Last Admin: 11/27/18 09:28 Dose: 30 mg Levothyroxine Sodium (Synthroid Tab*) 50 mcg PO 0600 [facility] Last Admin: 11/27/18 05:02 Dose: 50 mcg Magnesium Oxide (Magox 400 Tab*) 400 mg .SEE ORDER DAILY [facility] Last Admin: 11/27/18 09:29 Dose: 400 mg Midodrine (Midodrine) 10 mg .SEE ORDER TID [facility] Last Admin: 11/27/18 09:29 Dose: 10 mg Pharmacy Consult (Zosyn Per Pharmacy*) 1 note FOLLOW UP .ZOSYN PER PHARMACY [facility] Sertraline HCl (Zoloft*) 25 mg PEG TUBE DAILY [facility] Last Admin: 11/27/18 09:29 Dose: 25 mg Tamsulosin HCl (Flomax Cap*) 0.4 mg .SEE ORDER QPM [facility] Last Admin: 11/26/18 17:02 Dose: Not Given Tramadol HCl (Ultram*) 50 mg PEG TUBE BEDTIME PRN PRN Reason: PAIN - MODERATE Physical Exam: Constitutional: awake, alert, no distress, no diaphoresis Head: normocephalic, atraumatic Eyes: no pallor, no icterus ENT: moist mucous membranes Neck: soft, supple, no jvd; Trach+ CVS: normal rate, regular, no murmur Chest/Resp: bilateral air entry, left rhales+, no wheeze, no rhonchi, no acc muscle use Abdomen/GI: soft, nontender, nondistended, BS+ Ext/Msk: warm, pulses+, no edema Skin: intact, warm Neuro: awake, alert, oriented, moving all extremities, no gross focal deficit Psych: normal affect Labs: Laboratory Results - last 24 hr 11/26/18 11/26/18 11/26/18 09:31 13:31 14:37 WBC RBC Hgb Hct MCV MCH MCHC RDW Plt Count MPV Neut % (Auto) Lymph % (Auto) Smith % (Auto) Eos % (Auto) Baso % (Auto) Absolute Neuts (auto) Absolute Lymphs (auto) Absolute Monos (auto) Absolute Eos (auto) Absolute Basos (auto) Absolute Nucleated RBC Nucleated RBC % ESR 68 H Sodium Potassium Chloride Carbon Dioxide Anion Gap BUN Creatinine Est GFR ( Amer) Est GFR (Non-Af Amer) BUN/Creatinine Ratio Glucose Lactic Acid 1.7 Calcium Phosphorus Magnesium Urine Color Yellow Urine Appearance Cloudy Urine pH 7.0 Ur Specific [place] 1.012 Urine Protein Negative Urine Ketones Negative Urine Blood 3+ A Urine Nitrate Negative Urine Bilirubin Negative Urine Urobilinogen Negative Ur Leukocyte Esterase 2+ A Urine WBC (Auto) 1+(6-10/hpf) A Urine RBC (Auto) Trace(0-2/hpf) Ur Squamous Epith Cells Present A Urine Bacteria Absent Urine Glucose Negative Urine Ascorbic Acid * A 11/26/18 11/27/18 11/27/18 21:15 04:55 04:55 WBC 6.8 RBC 2.70 L Hgb 8.9 L Hct 26 L MCV 97 H MCH 33 H MCHC 34 RDW 16 H Plt Count 112 L MPV 6.7 L Neut % (Auto) 95.9 Lymph % (Auto) 1.5 Smith % (Auto) 2.1 Eos % (Auto) 0.2 Baso % (Auto) 0.3 Absolute Neuts (auto) 6.6 Absolute Lymphs (auto) 0.1 L Absolute Monos (auto) 0.1 Absolute Eos (auto) 0.0 Absolute Basos (auto) 0.0 Absolute Nucleated RBC 0.0 Nucleated RBC % 0.1 ESR Sodium 132 L 134 L Potassium 4.5 4.1 Chloride 101 104 Carbon Dioxide 26 23 Anion Gap 5 7 BUN 34 H 30 H Creatinine 1.48 H 1.30 H Est GFR ( Amer) 57.2 66.4 Est GFR (Non-Af Amer) 47.3 54.9 BUN/Creatinine Ratio 23.0 H 23.1 H Glucose 106 H 103 H Lactic Acid Calcium 8.7 8.2 L Phosphorus 2.9 Magnesium 1.8 L Urine Color Urine Appearance Urine pH Ur Specific [place] Urine Protein Urine Ketones Urine Blood Urine Nitrate Urine Bilirubin Urine Urobilinogen Ur Leukocyte Esterase Urine WBC (Auto) Urine RBC (Auto) Ur Squamous Epith Cells Urine Bacteria Urine Glucose Urine Ascorbic Acid Microbiology 11/26/18 10:06 Aerobic Blood Culture - Preliminary Blood Venous No Growth Day 1 Anaerobic Blood Culture - Preliminary No Growth Day 1 11/26/18 09:31 Aerobic Blood Culture - Preliminary Blood Venous No Growth Day 1 Anaerobic Blood Culture - Preliminary No Growth Day 1 11/26/18 22:21 Gram Stain - Final Sputum Trach 11/26/18 15:48 Nasal Screen MRSA (PCR) - Final Nasal Mrsa Detected 11/26/18 14:37 Legionella Urinary Antigen - Final Urine Negative Legionella Antigen Streptococcus pneumoniae Ag Screen - Final Negative S. pneumo Antigen Imaging: cxr 11/26 - Right side diffuse infiltrates+; compared to prior cxrs, there are right upper lobe chronic fibrotic/infiltrates prior; more pronounced now CXR 11/27 - Right sided similar or increased infiltrates++ Assessment: 68y M w/pmhx of Tongue Ca, s/p trach/PEG, hypothyroidism, HLD, GERD , BPH; presented to [facility] from home because noticed shortness of breath this morning. He was pale, diaphoretic. He walked to bathroom and then fell to ground. He was not well responsive. She checked vitals and noted low blood pressure. Found to have green sputum from trach also being produced. In ER, he was hypotensive down to 60s. Started on Sepsis protocol for suspected Right pneumonia given IVF bolus 30ml/kg, IV meropenem. He was not in resp distress and remained on trach collar. -Septic Shock, improved -Severe Sepsis -Acute on chronic hypoxic respiratory failure -Right multilobar pneumonia -NORIS on CKD3 -Hyponatremia -Hyperkalemia h/o tongue Ca s/p PEG Anemia Plan: Neuro- -stable, awake/alert -Delirium prec; avoid BDZ CVS- -BP stable 90-100s; off IVF now; LA normalized, making urine -IV abx for pneumonia -Maintain MAP>65 Resp- -s/p trach for tongue ca; now acute on chronic hypoxic resp failure -on Trach collar 35%, stable sats, no resp distress, no vent required -cough+, cont pulm toilet -IV abx -Wean Fio2 to keep sat>92% -Bronchodilators PRN, Aspiration prec, Pulmonary Toilet -VAP bundle ID- afebrile. wbc 14-7. LA normalized -CXR 10/10 with increased right infiltrates, some on left lower lobe -blood cx sent; leg neg, strept neg -sputum cx with gram+ on smear; pendign culture -urinalysis 11/26 with Le/wbc, no bacteria -cont zosyn q8h (day#2) and azithromycin (day#2) GI- -TF Jevity 1.2 bolus feeds -GI prophylaxis - ppi Renal- -NORIS on CKD3 (last normal Cr ~1.2); multifactorial from sepsis +/- hypovolemia, hypotension -Cr improving; Making urine -replete MgSulfate 2gm IV x1 -off IVF -hyperkalemia resolved -LA normalzied, no acidosis -strict I/O, replete to keep K>4, Mg>2 -granger as indicated Heme- -anemia; hg 8-9 -plt okay -h/o tongue ca; last chemotherapy found to be years back; not actively on any now Endo- Maintain BG<200, insulin protocol as needed. cont synthroid. Musculsk- pressure ulcer prophylaxis. oob to chair Wounds- none Nutrition- TF bolus juevity 1.2 DVT prophylaxis: SCD, heparin sq GI prophylaxis: ppi Central Line: no Arterial Line: no Granger Cathetor: no Disposition: improved; monitor ICU for 1 more day for respiratory distress Patient Clinical Status: guarded Code Status: full code John Abarca MD Quality Compliance Consultant (Electronically Signed)
[2018-11-27] MEDS: Finasteride TAB* 5 MG PEG TUBE SCH (10:21)
[2018-11-27] MEDS: Azithromycin 500 mg/250 ml NS 500 MG/250 ML BAG IVPB SCH (14:45)
[2018-11-27] MEDS: Tamsulosin CAP* 0.4 MG SCH (18:11)
[2018-11-27 22:01] LABS: BUN/Creatinine Ratio 27.1 (8-20); Calcium 8.7 mg/dL (8.6-10.3); EGFR African American 83.2 (>60); EGFR Non-African American 68.7 (>60); Potassium 3.8 mmol/L (3.5-5.0)
[2018-11-28] MEDS: ZOSYN 3.375 GM Q8H per EXTENDED INFUSION IVPB SCH ×6 (01:24→19:30)
[2018-11-28 05:06] LABS: ABS Eosinophils 0.1 10^3/ul (0-0.6); ABS Lymphocytes 0.3 10^3/ul (1.0-4.8); ABS Monocytes 0.3 10^3/ul (0-0.8); ABS Neutrophils 4.5 10^3/ul (1.5-7.7); Eosinophil % 1.3 %; Hematocrit 27 % (42-52); Hemoglobin 9.1 g/dL (14.0-18.0); Mean Corpuscular HGB Conc 34 g/dL (31-36); Mean Corpuscular Hemoglobin 33 pg (27-31); Mean Corpuscular Volume 95 fL (80-94); Mean Platelet Volume 6.8 fL (7.4-10.4); Nucleated Red Blood Cells % 0.1; Platelet Count 115 10^3/uL (150-450); Red Blood Count 2.79 10^6 /uL (4.18-5.48); Red Cell Distribution Width 16 % (10-15); White Blood Count 5.1 10^3/uL (3.5-10.8)
[2018-11-28] MEDS: Levothyroxine TAB* 50 MCG TAB PO SCH ×2 (06:13→06:17)
[2018-11-28] MEDS: Heparin VIAL(*) 5000 UNITS/ML VIAL (FIVE THOUSAND) SUBCUT SCH ×3 (06:13→21:04)
[2018-11-28] MEDS ORDERED: Levothyroxine INJ* 100 MCG/5 ML VIAL IV ONE (08:00)
--- NOTE | 2018-11-28 08:05 | PN ---
Subjective Date of Service: 11/28/18 Interval History: HOSPITALIST PROGRESS NOTE Patient seen and examined at bedside. Care reviewed and d/w Megan Laurent RN. He feels better today. States his breathing is close to his baseline, but still feels very weak. PEG tube got clogged overnight, but RN was able to open it up again with a PEG brush. Family History: Unchanged from Admission Social History: Unchanged from Admission Past Medical History: Unchanged from Admission Objective Active Medications: Acetaminophen (Tylenol Adult Liq*) 650 mg PEG TUBE Q6H PRN PRN Reason: PAIN - MILD Albuterol (Ventolin 2.5 Mg/3 Ml Neb.Pau*) 2.5 mg INH [id number] AWAKE PRN PRN Reason: sob/wheezing Chlorhexidine Gluconate (Peridex Mouth Wash 0.12%*) 15 ml SWISH SPIT TID [facility] Last Admin: 11/27/18 21:33 Dose: Not Given Finasteride (Proscar Tab*) 5 mg PEG TUBE DAILY [facility]; Protocol Last Admin: 11/27/18 10:21 Dose: 5 mg Heparin Sodium (Porcine) (Heparin Vial(*)) 5,000 units SUBCUT Q8HR [facility] Last Admin: 11/28/18 06:13 Dose: 5,000 units Azithromycin (Zithromax 500 Mg/250 Ml) 500 mg in 250 mls @ 250 mls/hr IVPB Q24H [facility] Last Admin: 11/27/18 14:45 Dose: 250 mls/hr Piperacillin Sod/Tazobactam (Sod 3.375 gm/ Sodium Chloride) 100 mls @ 25 mls/ hr IVPB Q8H RD Last Admin: 11/28/18 01:24 Dose: 25 mls/hr Lansoprazole (Lansoprazole Susp* Oralsyr) 30 mg PEG TUBE DAILY [facility] Last Admin: 11/27/18 09:28 Dose: 30 mg Levothyroxine Sodium (Synthroid Inj*) 25 mcg IV ONCE ONE Stop: 11/29/18 08:01 Magnesium Oxide (Magox 400 Tab*) 400 mg .SEE ORDER DAILY [facility] Last Admin: 11/27/18 09:29 Dose: 400 mg Midodrine (Midodrine) 10 mg .SEE ORDER TID [facility] Last Admin: 11/27/18 21:34 Dose: 10 mg Pharmacy Consult (Zosyn Per Pharmacy*) 1 note FOLLOW UP .ZOSYN PER PHARMACY [facility] Sertraline HCl (Zoloft*) 25 mg PEG TUBE DAILY [facility] Last Admin: 11/27/18 09:29 Dose: 25 mg Tamsulosin HCl (Flomax Cap*) 0.4 mg .SEE ORDER QPM [facility] Last Admin: 11/27/18 18:11 Dose: 0.4 mg Tramadol HCl (Ultram*) 50 mg PEG TUBE BEDTIME PRN PRN Reason: PAIN - MODERATE Vital Signs - 8 hr 11/28/18 03:36 Temperature 97.2 F Pulse Rate 60 Respiratory 12 Rate Blood Pressure 107/60 (mmHg) O2 Sat by Pulse 98 Oximetry Oxygen Devices in Use Now: Tracheostomy Collar - 35% FiO2 Appearance: Pleasant gentleman sitting up in a chair in NAD. Eyes: No Scleral Icterus Ears/Nose/Mouth/Throat: Mucous Membranes Moist Neck: Trachea Midline - with trach in place, no bleeding or drainage Respiratory: Symmetrical Chest Expansion and Respiratory Effort, - - BS+ bilaterally with scattered rhonchi on the righ Cardiovascular: RRR - Normal S1 and S2 Abdominal: NL Sounds; No Tenderness; No Distention - PEG in place Extremities: No Edema Neurological: Alert and Oriented x 3, NL Muscle Strength and Tone Result Diagrams: 11/28/18 04:38 11/27/18 21:08 Microbiology and Other Data: Microbiology 11/26/18 09:31 Aerobic Blood Culture - Preliminary Blood Venous No Growth Day 1 Anaerobic Blood Culture - Preliminary No Growth Day 1 11/26/18 22:21 Gram Stain - Final Sputum Trach 11/26/18 15:48 Nasal Screen MRSA (PCR) - Final Nasal Mrsa Detected 11/26/18 14:37 Legionella Urinary Antigen - Final Urine Negative Legionella Antigen Streptococcus pneumoniae Ag Screen - Final Negative S. pneumo Antigen Assess/Plan/Problems-Billing Assessment: Mr Gutierrez is a 68 yo M with PMH of Head and neck CA (s/p trach and PEG), hypothyroidism, BPH, depression; who presented to ED after a syncopal episode with c/o cough and weakness, found to have Septic shock secondary to pneumonia. Blood cultures now growing yeast. - Patient Problems (1) Septic shock Comment: - Present on admission due to right sided pneumonia, likely secondary to aspiration, complicated by acute on chronic respiratory failure. - Shock is resolved. (2) Aspiration pneumonia Comment: - Continue trach colllar and suctioning as needed. - Continue Zosyn (H/o ESBL E.coli in the past) and Doxycycline (to cover atypicals) #3. - Sputum culture so far shows no growth. (3) Fungemia Comment: - Called by Microbiology because 1/4 BC bottles growing yeast. - He's improving clinically with no fungal coverage, but will start Fluconazole and request ID consult. (4) NORIS (acute kidney injury) Comment: - ATN secondary to sepsis - resolved. (5) History of benign prostatic hypertrophy Comment: - Continue Finasteride and Tamsulosin. (6) Hypothyroid Comment: - Continue Levothyroxine. (7) DVT prophylaxis Comment: - SQ heparin. (8) Full code status Status and Disposition: Inpatient.
[2018-11-28] MEDS ORDERED: Fluconazole 100 MG IVPREMIX(*) 100 MG/50 ML BAG IVPB SCH (09:00)
[2018-11-28] MEDS: DOXYcycline IV* 100 MG in NS 0.9% 250 ML* 250 ML IVPB SCH ×2 (10:19→22:06)
[2018-11-28] MEDS: Chlorhexidine MOUTHWASH 0.12%* 15 ML UDC SWISH SPIT SCH ×3 (10:29→21:12)
[2018-11-28] MEDS: Finasteride TAB* 5 MG PEG TUBE SCH (10:36)
[2018-11-28] MEDS: Lansoprazole SUSP* ORALSYR 3 MG/ML PEG TUBE SCH (10:38)
[2018-11-28] MEDS: Magnesium Oxide TAB* 400 MG SCH (10:40)
[2018-11-28] MEDS: Sertraline* 25 MG TAB PEG TUBE SCH (10:45)
--- NOTE | 2018-11-28 11:57 | CONS ---
CONSULTATION REPORT: DATE OF CONSULT: 11/28/18 REQUESTING PHYSICIAN: Dr. Hunter. CONSULTING SERVICE: Infectious Disease. REASON FOR CONSULT: Pneumonia, fungemia. IMPRESSION: 1. Sepsis due to pneumonia. He has had a productive cough in the setting of chronic tracheostomy, new infiltrate in the right upper and right lower lobes on chest x-ray, leukocytosis, all of which are improving while he has been on Zosyn and azithromycin. It could be a component of aspiration, but given the upper lobe involvement that seems less likely. 2. Fungemia, yeast in 1/4 blood culture bottles. This is probably going to be henrry, alternatively could be cryptococcus. Speciation is pending. He has no visual changes. He does have a port which could be a source of fungemia, infective endocarditis is a possibility though he has no peripheral stigmata of infective endocarditis. 3. History of head and neck cancer, treated with chemotherapy and radiation and with chronic tracheostomy. 4. History of cervical spine epidural abscess decompression. 5. PEG placement, which was dysfunctioning, which is functional now. No sign of infection around the device. 6. Status post hip arthroplasty with revision in 2013 due to septic arthritis. RECOMMENDATIONS: Agree with Zosyn and doxycycline to cover his pneumonia. We will change fluconazole to 400 mg IV daily. In the lab, we will have mass spectrometry results on the species hopefully by tomorrow for the henrry. I will add repeat cultures for tomorrow. Further recommendations pending speciation of the yeast in his blood. HISTORY OF PRESENT ILLNESS: This is a 68-year-old man with a chronic tracheostomy, admitted with pneumonia. He had been well last week and then woke up the morning of 11/26/18 feeling unwell with a productive cough and collapsed. He was brought by EMT to the hospital. His white count was 14,000, CRP was 93, lactic acid was 4. He was afebrile and treated for sepsis with blood pressure in the 80s to 90s systolic. With volume resuscitation, broad- spectrum antibiotics in the form of Zosyn and azithromycin which he has tolerated well. He was in the ICU for a couple days and he is back on the medical floor now. His white count is down to 5000 today. He has remained afebrile. He is on 8 L by tracheostomy of oxygen supplementation, satting 100% . On admission, he was satting in the mid 80s and upper 80s. He feels more comfortable, says his breathing is a little easier, but still has a significant sputum production. He does not have pain anywhere including his left hip or his back. Today, Dr. Hunter was notified by microbiology lab that there was yeast in 1/4 blood culture bottles and she notified me. He has not had any vision change or loss of vision. He does not have any pain in the areas of prosthetic material including his right chest port, his cervical fusion or his left hip replacement or anywhere else. He did have a urine culture on admission that was no growth. The urinalysis showed blood, leukocyte esterase, and 1+ white cells. He has no urinary symptoms. PAST MEDICAL HISTORY: 1. 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 2. Chronic tracheostomy. 3. PEG tube, which had been dysfunctional, but is functional now. 4. Right chest port. 5. Status post lumbar spine fusion. 6. 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 7. Left hip arthroplasty, status post revision in 2013 for infection. 8. History of SIADH. 9. Benign prostatic hypertrophy. 10. Hypothyroidism. 11. Hyperlipidemia. 12. History of empyema. 13. Depression. ALLERGIES: No known drug allergies. MEDICATIONS: 1. Tylenol. 2. Albuterol as needed. 3. Chlorhexidine swish and spit. 4. Doxycycline 100 mg twice daily. 5. Fluconazole 100 mg IV daily. 6. Finasteride. 7. Heparin subcutaneous injection. 8. Lansoprazole. 9. Magnesium oxide. 10. Midodrine. 11. Zosyn 3.375 g IV every 8 hours by extended infusion. 12. Sertraline. 13. Tamsulosin. 14. Tramadol. SOCIAL HISTORY: He lives in [place] with his . He is a past smoker. No alcohol use. FAMILY HISTORY: Father had MA. REVIEW OF SYSTEMS: All negative except as noted above to a 12-point review of systems. PHYSICAL EXAM: Vital Signs: Temperature 37, heart rate 66, respiratory rate 16 , blood pressure 115/63, oxygen saturation 100% on 8 L by trach collar. In general, he is awake, not in distress, not diaphoretic. Neurologic: He is oriented x3. Follows all commands. Moves all his extremities. Strength is 5/5 in the quadriceps, tibialis anterior, and gastrocnemius bilaterally. Sensation intact to light touch in both feet. HEENT: There is no conjunctival hemorrhage. Oropharynx without lesions. Neck: There is a midline tracheostomy without surrounding erythema. There is no mass or tenderness. Lymph Nodes: There is no cervical, supraclavicular, inguinal, axillary, or epitrochlear lymphadenopathy. Heart is regular rate and rhythm without murmurs , rubs, or gallops. Lungs: Decreased breath sounds at the right base without wheeze or rale. Abdomen: Soft, nontender, nondistended. There is a PEG tube present without surrounding erythema or purulent discharge. Skin: There is no rash or splinter hemorrhage. Musculoskeletal: There is no spine tenderness to palpation or joint synovitis. LABORATORY DATA: White blood cell count 5.1, hemoglobin 9.1, MCV is 95, platelets 115. Creatinine 1.07. Please see impression and recommendations outlined above, which I discussed with Dr. Hunter. Thanks for asking me to see Mr. Gutierrez in consultation. [id number]/[facility] #: [id number] [facility] HOSPITALAngel
[2018-11-28] MEDS: Fluconazole 400 MG IVPREMIX(*) 400 MG/200 ML BAG IVPB SCH (12:00)
--- NOTE | 2018-11-28 16:15 | ECHO ---
*[facility]* [place] [address] Fax #: [phone] Transthoracic Echocardiogram Patient: Kirt Gutierrez : 1950 Study Date: 11/28/2018 Age: 68 Gender: M HR: 71 bpm Height: 68 in /172.7 cm BSA: 1.85 m^2 Weight: 157.7 lb /71.7 kg BMI: 24 kg/m^2 *Referring Physician: * Abiodun Finnegan *Reading Physician: * Lazaro Thompson MD Indications: Bacteremia. History: Head,neck,tongue cancer, chemo rx.,s/p tracheostomy,s/p PEG tube placement. Conclusions Summary: - Study data: The previous study was not available, so comparison is made to the report of February 2018. Similar findings except that there was mild left ventricular hypertrophy reported last time which was not confirmed this time. - Left ventricle: The cavity size is normal. Wall thickness is normal. Systolic function is normal. The estimated ejection fraction is 60-65%. - Mitral valve: There is mild regurgitation, directed eccentrically, toward the free wall, and along the left atrial wall. - Tricuspid valve: There is mild regurgitation. Recommendations: No obvious vegetations. If there is a high clinical suspicion for subacute bacterial endocarditis, consider transesophageal echocardiogram. Study data: Transthoracic echocardiogram. Procedure: Transthoracic echocardiography was performed. Image quality was fair. The study was technically limited due to restricted patient mobility, the tracheostomy, and the gastrostomy. Complete 2D, spectral Doppler, and color flow Doppler. Patient status: Inpatient. Patient room number: 435. The previous study was not available, so comparison is made to the report of February 2018. Similar findings except that there was mild left ventricular hypertrophy reported last time which was not confirmed this time. Rhythm: Normal sinus rhythm. Findings Left ventricle: The cavity size is normal. Wall thickness is normal. Systolic function is normal. The estimated ejection fraction is 60-65%. Wall motion is normal; there are no regional wall motion abnormalities. Left ventricular diastolic function parameters are indeterminate. Right ventricle: Poorly visualized. The cavity size is normal. Wall thickness is normal. Systolic function is normal. Ventricular septum: Well visualized. The ventricular septum is normal. Left atrium: Well visualized. The atrium is at the upper limits of normal in size. Right atrium: Poorly visualized. Atrial septum: Well visualized. No defect or patent foramen ovale is identified. Mitral valve: Not well visualized. The leaflets are normal thickness. No echocardiographic evidence for prolapse. There is no evidence of stenosis. There is mild regurgitation, directed eccentrically, toward the free wall, and along the left atrial wall. Aortic valve: Well visualized. The valve is trileaflet. The leaflets are normal thickness. There is no evidence of stenosis. There is physiologic regurgitation. Tricuspid valve: Poorly visualized. The leaflets are normal thickness. There is no evidence of stenosis. There is mild regurgitation. Pulmonic valve: Poorly visualized. The leaflets are normal thickness. There is no evidence of stenosis. There is no significant regurgitation. Aorta: The aorta is not visualized. Secondary to trach tube. Pericardium: There is no pericardial effusion. No evidence of pleural fluid accumulation. Pulmonary arteries: Poorly visualized. Systolic pressure is within the normal range. Systemic veins: Not visualized. Due to PEG tube placement. Pulmonary veins: Not visualized. Due to PEG tube placement. Measurements Left ventricle Value Ref Aortic valve Value Ref KI, LAX (L) 3.6 cm 4.2 - Raf diam, ED 2.9 cm ----- 5.8 Raf diam/bsa, ED 1.6 cm/m^2 ----- ESD, LAX 2.5 cm 2.5 - Peak v, S 1.14 m/sec ----- 4.0 VTI, S 23.6 cm ----- FS, LAX 30 % 25 - 43 Mean grad, S 3.0 mm Hg ----- PW, ED, LAX 1.0 cm 0.6 - Peak grad, S 5.0 mm Hg ----- 1.0 LVOT/AV, VTI ratio 0.62 ----- FS 30 % 25 - 43 PW, ED 1.0 cm 0.6 - Mitral valve Value Ref 1.0 Peak E 0.69 m/sec ----- PW/ID, ED 0.28 ------- Peak A 0.65 m/sec ----- E', lat raf, TDI 14.3 cm/sec >=10.0 Decel time 204 ms --- -- E/e', lat raf, TDI 5 ------- Peak E/A ratio 1.1 ----- E', med raf, TDI (L) 6.8 cm/sec >=7.0 E/e', med raf, TDI 10 ------- Pulmonic valve Value Ref E', avg, TDI 10.6 cm/sec ------- Peak v, S 0.62 m/sec ----- E/e', avg, TDI 7 <=14 Peak grad, S 2.0 mm Hg --- -- LVOT Value Ref Tricuspid valve Value Ref Peak que, S 0.93 m/sec ------- TR peak v 2.66 m/sec <=2.8 VTI, S 14.6 cm ------- Peak RV-RA grad, S 36 mm Hg ----- Mean grad, S 1 mm Hg ------- Aortic root Value Ref Ventricular septum Value Ref Root diam 3.6 cm <4.0 IVS, ED 0.7 cm 0.6 - Root max diam, ED 3.6 cm <4.0 1.0 Ascending aorta Value Ref Right ventricle Value Ref AAo AP diam, S 3.4 cm ----- KI, LAX 2.9 cm ------- Left atrium Value Ref ML dim, A4C 2.9 cm ------- SI dim, A4C 4.8 cm ------- Vol/bsa, ES, 1-p 15 ml/m^2 12 - 37 A4C Vol/bsa, ES, A/L 24 ml/m^2 16 - 34 Right atrium Value Ref Estimated RAP 8 mm Hg ------- Legend: (L) and (H) torito values outside specified reference range. Prepared and electronically signed by Lazaro Thompson MD 11/28/2018 16:13
[2018-11-28] MEDS: Tamsulosin CAP* 0.4 MG SCH (21:03)
--- NOTE | 2018-11-29 00:50 | PN ---
Progress Note - Progress Note Date of Service: 11/29/18 Note: Pt woke up and his PEG was out with tube feeds all over his abdomen. Spoke with Dr. Fregoso who recommended to place a Mixon cath in the existing tract, which was done. Pt had no pain and Mixon was advanced at approx 10 cm (using sterile technique) .Balloon was not inflated and the cath was taped to pt's abdomen. Pt experienced no pain. There was no output of any substance noted via Mixon.
[2018-11-29] MEDS: ZOSYN 3.375 GM Q8H per EXTENDED INFUSION IVPB SCH ×6 (01:56→17:45)
[2018-11-29] MEDS: Levothyroxine TAB* 50 MCG TAB PO SCH (05:40)
[2018-11-29] MEDS: Heparin VIAL(*) 5000 UNITS/ML VIAL (FIVE THOUSAND) SUBCUT SCH ×3 (05:41→21:02)
[2018-11-29 06:24] LABS: ABS Eosinophils 0.1 10^3/ul (0-0.6); ABS Lymphocytes 0.5 10^3/ul (1.0-4.8); ABS Monocytes 0.3 10^3/ul (0-0.8); ABS Neutrophils 4.7 10^3/ul (1.5-7.7); Eosinophil % 1.2 %; Hematocrit 27 % (42-52); Hemoglobin 9.7 g/dL (14.0-18.0); Lymphocyte % 8.2 %; Mean Corpuscular HGB Conc 36 g/dL (31-36); Mean Corpuscular Hemoglobin 33 pg (27-31); Mean Corpuscular Volume 94 fL (80-94); Mean Platelet Volume 6.6 fL (7.4-10.4); Platelet Count 108 10^3/uL (150-450); Red Blood Count 2.92 10^6 /uL (4.18-5.48); Red Cell Distribution Width 16 % (10-15); White Blood Count 5.6 10^3/uL (3.5-10.8)
[2018-11-29 06:39] LABS: BUN/Creatinine Ratio 22.2 (8-20); Calcium 8.9 mg/dL (8.6-10.3); EGFR African American 101.5 (>60); EGFR Non-African American 83.9 (>60); Potassium 3.3 mmol/L (3.5-5.0)
--- NOTE | 2018-11-29 07:20 | PN ---
Progress Note - Progress Note Date of Service: 11/29/18 Note: Mixon catheter in G-tube site became dislodged this AM. I inserted a 18F Mixon into tract, no resistance. Catheter draining clear thin bilious liquid.
[2018-11-29] MEDS ORDERED: Levothyroxine INJ* 100 MCG/5 ML VIAL IV ONE (08:00)
[2018-11-29] MEDS ORDERED: Influenza VAC *QUAD* 2019-20* 0.5 ML SYRINGE IM ONE (09:00)
[2018-11-29] MEDS: DOXYcycline IV* 100 MG in NS 0.9% 250 ML* 250 ML IVPB SCH ×2 (10:09→21:01)
[2018-11-29] MEDS: Fluconazole 400 MG IVPREMIX(*) 400 MG/200 ML BAG IVPB SCH (11:06)
[2018-11-29] MEDS: Chlorhexidine MOUTHWASH 0.12%* 15 ML UDC SWISH SPIT SCH ×3 (12:39→21:00)
[2018-11-29] MEDS: Sertraline* 25 MG TAB PEG TUBE SCH (12:47)
[2018-11-29] MEDS: Magnesium Oxide TAB* 400 MG SCH (12:47)
[2018-11-29] MEDS: Finasteride TAB* 5 MG PEG TUBE SCH (12:48)
[2018-11-29] MEDS: Lansoprazole SUSP* ORALSYR 3 MG/ML PEG TUBE SCH (12:52)
--- NOTE | 2018-11-29 14:46 | PN ---
Subjective Date of Service: 11/29/18 Interval History: PEG dislodged. Had granger placed overnight which dislodged also and was replaced by Dr Orantes this am. Discussed with Dr Beto Echevarria who is going to be seeing pt Family History: Unchanged from Admission Social History: Unchanged from Admission Past Medical History: Unchanged from Admission Objective Active Medications: Acetaminophen (Tylenol Adult Liq*) 650 mg PEG TUBE Q6H PRN PRN Reason: PAIN - MILD Albuterol (Ventolin 2.5 Mg/3 Ml Neb.Pau*) 2.5 mg INH RT.[id number] AWAKE PRN PRN Reason: sob/wheezing Chlorhexidine Gluconate (Peridex Mouth Wash 0.12%*) 15 ml [facility]IT [facility] Last Admin: 11/29/18 12:48 Dose: Not Given Finasteride (Proscar Tab*) 5 mg PEG TUBE DAILY [facility]; Protocol Last Admin: 11/29/18 12:48 Dose: 5 mg Heparin Sodium (Porcine) (Heparin Vial(*)) 5,[address] Last Admin: 11/29/18 12:48 Dose: 5,000 units Piperacillin Sod/Tazobactam (Sod 3.375 gm/ Sodium Chloride) 100 mls @ 25 mls/ hr IVPB Q8H RD Last Admin: 11/29/18 11:53 Dose: 25 mls/hr Doxycycline Hyclate 100 mg/ (Sodium Chloride) 250 mls @ 250 mls/hr IVPB Q12H RD Last Admin: 11/29/18 10:09 Dose: 250 mls/hr Fluconazole/Sodium Chloride (Diflucan 400 Mg Ivpremix(*)) 400 mg in 200 mls @ 100 mls/hr IVPB Q24H RD Last Admin: 11/29/18 11:06 Dose: 100 mls/hr Lansoprazole (Lansoprazole Susp* Oralsyr) 30 mg PEG TUBE DAILY [facility] Last Admin: 11/29/18 12:52 Dose: 30 mg Levothyroxine Sodium (Synthroid Tab*) 50 mcg PO DAILY@0600 RD Last Admin: 11/29/18 05:40 Dose: Not Given Magnesium Oxide (Magox 400 Tab*) 400 mg .SEE ORDER DAILY [facility] Last Admin: 11/29/18 12:47 Dose: 400 mg Midodrine (Midodrine) 10 mg .SEE ORDER TID [facility] Last Admin: 11/29/18 12:47 Dose: 10 mg Pharmacy Consult (Zosyn Per Pharmacy*) 1 note FOLLOW UP .ZOSYN [facility]Y [facility] Sertraline HCl (Zoloft*) 25 mg PEG TUBE DAILY [facility] Last Admin: 11/29/18 12:47 Dose: 25 mg Tamsulosin HCl (Flomax Cap*) 0.4 mg .SEE ORDER QPM [facility] Last Admin: 11/28/18 21:03 Dose: 0.4 mg Tramadol HCl (Ultram*) 50 mg PEG TUBE BEDTIME PRN PRN Reason: PAIN - MODERATE Vital Signs - 8 hr 11/29/18 11/29/18 11/29/18 08:00 08:03 11:49 Temperature 97.6 F 97.2 F Pulse Rate 69 68 Respiratory 20 20 16 Rate Blood Pressure 137/82 127/54 (mmHg) O2 Sat by Pulse 100 100 99 Oximetry Oxygen Devices in Use Now: Tracheostomy Collar Eyes: No Scleral Icterus Ears/Nose/Mouth/Throat: NL Teeth, Lips, Gums Neck: - - trach collar Respiratory: Symmetrical Chest Expansion and Respiratory Effort, Clear to Auscultation, - - port in place Cardiovascular: NL Sounds; No Murmurs; No JVD, RRR Extremities: No Edema Result Diagrams: 11/29/18 05:59 11/29/18 05:59 Microbiology and Other Data: Microbiology 11/26/18 09:31 Aerobic Blood Culture - Preliminary Blood Venous No Growth Day 1 Anaerobic Blood Culture - Preliminary No Growth Day 1 11/26/18 22:21 Gram Stain - Final Sputum Trach 11/26/18 15:48 Nasal Screen MRSA (PCR) - Final Nasal Mrsa Detected 11/26/18 14:37 Legionella Urinary Antigen - Final Urine Negative Legionella Antigen Streptococcus pneumoniae Ag Screen - Final Negative S. pneumo Antigen Assess/Plan/Problems-Billing Assessment: Mr Gutierrez is a 68 yo M with PMH of Head and neck CA (s/p trach and PEG), hypothyroidism, BPH, depression; who presented to ED after a syncopal episode with c/o cough and weakness, found to have Septic shock secondary to pneumonia. Blood cultures now growing yeast. - Patient Problems (1) Septic shock Current Visit: Yes Status: Acute Code(s): A41.9 - SEPSIS, UNSPECIFIED ORGANISM; R65.21 - SEVERE SEPSIS WITH SEPTIC SHOCK SNOMED Code(s): 59879298 Comment: - Present on admission due to right sided pneumonia, likely secondary to aspiration, complicated by acute on chronic respiratory failure. - Shock is resolved. (2) Aspiration pneumonia Current Visit: Yes Status: Acute Code(s): J69.0 - PNEUMONITIS DUE TO INHALATION OF FOOD AND VOMIT SNOMED Code(s): 701881759 Comment: - Continue trach colllar and suctioning as needed. - Continue Zosyn (H/o ESBL E.coli in the past) and Doxycycline (to cover atypicals) #4. - Sputum culture so far shows no growth. (3) Fungemia Current Visit: Yes Status: Acute Code(s): B49 - UNSPECIFIED MYCOSIS SNOMED Code(s): 107887121 Comment: - Called by Microbiology because 1/ BC bottles growing yeast. - Fluconazole IV -Echo to r/o endocarditis -Appreciate ID input -Will await speciation -Has a port which is unable to be accessed.Will check with ID if they dont the port removed in the setting of fungemia -Repeat blood cx (4) NORIS (acute kidney injury) Current Visit: Yes Status: Acute Code(s): N17.9 - ACUTE KIDNEY FAILURE, UNSPECIFIED SNOMED Code(s): 15544410 Comment: - secondary to sepsis/hypotension - resolved. (5) DVT prophylaxis Current Visit: Yes Status: Acute Code(s): XZZ5037 - SNOMED Code(s): 623500400 Comment: - SQ heparin. (6) Full code status Current Visit: Yes Status: Acute Code(s): Z78.9 - OTHER SPECIFIED HEALTH STATUS SNOMED Code(s): 182949109 (7) History of benign prostatic hypertrophy Current Visit: Yes Status: Acute Code(s): Z87.438 - PERSONAL HISTORY OF OTHER DISEASES OF MALE GENITAL ORGANS SNOMED Code(s): 629575567 Comment: - Continue Finasteride and Tamsulosin. (8) PEG (percutaneous endoscopic gastrostomy) adjustment/replacement/removal Current Visit: Yes Status: Acute Code(s): Z43.1 - ENCOUNTER FOR ATTENTION TO GASTROSTOMY SNOMED Code(s): 915141306 Comment: Currently has granger in place Discussed with Dr Beto Echevarria who will be seeing pt today to replace PEG (9) Hypothyroid Current Visit: Yes Status: Acute Code(s): E03.9 - HYPOTHYROIDISM, UNSPECIFIED SNOMED Code(s): 90168699 Comment: - Continue Levothyroxine. Status and Disposition: Inpatient.
--- NOTE | 2018-11-29 15:18 | PRO ---
CC: Dr. Bernard PROCEDURE REPORT: DATE OF PROCEDURE: 11/29/18 PROCEDURE: Percutaneous gastrostomy tube change. PRIMARY PROVIDER: Dr. Bernard. INDICATIONS: The patient is currently admitted. GI was contacted that his PEG tube fell out at around midnight. A Granger catheter was used to keep the tract patent. He has a 22-Ethiopian gastrostomy tube. He thinks this was exchanged a few months ago and was placed around 5 years ago. MEDICATIONS GIVEN: None. DESCRIPTION OF PROCEDURE: On initial inspection, the Granger catheter was in patient's gastrostomy tract. Per nursing, air had been used to inflate the balloon to keep the granger in place. I used a 10 cc syringe to deflate this balloon. Granger was then removed. Abdominal wall surrounding the gastrostomy tube site was cleaned. A new CECILY-PATTERSON 22-Ethiopian gastrostomy tube was removed from wrapping. The balloon on the new tube was inflated with 8 mL of saline. There was no leaking from the balloon. The saline was then withdrawn back from the balloon. The tip of the gastrostomy tube was lubricated. The patient was placed in a supine position. The new gastrostomy tube was then inserted gently into the tract without any resistance. The balloon was then inflated using 9 mL of saline. The tube was pulled gently and traction was appreciated as would be expected with an inflated balloon seated correctly. The external bumper was then gently lowered to within several millimeters of the skin. This external bumper was able to rotate easily without any excess tension on the abdominal wall. At that point, nursing completed dressing in the usual fashion. The patient tolerated the PEG tube exchange well. IMPRESSION: Replacement of CECILY-PATTERSON 22-Ethiopian gastrostomy tube. FOLLOWUP: Follow up with GEOVANI ptobin [id number]/[facility] #: [id number] WILFRIDO
[2018-11-29] MEDS: Tamsulosin CAP* 0.4 MG SCH (16:41)
[2018-11-30] MEDS: ZOSYN 3.375 GM Q8H per EXTENDED INFUSION IVPB SCH ×6 (01:24→17:20)
[2018-11-30] MEDS: Levothyroxine TAB* 50 MCG TAB PO SCH (05:42)
[2018-11-30] MEDS: Heparin VIAL(*) 5000 UNITS/ML VIAL (FIVE THOUSAND) SUBCUT SCH ×3 (05:42→21:46)
[2018-11-30 06:03] LABS: Hematocrit 30 % (42-52); Hemoglobin 10.5 g/dL (14.0-18.0); Mean Corpuscular HGB Conc 35 g/dL (31-36); Mean Corpuscular Hemoglobin 33 pg (27-31); Mean Corpuscular Volume 96 fL (80-94); Mean Platelet Volume 6.9 fL (7.4-10.4); Platelet Count 112 10^3/uL (150-450); Red Blood Count 3.14 10^6 /uL (4.18-5.48); Red Cell Distribution Width 16 % (10-15); White Blood Count 5.6 10^3/uL (3.5-10.8)
[2018-11-30 06:23] LABS: BUN/Creatinine Ratio 19.6 (8-20); Calcium 9.3 mg/dL (8.6-10.3); EGFR Non-African American 81.8 (>60); Potassium 3.5 mmol/L (3.5-5.0)
[2018-11-30 06:26] LABS: Polychromasia 1+
[2018-11-30 06:27] LABS: ABS Eosinophils 0.1 10^3/ul (0-0.6); ABS Lymphocytes 0.6 10^3/ul (1.0-4.8); ABS Monocytes 0.3 10^3/ul (0-0.8); ABS Neutrophils 4.5 10^3/ul (1.5-7.7); Eosinophil % 2.2 %; Lymphocyte % 10.1 %; Nucleated Red Blood Cells % 0.1
[2018-11-30] MEDS: Chlorhexidine MOUTHWASH 0.12%* 15 ML UDC SWISH SPIT SCH ×3 (07:46→21:47)
[2018-11-30] MEDS: Lansoprazole SUSP* ORALSYR 3 MG/ML PEG TUBE SCH (07:50)
[2018-11-30] MEDS: Finasteride TAB* 5 MG PEG TUBE SCH (07:50)
[2018-11-30] MEDS: Magnesium Oxide TAB* 400 MG SCH (07:50)
[2018-11-30] MEDS: Sertraline* 25 MG TAB PEG TUBE SCH (07:50)
[2018-11-30] MEDS: DOXYcycline IV* 100 MG in NS 0.9% 250 ML* 250 ML IVPB SCH ×2 (09:19→21:46)
[2018-11-30] MEDS: Fluconazole 400 MG IVPREMIX(*) 400 MG/200 ML BAG IVPB SCH (10:42)
[2018-11-30] MEDS ORDERED: Potassium Chlor TAB* 20 MEQ TAB.ER PO ONE (13:57)
--- NOTE | 2018-11-30 14:03 | PN ---
Subjective Date of Service: 11/30/18 Interval History: Reports improvement.Wants to go home Family History: Unchanged from Admission Social History: Unchanged from Admission Past Medical History: Unchanged from Admission Objective Active Medications: Acetaminophen (Tylenol Adult Liq*) 650 mg PEG TUBE Q6H PRN PRN Reason: PAIN - MILD Albuterol (Ventolin 2.5 Mg/3 Ml Neb.Pau*) 2.5 mg INH [id number] AWAKE PRN PRN Reason: sob/wheezing Chlorhexidine Gluconate (Peridex Mouth Wash 0.12%*) 15 ml SWISH SPIT TID [facility] Last Admin: 11/30/18 12:50 Dose: Not Given Finasteride (Proscar Tab*) 5 mg PEG TUBE DAILY [facility]; Protocol Last Admin: 11/30/18 07:50 Dose: 5 mg Heparin Sodium (Porcine) (Heparin Vial(*)) 5,000 units SUBCUT Q8HR [facility] Last Admin: 11/30/18 12:57 Dose: 5,000 units Piperacillin Sod/Tazobactam (Sod 3.375 gm/ Sodium Chloride) 100 mls @ 25 mls/ hr IVPB Q8H [facility] Last Admin: 11/30/18 12:58 Dose: 25 mls/hr Doxycycline Hyclate 100 mg/ (Sodium Chloride) 250 mls @ 250 mls/hr IVPB Q12H [facility] Last Admin: 11/30/18 09:19 Dose: 250 mls/hr Fluconazole/Sodium Chloride (Diflucan 400 Mg Ivpremix(*)) 400 mg in 200 mls @ 100 mls/hr IVPB Q24H [facility] Last Admin: 11/30/18 10:42 Dose: 100 mls/hr Lansoprazole (Lansoprazole Susp* Oralsyr) 30 mg PEG TUBE DAILY [facility] Last Admin: 11/30/18 07:50 Dose: 30 mg Levothyroxine Sodium (Synthroid Tab*) 50 mcg PO DAILY@0600 [facility] Last Admin: 11/30/18 05:42 Dose: 50 mcg Magnesium Oxide (Magox 400 Tab*) 400 mg .SEE ORDER DAILY [facility] Last Admin: 11/30/18 07:50 Dose: 400 mg Midodrine (Midodrine) 10 mg .SEE ORDER TID [facility] Last Admin: 11/30/18 12:57 Dose: 10 mg Pharmacy Consult (Zosyn Per Pharmacy*) 1 note FOLLOW UP .ZOSYN PER PHARMACY [facility] Potassium Chloride (Klor Con Er Tab*) 20 meq PO ONCE ONE Stop: 11/30/18 13:58 Sertraline HCl (Zoloft*) 25 mg PEG TUBE DAILY [facility] Last Admin: 11/30/18 07:50 Dose: 25 mg Tamsulosin HCl (Flomax Cap*) 0.4 mg .SEE ORDER QPM [facility] Last Admin: 11/29/18 16:41 Dose: 0.4 mg Tramadol HCl (Ultram*) 50 mg PEG TUBE BEDTIME PRN PRN Reason: PAIN - MODERATE Vital Signs - 8 hr 11/30/18 11/30/18 11/30/18 06:29 06:34 07:52 Temperature 97.1 F Pulse Rate 68 Respiratory 20 25 Rate Blood Pressure 138/83 (mmHg) O2 Sat by Pulse 98 100 Oximetry 11/30/18 12:16 Temperature 97.0 F Pulse Rate 65 Respiratory 22 Rate Blood Pressure 127/68 (mmHg) O2 Sat by Pulse 100 Oximetry Oxygen Devices in Use Now: None Eyes: No Scleral Icterus Ears/Nose/Mouth/Throat: NL Teeth, Lips, Gums Neck: NL Appearance and Movements; NL JVP, - - trach collar Respiratory: Symmetrical Chest Expansion and Respiratory Effort Cardiovascular: NL Sounds; No Murmurs; No JVD Abdominal: NL Sounds; No Tenderness; No Distention, - - PEG tube in place Extremities: No Edema Result Diagrams: 11/30/18 05:40 11/30/18 05:40 Microbiology and Other Data: Microbiology 11/26/18 09:31 Aerobic Blood Culture - Preliminary Blood Venous No Growth Day 1 Anaerobic Blood Culture - Preliminary No Growth Day 1 11/26/18 22:21 Gram Stain - Final Sputum Trach 11/26/18 15:48 Nasal Screen MRSA (PCR) - Final Nasal Mrsa Detected 11/26/18 14:37 Legionella Urinary Antigen - Final Urine Negative Legionella Antigen Streptococcus pneumoniae Ag Screen - Final Negative S. pneumo Antigen Assess/Plan/Problems-Billing Assessment: Mr Gutierrez is a 68 yo M with PMH of Head and neck CA (s/p trach and PEG), hypothyroidism, BPH, depression; who presented to ED after a syncopal episode with c/o cough and weakness, found to have Septic shock secondary to pneumonia. Blood cultures now growing yeast. - Patient Problems (1) Septic shock Current Visit: Yes Status: Acute Code(s): A41.9 - SEPSIS, UNSPECIFIED ORGANISM; R65.21 - SEVERE SEPSIS WITH SEPTIC SHOCK SNOMED Code(s): 92575101 Comment: - Present on admission due to right sided pneumonia, likely secondary to aspiration, complicated by acute on chronic respiratory failure. - Shock is resolved. (2) Aspiration pneumonia Current Visit: Yes Status: Acute Code(s): J69.0 - PNEUMONITIS DUE TO INHALATION OF FOOD AND VOMIT SNOMED Code(s): 241913591 Comment: - Continue trach colllar and suctioning as needed. - Continue Zosyn (H/o ESBL E.coli in the past) and Doxycycline (to cover atypicals) #5. - Follow sputum cx (3) Fungemia Current Visit: Yes Status: Acute Code(s): B49 - UNSPECIFIED MYCOSIS SNOMED Code(s): 488801913 Comment: - Called by Microbiology because 1/4 BC bottles growing yeast. - Fluconazole IV -Echo poor study but no obvious vegetation to suggest endocarditis -Appreciate ID input -Will await speciation -Has a port which is unable to be accessed.Will check with ID if they dont the port removed in the setting of fungemia -Repeat blood cx pending (4) NORIS (acute kidney injury) Current Visit: Yes Status: Acute Code(s): N17.9 - ACUTE KIDNEY FAILURE, UNSPECIFIED SNOMED Code(s): 13923076 Comment: - secondary to sepsis/hypotension - resolved. (5) DVT prophylaxis Current Visit: Yes Status: Acute Code(s): UQV4153 - SNOMED Code(s): 239266326 Comment: - SQ heparin. (6) Full code status Current Visit: Yes Status: Acute Code(s): Z78.9 - OTHER SPECIFIED HEALTH STATUS SNOMED Code(s): 169546589 (7) History of benign prostatic hypertrophy Current Visit: Yes Status: Acute Code(s): Z87.438 - PERSONAL HISTORY OF OTHER DISEASES OF MALE GENITAL ORGANS SNOMED Code(s): 144861707 Comment: - Continue Finasteride and Tamsulosin. (8) PEG (percutaneous endoscopic gastrostomy) adjustment/replacement/removal Current Visit: Yes Status: Acute Code(s): Z43.1 - ENCOUNTER FOR ATTENTION TO GASTROSTOMY SNOMED Code(s): 132551798 Comment: Fell out a couple of times Initially [place] s/p exchange placement by Dr Beto Echevarria (9) Hypothyroid Current Visit: Yes Status: Acute Code(s): E03.9 - HYPOTHYROIDISM, UNSPECIFIED SNOMED Code(s): 47489311 Comment: - Continue Levothyroxine. Status and Disposition: Inpatient. Discuss outpt antibiotics with ID
[2018-11-30] MEDS: Tamsulosin CAP* 0.4 MG SCH (17:21)
[2018-11-30] MEDS ORDERED: Potassium Chloride* LIQUID 20 MEQ/15 ML UDC PO ONE (18:00)
[2018-11-30] MEDS: traMADol TAB* 50 MG PEG TUBE PRN (22:02)
[2018-12-01] MEDS: ZOSYN 3.375 GM Q8H per EXTENDED INFUSION IVPB SCH ×6 (01:56→17:27)
[2018-12-01] MEDS: Heparin VIAL(*) 5000 UNITS/ML VIAL (FIVE THOUSAND) SUBCUT SCH ×3 (05:47→21:24)
[2018-12-01] MEDS: Levothyroxine TAB* 50 MCG TAB PO SCH (05:47)
[2018-12-01 05:48] LABS: Hematocrit 31 % (42-52); Mean Corpuscular HGB Conc 35 g/dL (31-36); Mean Corpuscular Hemoglobin 33 pg (27-31); Mean Corpuscular Volume 94 fL (80-94); Mean Platelet Volume 6.3 fL (7.4-10.4); Platelet Count 110 10^3/uL (150-450); Red Blood Count 3.31 10^6 /uL (4.18-5.48); Red Cell Distribution Width 16 % (10-15); White Blood Count 5.7 10^3/uL (3.5-10.8)
[2018-12-01 06:07] LABS: BUN/Creatinine Ratio 18.9 (8-20); Calcium 9.2 mg/dL (8.6-10.3); EGFR African American 101.5 (>60); EGFR Non-African American 83.9 (>60); Potassium 3.4 mmol/L (3.5-5.0)
[2018-12-01 06:13] LABS: ABS Eosinophils 0.2 10^3/ul (0-0.6); ABS Monocytes 0.4 10^3/ul (0-0.8); Eosinophil % 4.1 %; Lymphocyte % 17.8 %
[2018-12-01] MEDS: Chlorhexidine MOUTHWASH 0.12%* 15 ML UDC SWISH SPIT SCH ×3 (07:51→21:24)
[2018-12-01] MEDS: DOXYcycline IV* 100 MG in NS 0.9% 250 ML* 250 ML IVPB SCH ×2 (09:11→21:25)
[2018-12-01] MEDS: Magnesium Oxide TAB* 400 MG SCH (09:12)
[2018-12-01] MEDS: Finasteride TAB* 5 MG PEG TUBE SCH (09:12)
[2018-12-01] MEDS: Sertraline* 25 MG TAB PEG TUBE SCH (09:12)
[2018-12-01] MEDS: Lansoprazole SUSP* ORALSYR 3 MG/ML PEG TUBE SCH (09:12)
[2018-12-01] MEDS: Fluconazole 400 MG IVPREMIX(*) 400 MG/200 ML BAG IVPB SCH (10:46)
--- NOTE | 2018-12-01 12:00 | PN ---
Progress Note - Progress Note Date of Service: 12/01/18 SOAP: Subjective: CC: pneumonia HPI: 68 year old man with chronic tracheostomy and pneumonia as well as candidemia. His breathing and energy are improving, he has been up walking in the room. He has no diarrhea, no fever or rash and no loss of vision. Objective: Vital Signs Temp 35.8 C 12/01/18 11:00 Pulse 73 12/01/18 11:00 Resp 16 12/01/18 11:00 BP 123/70 12/01/18 11:00 Pulse Ox 100 12/01/18 11:00 Intake & Output 11/30/18 12/01/18 12/01/18 18:59 06:59 18:59 Intake Total 405 650 Output Total 200 575 300 Balance 205 -575 350 Intake: Tube Feeding 405 600 Tube Feeding Flush Amount 50 Output: Urine 200 575 300 Other: # Voids 3 Gen:awake, no distress HEENT: no thrush Neck: tracheostomy Heart:RRR no murmur Lungs:coarse BS BL Abd:+BS NTND soft Skin: no rash Laboratory Results - last 24 hr 12/01/18 12/01/18 05:29 05:29 WBC 5.7 RBC 3.31 L Hgb 11.0 L Hct 31 L MCV 94 MCH 33 H MCHC 35 RDW 16 H Plt Count 110 L MPV 6.3 L Neut % (Auto) 70.8 Lymph % (Auto) 17.8 [place] % (Auto) 6.5 Eos % (Auto) 4.1 Baso % (Auto) 0.8 Absolute Neuts (auto) 4.0 Absolute Lymphs (auto) 1.0 Absolute Monos (auto) 0.4 Absolute Eos (auto) 0.2 Absolute Basos (auto) 0.0 Absolute Nucleated RBC 0.0 Nucleated RBC % 0.0 Sodium 129 L Potassium 3.4 L Chloride 97 L Carbon Dioxide 24 Anion Gap 8 BUN 17 Creatinine 0.90 Est GFR ( Amer) 101.5 Est GFR (Non-Af Amer) 83.9 BUN/Creatinine Ratio 18.9 Glucose 93 Calcium 9.2 Microbiology 11/26/18 10:06 Aerobic Blood Culture - Final Blood Venous No Growth Day 5 Anaerobic Blood Culture - Final No Growth Day 5 11/26/18 09:31 Aerobic Blood Culture - Final Blood Venous Marilin Parapsilosis Anaerobic Blood Culture - Final No Growth Day 5 11/29/18 05:59 Aerobic Blood Culture - Preliminary Blood Venous No Growth Day 2 Anaerobic Blood Culture - Preliminary No Growth Day 2 11/29/18 05:59 Aerobic Blood Culture - Preliminary Blood Venous No Growth Day 2 Anaerobic Blood Culture - Preliminary No Growth Day 2 Assessment: 1. Pneumonia, improving, day 06/24 zosyn and doxycycline 2. 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 Trans thoracic echocardiogram negative and no peripheral stigmata of IE so I think it is unlikely. 3. R chest port, not recently accessed 4. chronic tracheostomy Plan: 1. fluconazole 400 mg IV day 06/01, can change to liquid via peg for discharge and outpatient ophtho eval
--- NOTE | 2018-12-01 16:13 | PN ---
Subjective Date of Service: 12/01/18 Interval History: Patient wants to go home. He is breathing OK, eating OK, walking to bathroom. Seen by Dr. Nicole today. ID consult appreciated. Family History: Unchanged from Admission Social History: Unchanged from Admission Past Medical History: Unchanged from Admission Objective Active Medications: Acetaminophen (Tylenol Adult Liq*) 650 mg PEG TUBE Q6H PRN PRN Reason: PAIN - MILD Albuterol (Ventolin 2.5 Mg/3 Ml Neb.Pau*) 2.5 mg INH [id number] AWAKE PRN PRN Reason: sob/wheezing Chlorhexidine Gluconate (Peridex Mouth Wash 0.12%*) 15 ml SWISH SPIT TID [facility] Last Admin: 12/01/18 12:42 Dose: Not Given Finasteride (Proscar Tab*) 5 mg PEG TUBE DAILY [facility]; Protocol Last Admin: 12/01/18 09:12 Dose: 5 mg Heparin Sodium (Porcine) (Heparin Vial(*)) 5,000 units SUBCUT Q8HR [facility] Last Admin: 12/01/18 13:23 Dose: 5,000 units Piperacillin Sod/Tazobactam (Sod 3.375 gm/ Sodium Chloride) 100 mls @ 25 mls/ hr IVPB Q8H [facility] Last Admin: 12/01/18 10:46 Dose: 25 mls/hr Doxycycline Hyclate 100 mg/ (Sodium Chloride) 250 mls @ 250 mls/hr IVPB Q12H RD Last Admin: 12/01/18 09:11 Dose: 250 mls/hr Fluconazole/Sodium Chloride (Diflucan 400 Mg Ivpremix(*)) 400 mg in 200 mls @ 100 mls/hr IVPB Q24H [facility] Last Admin: 12/01/18 10:46 Dose: 100 mls/hr Lansoprazole (Lansoprazole Susp* Oralsyr) 30 mg PEG TUBE DAILY [facility] Last Admin: 12/01/18 09:12 Dose: 30 mg Levothyroxine Sodium (Synthroid Tab*) 50 mcg PO DAILY@0600 [facility] Last Admin: 12/01/18 05:47 Dose: 50 mcg Magnesium Oxide (Magox 400 Tab*) 400 mg .SEE ORDER DAILY [facility] Last Admin: 12/01/18 09:12 Dose: 400 mg Midodrine (Midodrine) 10 mg .SEE ORDER TID [facility] Last Admin: 12/01/18 13:22 Dose: 10 mg Pharmacy Consult (Zosyn Per Pharmacy*) 1 note FOLLOW UP .ZOSYN PER PHARMACY [facility] Sertraline HCl (Zoloft*) 25 mg PEG TUBE DAILY [facility] Last Admin: 12/01/18 09:12 Dose: 25 mg Tamsulosin HCl (Flomax Cap*) 0.4 mg .SEE ORDER QPM [facility] Last Admin: 11/30/18 17:21 Dose: 0.4 mg Tramadol HCl (Ultram*) 100 mg PEG TUBE BEDTIME PRN PRN Reason: PAIN - MODERATE Last Admin: 11/30/18 22:02 Dose: 100 mg Vital Signs - 8 hr 12/01/18 12/01/18 11:00 15:00 Temperature 35.8 C 36.9 C Pulse Rate 73 65 Respiratory 16 18 Rate Blood Pressure 123/70 135/87 (mmHg) O2 Sat by Pulse 100 100 Oximetry Oxygen Devices in Use Now: Tracheostomy Collar Appearance: alert, no distress Eyes: No Scleral Icterus Ears/Nose/Mouth/Throat: Clear Oropharnyx Neck: Trachea Midline, - - tracheostomy Respiratory: Symmetrical Chest Expansion and Respiratory Effort, Clear to Auscultation Cardiovascular: NL Sounds; No Murmurs; No JVD, RRR, No Edema Abdominal: NL Sounds; No Tenderness; No Distention, - - distended Lymphatic: No Cervical Adenopathy Skin: No Rash or Ulcers Lines/Tubes/Other Access: Clean, Dry and Intact Tracheostomy, Clean, Dry and Intact Peripheral IV, Clean, Dry and Intact Other Access - port not accessed Nutrition: Taking PO's Result Diagrams: 12/01/18 05:29 12/01/18 05:29 Microbiology and Other Data: Microbiology 11/26/18 22:21 Sputum Trach Gram Stain - Final 11/26/18 22:21 Sputum Trach Sputum Culture - Final Providencia Stuartii Enterobacter Cloacae 11/29/18 05:59 Blood Venous Aerobic Blood Culture - Preliminary 11/29/18 05:59 Blood Venous Anaerobic Blood Culture - Preliminary No Growth Day 2 No Growth Day 2 11/29/18 05:59 Blood Venous Aerobic Blood Culture - Preliminary 11/29/18 05:59 Blood Venous Anaerobic Blood Culture - Preliminary No Growth Day 2 No Growth Day 2 11/26/18 09:31 Blood Venous Aerobic Blood Culture - Final 11/26/18 09:31 Blood Venous Anaerobic Blood Culture - Final Marilin Parapsilosis No Growth Day 5 Assess/Plan/Problems-Billing Assessment: Mr Gutierrez is a 68 yo M with PMH of Head and neck CA (s/p trach and PEG), hypothyroidism, BPH, depression; who presented to ED after a syncopal episode with c/o cough and weakness, found to have Septic shock secondary to pneumonia. Blood cultures now growing yeast. - Patient Problems (1) Sepsis Current Visit: No Status: Acute Priority: High Comment: -Secondary to pneumonia. Resolved. -Continue Zosyn day 06/24 (2) Tracheostomy in place Current Visit: Yes Status: Chronic Priority: Medium Code(s): Z93.0 - TRACHEOSTOMY STATUS SNOMED Code(s): 817330060 Comment: - cont respiratory care and trach collar with supplemental O2 (3) Fungemia Current Visit: Yes Status: Acute Priority: High Code(s): B49 - UNSPECIFIED MYCOSIS SNOMED Code(s): 647475228 Comment: - / BC bottles growing Marilin Parapsilosis - continue Fluconazole IV for 1 week, then home on PO for 1 more week - (4) DVT prophylaxis Current Visit: Yes Status: Acute Priority: Medium Code(s): VTJ5144 - SNOMED Code(s): 883915230 Comment: - SQ heparin. Status and Disposition: Inpatient. Likely outpt antibiotics in 2 days
[2018-12-01] MEDS: Tamsulosin CAP* 0.4 MG SCH (17:27)
[2018-12-01] MEDS: traMADol TAB* 50 MG PEG TUBE PRN (21:24)
[2018-12-02] MEDS: ZOSYN 3.375 GM Q8H per EXTENDED INFUSION IVPB SCH ×6 (02:15→16:40)
[2018-12-02] MEDS: Levothyroxine TAB* 50 MCG TAB PO SCH (05:55)
[2018-12-02] MEDS: Heparin VIAL(*) 5000 UNITS/ML VIAL (FIVE THOUSAND) SUBCUT SCH ×3 (05:57→20:59)
[2018-12-02] MEDS: Chlorhexidine MOUTHWASH 0.12%* 15 ML UDC SWISH SPIT SCH ×3 (07:45→20:57)
[2018-12-02] MEDS: Sertraline* 25 MG TAB PEG TUBE SCH (07:50)
[2018-12-02] MEDS: Magnesium Oxide TAB* 400 MG SCH (07:50)
[2018-12-02] MEDS: Finasteride TAB* 5 MG PEG TUBE SCH (07:50)
[2018-12-02] MEDS: DOXYcycline IV* 100 MG in NS 0.9% 250 ML* 250 ML IVPB SCH ×2 (08:03→21:00)
[2018-12-02] MEDS: Lansoprazole SUSP* ORALSYR 3 MG/ML PEG TUBE SCH (09:30)
[2018-12-02] MEDS: Fluconazole 400 MG IVPREMIX(*) 400 MG/200 ML BAG IVPB SCH (09:32)
--- NOTE | 2018-12-02 15:18 | PN ---
Subjective Date of Service: 12/02/18 Interval History: Patient has no new complaints. His electronic voice box is at home. He wants to go home [place]. Denies SOB. He is not chronically on O2 at home. Family History: Unchanged from Admission Social History: Unchanged from Admission Past Medical History: Unchanged from Admission Objective Active Medications: Acetaminophen (Tylenol Adult Liq*) 650 mg PEG TUBE Q6H PRN PRN Reason: PAIN - MILD Albuterol (Ventolin 2.5 Mg/3 Ml Neb.Pau*) 2.5 mg INH [id number] AWAKE PRN PRN Reason: sob/wheezing Chlorhexidine Gluconate (Peridex Mouth Wash 0.12%*) 15 ml SWISH SPIT TID [facility] Last Admin: 12/02/18 12:14 Dose: Not Given Finasteride (Proscar Tab*) 5 mg PEG TUBE DAILY [facility]; Protocol Last Admin: 12/02/18 07:50 Dose: 5 mg Heparin Sodium (Porcine) (Heparin Vial(*)) 5,[address] Last Admin: 12/02/18 12:49 Dose: 5,000 units Piperacillin Sod/Tazobactam (Sod 3.375 gm/ Sodium Chloride) 100 mls @ 25 mls/ hr IVPB Q8H RD Last Admin: 12/02/18 08:07 Dose: 25 mls/hr Doxycycline Hyclate 100 mg/ (Sodium Chloride) 250 mls @ 250 mls/hr IVPB Q12H RD Last Admin: 12/02/18 08:03 Dose: 250 mls/hr Fluconazole/Sodium Chloride (Diflucan 400 Mg Ivpremix(*)) 400 mg in 200 mls @ 100 mls/hr IVPB Q24H RD Last Admin: 12/02/18 09:32 Dose: 100 mls/hr Lansoprazole (Lansoprazole Susp* Oralsyr) 30 mg PEG TUBE DAILY [facility] Last Admin: 12/02/18 09:30 Dose: 30 mg Levothyroxine Sodium (Synthroid Tab*) 50 mcg PO DAILY@0600 RD Last Admin: 12/02/18 05:55 Dose: 50 mcg Magnesium Oxide (Magox 400 Tab*) 400 mg .SEE ORDER DAILY [facility] Last Admin: 12/02/18 07:50 Dose: 400 mg Midodrine (Midodrine) 10 mg .SEE ORDER TID [facility] Last Admin: 12/02/18 12:46 Dose: 10 mg Pharmacy Consult (Zosyn Per Pharmacy*) 1 note FOLLOW UP .ZOSYN PER PHARMACY [facility] Sertraline HCl (Zoloft*) 25 mg PEG TUBE DAILY [facility] Last Admin: 12/02/18 07:50 Dose: 25 mg Tamsulosin HCl (Flomax Cap*) 0.4 mg .SEE ORDER QPM [facility] Last Admin: 12/01/18 17:27 Dose: 0.4 mg Tramadol HCl (Ultram*) 100 mg PEG TUBE BEDTIME PRN PRN Reason: PAIN - MODERATE Last Admin: 12/01/18 21:24 Dose: 100 mg Vital Signs - 8 hr 12/02/18 12/02/18 08:00 11:00 Temperature 36.1 C Pulse Rate 76 Respiratory 18 20 Rate Blood Pressure 128/76 (mmHg) O2 Sat by Pulse 99 100 Oximetry Oxygen Devices in Use Now: Tracheostomy Collar Appearance: alert, no distress Ears/Nose/Mouth/Throat: Clear Oropharnyx Neck: - - tracheostomy present Respiratory: Clear to Auscultation, - - diminished Cardiovascular: NL Sounds; No Murmurs; No JVD, RRR Abdominal: NL Sounds; No Tenderness; No Distention Neurological: Alert and Oriented x 3 Lines/Tubes/Other Access: Clean, Dry and Intact Tracheostomy, Clean, Dry and Intact Peripheral IV Nutrition: Taking PO's Result Diagrams: 12/01/18 05:29 12/01/18 05:29 Microbiology and Other Data: Microbiology 11/26/18 22:21 Sputum Trach Gram Stain - Final 11/26/18 22:21 Sputum Trach Sputum Culture - Final Providencia Stuartii Enterobacter Cloacae 11/26/18 15:48 Nasal Nasal Screen MRSA (PCR) - Final Mrsa Detected 11/26/18 09:31 Blood Venous Aerobic Blood Culture - Final 11/26/18 09:31 Blood Venous Anaerobic Blood Culture - Final Marilin Parapsilosis No Growth Day 5 11/29/18 05:59 Blood Venous Aerobic Blood Culture - Preliminary 11/29/18 05:59 Blood Venous Anaerobic Blood Culture - Preliminary No Growth Day 3 No Growth Day 3 11/29/18 05:59 Blood Venous Aerobic Blood Culture - Preliminary 11/29/18 05:59 Blood Venous Anaerobic Blood Culture - Preliminary No Growth Day 3 No Growth Day 3 Plan/Problems-Billing Assessment: Mr Gutierrez is a 68 yo M with PMH of Head and neck CA (s/p trach and PEG), hypothyroidism, BPH, depression; who presented to ED after a syncopal episode with c/o cough and weakness, found to have Septic shock secondary to pneumonia. Blood cultures now growing yeast. - Patient Problems (1) Sepsis Current Visit: No Status: Acute Priority: High Comment: -Secondary to pneumonia. Resolved. -Continue Zosyn day 07/25 (2) Tracheostomy in place Current Visit: Yes Status: Chronic Priority: Medium Code(s): Z93.0 - TRACHEOSTOMY STATUS SNOMED Code(s): 462567543 Comment: - cont respiratory care and trach collar with supplemental O2 - Wean O2, pneumonia is improving (3) Fungemia Current Visit: Yes Status: Acute Priority: High Code(s): B49 - UNSPECIFIED MYCOSIS SNOMED Code(s): 791922596 Comment: - / BC bottles growing Marilin Parapsilosis - continue Fluconazole IV for 1 week, then home on PO for 1 more week - (4) DVT prophylaxis Current Visit: Yes Status: Acute Priority: Medium Code(s): LRX5502 - SNOMED Code(s): 423872582 Comment: - SQ heparin. (5) Hypokalemia Current Visit: Yes Status: Acute Priority: Medium Code(s): E87.6 - HYPOKALEMIA SNOMED Code(s): 89849365 Comment: -Will supplement and recheck tomorrow. Status and Disposition: Inpatient. Discharge tomorrow.
[2018-12-02] MEDS: Tamsulosin CAP* 0.4 MG SCH (16:43)
[2018-12-02] MEDS: Potassium Chlor TAB* 20 MEQ TAB.ER PO SCH (16:43)
[2018-12-02] MEDS: traMADol TAB* 50 MG PEG TUBE PRN (20:58)
[2018-12-03] MEDS: ZOSYN 3.375 GM Q8H per EXTENDED INFUSION IVPB SCH ×4 (01:08→09:29)
[2018-12-03 06:12] LABS: BUN/Creatinine Ratio 16.8 (8-20); Calcium 9.2 mg/dL (8.6-10.3); EGFR African American 95.4 (>60); EGFR Non-African American 78.8 (>60); Magnesium 1.7 mg/dL (1.9-2.7); Potassium 4.4 mmol/L (3.5-5.0)
[2018-12-03] MEDS: Heparin VIAL(*) 5000 UNITS/ML VIAL (FIVE THOUSAND) SUBCUT SCH (06:24)
[2018-12-03] MEDS: Levothyroxine TAB* 50 MCG TAB PO SCH (06:25)
[2018-12-03] MEDS: DOXYcycline IV* 100 MG in NS 0.9% 250 ML* 250 ML IVPB SCH (09:28)
[2018-12-03] MEDS: Chlorhexidine MOUTHWASH 0.12%* 15 ML UDC SWISH SPIT SCH (09:29)
[2018-12-03] MEDS: Finasteride TAB* 5 MG PEG TUBE SCH (09:30)
[2018-12-03] MEDS: Potassium Chlor TAB* 20 MEQ TAB.ER PO SCH (09:31)
[2018-12-03] MEDS: Magnesium Oxide TAB* 400 MG SCH (09:32)
[2018-12-03] MEDS: Sertraline* 25 MG TAB PEG TUBE SCH (09:32)
[2018-12-03] MEDS: Lansoprazole SUSP* ORALSYR 3 MG/ML PEG TUBE SCH (09:35)
[2018-12-03 11:50] VITALS: BP 136/71
[2018-12-03] MEDS: Fluconazole 400 MG IVPREMIX(*) 400 MG/200 ML BAG IVPB SCH (11:58)
--- NOTE | 2018-12-03 12:02 | PN ---
Sepsis Event Evaluation Date of Evaluation: 11/26/18 Time of Evaluation: 13:20 Current Stage of Sepsis: Sepsis Vital Signs - Last 12 Hours: Vital Signs - 12 hr Temp Pulse Resp BP Pulse Ox 12/03/18 11:40 97.4 F 79 16 136/71 100 12/03/18 08:00 97.6 F 73 16 131/63 100 12/03/18 03:00 97.5 F 72 22 130/75 100 Lactic Acid: 11/26/18 11/26/18 09:31 13:31 Lactic Acid 4.0 H* 1.7 - Cardiopulmonary Exam Capillary Refill: Immediate Respiratory: Symmetrical Chest Expansion and Respiratory Effort, - - scattered rhonchi Cardiovascular: NL Sounds; No Murmurs; No JVD - Peripheral Pulse Exam Radial Pulses: Bilateral Normal Pedal Pulses: Bilateral Normal - Skin Exam Skin Exam: Normal Turgor - [place] Coma Scale Best Eye Response: 4 - Spontaneous Best Motor Response: 6 - Obeys Commands Best Verbal Response: 5 - Oriented Coma Scale Total: 15 Assess/Plan/Problems-Billing Assessment: Mr Gutierrez is a 68 yo M with PMH of Head and neck CA (s/p trach and PEG), hypothyroidism, BPH, depression; who presented to ED after a syncopal episode with c/o cough and weakness, found to have Septic shock secondary to pneumonia. Blood cultures now growing yeast. - Patient Problems (1) Severe sepsis Current Visit: Yes Status: Acute Code(s): A41.9 - SEPSIS, UNSPECIFIED ORGANISM; R65.20 - SEVERE SEPSIS WITHOUT SEPTIC SHOCK SNOMED Code(s): 79709119 Comment: now meeting sepsis Resolving - Lactic acid improved to 1.7 - secondary to pneumonia - continue zosyn and azithromycin Status and Disposition: Inpatient. Discharge tomorrow.
--- NOTE | 2018-12-03 14:37 | DS ---
CC: Dr. Bernard; Dr. Nicole; Dr. Cormier DATE OF ADMISSION: 11/26/2018. DATE OF DISCHARGE: 12/03/2018. PRIMARY DIAGNOSIS: Multilobar pneumonia, mainly right lower lobe pneumonia. SECONDARY DIAGNOSES: Marilin, bacteremia, septic shock which has been resolved, suspected COPD, hist ory of head, neck, and tongue cancer, SIADH, benign prostatic hypertrophy, depression, PEG tube place ment, hypothyroidism, hypomagnesemia. MEDICATIONS ON DISCHARGE: 1. Acetaminophen solution 650 mg PEG tube q.i.d. prn. 2. Chlorhexidine mouthwash one tablespoon swish then spit t.i.d. 3. Avodart 0.5 mg by PEG tube daily. 4. Gabapentin 250 mg per 5 ml solutions take 6 to 12 ml by PEG tube twice a day as needed. 5. Jevity 474 ml by PEG tube t.i.d. 6. Lansoprazole 30 mg by PEG tube daily. 7. Levothyroxine 50 mcg by PEG tube daily. 8. Magnesium Oxide 400 mg by PEG tube daily. 9. Midodrine 10 mg by PEG tube t.i.d. 10. Sertraline 20 mg by PEG tube daily. 11. Tamsulosin 0.4 mg by PEG tube daily. 12. Tramadol 50 mg one to two tablets 3 times a day by PEG tube as needed for pain. 13. Albuterol nebulizer inhaled q.i.d. prn wheezing. 14. Fluconazole 40 mg by PEG tube daily for 7 days. 15. Potassium Chloride sprinkle 8 mEq by G-tube daily. CONSULTATIONS: Dr. Nicole of Infectious Disease, Dr. Fregoso of Gastroenterology. PROCEDURE: On November 29, the patient had a percutaneous gastrostomy tube change with Dr. Nilda salguero. HOSPITAL COURSE: This 68-year-old man with a history of head and neck cancer, tracheostomy and G-tub e placement presented with a syncope episode and pneumonia. He was found to have severe sepsis with h ypotension requiring Intensive Care Unit admission. His initial chest x-ray showed right upper and r ight basilar air space disease consistent with pneumonia. On the day after admission, on repeat ches t x- ray, there is some left lower lobe infiltrate as well. The patient was admitted to the Intensiv e Care Unit on Meropenem and volume resuscitation. Sputum cultures taken showed Providencia stuartii and Enterobacter cloacae from the trachea specimen. Urine legionella and streptococcus antigens wer e negative. The patient was seen by Dr. Nicole of Infectious Disease and he was switched to Zosyn for a period of one week for pneumonia with sepsis. The Zosyn is active against the Providencia, but not against Enterobacter which is felt to be a contaminate. The patient also had an aerobic blood c ulture times one that grew marilin parapsilosis. The patient was given intravenous Fluconazole for on e week and the will be sent home on oral Fluconazole to complete a second week. The other blood cult ures are negative for bacterial growth. The patient's initial white count was 14.3 which fell to 6.8 on the next day. He does have anemia with a hemoglobin between 8.9 up to 11 on discharge and thromb ocytopenia with platelets of 110 on discharge. In the past he has had pancytopenia due to chemothera py. This is likely a postchemotherapy effect. The patient gradually improved and was transferred to the medical floor. He maintained his oxygen saturations with oxygen by trach collar. This oxygen wa s weaned off upon discharge and he does not require home O2 in general. The patient has [facility] history as a young man, but may have an element of COPD. His x-ray does not look hyperinflated, b ut he did seem to respond to Albuterol nebulizers when dyspneic. The patient's nutrition status was maintained with tube feedings which he tolerated well. The PEG tu be was changed routinely by Gastroenterology. The PEG tube was changed because the PEG tube fell out on the third day of admission. DISPOSITION: To home. ACTIVITY: As tolerated. DIET: Regular. STATUS: Inpatient. CONDITION ON DISCHARGE: Stable. FOLLOW-UP: Follow-up will be with Dr. Bernard for primary care, Dr. Kang Pearson for Infectious Disease, and Dr. Cormier for a dilated eye exam to asses for fungal yeast infe ction in the retina. TIME SPENT: I spent more than 50 minutes with the patient and completed the necessary paperwork on t day of discharge. [id number]/[facility] #: [id number]
== END 2018-12-03 13:22 | disposition home or self-care (01) | DRG 871 ==
LOC: ED 09:09 → ICU 15:34 → MEDTELE 11-27 17:52
PROVIDERS: ADMIT Internal Medicine; ATTEND Internal Medicine
PROC: 0D20XUZ Change Feeding Device in Upper Intestinal Tract, External Approach (ICD-10-PCS; principal; 2018-11-29)
DX: B37.7 Candidal sepsis (principal); J96.21 Acute and chronic respiratory failure with hypoxia; R65.21 Severe sepsis with septic shock; J69.0 Pneumonitis due to inhalation of food and vomit; Z43.1 Encounter for attention to gastrostomy; N17.9 Acute kidney failure, unspecified; E87.2 Acidosis; E22.2 Syndrome of inappropriate secretion of antidiuretic hormone; E03.9 Hypothyroidism, unspecified; E78.00 Pure hypercholesterolemia, unspecified; K21.9 Gastro-esophageal reflux disease without esophagitis; N40.0 Benign prostatic hyperplasia without lower urinary tract symptoms; M47.9 Spondylosis, unspecified; M16.10 Unilateral primary osteoarthritis, unspecified hip; E83.42 Hypomagnesemia; Z96.642 Presence of left artificial hip joint; F32.9 Major depressive disorder, single episode, unspecified; E78.5 Hyperlipidemia, unspecified; E87.6 Hypokalemia; N18.3 Chronic kidney disease, stage 3 (moderate); J44.9 Chronic obstructive pulmonary disease, unspecified; E87.5 Hyperkalemia; D63.1 Anemia in chronic kidney disease; D69.6 Thrombocytopenia, unspecified; Z85.810 Personal history of malignant neoplasm of tongue; Z92.21 Personal history of antineoplastic chemotherapy; Z92.3 Personal history of irradiation; Z87.891 Personal history of nicotine dependence; Z93.0 Tracheostomy status; Z85.89 Personal history of malignant neoplasm of other organs and systems; Z82.49 Family history of ischemic heart disease and other diseases of the circulatory system; Z80.0 Family history of malignant neoplasm of digestive organs; Z23 Encounter for immunization; Z98.1 Arthrodesis status
CPT/HCPCS: 36415; 70450; 71045; 80048; 80053; 81003; 81015; 82803; 83605; 83735; 83880; 84100; 84484; 85025; 85384; 85610; 85652; 85730; 86140; 87040; 87070; 87077; 87086; 87106; 87186; 87205; 87641; 87899; 90686; 93005; 93306; 96374; 99285; A9270-GY; J0456; J1450; J1644; J2185; J2543; J3475

== ENCOUNTER 2019-04-18 10:25 | Inpatient (IN) | payer MEDICARE, BC ==
--- NOTE | 2019-04-18 10:37 | ED ---
Adult Trauma - HPI Summary HPI Summary: This patient is a 68 y/o male, with hx of throat CA, presenting to [facility] via EMS from home for fall x2 today. EMS reports the first time the patient fell the patient declined coming to the hospital. Per EMS the daughter was present and EMS left the scene. EMS notes they were called again to return after the patient fell a second time. Per EMS, during this time the patient agreed to come to the hospital. Patient denies any head strike, neck strike or LOC. Patient denies any complaints. He denies any pain, headache, neck pain, cough, leg pain, chest pain, diarrhea, constipation, fevers, abd pain. EMS reports patient had an initial blood pressure of 112/78 in a sitting position but blood pressure seemed to drop when standing up. EMS states patient is currently hypotensive with manual blood pressure in the 50s and 60s systolic. Per EMS patient was saturating between 70s-90s and EMS administered O2 NC. Patient does not use oxygen at home. EMS states family reported patient had been having increased mucous secretions from the trach. Patient reports he feeds through a PEG tube and is feeding well. Patient is not anticoagulated. Home Medications Medication Instructions Recorded Confirmed Type Magnesium Oxide [Magnesium Oxide-] 400 mg PEG TUBE DAILY 12/06/15 04/18/19 History Gabapentin [Gabapentin 250 mg/5ml] 6 ml PEG TUBE QAM 01/23/18 04/18/19 History Lansoprazole 30 mg PEG TUBE DAILY 01/23/18 04/18/19 History Sertraline HCl 5 ml PEG TUBE DAILY 01/23/18 04/18/19 History Tamsulosin HCl 0.4 mg PEG TUBE QPM 01/23/18 04/18/19 History Chlorhexidine MW 0.12% 473ML* 1 tbsp PO TID 11/26/18 04/18/19 History [Peridex Mouth Wash 0.12%] Levothyroxine TAB* [Synthroid TAB*] 50 mcg PEG TUBE QAM 11/26/18 04/18/19 History Midodrine HCl 10 mg PEG TUBE TID 11/26/18 04/18/19 History Tramadol HCl 1 - 2 tab PEG TUBE BEDTIME 11/26/18 04/18/19 History Albuterol 2.5MG/3ML (0.083%)* 2.5 mg INH [id number] AWAKE PRN 12/03/18 Rx [Ventolin 2.5 MG/3 ML NEB.DOMINGO*] #100 neb.soln Gabapentin [Gabapentin 250 mg/5ml] 12 ml PEG TUBE BEDTIME 04/18/19 04/18/19 History Lactose-Reduced Food/Fiber [Jevity 474 ml PEG TUBE TID 04/18/19 04/18/19 History 1.2 Augustin Liquid] - History of Current Complaint Chief Complaint: EDFall Stated Complaint: FALL PER EMS Hx Obtained From: Patient, EMS Mechanism of Injury: Fall Ambulatory at the Scene: Yes Loss of Consciousness: no loss of consciousness Current Severity: None Pain Intensity: 0 - denies any pain Pain Scale Used: 0-10 Numeric Aggravating Factor(s): Nothing Alleviating Factor(s): Nothing Associated Signs & Symptoms: Negative: Chest Pain, Cough, Abdominal Pain, Fever , Loss of Consciousness, Significant Blood Loss - Additional Pertinent History Primary Care Physician: OBDULIA - Allergy/Home Medications Allergies/Adverse Reactions: Allergies Allergy/AdvReac Type Severity Reaction Status Date / Time No Known Allergies Allergy Verified 04/18/19 10:32 Home Medications: Home Medications Magnesium Oxide [Magnesium Oxide-] 400 mg PEG TUBE DAILY 12/06/15 [History Confirmed 04/18/19] Gabapentin [Gabapentin 250 mg/5ml] 6 ml PEG TUBE QAM 01/23/18 [History Confirmed 04/18/19] Lansoprazole 30 mg PEG TUBE DAILY 01/23/18 [History Confirmed 04/18/19] Sertraline HCl 5 ml PEG TUBE DAILY 01/23/18 [History Confirmed 04/18/19] Tamsulosin HCl 0.4 mg PEG TUBE QPM 01/23/18 [History Confirmed 04/18/19] Chlorhexidine MW 0.12% 473ML* [Peridex Mouth Wash 0.12%] 1 tbsp PO TID 11/26/18 [History Confirmed 04/18/19] Levothyroxine TAB* [Synthroid TAB*] 50 mcg PEG TUBE QAM 11/26/18 [History Confirmed 04/18/19] Midodrine HCl 10 mg PEG TUBE TID 11/26/18 [History Confirmed 04/18/19] Tramadol HCl 1 - 2 tab PEG TUBE BEDTIME 11/26/18 [History Confirmed 04/18/19] Albuterol 2.5MG/3ML (0.083%)* [Ventolin 2.5 MG/3 ML NEB.DOMINGO*] 2.5 mg INH RT.Q4HR -WHILE AWAKE PRN #100 neb.soln 12/03/18 [Rx Confirmed 04/18/19] Gabapentin [Gabapentin 250 mg/5ml] 12 ml PEG TUBE BEDTIME 04/18/19 [History Confirmed 04/18/19] Lactose-Reduced Food/Fiber [Jevity 1.2 Augustin Liquid] 474 ml PEG TUBE TID 04/18/19 [History Confirmed 04/18/19] PMH/Surg Hx/FS Hx/Imm Hx Endocrine/Hematology History: Reports: Hx Thyroid Disease - hypothyroid Denies: Hx Diabetes, Hx Systemic Lupus Erythematosus Cardiovascular History: Reports: Hx Hypercholesterolemia, Hx Hypotension - with associated weakness and falls Denies: Hx Congestive Heart Failure, Hx Hypertension, Hx Pacemaker/ICD Respiratory History: Reports: Hx Pneumonia, Other Respiratory Problems/ Disorders - pneumonia seen on CXR, trach since 2014 Denies: Hx Asthma, Hx Chronic Obstructive Pulmonary Disease (COPD), Hx Lung Cancer - Pt denied GI History: Reports: Hx Gastroesophageal Reflux Disease, Hx Gastrointestinal Bleed, Hx Hiatal Hernia, Other GI Disorders - PEG tube History: Reports: Hx Benign Prostatic Hyperplasia, Other Problems/ Disorders - BPH Denies: Hx Dialysis, Hx Renal Disease Musculoskeletal History: Reports: Hx Arthritis - back and hip, Hx Back Problems - surgeries x2 Denies: Hx Rheumatoid Arthritis Comment Only: Other Musculoskeletal History - L hip surgery Sensory History: Reports: Hx Contacts or Glasses Denies: Hx Cataracts, Hx Hearing Aid Opthamlomology History: Reports: Hx Contacts or Glasses Denies: Hx Cataracts Neurological History: Reports: Other Neuro Impairments/Disorders - epidural abscess Denies: Hx Dementia, Hx Seizures Psychiatric History: Reports: Hx Depression Denies: Hx Panic Disorder - Cancer History Cancer Type, Location and Year: tongue CA Hx Chemotherapy: Yes Hx Radiation Therapy: Yes - Surgical History Surgical History: Yes Surgery Procedure, Year, and Place: peg tube placement 04/04 [facility]. left hip replacement 2007 [facility] lumbar back surgery [facility]. left wrist orif. Trach Hx Anesthesia Reactions: No - Immunization History Date of Tetanus Vaccine: unk Date of Influenza Vaccine: utd Infectious Disease History: Yes Infectious Disease History: Reports: Hx of Known/Suspected MRSA Denies: Traveled Outside the [place] in Last 30 Days - Family History Known Family History: Positive: None - no malignant hyperthermia. no anesthesia reaction., Cardiac Disease, Other Family History: There is no documented family history of malignant hyperthermia or anesthesia reaction. There is a history of unspecified cancer in the father. - Social History Alcohol Use: None Hx Substance Use: No Substance Use Type: Reports: None Hx Tobacco Use: Yes Smoking Status (MU): Former Smoker Type: Cigarettes Length of Time of Smoking/Using Tobacco: 7 years Have You Smoked in the Last Year: No Review of Systems Negative: Fever Negative: Chest Pain Negative: Cough Negative: Abdominal Pain, Diarrhea, Other - NEGATIVE: constipation Negative: Other - NEGATIVE: leg pain, neck pain Negative: Headache All Other Systems Reviewed And Are Negative: Yes Physical Exam - Summary Physical Exam Summary: VITAL SIGNS: Reviewed. GENERAL: Patient is a well-developed and nourished male who is lying comfortable in the stretcher. Patient is not in any acute respiratory distress. HEAD AND FACE: No signs of trauma. No ecchymosis, hematomas or skull depressions. No sinus tenderness. EYES: PERRLA, EOMI x 2, No injected conjunctiva, no nystagmus. EARS: Hearing grossly intact. Ear canals and tympanic membranes are within normal limits. MOUTH: Oropharynx within normal limits. NECK: Supple, trachea is midline, no adenopathy, no JVD, no carotid bruit, no c- spine tenderness, neck with full ROM. Patient has a trach that is chronic. CHEST: Symmetric, no tenderness at palpation LUNGS: Clear to auscultation bilaterally. No wheezing or crackles. CVS: Regular rate and rhythm, S1 and S2 present, no murmurs or gallops appreciated. ABDOMEN: Soft, non-tender. No signs of distention. No rebound no guarding, and no masses palpated. Bowel sounds are normal. Patient has a PEG tube, which is patent. EXTREMITIES: FROM in all major joints, no edema, no cyanosis or clubbing. NEURO: Alert and oriented x 3. No acute neurological deficits. Speech is normal and follows commands. SKIN: Dry and warm Triage Information Reviewed: Yes Vital Signs On Initial Exam: Initial Vitals Temp Pulse Resp BP Pulse Ox 99.0 F 79 12 83/49 91 04/18/19 10:26 04/18/19 10:26 04/18/19 10:26 04/18/19 10:26 04/18/19 10:26 Vital Signs Reviewed: Yes Procedures - Sedation Patient Received Moderate/Deep Sedation with Procedure: No Diagnostics - Vital Signs Vital Signs Temp Pulse Resp BP Pulse Ox 04/18/19 10:26 99.0 F 79 12 83/49 91 - Laboratory Result Diagrams: 04/18/19 10:42 04/18/19 10:42 Lab Statement: Any lab studies that have been ordered have been reviewed, and results considered in the medical decision making process. - Radiology Chest XR Radiology Interpretation Completed By: Radiologist Summary of Radiographic Findings: IMPRESSION: Worsening density overlying the right upper and middle lobes which could be due to pneumonia or malignancy. Dr. Paula has reviewed this report. - EKG 10:52 Cardiac Rate: NL - at 78 bpm EKG Rhythm: Sinus Rhythm EKG Comparison: No Significant Change - similar to previous. Summary of EKG Findings: EKG at 1052 shows normal sinus rhythm at a rate of [address] elevations. Similar to previous EKG. This EKG was interpreted and reviewed by ED physician. Adult Trauma Course/Dx - Course Assessment/Plan: This patient is a 68 y/o male, with hx of throat CA, presenting to [facility] via EMS from home for fall x2 today. EMS reports the first time the patient fell the patient declined coming to the hospital. Per EMS the daughter was present and EMS left the scene. EMS notes they were called again to return after the patient fell a second time. Per EMS, during this time the patient agreed to come to the hospital. Patient denies any head strike, neck strike or LOC. Patient denies any complaints. He denies any pain, headache, neck pain, cough, leg pain, chest pain, diarrhea, constipation, fevers, abd pain. EMS reports patient had an initial blood pressure of 112/78 in a sitting position but blood pressure seemed to drop when standing up. EMS states patient is currently hypotensive with manual blood pressure in the 50s and 60s systolic. Per EMS patient was saturating between 70s-90s and EMS administered O2 NC. Patient does not use oxygen at home. EMS states family reported patient had been having increased mucous secretions from the trach. Patient reports he feeds through a PEG tube and is feeding well. Patient is not anticoagulated. Initially in the ED the patient is hypotensive therefore the patient was given IV fluids. Patient has no complaints. Blood work without a significant abnormality except for slight anemia with a hemoglobin of 10.6 and hematocrit of 31. Sodium is 128, chloride 95, BUN is 34, creatinine 1.68, alkaline phosphatase 141 and CRP 142.6. Chest x-ray shows a right upper lobe pneumonia. In the ED course the patient was given Rocephin and azithromycin for pneumonia. I discussed my physical exam and test results with Dr. Mccrary from the hospitalist services and he agrees to admit the patient to his services. The patient is hemodynamically stable, alert and oriented x 3. - Diagnoses Provider Diagnoses: Pneumonia - Physician Notifications Discussed Care Of Patient With: Lebron Staton - hospitalist Time Discussed With Above Provider: 13:30 Instructed by Provider To: Admit As Inpatient Discharge ED - Sign-Out/Discharge Documenting (check all that apply): Patient Departure - Admit to [facility] [place] - Discharge Plan Condition: Stable Disposition: ADMITTED TO [facility] - Billing Disposition and Condition Condition: STABLE Disposition: Admitted to [facility] - Attestation Statements Document Initiated by Scribe: Yes Documenting Scribe: Kay Gomez Provider For Whom Scribe is Documenting (Include Credential): Phil Paula MD Scribe Attestation: I, Kay Gomez, scribed for Phil Paula MD on 04/18/19 at 2131. Scribe Documentation Reviewed: Yes Provider Attestation: The documentation as recorded by the Kay ding accurately reflects the service I personally performed and the decisions made by me, Phil Paula MD Status of Scribe Document: Viewed
[2019-04-18 10:59] LABS: Hematocrit 31 % (42-52); Hemoglobin 10.6 g/dL (14.0-18.0); Mean Corpuscular HGB Conc 34 g/dL (31-36); Mean Corpuscular Hemoglobin 33 pg (27-31); Mean Corpuscular Volume 95 fL (80-94); Mean Platelet Volume 7.1 fL (7.4-10.4); Platelet Count 114 10^3/uL (150-450); Red Blood Count 3.24 10^6 /uL (4.18-5.48); Red Cell Distribution Width 17 % (10-15); White Blood Count 6.1 10^3/uL (3.5-10.8)
[2019-04-18 11:11] LABS: Albumin 3.6 g/dL (3.2-5.2); Albumin/Globulin Ratio 1.1 (1-3); BUN/Creatinine Ratio 20.2 (8-20); C Reactive Protein 142.64 mg/L (<8.01); EGFR African American 49.4 (>60); EGFR Non-African American 40.8 (>60); Globulin 3.4 g/dL (2-4); Potassium 4.6 mmol/L (3.5-5.0)
[2019-04-18 11:12] LABS: Troponin I 0.01 ng/mL (<0.03)
[2019-04-18 11:31] LABS: ABS Lymphocytes 0.2 10^3/ul (1.0-4.8); ABS Monocytes 0.4 10^3/ul (0-0.8); ABS Neutrophils 5.4 10^3/ul (1.5-7.7); Eosinophil % 0.1 %; Lymphocyte % 3.5 %
[2019-04-18] MEDS ORDERED: NS 0.9% 1000 ML** 1,000 ML IV ONE ×2 (12:03→14:48)
[2019-04-18] MEDS ORDERED: cefTRIAXone(*) 1 GM in NS 0.9% 50 ML* 50 ML IVPB ONE (12:04)
[2019-04-18 13:01] LABS: Influenza A Molecular Negative (Negative); Influenza B Molecular Negative (Negative)
[2019-04-18] MEDS ORDERED: Azithromycin 500 mg/250 ml NS 500 MG/250 ML BAG IVPB ONE (13:27)
[2019-04-18] MEDS ORDERED: Albuterol 2.5 MG/3 ML NEB.SOL* (0.083%) INH PRN (14:56)
[2019-04-18] MEDS ORDERED: NS 0.9% 1000 ML** 1,000 ML IV SCH (15:00)
[2019-04-18] MEDS ORDERED: traMADol TAB* 50 MG PEG TUBE PRN (15:03)
[2019-04-18] MEDS ORDERED: Ondansetron INJ* 2 MG/ML VIAL IV PRN (15:05)
[2019-04-18] MEDS ORDERED: Acetaminophen TAB* 325 MG PRN (15:05)
[2019-04-18] MEDS ORDERED: Azithromycin 500 mg/250 ml NS 500 MG/250 ML BAG IVPB SCH (17:00)
[2019-04-18] MEDS ORDERED: Meropenem 1 GM PREMIX(*) 1 GM/50 ML BAG IV SCH (19:30)
--- NOTE | 2019-04-18 20:04 | HP ---
CC: Dr. Kota Bernard * HISTORY AND PHYSICAL: DATE OF ADMISSION: 04/18/19 PROVIDER: Vinay Colvin NP. PRIMARY CARE PHYSICIAN: Kota Bernard MD. ATTENDING PHYSICIAN WHILE IN THE HOSPITAL: Dr. Lebron Staton * (report dictated by Vinay Colvin NP). CHIEF COMPLAINT: Dizziness. HISTORY OF PRESENT ILLNESS: Mr. 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 He arrives in the ER today with complaints of dizziness with near syncopal episode. The patient reports multiple falls today , EMS notified for both. After the first fall, the patient refused transport to ER. After the second fall, the patient agrees to transport with EMS with blood pressure of 62/38 per the family. The patient is ambulatory independently with a cane at home. However, he has had multiple falls recently. In February, he had at least 2 falls and earlier in March, he had a fall. Today, the patient had gotten up from bed ambulated in to the rest room about 15 feet. He became dizzy and fell. Denies head strike, denies loss of consciousness, complaints of dizziness only. Also denies fever at home denies increased SOB, denies increased mucous production or changes in mucous presentation. Expectorated mucous is light yellow in color and patient reports this as normal presentation. Presently, the patient is alert and oriented to self, place, and time. Denies any dizziness while lying in bed. He does report he gets dizzy while standing. While in the ER, the patient's blood pressures systolically have been in the 80s to low 90s and diastolic with 50s and 70s. The patient was treated with 1 L of normal saline without much effect. Chest x- rays have shown possible right upper lobe pneumonia. The patient denies any shortness of breath, chest pain, and was recently started on 2 L of oxygen via nasal cannula at night only. The patient is afebrile while in the ER and lactic acid was 1.3. The patient was admitted for sepsis in November 2018 related to pneumonia. PAST MEDICAL HISTORY: Significant for: 1. Head, neck and tongue cancer, status post chemoradiation completed in 2014. 2. Tracheostomy 3. PEG tube placement. 4. Hypothyroidism. 5. History of SIADH. 6. BPH. 7. Depression. PAST SURGICAL HISTORY: 1. Hip replacement with revision in 2014 for infection. 2. History of back surgery x2. 3. Tracheostomy. 4. PEG tube placement. 5. Paraspinal cervical spine abscess surgery. 6. Left wrist surgery x2. HOME MEDICATIONS: 1. Magnesium 400 mg via PEG tube daily. 2. Avodart 0.5 mg via PEG tube daily. 3. Lansoprazole 30 mg via PEG tube daily. 4. Tamsulosin 0.4 mg via PEG tube daily. 5. Midodrine 10 mg via PEG tube 3 times daily. 6. Levothyroxine 50 mcg via PEG tube daily. 7. Sertraline 20 mg via PEG tube daily. 8. Gabapentin 250 mg per 5 mL, 6 mL in the morning and 12 mL at bedtime. 9. Jevity 1.5 kcal liquid 474 mL via PEG tube 3 times daily. 10. Acetaminophen 650 mg every 6 hours as needed for pain. ALLERGIES: No known drug allergies. FAMILY HISTORY: Father at 88 years of age with OH. The patient's mother at 92 years of age with COPD, CHF, ovarian CA. SOCIAL HISTORY: The patient quit smoking at the age of 24. He smoked for a short period of time. Denies any alcohol or illicit drug use. The patient is . Surrogate decision maker is his , Amparo Gutierrez. The patient is a full code. REVIEW OF SYSTEMS: The patient denies any fevers or unintended weight loss. The patient denies any changes in vision or hearing. The patient does report dizziness with ambulation. The patient denies any shortness of breath or chest pain. Denies any abdominal pain. Reports last bowel movement 1 day ago. Denies hematochezia, denies difficulty urination, denies hematuria. The patient denies any numbness or tingling in any extremities. Denies any depression. The patient does have tracheostomy. PHYSICAL EXAMINATION GENERAL: Mr. Gutierrez is an elderly gentleman. He is alert and oriented, resting on stretcher in the emergency room, does not appear to be in any acute distress. VITAL SIGNS: Blood pressure 106/71, heart rate 60, respiratory rate 18, oxygen saturation 100% on room air. HEENT: Head is atraumatic, normocephalic. Eyes: EOMs intact. Sclerae anicteric, not pale. Oral mucosa is moist, limited visualization due to the patient's inability to open mouth. No oropharyngeal erythema observed. NECK: Supple. Tracheostomy site is without any drainage. He does not appear to have any signs of infection or irritation. CHEST: Lungs clear to auscultation bilaterally. No wheezes, rales or rhonchi. CARDIAC: Heart sounds S1, S2. Regular rate and rhythm. No murmurs, rubs or gallops. ABDOMEN: Soft, round and nontender. Bowel sounds are present x4 quadrants. PEG tube insertion site has redness at the insertion site, but no drainage noted , no irritation noted. EXTREMITIES: Pulses are 2+ throughout, moving all extremities with 5/5 strength. NEUROLOGIC: The patient is awake, alert to self, place and time. Screen Printing Loader Unloader are equal. The patient is unable to stick tongue out normally due to surgical history. Speech is normal to patient's baseline. Difficult to assess due to tracheostomy. There are no gross focal deficits. SKIN: Intact. DIAGNOSTIC STUDIES/LAB DATA: White blood cells 6.1, hemoglobin 10.6, hematocrit 31, platelet count 114. Sodium 128, potassium 4.6, chloride 95, carbon dioxide 25, BUN 34, creatinine 1.68, GFR 40.8, glucose 97, lactic acid 1.3, calcium 9.0. AST 38, ALT 30, alkaline phosphatase 141. Troponin 0.01, C- reactive protein 142.64. Flu A negative. Flu B negative. EKG: Normal sinus rhythm with a rate of 78, does not appear to have any evidence of ischemia. Has no ST elevations or T-wave inversions. Chest x-ray: Impression: Worsening density overlying the right upper and middle lobes, which could be due to pneumonia or malignancy. ASSESSMENT AND PLAN: Mr. Gutierrez is a 68-year-old gentleman coming to the ER today with complaints of dizziness and near syncopal episode. We are asked to evaluate because of hypotension and pneumonia. The patient will be admitted under inpatient status for: 1. Hypotension. The patient has received 1 L of normal saline in the ER. The patient will receive another bolus of 1000 cc and then maintenance fluid at 100 cc an hour. Mr. Gutierrez does have history of hypotension and is treated with Midodrine 10mg TID. Hypotension may also be related the combination of hyponatremia and volume depletion related to SIADH. Pt is asymptomatic while laying down, mentating well, presently the patient does not warrant vasopressors as he is mentating well, is perfusing extremities, +2 pulses noted in all extremities. And urine output is normal for patient. 2. Pneumonia. Chest x-ray showed possible pneumonia, infiltrates in the right upper lobe with middle lobe involvement. However, patient is asymptomatic being afebrile, negative for leukocytosis or increased cough. Pt does have rales in upper lobes bilaterally that clear with cough. Although patient is hypotensive he does not meet sepsis criteria with normal heart rate, respiratory rate, temperature, normal WBC count. Blood cultures have been sent and sputum cultures will be collected. This is likely early pneumonia, patient has history significant for extended spectrum beta-lactamase with Escherichia coli multiple times in sputum. This will be treated with meropenem IV 1gm every 12 hours and azithromycin 500mg IV Q 12 Hours. A consult with infectious disease has been ordered if needed on Saturday04/20/19. 3. Hyponatremia. Mr. Gutierrez appears to be chronically hyponatremic related to SIADH. The patient will be treated with infusions of normal saline. He received 1 bolus in the ER. We will continue with one more bolus of normal saline 1000 mL. The patient will continue with maintenance fluids of normal saline at 100 mL an hour. 4. Hypothyroidism. We will continue home dose of levothyroxine. 5. Benign prostatic hyperplasia. We will continue Flomax 0.4 mg and Avodart 0.5 mg. 6. Gastroesophageal reflux disease. Continue lansoprazole 30 mg via PEG tube daily. 7. FEN: The patient can have Jevity 1.5 kcal three times daily via PEG tube. 8. DVT prophylaxis: The patient will be on heparin subcu. 9. Code status: The patient is a full code. VINAY COLVIN, NUTRITION SERVICES ASSOCIATE [id number]/[facility] #: [id number] WILFRIDO
[2019-04-18] MEDS: Gabapentin CAP(*) 300 MG SCH (22:05)
[2019-04-18] MEDS: Meropenem 1 GM PREMIX(*) 1 GM/50 ML BAG IV SCH (22:12)
[2019-04-18] MEDS: Heparin VIAL(*) 5000 UNITS/ML VIAL (FIVE THOUSAND) SUBCUT SCH (22:12)
[2019-04-18] MEDS: Tamsulosin CAP* 0.4 MG PO SCH ×2 (22:18→22:24)
[2019-04-18] MEDS: Chlorhexidine MOUTHWASH 0.12%* 15 ML UDC SWISH SPIT SCH (22:27)
[2019-04-19] MEDS: Heparin VIAL(*) 5000 UNITS/ML VIAL (FIVE THOUSAND) SUBCUT SCH ×2 (05:34→14:31)
[2019-04-19] MEDS: Levothyroxine TAB* 50 MCG TAB PO SCH (05:34)
[2019-04-19 06:58] LABS: Urine Appearance Clear; Urine Bilirubin Negative (Negative); Urine Blood Negative (Negative); Urine Color Yellow; Urine Glucose Negative (Negative); Urine Ketones Negative (Negative); Urine Nitrite Negative (Negative); Urine Protein Negative (Negative); Urine Specific Gravity 1.012 (1.010-1.030); Urine Urobilinogen Negative (Negative)
[2019-04-19 07:31] LABS: Hematocrit 26 % (42-52); Mean Corpuscular HGB Conc 35 g/dL (31-36); Mean Corpuscular Hemoglobin 33 pg (27-31); Mean Corpuscular Volume 95 fL (80-94); Red Blood Count 2.72 10^6 /uL (4.18-5.48); Red Cell Distribution Width 17 % (10-15)
[2019-04-19 07:40] LABS: BUN/Creatinine Ratio 27.6 (8-20); Calcium 8.5 mg/dL (8.6-10.3); EGFR Non-African American 76.1 (>60)
[2019-04-19 08:13] LABS: TSH (Thyroid Stimulating Horm) 5.99 mcIU/mL (0.34-5.60)
[2019-04-19 08:29] LABS: Mean Platelet Volume 8.1 fL (7.4-10.4); Platelet Count 118 10^3/uL (150-450); White Blood Count 7.2 10^3/uL (3.5-10.8)
[2019-04-19 08:33] LABS: ABS Eosinophils 0.1 10^3/ul (0-0.6)
[2019-04-19] MEDS ORDERED: Lansoprazole SOLUTAB* 30 MG PEG TUBE SCH (09:00)
[2019-04-19] MEDS: Meropenem 1 GM PREMIX(*) 1 GM/50 ML BAG IV SCH (09:14)
[2019-04-19] MEDS: Chlorhexidine MOUTHWASH 0.12%* 15 ML UDC SWISH SPIT SCH ×3 (09:17→21:46)
[2019-04-19] MEDS: Magnesium Oxide TAB* 400 MG PO SCH (09:18)
[2019-04-19] MEDS: Gabapentin CAP(*) 300 MG SCH ×2 (09:18→21:46)
[2019-04-19] MEDS: Sertraline* 100 MG TAB PEG TUBE SCH (09:19)
[2019-04-19 09:29] LABS: Potassium 4.1 mmol/L (3.5-5.0)
[2019-04-19] MEDS ORDERED: Azithromycin 500 mg/250 ml NS 500 MG/250 ML BAG IVPB SCH (14:00)
[2019-04-19] MEDS: Lansoprazole SUSP* ORALSYR 3 MG/ML G TUBE SCH (14:43)
[2019-04-19] MEDS ORDERED: cefTRIAXone(*) 1 GM in NS 0.9% 50 ML* 50 ML IVPB SCH (15:00)
--- NOTE | 2019-04-19 16:52 | PN ---
Subjective Date of Service: 04/19/19 Interval History: Patient is feeling well today. Patient has an occasional cough. Patient did not feel SOB or dizzy when standing to go to the bathroom today. Patient denies CP, Dizziness, abdominal pain, diarrhea, N/V, dysuria, or other pain. Family History: Unchanged from Admission Social History: Unchanged from Admission Past Medical History: Unchanged from Admission Objective Active Medications: Acetaminophen (Tylenol Tab*) 650 mg .SEE ORDER Q4H PRN PRN Reason: PAIN - MILD Albuterol (Ventolin 2.5 Mg/3 Ml Neb.Pau*) 2.5 mg INH [id number] AWAKE PRN PRN Reason: sob/wheezing Last Admin: 04/18/19 21:57 Dose: 2.5 mg Chlorhexidine Gluconate (Peridex Mouth Wash 0.12%*) 15 ml SWISH SPIT TID [facility] Last Admin: 04/19/19 14:25 Dose: Not Given Gabapentin (Neurontin Cap(*)) 300 mg .SEE ORDER QAM [facility] Last Admin: 04/19/19 09:18 Dose: 300 mg Gabapentin (Neurontin Cap(*)) 600 mg .SEE ORDER BEDTIME [facility] Last Admin: 04/18/19 22:05 Dose: 600 mg Azithromycin (Zithromax 500 Mg/250 Ml) 500 mg in 250 mls @ 250 mls/hr IVPB Q24H [facility] Last Admin: 04/19/19 14:31 Dose: 250 mls/hr Ceftriaxone Sodium 1 gm/ (Sodium Chloride) 50 mls @ 100 mls/hr IVPB Q24H [facility] Last Admin: 04/19/19 15:52 Dose: 100 mls/hr Lansoprazole (Lansoprazole Susp* Oralsyr) 30 mg G TUBE DAILY [facility] Last Admin: 04/19/19 14:43 Dose: Not Given Levothyroxine Sodium (Synthroid Tab*) 50 mcg PO DAILY@0600 [facility] Last Admin: 04/19/19 05:34 Dose: 50 mcg Magnesium Oxide (Magox 400 Tab*) 400 mg PO DAILY [facility] Last Admin: 04/19/19 09:18 Dose: 400 mg Midodrine (Midodrine) 10 mg .SEE ORDER TID [facility] Last Admin: 04/19/19 14:31 Dose: 10 mg Ondansetron HCl (Zofran Inj*) 4 mg IV Q4H PRN PRN Reason: NAUSEA/VOMITING Sertraline HCl (Zoloft*) 100 mg PEG TUBE DAILY [facility] Last Admin: 04/19/19 09:19 Dose: 100 mg Tamsulosin HCl (Flomax Cap*) 0.4 mg PO QPM [facility] Last Admin: 04/18/19 22:24 Dose: 0.4 mg Tramadol HCl (Ultram*) 50 mg PEG TUBE Q6H PRN PRN Reason: PAIN - MODERATE Vital Signs - 8 hr 04/19/19 04/19/19 04/19/19 09:18 11:14 15:27 Temperature 97.6 F 97.7 F Pulse Rate 79 84 Respiratory 20 16 20 Rate Blood Pressure 96/54 135/73 (mmHg) O2 Sat by Pulse 96 99 Oximetry 04/19/19 04/19/19 15:29 15:31 Temperature Pulse Rate 91 92 Respiratory Rate Blood Pressure 141/76 140/72 (mmHg) O2 Sat by Pulse Oximetry Oxygen Devices in Use Now: Tracheostomy Collar Appearance: Patient is a 68yo male who appears stated age, has a tracheostomy, and is sitting in the bed in [facility]. Eyes: No Scleral Icterus, PERRLA Ears/Nose/Mouth/Throat: NL Teeth, Lips, Gums, Clear Oropharnyx, Mucous Membranes Moist Neck: NL Appearance and Movements; NL JVP, Trachea Midline, - - Tracheostomy Respiratory: Symmetrical Chest Expansion and Respiratory Effort, - - Rhonchi in RLL and RML Cardiovascular: NL Sounds; No Murmurs; No JVD, RRR, No Edema Abdominal: NL Sounds; No Tenderness; No Distention, No Hepatosplenomegaly Lymphatic: No Cervical Adenopathy Extremities: No Edema, No Clubbing, Cyanosis Skin: No Rash or Ulcers, No Nodules or Sclerosis Neurological: Alert and Oriented x 3, NL Sensation, NL Muscle Strength and Tone , - - CN II-XII intact. Result Diagrams: 04/20/19 05:36 04/20/19 05:36 Microbiology and Other Data: Microbiology 04/19/19 14:42 Gram Stain - Final Sputum Induced 04/19/19 06:45 Legionella Urinary Antigen - Final Urine Negative Legionella Antigen Streptococcus pneumoniae Ag Screen - Final Negative S. pneumo Antigen 04/18/19 12:43 Aerobic Blood Culture - Preliminary Blood Venous No Growth Day 1 Anaerobic Blood Culture - Preliminary No Growth Day 1 04/18/19 12:43 Aerobic Blood Culture - Preliminary Blood Venous No Growth Day 1 Anaerobic Blood Culture - Preliminary No Growth Day 1 04/18/19 12:40 Nasal Screen MRSA (PCR) - Final Nasal Mrsa Detected Assess/Plan/Problems-Billing Assessment: Patient is a 68yo male with a PMH for Head and Neck cancer, requiring tracheostomy, SIADH, here with hypotension and falls, improving with fluids. Patient has a questionable diagnosis of pneumonia and is on antibiotics. - Patient Problems (1) Pulmonary infiltrate Current Visit: Yes Status: Acute Code(s): R91.8 - OTHER NONSPECIFIC ABNORMAL FINDING OF LUNG FIELD SNOMED Code(s): 373083076 Comment: - Pulmonary Infiltrate on CXR and CT in almost same area as in 11/2018, without respiratory symptoms, unlikely to be pneumonia - Likely unresolved infiltrate vs underlying pulmonary pathology - Follow up outpatient oncologist for follow up imaging - Continue antibiotics for now Started on (Azithro and Ceftriaxone), narrow Meropenum to Ceftriaxone, follow sputum culture. (2) Hypotension Current Visit: Yes Status: Acute Comment: - Unclear why worsened, patient may have been dehydrated as this improved with fluids - No longer hypotensive or orthostatic - Stop fluids, recheck orthostatics in AM. - Continue Midodrine and consider Florinef if recurrent off fluids. (3) Anemia Current Visit: No Status: Acute Priority: High Onset Date: 05/30/15 Code (s): D64.9 - ANEMIA, UNSPECIFIED SNOMED Code(s): 637126225 Comment: - Acute (due to hemodilution) on chronic disease. - No evidence of acute bleeding (4) History of benign prostatic hypertrophy Current Visit: No Status: Acute Code(s): Z87.438 - PERSONAL HISTORY OF OTHER DISEASES OF MALE GENITAL ORGANS SNOMED Code(s): 367955827 Comment: - Continue Tamsulosin. - Consider trial discontinuation of medications due to hypotension (5) Hyponatremia Current Visit: No Status: Acute Onset Date: 10/15/14 Code(s): E87.1 - HYPO -OSMOLALITY AND HYPONATREMIA SNOMED Code(s): 66356708 Comment: - Prior h/o SIADH - Sodium improved with fluids, making this unlikely to be due to SIADH, more likely solute depletion. (6) Hypothyroid Current Visit: No Status: Acute Code(s): E03.9 - HYPOTHYROIDISM, UNSPECIFIED SNOMED Code(s): 64459260 Comment: - Continue Levothyroxine. - TSH 5.99 acceptable in absence of active symptoms. (7) Squamous cell carcinoma of tongue Current Visit: No Status: Chronic Code(s): C02.9 - MALIGNANT NEOPLASM OF TONGUE, UNSPECIFIED SNOMED Code(s): 113304225 Comment: - S/P resection, chemo, radiation. followed by Dr. Bernard. Currently in remission. - Continue tube feeding. (8) Tracheostomy in place Current Visit: No Status: Chronic Priority: Medium Code(s): Z93.0 - TRACHEOSTOMY STATUS SNOMED Code(s): 386967477 Comment: - Cont respiratory care and trach collar with supplemental O2 - Wean O2 patient is saturating well (9) DVT prophylaxis Current Visit: No Status: Acute Priority: Medium Code(s): NWU9537 - SNOMED Code(s): 903611901 Comment: - Lovenox (10) Full code status Current Visit: No Status: Acute Code(s): Z78.9 - OTHER SPECIFIED HEALTH STATUS SNOMED Code(s): 491764404 Status and Disposition: Observation, Hopeful D/C tomorrow.
[2019-04-19] MEDS ORDERED: Enoxaparin(*) 40 MG/0.4 ML SYR SUBCUT SCH (17:00)
[2019-04-19] MEDS: Tamsulosin CAP* 0.4 MG PO SCH (18:36)
[2019-04-20] MEDS: Levothyroxine TAB* 50 MCG TAB PO SCH (05:39)
[2019-04-20] MEDS: Chlorhexidine MOUTHWASH 0.12%* 15 ML UDC SWISH SPIT SCH ×2 (05:40→09:47)
[2019-04-20 05:48] LABS: ABS Eosinophils 0.1 10^3/ul (0-0.6); ABS Lymphocytes 0.5 10^3/ul (1.0-4.8); ABS Monocytes 0.4 10^3/ul (0-0.8); ABS Neutrophils 5.9 10^3/ul (1.5-7.7); Eosinophil % 1.1 %; Hematocrit 28 % (42-52); Hemoglobin 9.9 g/dL (14.0-18.0); Mean Corpuscular HGB Conc 36 g/dL (31-36); Mean Corpuscular Hemoglobin 34 pg (27-31); Mean Corpuscular Volume 94 fL (80-94); Mean Platelet Volume 6.9 fL (7.4-10.4); Platelet Count 126 10^3/uL (150-450); Red Blood Count 2.96 10^6 /uL (4.18-5.48); Red Cell Distribution Width 17 % (10-15); White Blood Count 6.9 10^3/uL (3.5-10.8)
[2019-04-20 06:04] LABS: Calcium 9.2 mg/dL (8.6-10.3); EGFR Non-African American 90.9 (>60); Magnesium 1.8 mg/dL (1.9-2.7); Potassium 3.9 mmol/L (3.5-5.0)
[2019-04-20] MEDS: Sertraline* 100 MG TAB PEG TUBE SCH (09:22)
[2019-04-20] MEDS: Magnesium Oxide TAB* 400 MG PO SCH (09:23)
[2019-04-20] MEDS: Gabapentin CAP(*) 300 MG SCH (09:26)
[2019-04-20] MEDS: Lansoprazole SUSP* ORALSYR 3 MG/ML G TUBE SCH (09:47)
[2019-04-20 10:55] VITALS: BP 131/74
--- NOTE | 2019-04-20 23:33 | DS ---
CC: Dr. Kota Bernard * DISCHARGE SUMMARY: DATE OF ADMISSION: 04/18/19 DATE OF DISCHARGE: 04/20/19 PRIMARY CARE PROVIDER: Dr. Kota Bernard. MY ATTENDING WHILE IN THE HOSPITAL: Dr. Colin Preciado.* (DICTATED BY SELIN GRAY) PRIMARY DISCHARGE DIAGNOSES: 1. Community-acquired pneumonia. 2. Hypotension. 3. Acute kidney injury, resolved. SECONDARY DISCHARGE DIAGNOSES: 1. History of head and neck cancer, status post resection, chemotherapy, and radiation. 2. Hypothyroidism. 3. Syndrome of inappropriate secretion of antidiuretic hormone. 4. Benign prostatic hyperplasia. 5. Depression. 6. History of cervical spinal abscess. 7. History of tracheostomy, PEG tube placement. 8. History of infected hip replacement. STUDIES DONE WHILE IN THE HOSPITAL: 1. Chest x-ray from 04/18/19, read as worsening density overlying the right upper middle lobe, which could be due to pneumonia or malignancy. 2. Chest CT from 04/18/19, read as there is significant predominant peripheral airspace opacity in the right upper lobe, less in the right lower lobe, additionally partial interstitial opacities, the location suspicious for pneumonitis finding malignancy that is possibly could not be completely excluded, slight size increase in mild mediastinal lymphadenopathy, stable cholelithiasis without pericholecystic inflammatory change. MEDICATIONS AT DISCHARGE: 1. Magnesium oxide 400 mg PEG tube daily. 2. Tamsulosin 0.4 mg PEG tube daily. 3. Sertraline 100 mg PEG tube daily. 4. Zopral 30 mg PEG tube daily. 5. Gabapentin 300 mg PEG tube daily. 6. Midodrine 10 mg PEG tube 3 times daily. 7. Chlorhexidine mouthwash 1 tablespoon p.o. t.i.d. 8. Synthroid 50 mcg PEG tube daily. 9. Tramadol 1 to 2 tablets PEG tube nightly. 10. Ventolin inhaler 2.5 mg inhalation q.4 hours as needed. 11. Gabapentin 600 mg PEG tube nightly. 12. Jevity 474 mL PEG tube t.i.d. 13. Tylenol 650 mg p.o. PEG tube q.4 hours as needed. 14. Zithromax 250 mg PEG tube daily x3 doses. 15. Cefuroxime 250 mg PEG tube b.i.d. x10 doses. New medications at discharge: 1. Tylenol. 2. Zithromax. 3. Cefuroxime. Medications discontinued at discharge: None. HOSPITAL COURSE: This is a brief summary of the patient's presentation. For more details, please see history and physical from Christiano Nguyen NP, on . In brief, the patient is a 68-year-old male with past medical history significant for above, who presented to the emergency department after several falls on the day of his admission with presyncopal episodes. The patient fell once. EMS was activated, he refused transport. The patient then fell second time, EMS was activated again, and he was found to have blood pressure of 62/38 in the field. The patient's only complaint was dizziness. He did not have increased mucus production, shortness of breath, cough, but he does have chronic respiratory symptoms related to profuse mucus production and coughing from his tracheostomy. The patient in the emergency room was found to have low blood pressures, was treated with normal saline. The patient was started on antibiotics for the above chest imaging findings as this was believed to be the cause of the patient's symptoms. The patient did not have any recent changes to medications or decrease in his oral or PEG tube intake. The patient in the hospital received approximately 5 L of fluid, but his output was not well followed. He did state that he was urinating very frequently. The patient had orthostatic vital signs on 04/19/19, which were negative. At that time, the patient's fluids were stopped. His midodrine was continued. The patient had repeat orthostatic vital signs on 04/20/19, which did show a 20-point drop in the systolic pressure sitting, lying to standing with no decrease in the diastolic, and no symptoms reported from the patient. The patient was able to be weaned off oxygen to room air. The patient on admission had an elevated creatinine at 1.68, which normalized with fluids. The patient was initially on meropenem and azithromycin because of a history of ESBL in his sputum; however, the patient has had several negative sputum cultures since then for ESBL and the patient was transitioned to ceftriaxone and azithromycin for community- acquired pneumonia and continued to improve on this. The patient on 04/20/19 was feeling well and felt anxious to go home. The patient was stable, amenable for discharge on 04/20/19. PHYSICAL EXAM ON THE DAY OF DISCHARGE: General: The patient is a 68-year-old male, who appears older than stated age, has a tracheostomy, sitting in the bed , in no acute distress. Vital Signs: At the time of evaluation, temperature 98.6, pulse rate 81, respiratory rate 22, oxygen 91% on room air, blood pressure 131/74. HEENT: Head is normocephalic, atraumatic. Sclerae anicteric. No conjunctival injection. Nasal mucosa moist. Oral mucosa moist. No oropharyngeal erythema, discharge, or exudate. Neck: Supple, nontender. No lymphadenopathy. No carotid bruit auscultated. Tracheostomy in place, was producing lanier sputum with no blood. Respiratory: Rhonchi heard throughout the right lung. No adventitious lung sounds. Good air exchange bilaterally. Abdomen: Soft, nontender, nondistended. Bowel sounds present and normoactive in all 4 quadrants. No hepatosplenomegaly. No abdominal bruits auscultated. No hepatojugular reflux. Genitourinary: No suprapubic or CVA tenderness. Cardiac: Regular rate and rhythm. No clicks, murmurs, gallops, or rubs. Pulses are +2 in the bilateral dorsalis pedis, posterior tibial, and radial pulses. Neuro: Cranial nerves II through XII intact. Alert and oriented x3. Psychiatric: Pleasant and cooperative. DISCHARGE PLAN BY PROBLEM: 1. Hypotension. The patient's hypotension was likely related to some degree of dehydration as well as inflammatory reaction from probable pneumonia. The patient's pneumonia is called into question by the fact that he did not have pulmonary respiratory symptoms and that his infiltrates are in similar pattern on chest x-ray when he was admitted with pneumonia in November of 2018. This could be related to incompletely treated pneumonia, a predisposition to pneumonia in these areas for some reason or a mass in these areas causing pneumonia nearby or as the primary cause of the patient's imaging findings. This was discussed with the patient's oncology team and after an appropriate interval, the patient will have a repeat CT scan to assess for resolution of these infiltrates. The patient at this time will be treated with 7 days of beta -lactam and 5 days of azithromycin as above. The patient's blood pressure has improved at this time. The patient does have positive orthostasis barely, but not symptomatic. If the patient is symptomatic again from orthostasis, discontinuation of tamsulosin should be considered due to its predilection for causing orthostatic hypotension. The patient should have a repeat BMP with his primary care provider within 1 week and should be assessed for his volume status frequently. Supplemental fluids per the PEG tube should be considered if the patient is having trouble staying hydrated. Continue the patient's midodrine at 10 mg 3 times a day. 2. NORIS. The patient's NORIS resolved with fluids, likely related to dehydration and/or systemic illness from his pneumonia. 3. Anemia, thrombocytopenia. These are chronic and stable since his chemotherapy treatment. 4. Hypothyroidism. The patient's TSH is 5.99. Continue the patient's levothyroxine at current dose. Follow up at appropriate interval. 5. History of head and neck cancer. Follow up with outpatient Oncology. DISPOSITION: Home. CONDITION AT THE TIME OF DISCHARGE: Stable. TIME SPENT: Approximately 60 minutes was spent on the discharge of this patient , 30 of which was spent [id number] with the patient obtaining history and physical and discussing treatment plan. SELIN GRAY [id number]/[facility] #: [id number] WILFRIDO
== END 2019-04-20 12:30 | disposition home or self-care (01) | DRG 178 ==
LOC: ED 10:25 → MEDTELE 14:33
PROVIDERS: ADMIT Internal Medicine; ATTEND Internal Medicine
DX: J15.5 Pneumonia due to Escherichia coli (principal); N17.9 Acute kidney failure, unspecified; E22.2 Syndrome of inappropriate secretion of antidiuretic hormone; D69.6 Thrombocytopenia, unspecified; I95.9 Hypotension, unspecified; C02.9 Malignant neoplasm of tongue, unspecified; E03.9 Hypothyroidism, unspecified; N40.0 Benign prostatic hyperplasia without lower urinary tract symptoms; F32.9 Major depressive disorder, single episode, unspecified; Z93.0 Tracheostomy status; D64.9 Anemia, unspecified; C76.0 Malignant neoplasm of head, face and neck; K21.9 Gastro-esophageal reflux disease without esophagitis; Z96.649 Presence of unspecified artificial hip joint; Z93.1 Gastrostomy status; Z92.21 Personal history of antineoplastic chemotherapy; Z92.3 Personal history of irradiation; Z79.899 Other long term (current) drug therapy; Z82.5 Family history of asthma and other chronic lower respiratory diseases; Z82.49 Family history of ischemic heart disease and other diseases of the circulatory system; Z80.41 Family history of malignant neoplasm of ovary; Z87.891 Personal history of nicotine dependence
CPT/HCPCS: 36415; 71046; 71250; 80048; 80053; 81003; 83605; 83735; 84443; 84484; 85025; 86140; 87040; 87070; 87077; 87186; 87205; 87641; 87899; 93005; 96365; 99285; A9270-GY; J0456; J0696; J1644; J1650; J2185

== ENCOUNTER 2019-08-12 21:13 | Inpatient (IN) ==
[2019-08-13] MEDS ORDERED: NS 0.9% 1000 ml BAG 1,000 ML IV SCH (00:15)
[2019-08-13] MEDS: Enoxaparin 30 MG/0.3 ML SYR(*) SUBCUT SCH ×2 (00:45→22:24)
[2019-08-13 06:14] LABS: ABS Lymphocytes 0.7 10^3/ul (1.0-4.8); ABS Monocytes 0.4 10^3/ul (0-0.8); Eosinophil % 0.2 %; Hematocrit 27 % (42-52); Hemoglobin 9.5 g/dL (14.0-18.0); Lymphocyte % 6.6 %; Mean Corpuscular HGB Conc 35 g/dL (31-36); Mean Corpuscular Hemoglobin 33 pg (27-31); Mean Corpuscular Volume 95 fL (80-94); Platelet Count 158 10^3/uL (150-450); Red Blood Count 2.89 10^6 /uL (4.18-5.48); Red Cell Distribution Width 16 % (10-15); White Blood Count 10.3 10^3/uL (3.5-10.8)
[2019-08-13 06:47] LABS: BUN/Creatinine Ratio 22.1 (8-20); Calcium 8.7 mg/dL (8.6-10.3); EGFR African American 58.4 (>60); EGFR Non-African American 48.3 (>60); Potassium 4.4 mmol/L (3.5-5.0)
[2019-08-13 07:52] LABS: C Reactive Protein 165.66 mg/L (<8.01)
[2019-08-13] MEDS: Azithromycin 500 mg/250 ml NS 500 MG/250 ML BAG IVPB SCH (09:08)
[2019-08-13] MEDS ORDERED: Piperacillin/Tazobac ADVAN(*) 3.375 GM in NS 0.9% 100 ml BAG 100 ML IVPB ONE (09:40)
[2019-08-13] MEDS ORDERED: Zosyn per Pharmacy NOTE FOLLOW UP SCH (10:00)
[2019-08-13] MEDS: Lansoprazole SUSP ORALSYR 3 MG/ML PEG TUBE SCH (11:30)
[2019-08-13] MEDS: ZOSYN 3.375 GM Q8H per EXTENDED INFUSION IV SCH ×2 (16:01→22:49)
[2019-08-13] MEDS ORDERED: cefTRIAXone 1 gm/50 mL NS BAG 1 GM/50 ML BAG IVPB SCH (18:00)
[2019-08-14] MEDS: ZOSYN 3.375 GM Q8H per EXTENDED INFUSION IV SCH ×2 (07:45→15:28)
[2019-08-14] MEDS: Azithromycin 500 mg/250 ml NS 500 MG/250 ML BAG IVPB SCH (08:44)
[2019-08-14 09:21] LABS: ABS Eosinophils 0.1 10^3/ul (0-0.6); ABS Lymphocytes 0.9 10^3/ul (1.0-4.8); ABS Monocytes 0.3 10^3/ul (0-0.8); Eosinophil % 0.6 %; Hematocrit 28 % (42-52); Hemoglobin 9.9 g/dL (14.0-18.0); Lymphocyte % 9.4 %; Mean Corpuscular HGB Conc 35 g/dL (31-36); Mean Corpuscular Hemoglobin 33 pg (27-31); Mean Corpuscular Volume 94 fL (80-94); Mean Platelet Volume 6.7 fL (7.4-10.4); Platelet Count 171 10^3/uL (150-450); Red Blood Count 3.01 10^6 /uL (4.18-5.48); Red Cell Distribution Width 16 % (10-15); White Blood Count 9.3 10^3/uL (3.5-10.8)
[2019-08-14 09:36] LABS: BUN/Creatinine Ratio 17.9 (8-20); Calcium 9.2 mg/dL (8.6-10.3); EGFR African American 78.7 (>60); Potassium 3.9 mmol/L (3.5-5.0)
[2019-08-14] MEDS: Lansoprazole SUSP ORALSYR 3 MG/ML PEG TUBE SCH (09:54)
[2019-08-14] MEDS: Enoxaparin 30 MG/0.3 ML SYR(*) SUBCUT SCH (20:24)
[2019-08-15] MEDS: ZOSYN 3.375 GM Q8H per EXTENDED INFUSION IV SCH ×2 (00:48→08:53)
[2019-08-15 07:20] LABS: BUN/Creatinine Ratio 20.4 (8-20); C Reactive Protein 91.68 mg/L (<8.01); Calcium 9.3 mg/dL (8.6-10.3); EGFR Non-African American 67.8 (>60); Potassium 4.2 mmol/L (3.5-5.0)
[2019-08-15] MEDS: Azithromycin 500 mg/250 ml NS 500 MG/250 ML BAG IVPB SCH (08:54)
[2019-08-15] MEDS: Lansoprazole SUSP ORALSYR 3 MG/ML PEG TUBE SCH (09:21)
[2019-08-15 10:48] VITALS: BP 129/69
== END 2019-08-15 12:20 | disposition home or self-care (01) | DRG 871 ==
LOC: ED 21:13 → MED 21:13
PROVIDERS: ADMIT Hospitalist; ATTEND Internal Medicine